=== PATIENT | male | born 1985 | race Two or more races ===

== ENCOUNTER 2016-07-05 18:15 | Emergency (ER) | payer SELFPAY ==
[~2016-07-05] VITALS: Ht 165.1 cm; Wt 63.5 kg
[2016-07-05 18:19] VITALS: BP 144/90
== END 2016-07-06 05:36 | disposition left against medical advice (07) ==
LOC: EDBD 18:15 → EDUNIT# 18:15 → ER 18:17
DX: R10.9 Unspecified abdominal pain (principal); M79.1 Myalgia; V89.2XXA Person injured in unspecified motor-vehicle accident, traffic, initial encounter; Y93.89 Activity, other specified; Y99.8 Other external cause status; Y92.89 Other specified places as the place of occurrence of the external cause; Z53.21 Procedure and treatment not carried out due to patient leaving prior to being seen by health care provider

== ENCOUNTER 2016-07-24 05:19 | Emergency (ER) | payer SELFPAY ==
[~2016-07-24] VITALS: Ht 162.6 cm; Wt 65.8 kg
[2016-07-24] MEDS ORDERED: SODIUM CHLORIDE 0.9% 1,000 ML IV ONE (08:10)
[2016-07-24 09:18] VITALS: BP 124/81
== END 2016-07-24 09:25 | disposition home or self-care (01) ==
LOC: ER 05:19
DX: F10.129 Alcohol abuse with intoxication, unspecified (principal); R40.1 Stupor; R42 Dizziness and giddiness
CPT/HCPCS: 70450; 93005; 96360

== ENCOUNTER 2016-09-28 13:03 | Emergency (ER) | payer SELFPAY ==
[~2016-09-28] VITALS: Ht 172.7 cm; Wt 72.6 kg
[2016-09-28] MEDS ORDERED: THIAMINE HCL 100 MG/ML 2ML VIAL ONE (13:40)
[2016-09-28 14:28] VITALS: BP 124/86
[2016-09-29] MEDS ORDERED: THIAMINE INJ 100 MG, MULTIPLE VITAMIN 10 ML, FOLIC ACID 1 MG, MAGNESIUM SULF SDV 50% 8 ... IV ONE ×5 (14:30)
== END 2016-09-28 19:00 | disposition home or self-care (01) ==
LOC: ER 13:03 → EDBD 13:03 → ER 19:00
DX: F10.120 Alcohol abuse with intoxication, uncomplicated (principal)
CPT/HCPCS: 96365; 96366

== ENCOUNTER 2017-01-19 20:58 | Emergency (ER) | payer MEDICAID ==
[~2017-01-19] VITALS: Ht 170.2 cm; Wt 77.1 kg
[2017-01-19 21:05] VITALS: BP 149/87
== END 2017-01-19 22:50 | disposition left against medical advice (07) ==
LOC: EDBD 20:58 → ER 21:00
DX: F10.10 Alcohol abuse, uncomplicated (principal); Z53.21 Procedure and treatment not carried out due to patient leaving prior to being seen by health care provider

== ENCOUNTER 2017-02-24 17:57 | Emergency (ER) | payer MEDICAID ==
[~2017-02-24] VITALS: Ht 162.6 cm; Wt 65.8 kg
[2017-02-24 18:10] VITALS: BP 147/94
[2017-02-24 19:13] LABS: Basophils # (auto) 0 uL; Basophils % (auto) 1.2 % (0.0-2.0); Eosinophils # (auto) 0 uL; Eosinophils % (auto) 0.4 % (0.0-7.0); Hematocrit 40.9 % (41.0-53.0); Hemoglobin 13.8 g/dL (13.5-17.5); Lymphocytes # (auto) 0.8 uL; Lymphocytes % (auto) 21.9 % (10.0-50.0); Mean Corpuscular Hemoglobin 33.9 pg (28.0-32.0); Mean Corpuscular Hgb Conc. 33.7 g/dL (32.0-36.0); Mean Corpuscular Volume 100.6 fL (80.0-100.0); Mean Platelet Volume 9.5 fL (6.9-10.8); Monocytes # (auto) 0.4 uL; Monocytes % (auto) 10.1 % (0.0-12.0); Neutrophils # (auto) 2.4 uL; Neutrophils % (auto) 66.4 % (37.0-80.0); Nucleated Red Blood Cells % 0.2 %; Platelet Count (auto) 95 10^3/uL (140-450); Red Cell Distribution Width 14.3 % (11.8-14.3); White Blood Cell 3.6 10^3/uL (4.4-10.8)
[2017-02-24 19:26] LABS: Albumin 4.2 g/dL (3.4-5.0); BUN/Creatinine Ratio 3.7; Calcium 11.2 mg/dL (8.5-10.1); Potassium 3.4 mmol/L (3.5-5.1)
[2017-02-24 19:28] LABS: Bilirubin, Total 0.7 mg/dL (0.2-1.0); Lactic Acid w/Reflex 8.7 mmol/L (0.4-2.0); Total Protein 8.9 g/dL (6.4-8.2)
[2017-02-24 19:49] LABS: REFLEX LACTIC ACID YES OR NO YES
[2017-02-24 21:20] LABS: Macrocytosis Slight; Platelet Estimate Decreased
== END 2017-02-24 20:31 | disposition left against medical advice (07) ==
LOC: EDBD 17:57 → ER 18:07
DX: F10.239 Alcohol dependence with withdrawal, unspecified (principal); R56.9 Unspecified convulsions; S00.512A Abrasion of oral cavity, initial encounter; W19.XXXA Unspecified fall, initial encounter; Y93.89 Activity, other specified; Y99.8 Other external cause status; Y92.89 Other specified places as the place of occurrence of the external cause
CPT/HCPCS: 36415; 70450; 80053; 80320; 83605; 85025; 93005

== ENCOUNTER 2017-04-13 10:07 | Emergency (ER) | payer MEDICAID ==
[~2017-04-13] VITALS: Ht 157.5 cm; Wt 69.9 kg
[2017-04-13 10:21] VITALS: BP 143/72
== END 2017-04-13 11:00 | disposition left against medical advice (07) ==
LOC: ER 10:07
DX: M54.5 Low back pain (principal); Z53.21 Procedure and treatment not carried out due to patient leaving prior to being seen by health care provider

== ENCOUNTER 2017-06-01 12:34 | Emergency (ER) | payer MEDICAID ==
[~2017-06-01] VITALS: Ht 152.4 cm; Wt 65.8 kg
[2017-06-01 12:48] VITALS: BP 127/82
[2017-06-01] MEDS ORDERED: SODIUM CHLORIDE 0.9% 1,000 ML IVB ONE (13:30)
== END 2017-06-01 20:22 | disposition left against medical advice (07) ==
LOC: EDBD 12:34 → ER 12:38
DX: F10.129 Alcohol abuse with intoxication, unspecified (principal); I25.2 Old myocardial infarction; Z53.29 Procedure and treatment not carried out because of patient's decision for other reasons
CPT/HCPCS: 36415; 80320; 96360; 99284; J7030

== ENCOUNTER 2017-06-19 13:07 | Emergency (ER) | payer MEDICAID ==
[~2017-06-19] VITALS: Ht 165.1 cm; Wt 72.6 kg
[2017-06-19 13:22] VITALS: BP 140/83
== END 2017-06-19 14:02 | disposition home or self-care (01) ==
LOC: EDBD 13:07 → EDUNIT# 13:07 → ER 13:07
DX: F10.129 Alcohol abuse with intoxication, unspecified (principal)

== ENCOUNTER 2017-06-24 18:51 | Emergency (ER) | payer MEDICAID ==
[~2017-06-24] VITALS: Ht 165.1 cm; Wt 68.0 kg
[2017-06-24] MEDS ORDERED: SODIUM CHLORIDE 0.9% 1,000 ML IV ONE (19:17)
[2017-06-24 20:04] VITALS: BP 145/87
== END 2017-06-24 21:11 | disposition home or self-care (01) ==
LOC: EDBD 18:51 → ER 18:58
DX: F10.129 Alcohol abuse with intoxication, unspecified (principal)
CPT/HCPCS: 36415; 80320; 94761; 96360; 99284; J7030

== ENCOUNTER 2017-07-06 06:50 | Inpatient (IN) | payer MEDICAID ==
[~2017-07-06] VITALS: Ht 162.6 cm; Wt 72.5 kg
[2017-07-06 07:54] LABS: Eosinophils # (auto) 0 uL; Eosinophils % (auto) 0.4 % (0.0-7.0); Hemoglobin 12.5 g/dL (13.5-17.5); Lymphocytes # (auto) 0.4 uL; Nucleated Red Blood Cells % 0.1 %; White Blood Cell 2.8 10^3/uL (4.4-10.8)
[2017-07-06 07:56] LABS: Basophils # (auto) 0 uL; Basophils % (auto) 1.3 % (0.0-2.0); Hematocrit 36.9 % (41.0-53.0); Lymphocytes % (auto) 12.5 % (10.0-50.0); Mean Corpuscular Hemoglobin 33.1 pg (28.0-32.0); Mean Corpuscular Hgb Conc. 33.9 g/dL (32.0-36.0); Mean Corpuscular Volume 97.6 fL (80.0-100.0); Monocytes # (auto) 0.3 uL; Monocytes % (auto) 9.4 % (0.0-12.0); Neutrophils # (auto) 2.2 uL; Neutrophils % (auto) 76.4 % (37.0-80.0); Platelet Count (auto) 32 10^3/uL (140-450); Red Blood Cells 3.78 10^6/uL (4.5-5.90); Red Cell Distribution Width 14.3 % (11.8-14.3)
[2017-07-06] MEDS ORDERED: SODIUM CHLORIDE 0.9% 1,000 ML IV ONE ×2 (08:00→08:57)
[2017-07-06 08:04] LABS: INR 0.92 (0.9-1.15); Partial Thromboplastin Time 23.8 sec (22.64-33.71)
[2017-07-06 08:11] LABS: Alanine Aminotransferase 80 U/L (16-61); Albumin 3.9 g/dL (3.4-5.0); Anion Gap 8 (5-15); Aspartate Aminotransferase 206 U/L (15-37); BUN/Creatinine Ratio 7.8; Blood Alcohol < 3.0 mg/dL (0-5); Blood Urea Nitrogen 7 mg/dL (7-18); Calcium 9.3 mg/dL (8.5-10.1); Carbon Dioxide 27 mmol/L (21-32); Chloride 100 mmol/L (98-107); GFR African American 127 mL/min; GFR Non-African American 105 mL/min; Glucose 115 mg/dL (74-106); Magnesium 1.7 mg/dL (1.6-2.6); Sodium 135 mmol/L (136-145)
[2017-07-06 08:16] LABS: Alkaline Phosphatase 176 U/L (45-117); Total Protein 8.2 g/dL (6.4-8.2)
[2017-07-06] MEDS ORDERED: LORazepam 2MG/ML-1ML VIAL ONE (10:54)
[2017-07-06 11:04] LABS: Urine Bacteria NONE SEEN /hpf (None Seen); Urine Blood Negative /uL (Negative); Urine Specific Gravity 1.004 (1.001-1.035); Urine WBC <1 /hpf (0 - 3)
[2017-07-06 11:13] LABS: Alcohol, Urine < 3.0 mg/dL (0-5); Amphetamine Screen, Urine NEGATIVE (NEGATIVE); Barbiturate Scree,Urine NEGATIVE (NEGATIVE); Benzodiazephine Screen, Urine NEGATIVE (NEGATIVE); Cannabinoid Screen, Urine NEGATIVE (NEGATIVE); Cocaine Screen, Urine NEGATIVE (NEGATIVE); Opiate Scree,Urine NEGATIVE (NEGATIVE); Phencyclidine Screen, Urine NEGATIVE (NEGATIVE)
[2017-07-06] MEDS ORDERED: chlordiazePOXIDE HCL 25 MG CAP PO PRN (12:30)
[2017-07-06] MEDS ORDERED: ONDANSETRON HCL 4 MG/2 ML VIAL IV PRN (12:30)
[2017-07-06] MEDS ORDERED: LORazepam 2MG/ML-1ML VIAL IV PRN (12:30)
[2017-07-06] MEDS ORDERED: MORPHINE SULFATE 4 MG/ML SYR/VIAL IV PRN (12:30)
[2017-07-06] MEDS ORDERED: traMADol HCL 50 MG TAB PO PRN (12:30)
[2017-07-06] MEDS ORDERED: PANTOPRAZOLE 40 MG TAB PO ONE ×2 (13:00→14:15)
[2017-07-06] MEDS: THIAMINE INJ 100 MG, MULTIPLE VITAMIN 10 ML, FOLIC ACID 1 MG, MAGNESIUM SULF SDV 50% 8 ... IV SCH ×5 (13:43)
[2017-07-06] MEDS ORDERED: GABAPENTIN 300 MG CAP PO ONE (14:15)
[2017-07-06] MEDS: MAGNESIUM SULFATE 1GM/100ML 100 ML IV SCH ×2 (15:27→18:00)
[2017-07-06 20:46] VITALS: BP 139/73
[2017-07-06 21:43] VITALS: BP 139/73
[2017-07-06] MEDS: GABAPENTIN 300 MG CAP PO SCH (22:23)
[2017-07-07] MEDS: SODIUM CHLORIDE 0.9% 1,000 ML IV SCH ×4 (00:15→20:15)
[2017-07-07] MEDS: chlordiazePOXIDE HCL 25 MG CAP PO PRN ×4 (01:06→20:15)
[2017-07-07 05:00] VITALS: BP 131/79
[2017-07-07] MEDS: GABAPENTIN 300 MG CAP PO SCH ×3 (05:36→22:07)
[2017-07-07 07:00] LABS: Basophils # (auto) 0 uL; Eosinophils # (auto) 0 uL; Lymphocytes # (auto) 0.8 uL; Monocytes # (auto) 0.4 uL
[2017-07-07 07:02] LABS: Basophils % (auto) 0.8 % (0.0-2.0); Eosinophils % (auto) 0.6 % (0.0-7.0); Hematocrit 36.6 % (41.0-53.0); Hemoglobin 12.3 g/dL (13.5-17.5); Lymphocytes % (auto) 21.7 % (10.0-50.0); Mean Corpuscular Hemoglobin 33.4 pg (28.0-32.0); Mean Corpuscular Hgb Conc. 33.7 g/dL (32.0-36.0); Mean Corpuscular Volume 98.9 fL (80.0-100.0); Monocytes % (auto) 10.9 % (0.0-12.0); Neutrophils # (auto) 2.4 uL; Nucleated Red Blood Cells % 0.2 %; Platelet Count (auto) 29 10^3/uL (140-450); Red Cell Distribution Width 14.6 % (11.8-14.3); White Blood Cell 3.6 10^3/uL (4.4-10.8)
[2017-07-07 07:13] LABS: Albumin 3.6 g/dL (3.4-5.0); Bilirubin, Total 1.2 mg/dL (0.2-1.0); Calcium 8.9 mg/dL (8.5-10.1); Magnesium 2.7 mg/dL (1.6-2.6); Phosphorus 3.5 mg/dL (2.5-4.90); Potassium 3.1 mmol/L (3.5-5.1)
[2017-07-07 09:10] VITALS: BP 148/77
[2017-07-07] MEDS ORDERED: PANTOPRAZOLE 40 MG TAB PO SCH ×2 (10:00)
[2017-07-07] MEDS ORDERED: POTASSIUM CHLORIDE 40 MEQ, LIDOCAINE 1% (LOCAL ANESTH.) 4 ML in SODIUM CHL 0.9% 100 ML IV ONE (10:15)
[2017-07-07] MEDS ORDERED: THIAMINE INJ 100 MG, MULTIPLE VITAMIN 10 ML, FOLIC ACID 1 MG, MAGNESIUM SULF SDV 50% 8 ... IV SCH ×5 (12:00)
[2017-07-07 12:56] VITALS: BP_SYST 102; BP_SYST 115; BP_DIAS 56; BP_DIAS 60
[2017-07-07] MEDS: THIAMINE INJ 100 MG, MULTIPLE VITAMIN 10 ML, FOLIC ACID 1 MG, MAGNESIUM SULF SDV 50% 8 ... IV SCH ×5 (13:53)
[2017-07-07 17:00] VITALS: BP 124/68
[2017-07-07 22:00] VITALS: BP 138/95
[2017-07-08] MEDS: chlordiazePOXIDE HCL 25 MG CAP PO PRN (03:56)
[2017-07-08 05:05] VITALS: BP 144/69
[2017-07-08] MEDS: GABAPENTIN 300 MG CAP PO SCH (05:57)
[2017-07-08] MEDS: SODIUM CHLORIDE 0.9% 1,000 ML IV SCH (06:15)
[2017-07-08 07:16] LABS: Calcium 9.5 mg/dL (8.5-10.1); Potassium 3.4 mmol/L (3.5-5.1)
[2017-07-08 07:19] LABS: Albumin 4.2 g/dL (3.4-5.0); BUN/Creatinine Ratio 7.7
[2017-07-08 07:22] LABS: Bilirubin, Total 1.1 mg/dL (0.2-1.0); Total Protein 8.7 g/dL (6.4-8.2)
[2017-07-08 07:27] LABS: Basophils # (auto) 0 uL; Eosinophils # (auto) 0.1 uL; Lymphocytes # (auto) 1.5 uL; Monocytes # (auto) 0.6 uL; White Blood Cell 5.5 10^3/uL (4.4-10.8)
[2017-07-08 07:30] LABS: Basophils % (auto) 0.8 % (0.0-2.0); Eosinophils % (auto) 1.9 % (0.0-7.0); Hematocrit 38.6 % (41.0-53.0); Lymphocytes % (auto) 27.2 % (10.0-50.0); Mean Corpuscular Hemoglobin 33.3 pg (28.0-32.0); Mean Corpuscular Hgb Conc. 33.7 g/dL (32.0-36.0); Mean Corpuscular Volume 98.8 fL (80.0-100.0); Monocytes % (auto) 10.2 % (0.0-12.0); Neutrophils # (auto) 3.3 uL; Neutrophils % (auto) 59.9 % (37.0-80.0); Nucleated Red Blood Cells % 0.2 %; Platelet Count (auto) 50 10^3/uL (140-450); Red Cell Distribution Width 14.4 % (11.8-14.3)
== END 2017-07-08 08:00 | disposition left against medical advice (07) | DRG 770 ==
LOC: ER 06:50 → EDBD 06:50 → OVERFLOW 06:51 → WEST WING 19:50
PROVIDERS: ADMIT Internal Medicine; ATTEND Internal Medicine
DX: F10.231 Alcohol dependence with withdrawal delirium (principal); G93.41 Metabolic encephalopathy; G40.909 Epilepsy, unspecified, not intractable, without status epilepticus; Z53.21 Procedure and treatment not carried out due to patient leaving prior to being seen by health care provider; Z91.19 Patient's noncompliance with other medical treatment and regimen
CPT/HCPCS: 36415; 70450; 71045; 80053; 80307; 80320; 81001; 82962; 83735; 84100; 84484; 85025; 85610; 85730; 93005; 96361; 96374; J2001

== ENCOUNTER 2017-08-02 16:52 | Emergency (ER) | payer MEDICAID ==
[~2017-08-02] VITALS: Ht 162.6 cm; Wt 68.0 kg
[2017-08-02] MEDS ORDERED: SODIUM CHLORIDE 0.9% 1,000 ML IVB ONE (17:53)
[2017-08-02 19:45] VITALS: BP 129/84
== END 2017-08-02 19:49 | disposition home or self-care (01) ==
LOC: EDBD 16:52 → ER 16:52
DX: F10.129 Alcohol abuse with intoxication, unspecified (principal)
CPT/HCPCS: 36415; 80320

== ENCOUNTER 2017-08-16 14:11 | Emergency (ER) | payer MEDICAID ==
[~2017-08-16] VITALS: Ht 167.6 cm; Wt 74.8 kg
[2017-08-16 14:15] VITALS: BP 122/87
[2017-08-16 15:00] LABS: Basophils # (auto) 0 uL; Basophils % (auto) 1.3 % (0.0-2.0); Eosinophils # (auto) 0.1 uL; Eosinophils % (auto) 1.9 % (0.0-7.0); Hematocrit 38.3 % (41.0-53.0); Hemoglobin 12.8 g/dL (13.5-17.5); Lymphocytes # (auto) 1.4 uL; Mean Corpuscular Hemoglobin 31.9 pg (28.0-32.0); Mean Corpuscular Hgb Conc. 33.3 g/dL (32.0-36.0); Mean Corpuscular Volume 95.5 fL (80.0-100.0); Monocytes # (auto) 0.2 uL; Monocytes % (auto) 7.5 % (0.0-12.0); Neutrophils # (auto) 1.3 uL; Neutrophils % (auto) 42.3 % (37.0-80.0); Nucleated Red Blood Cells % 0.1 %; Platelet Count (auto) 125 10^3/uL (140-450); Red Blood Cells 4.01 10^6/uL (4.5-5.90); Red Cell Distribution Width 14.8 % (11.8-14.3)
[2017-08-16 15:19] LABS: Albumin 4.1 g/dL (3.4-5.0); BUN/Creatinine Ratio 13.2; Calcium 8.7 mg/dL (8.5-10.1)
[2017-08-16 15:22] LABS: Bilirubin, Total 0.3 mg/dL (0.2-1.0); Total Protein 8.5 g/dL (6.4-8.2)
== END 2017-08-16 22:28 | disposition left against medical advice (07) ==
LOC: ER 14:11 → EDBD 14:11 → ER 22:28
DX: R10.9 Unspecified abdominal pain (principal); Z53.21 Procedure and treatment not carried out due to patient leaving prior to being seen by health care provider
CPT/HCPCS: 36415; 80053; 85025

== ENCOUNTER 2017-08-27 01:08 | Emergency (ER) | payer MEDICAID ==
[~2017-08-27] VITALS: Ht 162.6 cm; Wt 77.1 kg
[2017-08-27 04:48] VITALS: BP 133/93
== END 2017-08-27 05:54 | disposition home or self-care (01) ==
LOC: EDBD 01:08 → ER 01:08
DX: B35.4 Tinea corporis (principal)

== ENCOUNTER 2017-11-01 17:05 | Emergency (ER) | payer MEDICAID ==
[~2017-11-01] VITALS: Ht 165.1 cm; Wt 81.6 kg
[2017-11-01] MEDS ORDERED: SODIUM CHLORIDE 0.9% 1,000 ML IVB ONE (17:37)
[2017-11-01] MEDS ORDERED: LORazepam 2MG/ML-1ML VIAL IV ONE (17:45)
[2017-11-01 18:03] LABS: Basophils # (auto) 0 uL; Eosinophils # (auto) 0 uL; Eosinophils % (auto) 0.4 % (0.0-7.0); Lymphocytes # (auto) 0.3 uL; Lymphocytes % (auto) 10.1 % (10.0-50.0); Neutrophils % (auto) 84.2 % (37.0-80.0)
[2017-11-01 18:05] LABS: Basophils % (auto) 0.7 % (0.0-2.0); Hematocrit 33.9 % (41.0-53.0); Hemoglobin 11.6 g/dL (13.5-17.5); Mean Corpuscular Hemoglobin 33.2 pg (28.0-32.0); Mean Corpuscular Hgb Conc. 34.1 g/dL (32.0-36.0); Mean Corpuscular Volume 97.4 fL (80.0-100.0); Monocytes # (auto) 0.2 uL; Monocytes % (auto) 4.6 % (0.0-12.0); Neutrophils # (auto) 2.8 uL; Red Blood Cells 3.48 10^6/uL (4.5-5.90); Red Cell Distribution Width 15.9 % (11.8-14.3); White Blood Cell 3.3 10^3/uL (4.4-10.8)
[2017-11-01 18:22] LABS: Platelet Count (auto) 45 10^3/uL (140-450)
[2017-11-01 18:34] LABS: Albumin 3.7 g/dL (3.4-5.0); BUN/Creatinine Ratio 9.2; Bilirubin, Total 0.4 mg/dL (0.2-1.0); Calcium 8.3 mg/dL (8.5-10.1); Potassium 4.1 mmol/L (3.5-5.1); Total Protein 7.6 g/dL (6.4-8.2)
[2017-11-01] MEDS ORDERED: chlordiazePOXIDE HCL 25 MG CAP PO ONE (19:30)
[2017-11-01 19:50] VITALS: BP 138/86
== END 2017-11-01 19:58 | disposition home or self-care (01) ==
LOC: ER 17:05 → EDUNIT# 17:05 → EDBD 17:05 → ER 19:58
DX: F41.9 Anxiety disorder, unspecified (principal); F10.230 Alcohol dependence with withdrawal, uncomplicated; R56.9 Unspecified convulsions
CPT/HCPCS: 36415; 80053; 80320; 85025; 96374; 99284; J2060; J7030

== ENCOUNTER 2018-02-17 20:58 | Emergency (ER) | payer MEDICAID ==
[~2018-02-17] VITALS: Ht 170.2 cm; Wt 72.6 kg
[2018-02-17 21:39] LABS: Eosinophils # (auto) 0 uL; Monocytes # (auto) 0.4 uL; Platelet Count (auto) 86 10^3/uL (140-450)
[2018-02-17 21:48] LABS: Basophils # (auto) 0 uL; Basophils % (auto) 0.9 % (0.0-2.0); Hematocrit 38.2 % (41.0-53.0); Hemoglobin 12.8 g/dL (13.5-17.5); Lymphocytes % (auto) 20.5 % (10.0-50.0); Mean Corpuscular Hemoglobin 31.8 pg (28.0-32.0); Mean Corpuscular Hgb Conc. 33.6 g/dL (32.0-36.0); Mean Corpuscular Volume 94.7 fL (80.0-100.0); Neutrophils # (auto) 3.5 uL; Neutrophils % (auto) 69.6 % (37.0-80.0); Nucleated Red Blood Cells % 0.1 %; Red Blood Cells 4.03 10^6/uL (4.5-5.90); Red Cell Distribution Width 16.7 % (11.8-14.3)
[2018-02-17 21:54] LABS: Albumin 3.7 g/dL (3.4-5.0); BUN/Creatinine Ratio 11.9; Calcium 8.2 mg/dL (8.5-10.1); Potassium 3.7 mmol/L (3.5-5.1)
[2018-02-17 21:57] LABS: Bilirubin, Total 0.3 mg/dL (0.2-1.0); Total Protein 8.6 g/dL (6.4-8.2)
[2018-02-18 00:47] VITALS: BP 125/84
== END 2018-02-18 07:35 | disposition left against medical advice (07) ==
LOC: ER 20:58
DX: R10.9 Unspecified abdominal pain (principal); Z53.21 Procedure and treatment not carried out due to patient leaving prior to being seen by health care provider
CPT/HCPCS: 36415; 74176; 80053; 82150; 83690; 85025

== ENCOUNTER 2018-03-22 01:11 | Emergency (ER) | payer MEDICAID ==
[~2018-03-22] VITALS: Ht 162.6 cm; Wt 81.6 kg
[2018-03-22 01:55] LABS: Hematocrit 41.6 % (41.0-53.0); Hemoglobin 13.6 g/dL (13.5-17.5); Mean Corpuscular Hemoglobin 31.2 pg (28.0-32.0); Mean Corpuscular Hgb Conc. 32.7 g/dL (32.0-36.0); Mean Corpuscular Volume 95.4 fL (80.0-100.0); Platelet Count (auto) 142 10^3/uL (140-450); Red Blood Cells 4.35 10^6/uL (4.5-5.90); Red Cell Distribution Width 18.2 % (11.8-14.3); White Blood Cell 3.7 10^3/uL (4.4-10.8)
[2018-03-22 01:59] LABS: Band Neutrophils % (manual) 0; Basophils % (manual) 0 (0.0-2.0); Blast Cells 0; Eosinophils % (manual) 0 (0-7); Metamyelocytes % 0; Myelocytes % 0; Promyelocytes % 0
[2018-03-22 02:11] LABS: Lymphocytes % (manual) 66 (10.0-50.0); Monocytes % (manual) 3 (0-12)
[2018-03-22 02:12] LABS: Reactive Lymphocytes 2
[2018-03-22 02:15] LABS: Alanine Aminotransferase 44 U/L (16-61); Albumin 4.1 g/dL (3.4-5.0); Anion Gap 11 (5-15); Aspartate Aminotransferase 103 U/L (15-37); BUN/Creatinine Ratio 8.1; Blood Urea Nitrogen 6 mg/dL (7-18); Calcium 8.5 mg/dL (8.5-10.1); Carbon Dioxide 26 mmol/L (21-32); Chloride 107 mmol/L (98-107); GFR African American 159 mL/min; GFR Non-African American 131 mL/min; Glucose 78 mg/dL (74-106); Magnesium 2.3 mg/dL (1.6-2.6); Potassium 3.8 mmol/L (3.5-5.1); Sodium 144 mmol/L (136-145)
[2018-03-22 02:20] LABS: Alkaline Phosphatase 142 U/L (45-117); Bilirubin, Total 0.3 mg/dL (0.2-1.0); Total Protein 8.8 g/dL (6.4-8.2)
[2018-03-22] MEDS ORDERED: LORazepam 0.5 MG TAB PO ONE (06:45)
[2018-03-22] MEDS ORDERED: SODIUM CHLORIDE 0.9% 2,000 ML IV ONE (07:45)
[2018-03-22 10:59] VITALS: BP 99/43
== END 2018-03-22 11:04 | disposition home or self-care (01) ==
LOC: EDBD 01:11 → ER 01:14
DX: F10.20 Alcohol dependence, uncomplicated (principal)
CPT/HCPCS: 36415; 71045; 80053; 80320; 83735; 84484; 85007; 85027; 93005; 99285; J7030

== ENCOUNTER 2018-05-27 12:11 | Emergency (ER) | payer MEDICAID ==
[~2018-05-27] VITALS: Ht 162.6 cm; Wt 65.8 kg
[2018-05-27] MEDS ORDERED: SODIUM CHLORIDE 0.9% 1,000 ML IV ONE (12:12)
[2018-05-27] MEDS ORDERED: KETOROLAC TROMETH 30 MG/ML 1ML VIAL IV ONE (12:15)
[2018-05-27 12:23] VITALS: BP 140/82
== END 2018-05-27 13:42 | disposition left against medical advice (07) ==
LOC: EDBD 12:11 → ER 12:36
DX: F10.129 Alcohol abuse with intoxication, unspecified (principal); R07.89 Other chest pain
CPT/HCPCS: 94761

== ENCOUNTER 2018-07-16 18:51 | Emergency (ER) | payer MEDICAID ==
[~2018-07-16] VITALS: Ht 162.6 cm; Wt 69.9 kg
[2018-07-16 19:33] LABS: Basophils # (auto) 0 uL; Basophils % (auto) 1.5 % (0.0-2.0); Eosinophils # (auto) 0 uL; Eosinophils % (auto) 0.9 % (0.0-7.0); Hematocrit 44.9 % (41.0-53.0); Hemoglobin 14.8 g/dL (13.5-17.5); Lymphocytes # (auto) 1.1 uL; Lymphocytes % (auto) 37.9 % (10.0-50.0); Mean Corpuscular Hemoglobin 31.9 pg (28.0-32.0); Mean Corpuscular Hgb Conc. 33.1 g/dL (32.0-36.0); Mean Corpuscular Volume 96.6 fL (80.0-100.0); Monocytes # (auto) 0.3 uL; Neutrophils # (auto) 1.5 uL; Neutrophils % (auto) 50.7 % (37.0-80.0); Nucleated Red Blood Cells % 0.1 %; Platelet Count (auto) 117 10^3/uL (140-450); Red Blood Cells 4.65 10^6/uL (4.5-5.90); White Blood Cell 2.9 10^3/uL (4.4-10.8)
[2018-07-16 19:56] LABS: Albumin 4.2 g/dL (3.4-5.0); BUN/Creatinine Ratio 10.4; Calcium 8.8 mg/dL (8.5-10.1); Potassium 4.3 mmol/L (3.5-5.1)
[2018-07-16 20:00] LABS: Bilirubin, Total 0.2 mg/dL (0.2-1.0); Total Protein 9.3 g/dL (6.4-8.2)
[2018-07-16] MEDS ORDERED: SODIUM CHLORIDE 0.9% 1,000 ML IV ONE (20:00)
[2018-07-16] MEDS ORDERED: THIAMINE HCL 100 MG TAB PO ONE (20:30)
[2018-07-16] MEDS ORDERED: MAGNESIUM OXIDE 400 MG TAB PO ONE (20:30)
[2018-07-16] MEDS ORDERED: FOLIC ACID 1 MG TAB PO ONE (20:30)
[2018-07-16] MEDS ORDERED: MVI in SODIUM CHLORIDE 0.9% 1,010 ML ONE (20:41)
[2018-07-16 23:11] LABS: Urine WBC None Seen /hpf (0 - 3)
[2018-07-16 23:30] LABS: Urine Bacteria NONE SEEN /hpf (None Seen); Urine Blood Negative /uL (Negative); Urine Specific Gravity 1.009 (1.001-1.035)
[2018-07-16 23:46] LABS: Amphetamine Screen, Urine NEGATIVE (NEGATIVE); Barbiturate Scree,Urine NEGATIVE (NEGATIVE); Benzodiazephine Screen, Urine NEGATIVE (NEGATIVE); Cannabinoid Screen, Urine NEGATIVE (NEGATIVE); Opiate Scree,Urine NEGATIVE (NEGATIVE); Phencyclidine Screen, Urine NEGATIVE (NEGATIVE)
[2018-07-16 23:55] LABS: Cocaine Screen, Urine NEGATIVE (NEGATIVE)
[2018-07-17 00:41] LABS: Albumin 3.5 g/dL (3.4-5.0); BUN/Creatinine Ratio 7.2; Calcium 7.5 mg/dL (8.5-10.1)
[2018-07-17 00:48] LABS: Bilirubin, Total 0.1 mg/dL (0.2-1.0); Blood Alcohol 389.5 mg/dL (0-5)
[2018-07-17 01:15] VITALS: BP 129/88
[2018-07-17] MEDS ORDERED: SODIUM CHLORIDE 0.9% 1,000 ML IV ONE (02:00)
[2018-07-17] MEDS ORDERED: MULTIPLE VITAMIN 10 ML in SODIUM CHLORIDE 0.9% 1,000 ML IV SCH (12:00)
[2018-07-17] MEDS ORDERED: MULTIPLE VITAMIN 10 ML, MAGNESIUM SULF SDV 50% 8 MEQ in SODIUM CHLORIDE 0.9% 1,000 ML IV SCH (12:00)
== END 2018-07-17 07:30 | disposition home or self-care (01) ==
LOC: EDBD 18:51 → ER 18:51
DX: G92 Toxic encephalopathy (principal); F10.129 Alcohol abuse with intoxication, unspecified
CPT/HCPCS: 36415; 80053; 80307; 80320; 81001; 85025; 96365; 99284; J3411; J3475; J7030

== ENCOUNTER 2018-08-29 14:00 | Emergency (ER) | payer MEDICAID ==
[~2018-08-29] VITALS: Ht 160 cm; Wt 68.0 kg
[2018-08-29 17:02] VITALS: BP 119/80
== END 2018-08-29 17:03 | disposition home or self-care (01) ==
LOC: ER 14:00 → EDBD 14:00 → ER 17:03
DX: S40.022A Contusion of left upper arm, initial encounter (principal); S40.021A Contusion of right upper arm, initial encounter; F10.10 Alcohol abuse, uncomplicated; X58.XXXA Exposure to other specified factors, initial encounter; Y93.89 Activity, other specified; Y92.89 Other specified places as the place of occurrence of the external cause; Y99.8 Other external cause status

== ENCOUNTER 2018-11-17 15:09 | Emergency (ER) | payer MEDICAID ==
[~2018-11-17] VITALS: Ht 167.6 cm; Wt 56.7 kg
[2018-11-17] MEDS ORDERED: SODIUM CHLORIDE 0.9% 1,000 ML IVB ONE (15:20)
[2018-11-17] MEDS ORDERED: THIAMINE 100mg/ml INJ (200mg/2ml VIAL) IV ONE (15:30)
[2018-11-17] MEDS ORDERED: SODIUM CHLORIDE 0.9% 2,000 ML IV ONE (17:45)
[2018-11-17 19:12] LABS: Albumin 4.1 g/dL (3.4-5.0); BUN/Creatinine Ratio 9.8; Calcium 8.4 mg/dL (8.5-10.1); Potassium 4.4 mmol/L (3.5-5.1)
[2018-11-17 19:17] LABS: Bilirubin, Total 0.4 mg/dL (0.2-1.0); Total Protein 8.6 g/dL (6.4-8.2)
[2018-11-17 20:50] LABS: Basophils # (auto) 0 uL; Eosinophils # (auto) 0 uL; Lymphocytes # (auto) 0.8 uL; Monocytes # (auto) 0.3 uL; Monocytes % (auto) 11.7 % (0.0-12.0); Neutrophils # (auto) 1.2 uL; Nucleated Red Blood Cells % 0.1 %; Platelet Count (auto) 72 10^3/uL (140-450)
[2018-11-17 20:57] LABS: Basophils % (auto) 1.2 % (0.0-2.0); Eosinophils % (auto) 1.2 % (0.0-7.0); Hematocrit 35.3 % (41.0-53.0); Hemoglobin 11.9 g/dL (13.5-17.5); Lymphocytes % (auto) 35.7 % (10.0-50.0); Mean Corpuscular Hemoglobin 33.6 pg (28.0-32.0); Mean Corpuscular Hgb Conc. 33.6 g/dL (32.0-36.0); Mean Corpuscular Volume 99.8 fL (80.0-100.0); Neutrophils % (auto) 50.2 % (37.0-80.0); Red Blood Cells 3.54 10^6/uL (4.5-5.90); Red Cell Distribution Width 14.9 % (11.8-14.3); White Blood Cell 2.3 10^3/uL (4.4-10.8)
[2018-11-17] MEDS ORDERED: SODIUM CHLORIDE 0.9% 1,000 ML IV ONE (21:45)
[2018-11-18 01:17] VITALS: BP 117/78
== END 2018-11-18 01:20 | disposition home or self-care (01) ==
LOC: EDBD 15:09 → ER 15:13
DX: F10.10 Alcohol abuse, uncomplicated (principal)
CPT/HCPCS: 36415; 70450; 72125; 80053; 80320; 85025; 96374; 99284; J3411; J7030

== ENCOUNTER 2018-11-18 12:08 | Inpatient (IN) | payer MEDICAID ==
[~2018-11-18] VITALS: Ht 165.1 cm; Wt 66.0 kg
--- NOTE | 2018-11-18 10:25 | NUR ---
IV insertion IV access obtained, via clean sterile technique by inserting 22 gauge catheters at the left and right hand after 2 attempt(s). IV secured properly. No trauma to site. Patient tolerated well. Addendum: 11/19/18 at 0632 by Ignacio Resendiz RN Wrong time. Actual time at 2225.
[2018-11-18] MEDS ORDERED: SODIUM CHLORIDE 0.9% 1,000 ML IV ONE ×3 (12:24→15:46)
[2018-11-18] MEDS ORDERED: ONDANSETRON HCL 4 MG/2 ML VIAL IV ONE (12:30)
[2018-11-18] MEDS ORDERED: THIAMINE 100mg/ml INJ (200mg/2ml VIAL) IV ONE ×2 (12:30→17:00)
[2018-11-18] MEDS ORDERED: chlordiazePOXIDE HCL 5 MG CAP PO ONE ×2 (13:00→13:15)
[2018-11-18] MEDS ORDERED: LORazepam 2MG/ML-1ML VIAL ONE (15:44)
[2018-11-18] MEDS ORDERED: LORazepam 2MG/ML-1ML VIAL IV ONE (15:45)
[2018-11-18] MEDS ORDERED: FOLIC ACID 1 MG, MULTIPLE VITAMIN 10 ML, MAGNESIUM SULF SDV 50% 8 MEQ, THIAMINE INJ 100... INJ ONE ×5 (16:00)
[2018-11-18 16:29] LABS: Basophils # (auto) 0.1 uL; Basophils % (auto) 0.8 % (0.0-2.0); Eosinophils # (auto) 0 uL; Hematocrit 38.6 % (41.0-53.0); Hemoglobin 12.8 g/dL (13.5-17.5); Lymphocytes # (auto) 0.9 uL; Lymphocytes % (auto) 11.3 % (10.0-50.0); Mean Corpuscular Hemoglobin 33.5 pg (28.0-32.0); Mean Corpuscular Hgb Conc. 33.2 g/dL (32.0-36.0); Mean Corpuscular Volume 100.8 fL (80.0-100.0); Monocytes # (auto) 0.5 uL; Monocytes % (auto) 6.6 % (0.0-12.0); Neutrophils # (auto) 6.7 uL; Neutrophils % (auto) 81.3 % (37.0-80.0); Platelet Count (auto) 67 10^3/uL (140-450); Red Blood Cells 3.83 10^6/uL (4.5-5.90); White Blood Cell 8.2 10^3/uL (4.4-10.8)
[2018-11-18 16:34] LABS: Albumin 3.8 g/dL (3.4-5.0); Calcium 8.2 mg/dL (8.5-10.1); Potassium 3.3 mmol/L (3.5-5.1)
[2018-11-18 16:37] LABS: BUN/Creatinine Ratio 3.4; Bilirubin, Total 0.7 mg/dL (0.2-1.0)
[2018-11-18] MEDS ORDERED: MORPHINE SULFATE 4 MG/ML SYR/VIAL IV PRN (17:00)
[2018-11-18] MEDS ORDERED: LORazepam 2MG/ML-1ML VIAL IV PRN (17:00)
[2018-11-18] MEDS ORDERED: LACTULOSE 20Gm/30ML SOLN PO PRN (17:00)
[2018-11-18] MEDS ORDERED: traMADol HCL 50 MG TAB PO PRN (17:00)
[2018-11-18] MEDS ORDERED: NITROGLYCERIN 0.4 MG SL TAB SL PRN (17:00)
[2018-11-18] MEDS ORDERED: MORPHINE SULF INJ 2 MG/ML SYRINGE 1ML IV PRN (17:00)
[2018-11-18] MEDS ORDERED: chlordiazePOXIDE HCL 25 MG CAP PO PRN (17:00)
[2018-11-18] MEDS ORDERED: PROMETHAZINE HCL 25 MG/ML 1ML IV PRN (17:00)
[2018-11-18] MEDS: SOD CHL 0.9%/ KCL 40MEQ 1,000 ML IV SCH (17:06)
[2018-11-18] MEDS: LORazepam 2MG/ML-1ML VIAL IV PRN (17:27)
[2018-11-18] MEDS: chlordiazePOXIDE HCL 25 MG CAP PO SCH ×2 (17:42→23:53)
--- NOTE | 2018-11-18 18:20 | NUR ---
RECEIVED REPORT FROM SEMICONDUCTORS WAFER BREAKER.
--- NOTE | 2018-11-18 18:35 | NUR ---
Telemetry admit from ER RUBIO HDZ admitted to Telemetry unit after SBAR received. Patient oriented to MAYTE MONTES, RN primary RN, unit, room, bed, and unit policies regarding patient care and visiting hours. Patient now on continuous telemetry monitoring. PT weighed by bed scale and encouraged to call if they need something. All questions and concerns addressed, patient confused. PT UNAWARE THAT HE IS IN THE HOSPITAL AND FOR THE REASON HE IS ADMITTED. PT IS ANXIOUS AND WANTS TO GET OUT OF BED. PT BED ALARM SET.
--- NOTE | 2018-11-18 19:30 | NUR ---
Closing shift note. PT RESTING IN BED EATING DINNER. NO S/S OF DISTRESS OR SOB. REINFORCED EDUCATION ON THE IMPORTANCE OF THE PT STAYING IN BED. BED ALARM ON AND CLERICAL SPECIALIST RN GIVEN REPORT AND NOTIFIED OF PT CONFUSION AND WANTING TO GET OUT OF BED.
--- NOTE | 2018-11-18 19:30 | NUR ---
Opening Shift Note Assumed care of patient, awake and alert x2. Patient reoriented to place and situation, patient did not verbalize understanding. No S/S of distress/SOB noted. Patient denies pain at this time. Instructed on plan of care and to call for assistance as needed. Bed is locked in lowest position, side rails x 3 are up, call light is within reach, and bed alarm is on.
--- NOTE | 2018-11-18 19:40 | NUR ---
PATIENT REORIENTED After bed alarm went off and upon entering room, patient was noted standing up from bed and was noted to push the code blue button. Code blue button was cancelled and patient was reoriented to person, place, time, and situation. Patient was assisted back into bed. Patient was noted to have both IV's from right forearm and left AC out. Patient is laying in bed with even and unlabored breathing. No S/S of distress/SOB noted. Patient was reeducated to stay in bed and call for assistance as needed. Bed is locked in lowest position, side rails x 3 are up, call light is within reach, and bed alarm is on.
--- NOTE | 2018-11-18 20:30 | NUR ---
IV INSERTION UNSUCCESSFUL This RN attempted to insert IV, but attempt was unsuccessful. Roshni RN also attempted to insert IV but was unsuccessful. Charge Nurse notified and will attempt at a later time.
--- NOTE | 2018-11-18 21:30 | NUR ---
ENDORSED PATIENT CARE TO IGNACIO DIXON Patient is laying in bed with even and unlabored breathing. No S/S of distress/SOB noted. Bed is locked in lowest position, side rails x 3 are up, call light is within reach, bed alarm is on, and sitter noted at bedside for safety precautions. Patient care endorsed to Ignacio DIXON.
--- NOTE | 2018-11-18 21:35 | NUR ---
PATIENT RECEIVED FROM [place] Patient has been transferred from [facility]. Report has been received from Lyndsey DIXON. The patient awake, alert and oriented x3. No S/S of distress/SOB or pain noted. Instructed on POC and to call for assist PRN, will continue to monitor for changes Q1hr and PRN. Bed is locked at lowest position with bed alarm set. Sitter is present in room.
[2018-11-18 22:00] VITALS: BP 134/87
--- NOTE | 2018-11-18 22:25 | NUR ---
IV insertion IV access obtained, via clean sterile technique by inserting 22 gauge catheters at the left and right hand after 2 attempt(s). IV secured properly. No trauma to site. Patient tolerated well.
--- NOTE | 2018-11-19 04:15 | NUR ---
SECURITY CALLED The patient stated that he wanted to leave the hospital and began putting on his clothes. He demanded that he was disconnected from the IV pump. Patient is still confused and will not sit back down in bed. When asked why he wanted to leave he stated " I need a drink". Security has been called.
--- NOTE | 2018-11-19 04:24 | NUR ---
SECURITY ARRIVED Security arrived at the patient's room. The patient stated that he wanted to leave so that he could drink beer. He then stated that he will stay and will not leave.
--- NOTE | 2018-11-19 04:29 | NUR ---
REFUSAL The patient is refusing to wear his tele box and is refusing IV fluids. The patient has been educated about the tele box and IV fluids. He states that he can not get any sleep with the box because he gets "tangled in the cords."
[2018-11-19 05:00] VITALS: BP 130/74
[2018-11-19] MEDS: SOD CHL 0.9%/ KCL 40MEQ 1,000 ML IV SCH ×2 (06:01→12:02)
[2018-11-19] MEDS: chlordiazePOXIDE HCL 25 MG CAP PO SCH ×2 (06:06→12:01)
--- NOTE | 2018-11-19 07:00 | NUR ---
CLOSING NOTE Care has been endorsed to Maggi DIXON.
--- NOTE | 2018-11-19 07:20 | NUR ---
Opening Shift Note Received report from Domi DIXON. Assumed care of patient, asleep. No S/S of distress/SOB or pain. Sitter at bedside. Noted patient not hooked to IV fluids, and tele box due to refusal despite importance/ indications explained. Instructed on POC and to call for assist PRN, will continue to monitor for changes Q1hr and PRN.
[2018-11-19 09:00] VITALS: BP 127/96
--- NOTE | 2018-11-19 09:50 | NUR ---
URINE SAMPLE OBTAINED, SENT TO LAB FOR UA AND CULTURE.
[2018-11-19] MEDS ORDERED: THIAMINE 100mg/ml INJ (200mg/2ml VIAL) IV SCH (10:00)
[2018-11-19] MEDS ORDERED: PANTOPRAZOLE 40 MG TAB PO SCH (10:00)
[2018-11-19 10:04] LABS: Urine WBC None Seen /hpf (0 - 3)
--- NOTE | 2018-11-19 10:30 | NUR ---
IV removal Noted IV not flushing well on right hand, IV DC'd with clean sterile technique, catheter fully intact. Pressure dressing applied to site. Patient tolerated well.
[2018-11-19 10:41] LABS: Alcohol, Urine < 3.0 mg/dL (0-5); Amphetamine Screen, Urine NEGATIVE (NEGATIVE); Barbiturate Scree,Urine NEGATIVE (NEGATIVE); Benzodiazephine Screen, Urine POSITIVE (NEGATIVE); Cannabinoid Screen, Urine NEGATIVE (NEGATIVE); Cocaine Screen, Urine NEGATIVE (NEGATIVE); Opiate Scree,Urine NEGATIVE (NEGATIVE); Phencyclidine Screen, Urine NEGATIVE (NEGATIVE)
[2018-11-19 10:49] LABS: Urine Bacteria NONE SEEN /hpf (None Seen); Urine Blood Negative /uL (Negative); Urine Specific Gravity 1.003 (1.001-1.035)
[2018-11-19 11:49] LABS: Hematocrit 40.7 % (41.0-53.0); Hemoglobin 13.8 g/dL (13.5-17.5); Mean Corpuscular Hemoglobin 33.4 pg (28.0-32.0); Mean Corpuscular Hgb Conc. 33.9 g/dL (32.0-36.0); Mean Corpuscular Volume 98.6 fL (80.0-100.0); Platelet Count (auto) 60 10^3/uL (140-450); Red Blood Cells 4.13 10^6/uL (4.5-5.90); Red Cell Distribution Width 14.8 % (11.8-14.3); White Blood Cell 3.9 10^3/uL (4.4-10.8)
[2018-11-19 11:58] LABS: Basophils % (manual) 0 (0.0-2.0); Blast Cells 0; Metamyelocytes % 0; Myelocytes % 0; Promyelocytes % 0; Reactive Lymphocytes 0
--- NOTE | 2018-11-19 12:00 | NUR ---
DR. Henry at bedside.
[2018-11-19 12:03] LABS: Albumin 3.9 g/dL (3.4-5.0); Calcium 9.3 mg/dL (8.5-10.1); Potassium 3.2 mmol/L (3.5-5.1)
[2018-11-19 12:06] LABS: BUN/Creatinine Ratio 4.2; Bilirubin, Total 1.4 mg/dL (0.2-1.0); Total Protein 8.5 g/dL (6.4-8.2)
[2018-11-19 13:00] VITALS: BP 122/89
--- NOTE | 2018-11-19 15:25 | NUR ---
PATIENT IS AGITATED AGAIN, REMOVED TELE BOX AND DISCONNECTED HIMSELF FROM IV FLUIDS. CALLED [facility] THAT PATIENT IS OFF TELE FOR NOW. IV STILL PATENT AND INTACT.
[2018-11-19] MEDS: LORazepam 2MG/ML-1ML VIAL IV PRN (15:26)
--- NOTE | 2018-11-19 16:35 | NUR ---
PATIENT IS MORE AGITATED THIS TIME, STILL CONFUSED AND SAYING "I'LL JUST GO ACROSS THE STREET TO BUY ALCOHOL". NURSE EXPLAINED THAT HE IS IN THE HOSPITAL. PATIENT LOOKS MORE CONFUSED SAYING THAT HE'S BEEN IN THE HOSPITAL FOR WEEKS NOW AND COMPLAINING THAT HIS SITTER IS ONLY "13 YEARS OLD". PAGED HOSPITALIST AND FAMILY MEMBER TO UPDATE PATIENT'S STATUS. PATIENT INSISTED THAT HE WANTS TO GO HOME. PAGED SECURITY.
--- NOTE | 2018-11-19 16:45 | NUR ---
SECURITY PERSONNEL AT BEDSIDE. APRIL CASTELLANOS AT BEDSIDE, NURSE AND YANG MAYO. EXPLAINED TO PATIENT THE AMA TO GO HOME THE RISKS AND BENEFITS. PATIENT CHOSE TO GO HOME AMA, PATIENT SIGNED THE AMA FORM.
[2018-11-19 17:00] VITALS: BP 132/90
--- NOTE | 2018-11-19 17:00 | NUR ---
INFORMED HOSPITALIST PEBBLES THAT PATIENT REFUSED EVERYTHING EVEN MEDS AND WANTED TO GO HOME, SIGNED THE AMA FORM.
--- NOTE | 2018-11-19 17:02 | NUR ---
TELEMETRY MONITORING BOX AND IV CATHETER REMOVED. PATIENT TOLERATED WELL.
--- NOTE | 2018-11-19 17:04 | NUR ---
CALLED PATIENT'S SISTER THAT PATIENT LEFT AMA. EXPLAINED WHAT HAPPENED AND THEY AGREED TO LET THE PATIENT GO HOME.
--- NOTE | 2018-11-19 17:05 | NUR ---
AMA Note RUBIO HDZ states they want to leave the hospital Against Medical Advice (AMA). Patient encouraged to stay for further treatment/stabilization. MELVIN ROGEL WEDGER MACHINE notified of patient's wishes. Patient advised of the risks and benefits of leaving AMA. Patient verbalized understanding. Patient assisted by security staff, patient went home ambulatory with steady gait. Patient encouraged to return to the ER if symptoms do not improve or worsen.
[2018-11-19 18:33] LABS: Band Neutrophils % (manual) 4; Eosinophils % (manual) 1 (0-7); Lymphocytes % (manual) 10 (10.0-50.0); Monocytes % (manual) 8 (0-12)
== END 2018-11-19 17:05 | disposition left against medical advice (07) | DRG 53 ==
LOC: EDBD 12:08 → ER 12:17 → TELE 12:18 → TELE-CENTR 18:59 → TELE-WESTW 21:19
PROVIDERS: ADMIT Internal Medicine; ATTEND Internal Medicine
DX: R56.9 Unspecified convulsions (principal); F10.231 Alcohol dependence with withdrawal delirium; D61.818 Other pancytopenia; Z53.21 Procedure and treatment not carried out due to patient leaving prior to being seen by health care provider; Y90.9 Presence of alcohol in blood, level not specified; Z91.19 Patient's noncompliance with other medical treatment and regimen
CPT/HCPCS: 36415; 70450; 71045; 80053; 80307; 81001; 82550; 85007; 85025; 85027; 96365; 96366; 96375; 96376; G0378; J2405

== ENCOUNTER 2019-03-06 20:23 | Emergency (ER) | payer MEDICAID ==
[~2019-03-06] VITALS: Ht 170.2 cm; Wt 61.2 kg
[2019-03-06 20:32] VITALS: BP 111/82
[2019-03-06] MEDS ORDERED: SODIUM CHLORIDE 0.9% 1,000 ML IV ONE (20:35)
== END 2019-03-07 02:35 | disposition home or self-care (01) ==
LOC: EDBD 20:23 → ER 20:26
DX: S40.011A Contusion of right shoulder, initial encounter (principal); F10.920 Alcohol use, unspecified with intoxication, uncomplicated; Y90.0 Blood alcohol level of less than 20 mg/100 ml; W19.XXXA Unspecified fall, initial encounter; Y93.89 Activity, other specified; Y92.89 Other specified places as the place of occurrence of the external cause; Y99.8 Other external cause status
CPT/HCPCS: 36415; 73030; 80320; 94761

== ENCOUNTER 2019-03-20 13:45 | Emergency (ER) | payer MEDICAID ==
[~2019-03-20] VITALS: Ht 170.2 cm; Wt 68.0 kg
[2019-03-20] MEDS ORDERED: SODIUM CHLORIDE 0.9% 1,000 ML IV ONE (14:37)
[2019-03-20] MEDS ORDERED: KETOROLAC TROMETH 30 MG/ML 1ML VIAL IV ONE (14:45)
[2019-03-20 18:59] VITALS: BP 96/66
== END 2019-03-20 19:29 | disposition home or self-care (01) ==
LOC: ER 13:45 → EDBD 13:45 → ER 19:29
DX: M54.2 Cervicalgia (principal); F10.129 Alcohol abuse with intoxication, unspecified; Y90.0 Blood alcohol level of less than 20 mg/100 ml
CPT/HCPCS: 36415; 80320; 94761; 96374; 99283; J1885; J7030

== ENCOUNTER 2019-03-28 23:50 | Emergency (ER) | payer MEDICAID ==
[~2019-03-28] VITALS: Ht 172.7 cm; Wt 68.0 kg
[2019-03-29 03:56] VITALS: BP 109/71
[2019-03-29] MEDS ORDERED: THIAMINE 100mg/ml INJ (200mg/2ml VIAL) IM ONE (05:00)
== END 2019-03-29 05:23 | disposition home or self-care (01) ==
LOC: ER 23:50 → EDBD 23:50 → ER 03-29 05:23
DX: M79.621 Pain in right upper arm (principal); F10.129 Alcohol abuse with intoxication, unspecified; G92 Toxic encephalopathy; Y90.8 Blood alcohol level of 240 mg/100 ml or more
CPT/HCPCS: 36415; 73060; 80320; 96372; 99284; J3411

== ENCOUNTER 2019-04-01 23:51 | Emergency (ER) | payer MEDICAID ==
[~2019-04-01] VITALS: Ht 162.6 cm; Wt 64.9 kg
[2019-04-02 00:54] LABS: Amphetamine Screen, Urine NEGATIVE (NEGATIVE); Barbiturate Scree,Urine NEGATIVE (NEGATIVE); Benzodiazephine Screen, Urine NEGATIVE (NEGATIVE); Cannabinoid Screen, Urine NEGATIVE (NEGATIVE); Cocaine Screen, Urine NEGATIVE (NEGATIVE); Phencyclidine Screen, Urine NEGATIVE (NEGATIVE)
[2019-04-02 01:02] LABS: Opiate Scree,Urine NEGATIVE (NEGATIVE)
[2019-04-02 01:10] LABS: Basophils # (auto) 0 uL; Basophils % (auto) 0.7 % (0.0-2.0); Eosinophils # (auto) 0 uL; Eosinophils % (auto) 0.5 % (0.0-7.0); Hematocrit 43.7 % (41.0-53.0); Lymphocytes # (auto) 2.1 uL; Lymphocytes % (auto) 32.2 % (10.0-50.0); Mean Corpuscular Hemoglobin 32.8 pg (28.0-32.0); Mean Corpuscular Hgb Conc. 34.2 g/dL (32.0-36.0); Mean Corpuscular Volume 95.9 fL (80.0-100.0); Monocytes # (auto) 0.4 uL; Neutrophils % (auto) 60.6 % (37.0-80.0); Nucleated Red Blood Cells % 0.1 %; Platelet Count (auto) 96 10^3/uL (140-450); Red Blood Cells 4.56 10^6/uL (4.5-5.90); Red Cell Distribution Width 15.9 % (11.8-14.3); White Blood Cell 6.6 10^3/uL (4.4-10.8)
[2019-04-02 01:22] LABS: INR 0.96 (0.9-1.15); Partial Thromboplastin Time 27.6 sec (23.64-32.05)
[2019-04-02 01:28] LABS: Albumin 3.8 g/dL (3.4-5.0); Chloride 109 mmol/L (98-107); Potassium 3.5 mmol/L (3.5-5.1); Sodium 139 mmol/L (136-145)
[2019-04-02 01:31] LABS: Alanine Aminotransferase 40 U/L (16-61); Anion Gap 11 (5-15); Aspartate Aminotransferase 55 U/L (15-37); Blood Urea Nitrogen 6 mg/dL (7-18); Carbon Dioxide 19 mmol/L (21-32); GFR African American 201 mL/min; GFR Non-African American 166 mL/min; Glucose 79 mg/dL (74-106); Magnesium 2.4 mg/dL (1.6-2.6); Salicylate < 1.7 mg/dL (2.8-20.0)
[2019-04-02 01:33] LABS: Acetaminophen < 2.0 ug/mL (10-30)
[2019-04-02 01:40] LABS: Alkaline Phosphatase 228 U/L (45-117); Total Protein 8.5 g/dL (6.4-8.2)
[2019-04-02 02:04] LABS: Bilirubin, Total 0.3 mg/dL (0.2-1.0)
[2019-04-02] MEDS ORDERED: SODIUM CHLORIDE 0.9% 2,000 ML IV ONE (02:30)
[2019-04-02] MEDS ORDERED: SODIUM CHLORIDE 0.9% 1,000 ML IV ONE ×2 (04:15→05:45)
[2019-04-02 06:00] VITALS: BP 100/61
== END 2019-04-02 07:03 | disposition home or self-care (01) ==
LOC: EDBD 23:51 → ER 23:55
DX: F10.129 Alcohol abuse with intoxication, unspecified (principal); K70.30 Alcoholic cirrhosis of liver without ascites; Y90.8 Blood alcohol level of 240 mg/100 ml or more
CPT/HCPCS: 36415; 71045; 80053; 80307; 80320; 80329; 83735; 83880; 84484; 85025; 85610; 85730; 93005; 99284; J7030

== ENCOUNTER 2019-05-05 20:58 | Emergency (ER) | payer MEDICAID ==
[~2019-05-05] VITALS: Ht 170.2 cm; Wt 74.8 kg
[2019-05-05 21:00] VITALS: BP 140/93
== END 2019-05-05 21:15 | disposition home or self-care (01) ==
LOC: EDBD 20:58 → ER 21:01
DX: F10.129 Alcohol abuse with intoxication, unspecified (principal); Y90.8 Blood alcohol level of 240 mg/100 ml or more

== ENCOUNTER 2019-06-06 22:22 | Emergency (ER) | payer MEDICAID ==
[~2019-06-06] VITALS: Ht 165.1 cm; Wt 72.6 kg
[2019-06-06] MEDS ORDERED: SODIUM CHLORIDE 0.9% 1,000 ML IVB ONE (22:33)
[2019-06-06 22:58] LABS: Basophils # (auto) 0 uL; Eosinophils # (auto) 0.1 uL; Eosinophils % (auto) 1.6 % (0.0-7.0); Monocytes # (auto) 0.5 uL; Platelet Count (auto) 105 10^3/uL (140-450)
[2019-06-06 23:00] LABS: Hematocrit 45.3 % (41.0-53.0); Hemoglobin 15.1 g/dL (13.5-17.5); Lymphocytes % (auto) 40.1 % (10.0-50.0); Mean Corpuscular Hemoglobin 34.4 pg (28.0-32.0); Mean Corpuscular Hgb Conc. 33.3 g/dL (32.0-36.0); Mean Corpuscular Volume 103.3 fL (80.0-100.0); Monocytes % (auto) 9.4 % (0.0-12.0); Neutrophils # (auto) 2.4 uL; Neutrophils % (auto) 47.9 % (37.0-80.0); Red Blood Cells 4.39 10^6/uL (4.5-5.90); Red Cell Distribution Width 14.8 % (11.8-14.3); White Blood Cell 5.1 10^3/uL (4.4-10.8)
[2019-06-06 23:17] LABS: Albumin 4.1 g/dL (3.4-5.0); BUN/Creatinine Ratio 9.4; Calcium 8.6 mg/dL (8.5-10.1); Potassium 4.4 mmol/L (3.5-5.1)
[2019-06-06 23:31] LABS: Bilirubin, Total 0.2 mg/dL (0.2-1.0); Total Protein 8.7 g/dL (6.4-8.2)
[2019-06-06] MEDS ORDERED: SODIUM CHLORIDE 0.9% 1,000 ML IV ONE (23:45)
[2019-06-06 23:57] LABS: Amphetamine Screen, Urine NEGATIVE (NEGATIVE); Barbiturate Scree,Urine NEGATIVE (NEGATIVE); Benzodiazephine Screen, Urine NEGATIVE (NEGATIVE); Cannabinoid Screen, Urine NEGATIVE (NEGATIVE); Cocaine Screen, Urine NEGATIVE (NEGATIVE); Opiate Scree,Urine NEGATIVE (NEGATIVE); Phencyclidine Screen, Urine NEGATIVE (NEGATIVE)
[2019-06-07 01:00] VITALS: BP 144/67
== END 2019-06-07 04:40 | disposition home or self-care (01) ==
LOC: EDBD 22:22 → ER 22:26
DX: F10.129 Alcohol abuse with intoxication, unspecified (principal); Y90.8 Blood alcohol level of 240 mg/100 ml or more
CPT/HCPCS: 36415; 80053; 80307; 80320; 85025; 99283; J7030

== ENCOUNTER 2019-06-15 16:39 | Emergency (ER) | payer MEDICAID ==
[~2019-06-15] VITALS: Ht 167.6 cm; Wt 72.6 kg
[2019-06-15 16:42] VITALS: BP 126/88
[2019-06-15] MEDS ORDERED: SODIUM CHLORIDE 0.9% 1,000 ML IVB ONE (16:55)
[2019-06-15] MEDS ORDERED: SODIUM CHLORIDE 0.9% 1,000 ML IV ONE (17:00)
[2019-06-15 19:03] LABS: Eosinophils # (auto) 0 uL; Lymphocytes # (auto) 1.4 uL; Mean Corpuscular Hemoglobin 34.5 pg (28.0-32.0); Monocytes # (auto) 0.2 uL; Neutrophils # (auto) 2.3 uL; Nucleated Red Blood Cells % 0.1 %
[2019-06-15 19:07] LABS: Basophils # (auto) 0.1 uL; Basophils % (auto) 1.9 % (0.0-2.0); Eosinophils % (auto) 1.1 % (0.0-7.0); Hematocrit 39.7 % (41.0-53.0); Hemoglobin 13.4 g/dL (13.5-17.5); Lymphocytes % (auto) 34.5 % (10.0-50.0); Mean Corpuscular Hgb Conc. 33.7 g/dL (32.0-36.0); Mean Corpuscular Volume 102.4 fL (80.0-100.0); Monocytes % (auto) 6.2 % (0.0-12.0); Neutrophils % (auto) 56.3 % (37.0-80.0); Platelet Count (auto) 169 10^3/uL (140-450); Red Blood Cells 3.88 10^6/uL (4.5-5.90); Red Cell Distribution Width 14.4 % (11.8-14.3)
[2019-06-15 19:23] LABS: Albumin 3.7 g/dL (3.4-5.0); Anion Gap 10 (5-15); BUN/Creatinine Ratio 8.3; Blood Urea Nitrogen 4 mg/dL (7-18); Calcium 7.5 mg/dL (8.5-10.1); Carbon Dioxide 21 mmol/L (21-32); Chloride 113 mmol/L (98-107); GFR African American 260 mL/min; GFR Non-African American 215 mL/min; Glucose 71 mg/dL (74-106); Potassium 3.9 mmol/L (3.5-5.1); Sodium 144 mmol/L (136-145)
[2019-06-15 19:29] LABS: Alanine Aminotransferase 36 U/L (16-61); Alkaline Phosphatase 166 U/L (45-117); Aspartate Aminotransferase 60 U/L (15-37); Bilirubin, Total 0.2 mg/dL (0.2-1.0); Total Protein 7.8 g/dL (6.4-8.2)
[2019-06-15] MEDS ORDERED: THIAMINE INJ 100 MG in SODIUM CHLORIDE 0.9% 1,000 ML IV ONE (19:30)
== END 2019-06-15 20:16 | disposition left against medical advice (07) ==
LOC: EDBD 16:39 → ER 16:45
DX: F10.129 Alcohol abuse with intoxication, unspecified (principal); Y90.9 Presence of alcohol in blood, level not specified
CPT/HCPCS: 36415; 80053; 80320; 85025; 99283; J3411; J7030

== ENCOUNTER 2019-06-18 22:05 | Emergency (ER) | payer MEDICAID ==
[~2019-06-18] VITALS: Ht 162.6 cm; Wt 67.1 kg
[2019-06-18 22:52] LABS: Basophils # (auto) 0 uL; Basophils % (auto) 1.1 % (0.0-2.0); Eosinophils # (auto) 0 uL; Hematocrit 43.6 % (41.0-53.0); Monocytes # (auto) 0.2 uL; Neutrophils # (auto) 2.1 uL; Nucleated Red Blood Cells % 0.1 %; Red Blood Cells 4.25 10^6/uL (4.5-5.90); White Blood Cell 3.6 10^3/uL (4.4-10.8)
[2019-06-18 22:54] LABS: Eosinophils % (auto) 0.8 % (0.0-7.0); Lymphocytes # (auto) 1.3 uL; Lymphocytes % (auto) 35.5 % (10.0-50.0); Mean Corpuscular Hemoglobin 35.4 pg (28.0-32.0); Mean Corpuscular Hgb Conc. 34.5 g/dL (32.0-36.0); Mean Corpuscular Volume 102.6 fL (80.0-100.0); Monocytes % (auto) 5.2 % (0.0-12.0); Neutrophils % (auto) 57.4 % (37.0-80.0); Platelet Count (auto) 128 10^3/uL (140-450)
[2019-06-18 23:07] LABS: Albumin 4.2 g/dL (3.4-5.0); Calcium 8.2 mg/dL (8.5-10.1); Potassium 3.8 mmol/L (3.5-5.1)
[2019-06-18 23:10] LABS: BUN/Creatinine Ratio 8.2; Bilirubin, Total 0.3 mg/dL (0.2-1.0)
[2019-06-19] MEDS ORDERED: THIAMINE INJ 100 MG in SODIUM CHLORIDE 0.9% 1,000 ML IV ONE (02:45)
[2019-06-19] MEDS ORDERED: SODIUM CHLORIDE 0.9% 1,000 ML IV ONE ×2 (02:45→05:15)
[2019-06-19] MEDS ORDERED: THIAMINE 100mg/ml INJ (200mg/2ml VIAL) ONE (03:23)
[2019-06-19] MEDS ORDERED: LEVETIRACETAM INJ 1,000 MG in D5W 5% 100 ML IV ONE (04:30)
[2019-06-19] MEDS ORDERED: LEVETIRACETAM 500 MG/5ML INJ IV ONE (05:11)
[2019-06-19] MEDS ORDERED: FOLIC ACID 1 MG, MULTIPLE VITAMIN 10 ML, MAGNESIUM SULF SDV 50% 8 MEQ, THIAMINE INJ 100... INJ ONE ×5 (11:45)
[2019-06-19 14:08] VITALS: BP 126/71
== END 2019-06-19 13:07 | disposition home or self-care (01) ==
LOC: EDUNIT# 22:05 → EDBD 22:05 → ER 22:08
DX: F10.129 Alcohol abuse with intoxication, unspecified (principal); G40.909 Epilepsy, unspecified, not intractable, without status epilepticus; M19.072 Primary osteoarthritis, left ankle and foot; K70.30 Alcoholic cirrhosis of liver without ascites; Y90.9 Presence of alcohol in blood, level not specified
CPT/HCPCS: 36415; 73600; 80053; 80320; 85025; 96365; 96366; 96367; 96368; 99284; J1953; J3411; J3475; J7030; J7060

== ENCOUNTER 2019-07-18 17:58 | Emergency (ER) | payer MEDICAID ==
[~2019-07-18] VITALS: Ht 162.6 cm; Wt 68.0 kg
[2019-07-18 21:20] LABS: Amphetamine Screen, Urine NEGATIVE (NEGATIVE); Barbiturate Scree,Urine NEGATIVE (NEGATIVE); Benzodiazephine Screen, Urine NEGATIVE (NEGATIVE); Cannabinoid Screen, Urine NEGATIVE (NEGATIVE); Cocaine Screen, Urine NEGATIVE (NEGATIVE); Opiate Scree,Urine NEGATIVE (NEGATIVE); Phencyclidine Screen, Urine NEGATIVE (NEGATIVE)
[2019-07-18] MEDS ORDERED: FOLIC ACID 1 MG, MULTIPLE VITAMIN 10 ML, MAGNESIUM SULF SDV 50% 8 MEQ, THIAMINE INJ 100... INJ ONE ×5 (22:00)
[2019-07-18 22:04] LABS: Basophils # (auto) 0.1 10 ^3/uL (0-0.2); Basophils % (auto) 1.3 % (0.0-2.0); Eosinophils # (auto) 0 10 ^3/uL (0-0.8); Eosinophils % (auto) 0.8 % (0.0-7.0); Hematocrit 47.1 % (41.0-53.0); Hemoglobin 16.1 g/dL (13.5-17.5); Mean Corpuscular Hemoglobin 34.9 pg (28.0-32.0); Mean Corpuscular Hgb Conc. 34.2 g/dL (32.0-36.0); Monocytes # (auto) 0.3 10 ^3/uL (0-1.3); Monocytes % (auto) 4.7 % (0.0-12.0); Neutrophils # (auto) 3.6 10 ^3/uL (1.6-8.6); Neutrophils % (auto) 60.2 % (37.0-80.0); Nucleated Red Blood Cells % 0.1 %; Platelet Count (auto) 148 10^3/uL (140-450); Red Blood Cells 4.61 10^6/uL (4.5-5.90)
[2019-07-18 22:22] LABS: BUN/Creatinine Ratio 5.9; Calcium 8.6 mg/dL (8.5-10.1); Potassium 3.8 mmol/L (3.5-5.1)
[2019-07-18 22:27] LABS: Bilirubin, Total 0.3 mg/dL (0.2-1.0); Total Protein 9.4 g/dL (6.4-8.2)
[2019-07-19 04:00] VITALS: BP 93/58
== END 2019-07-19 05:00 | disposition home or self-care (01) ==
LOC: ER 17:58 → EDBD 17:58 → ER 07-19 05:00
DX: S00.03XA Contusion of scalp, initial encounter (principal); G92 Toxic encephalopathy; F10.229 Alcohol dependence with intoxication, unspecified; G40.909 Epilepsy, unspecified, not intractable, without status epilepticus; Y90.8 Blood alcohol level of 240 mg/100 ml or more; W18.39XA Other fall on same level, initial encounter; Y93.89 Activity, other specified; Y92.89 Other specified places as the place of occurrence of the external cause; Y99.8 Other external cause status
CPT/HCPCS: 36415; 70450; 72125; 80053; 80307; 80320; 85025; 96365; 96366; 99285; J3411; J3475; J7030

== ENCOUNTER 2019-08-02 15:07 | Emergency (ER) | payer MEDICAID | END 2019-08-02 17:51 | disposition left against medical advice (07) | LOC: ER 15:07 | DX: S09.90XA Unspecified injury of head, initial encounter (principal); F10.129 Alcohol abuse with intoxication, unspecified; Y90.0 Blood alcohol level of less than 20 mg/100 ml; W19.XXXA Unspecified fall, initial encounter; Y93.89 Activity, other specified; Y92.89 Other specified places as the place of occurrence of the external cause; Y99.8 Other external cause status ==

== ENCOUNTER → 2019-08-06 | Emergency (ER) | payer MEDICAID ==
[~2019-08-06] VITALS: Ht 157.5 cm; Wt 66.7 kg
[~2019-08-06] MED LIST: HYDROcodone-ACET 5/325MG TAB PO ONE
[2019-08-06 01:22] VITALS: BP 131/90
== END | disposition home or self-care (01) ==
LOC: ER 01:06
DX: S09.8XXA Other specified injuries of head, initial encounter (principal); G40.909 Epilepsy, unspecified, not intractable, without status epilepticus; X58.XXXA Exposure to other specified factors, initial encounter; Y93.89 Activity, other specified; Y92.89 Other specified places as the place of occurrence of the external cause; Y99.8 Other external cause status
CPT/HCPCS: 70450

== ENCOUNTER 2019-09-03 13:00 | Emergency (ER) | payer MEDICAID ==
[~2019-09-03] VITALS: Ht 170.2 cm; Wt 72.6 kg
[2019-09-03] MEDS ORDERED: SODIUM CHLORIDE 0.9% 1,000 ML IVB ONE (13:16)
[2019-09-03 13:50] LABS: Albumin 3.9 g/dL (3.4-5.0); Anion Gap 13 (5-15); BUN/Creatinine Ratio 9.8; Blood Urea Nitrogen 6 mg/dL (7-18); Calcium 8.5 mg/dL (8.5-10.1); Carbon Dioxide 22 mmol/L (21-32); Chloride 105 mmol/L (98-107); GFR African American 197 mL/min; GFR Non-African American 163 mL/min; Glucose 92 mg/dL (74-106); Magnesium 2.3 mg/dL (1.6-2.6); Potassium 3.9 mmol/L (3.5-5.1); Sodium 140 mmol/L (136-145)
[2019-09-03 13:51] LABS: Urine WBC None Seen /hpf (0 - 3)
[2019-09-03 13:56] LABS: Urine Bacteria NONE SEEN /hpf (None Seen); Urine Blood Negative /uL (Negative); Urine Specific Gravity 1.002 (1.001-1.035)
[2019-09-03 13:59] LABS: Alanine Aminotransferase 50 U/L (16-61); Alkaline Phosphatase 178 U/L (45-117); Aspartate Aminotransferase 140 U/L (15-37); Bilirubin, Total 0.4 mg/dL (0.2-1.0); Total Protein 8.8 g/dL (6.4-8.2)
[2019-09-03 14:06] LABS: Amphetamine Screen, Urine NEGATIVE (NEGATIVE); Barbiturate Scree,Urine NEGATIVE (NEGATIVE); Benzodiazephine Screen, Urine NEGATIVE (NEGATIVE); Cannabinoid Screen, Urine NEGATIVE (NEGATIVE); Cocaine Screen, Urine NEGATIVE (NEGATIVE); Opiate Scree,Urine NEGATIVE (NEGATIVE); Phencyclidine Screen, Urine NEGATIVE (NEGATIVE)
[2019-09-03 14:15] LABS: Basophils # (auto) 0.1 10 ^3/uL (0-0.2); Basophils % (auto) 1.1 % (0.0-2.0); Eosinophils # (auto) 0.1 10 ^3/uL (0-0.8); Hematocrit 41.1 % (41.0-53.0); Hemoglobin 13.8 g/dL (13.5-17.5); Lymphocytes # (auto) 1.3 10 ^3/uL (0.4-5.4); Mean Corpuscular Hgb Conc. 33.6 g/dL (32.0-36.0); Monocytes # (auto) 0.3 10 ^3/uL (0-1.3); Monocytes % (auto) 4.7 % (0.0-12.0); Neutrophils # (auto) 4.1 10 ^3/uL (1.6-8.6); Neutrophils % (auto) 71.2 % (37.0-80.0); Platelet Count (auto) 183 10^3/uL (140-450); Red Blood Cells 4.07 10^6/uL (4.5-5.90); Red Cell Distribution Width 13.5 % (11.8-14.3); White Blood Cell 5.7 10^3/uL (4.4-10.8)
[2019-09-03] MEDS ORDERED: THIAMINE HCL 100 MG TAB PO ONE (14:45)
[2019-09-03] MEDS ORDERED: FOLIC ACID 1 MG, MULTIPLE VITAMIN 10 ML, MAGNESIUM SULF SDV 50% 8 MEQ, THIAMINE INJ 100... INJ STA ×5 (14:48)
[2019-09-03 17:57] VITALS: BP 110/87
[2019-09-04] MEDS ORDERED: FOLIC ACID 1 MG, MULTIPLE VITAMIN 10 ML, MAGNESIUM SULF SDV 50% 8 MEQ, THIAMINE INJ 100... INJ SCH ×5 (12:00)
== END 2019-09-03 19:42 | disposition home or self-care (01) ==
LOC: ER 13:00 → EDBD 13:00 → EDSEX 13:00 → ER 19:42
DX: G40.909 Epilepsy, unspecified, not intractable, without status epilepticus (principal); F10.129 Alcohol abuse with intoxication, unspecified; R79.89 Other specified abnormal findings of blood chemistry; Y90.9 Presence of alcohol in blood, level not specified
CPT/HCPCS: 36415; 80053; 80307; 80320; 81001; 83735; 84484; 85025; 96365; 96366; 99284; J3411; J3475; J7030

== ENCOUNTER 2019-09-06 20:44 | Emergency (ER) | payer MEDICAID ==
[~2019-09-06] VITALS: Ht 167.6 cm; Wt 83.9 kg
[2019-09-06 20:45] VITALS: BP 142/97
== END 2019-09-07 01:30 | disposition home or self-care (01) ==
LOC: EDBD 20:44 → ER 20:51
DX: F10.129 Alcohol abuse with intoxication, unspecified (principal); R41.82 Altered mental status, unspecified; Y90.9 Presence of alcohol in blood, level not specified

== ENCOUNTER 2019-10-05 22:11 | Emergency (ER) | payer MEDICAID ==
[~2019-10-05] VITALS: Ht 162.6 cm; Wt 65.8 kg
[2019-10-05 22:43] LABS: Eosinophils # (auto) 0 10 ^3/uL (0-0.8); Monocytes # (auto) 0.3 10 ^3/uL (0-1.3); Neutrophils # (auto) 2.6 10 ^3/uL (1.6-8.6); Nucleated Red Blood Cells % 0.1 %; Red Cell Distribution Width 13.9 % (11.8-14.3); White Blood Cell 4.6 10^3/uL (4.4-10.8)
[2019-10-05 22:45] LABS: Basophils # (auto) 0 10 ^3/uL (0-0.2); Basophils % (auto) 0.5 % (0.0-2.0); Eosinophils % (auto) 0.8 % (0.0-7.0); Hematocrit 44.2 % (41.0-53.0); Hemoglobin 15.1 g/dL (13.5-17.5); Lymphocytes # (auto) 1.7 10 ^3/uL (0.4-5.4); Lymphocytes % (auto) 36.4 % (10.0-50.0); Mean Corpuscular Hemoglobin 34.9 pg (28.0-32.0); Mean Corpuscular Hgb Conc. 34.1 g/dL (32.0-36.0); Mean Corpuscular Volume 102.2 fL (80.0-100.0); Monocytes % (auto) 6.3 % (0.0-12.0); Platelet Count (auto) 135 10^3/uL (140-450); Red Blood Cells 4.32 10^6/uL (4.5-5.90)
[2019-10-05 23:04] LABS: Albumin 4.1 g/dL (3.4-5.0); Calcium 8.9 mg/dL (8.5-10.1); Potassium 4.1 mmol/L (3.5-5.1)
[2019-10-05 23:15] LABS: BUN/Creatinine Ratio 7.1; Bilirubin, Total 0.4 mg/dL (0.2-1.0); Total Protein 9.5 g/dL (6.4-8.2)
[2019-10-05] MEDS ORDERED: SODIUM CHLORIDE 0.9% 1,000 ML IV ONE (23:15)
[2019-10-05] MEDS ORDERED: THIAMINE INJ 100 MG in SODIUM CHLORIDE 0.9% 1,000 ML IV ONE (23:15)
[2019-10-06 00:12] LABS: Urine Bacteria NONE SEEN /hpf (None Seen); Urine Blood Negative /uL (Negative); Urine Specific Gravity 1.003 (1.001-1.035); Urine WBC <1 /hpf (0 - 3)
[2019-10-06 00:23] LABS: Barbiturate Scree,Urine NEGATIVE (NEGATIVE); Benzodiazephine Screen, Urine NEGATIVE (NEGATIVE); Cocaine Screen, Urine NEGATIVE (NEGATIVE); Opiate Scree,Urine NEGATIVE (NEGATIVE); Phencyclidine Screen, Urine NEGATIVE (NEGATIVE)
[2019-10-06 00:32] LABS: Amphetamine Screen, Urine NEGATIVE (NEGATIVE)
[2019-10-06 00:35] LABS: Cannabinoid Screen, Urine NEGATIVE (NEGATIVE)
[2019-10-06] MEDS ORDERED: levETIRAcetam 500 MG/5ML INJ IV ONE (00:43)
[2019-10-06] MEDS ORDERED: THIAMINE 100mg/ml INJ (200mg/2ml VIAL) ONE (00:43)
[2019-10-06 03:05] VITALS: BP 105/78
== END 2019-10-06 03:10 | disposition home or self-care (01) ==
LOC: EDBD 22:11 → ER 22:13
DX: F10.239 Alcohol dependence with withdrawal, unspecified (principal); F10.229 Alcohol dependence with intoxication, unspecified; R56.9 Unspecified convulsions; R10.9 Unspecified abdominal pain; Y90.9 Presence of alcohol in blood, level not specified
CPT/HCPCS: 36415; 80053; 80307; 80320; 81001; 82150; 82542; 83690; 85025; 96365; 96368; 99284; J1953; J3411; J7030; J7060

== ENCOUNTER 2019-10-06 12:59 | Emergency (ER) | payer MEDICAID ==
[~2019-10-06] VITALS: Ht 162.6 cm; Wt 65.8 kg
[2019-10-06] MEDS ORDERED: SODIUM CHLORIDE 0.9% 1,000 ML IV ONE (13:03)
[2019-10-06 13:39] LABS: Eosinophils # (auto) 0 10 ^3/uL (0-0.8); Lymphocytes # (auto) 0.8 10 ^3/uL (0.4-5.4); Monocytes # (auto) 0.2 10 ^3/uL (0-1.3); Nucleated Red Blood Cells % 0.1 %; White Blood Cell 4.1 10^3/uL (4.4-10.8)
[2019-10-06 13:42] LABS: Basophils # (auto) 0.1 10 ^3/uL (0-0.2); Basophils % (auto) 1.5 % (0.0-2.0); Eosinophils % (auto) 0.2 % (0.0-7.0); Hematocrit 41.6 % (41.0-53.0); Hemoglobin 14.1 g/dL (13.5-17.5); Mean Corpuscular Hemoglobin 34.6 pg (28.0-32.0); Mean Corpuscular Hgb Conc. 33.9 g/dL (32.0-36.0); Mean Corpuscular Volume 102.1 fL (80.0-100.0); Monocytes % (auto) 5.6 % (0.0-12.0); Neutrophils % (auto) 72.7 % (37.0-80.0); Platelet Count (auto) 106 10^3/uL (140-450); Red Blood Cells 4.07 10^6/uL (4.5-5.90); Red Cell Distribution Width 13.8 % (11.8-14.3)
[2019-10-06 13:58] LABS: Albumin 3.9 g/dL (3.4-5.0); Calcium 8.3 mg/dL (8.5-10.1); Potassium 4.1 mmol/L (3.5-5.1)
[2019-10-06 14:03] LABS: BUN/Creatinine Ratio 4.3; Bilirubin, Total 0.5 mg/dL (0.2-1.0)
[2019-10-06 15:51] VITALS: BP 113/75
== END 2019-10-06 15:52 | disposition home or self-care (01) ==
LOC: ER 12:59 → EDBD 12:59 → ER 15:52
DX: F10.129 Alcohol abuse with intoxication, unspecified (principal); R56.9 Unspecified convulsions; F17.210 Nicotine dependence, cigarettes, uncomplicated; Y90.9 Presence of alcohol in blood, level not specified
CPT/HCPCS: 36415; 80053; 80320; 85025; 99283; J7030

== ENCOUNTER 2019-10-10 23:27 | Emergency (ER) | payer MEDICAID ==
[~2019-10-10] VITALS: Ht 160 cm; Wt 63.5 kg
[2019-10-10] MEDS ORDERED: THIAMINE INJ 100 MG in SODIUM CHLORIDE 0.9% 1,000 ML IV ONE (23:45)
[2019-10-10] MEDS ORDERED: SODIUM CHLORIDE 0.9% 1,000 ML IV ONE (23:45)
[2019-10-11] MEDS ORDERED: THIAMINE 100mg/ml INJ (200mg/2ml VIAL) ONE (00:18)
[2019-10-11 01:40] VITALS: BP 109/72
== END 2019-10-11 01:51 | disposition home or self-care (01) ==
LOC: ER 23:27 → EDBD 23:27 → ER 10-11 01:51
DX: G92 Toxic encephalopathy (principal); F10.129 Alcohol abuse with intoxication, unspecified; R41.82 Altered mental status, unspecified; F17.210 Nicotine dependence, cigarettes, uncomplicated; Y90.9 Presence of alcohol in blood, level not specified
CPT/HCPCS: 36415; 80320; 96365; 99284; J3411; J7030

== ENCOUNTER → 2019-10-10 | Emergency (ER) | payer MEDICAID ==
[~2019-10-10] VITALS: Ht 165.1 cm; Wt 77.1 kg
[~2019-10-10] MED LIST changes: +FOLIC ACID 1 MG, MULTIPLE VITAMIN 10 ML, MAGNESIUM SULF SDV 50% 8 MEQ, THIAMINE INJ 100... INJ ONE; -HYDROcodone-ACET 5/325MG TAB PO ONE; +SODIUM CHLORIDE 0.9% 2,000 ML IV ONE; +THIAMINE 100mg/ml INJ (200mg/2ml VIAL) ONE
[2019-10-10 02:39] LABS: Albumin 3.7 g/dL (3.4-5.0); BUN/Creatinine Ratio 4.8; Potassium 4.1 mmol/L (3.5-5.1)
[2019-10-10 02:42] LABS: Bilirubin, Total 0.3 mg/dL (0.2-1.0); Total Protein 8.4 g/dL (6.4-8.2)
[2019-10-10 03:14] LABS: Blood Alcohol 542.5 mg/dL (0-5)
[2019-10-10 04:45] VITALS: BP 99/64
== END | disposition home or self-care (01) ==
LOC: EDUNIT# 01:22 → EDBD 01:30 → ER 01:33
DX: F10.129 Alcohol abuse with intoxication, unspecified (principal); R41.82 Altered mental status, unspecified; G92 Toxic encephalopathy; F17.210 Nicotine dependence, cigarettes, uncomplicated; Y90.8 Blood alcohol level of 240 mg/100 ml or more
CPT/HCPCS: 36415; 74176; 80053; 80320; 82150; 83690; 96365; 96366; 99284; J3411; J7030

== ENCOUNTER 2019-10-29 22:22 | Emergency (ER) | payer MEDICAID ==
[~2019-10-29] VITALS: Ht 162.6 cm; Wt 63.5 kg
[2019-10-29] MEDS ORDERED: SODIUM CHLORIDE 0.9% 1,000 ML IV ONE (23:15)
[2019-10-29] MEDS ORDERED: THIAMINE INJ 100 MG in SODIUM CHLORIDE 0.9% 1,000 ML IV ONE (23:15)
[2019-10-29 23:20] LABS: Basophils # (auto) 0 10 ^3/uL (0-0.2); Eosinophils # (auto) 0 10 ^3/uL (0-0.8); Eosinophils % (auto) 0.1 % (0.0-7.0); Lymphocytes # (auto) 0.3 10 ^3/uL (0.4-5.4); Monocytes # (auto) 0.3 10 ^3/uL (0-1.3); Red Cell Distribution Width 13.8 % (11.8-14.3); White Blood Cell 5.2 10^3/uL (4.4-10.8)
[2019-10-29 23:22] LABS: Basophils % (auto) 0.7 % (0.0-2.0); Hematocrit 38.1 % (41.0-53.0); Hemoglobin 13.1 g/dL (13.5-17.5); Lymphocytes % (auto) 5.7 % (10.0-50.0); Mean Corpuscular Hemoglobin 34.5 pg (28.0-32.0); Mean Corpuscular Hgb Conc. 34.3 g/dL (32.0-36.0); Mean Corpuscular Volume 100.6 fL (80.0-100.0); Monocytes % (auto) 6.1 % (0.0-12.0); Neutrophils # (auto) 4.5 10 ^3/uL (1.6-8.6); Neutrophils % (auto) 87.4 % (37.0-80.0); Nucleated Red Blood Cells % 0.2 %; Red Blood Cells 3.79 10^6/uL (4.5-5.90)
[2019-10-29 23:25] LABS: Platelet Count (auto) 48 10^3/uL (140-450)
[2019-10-29] MEDS ORDERED: THIAMINE 100mg/ml INJ (200mg/2ml VIAL) ONE (23:28)
[2019-10-29 23:38] LABS: Albumin 3.9 g/dL (3.4-5.0); Anion Gap 9 (5-15); Blood Urea Nitrogen 4 mg/dL (7-18); Calcium 9.2 mg/dL (8.5-10.1); Carbon Dioxide 24 mmol/L (21-32); Chloride 101 mmol/L (98-107); Glucose 161 mg/dL (74-106); Potassium 3.3 mmol/L (3.5-5.1); Sodium 134 mmol/L (136-145)
[2019-10-29 23:43] LABS: Alanine Aminotransferase 44 U/L (16-61); Alkaline Phosphatase 179 U/L (45-117); Aspartate Aminotransferase 55 U/L (15-37); BUN/Creatinine Ratio 4.8; Blood Alcohol < 3.0 mg/dL (0-5); GFR African American 136 mL/min; GFR Non-African American 113 mL/min; Total Protein 8.8 g/dL (6.4-8.2)
[2019-10-29] MEDS ORDERED: LORazepam 2MG/ML-1ML VIAL IV ONE (23:45)
[2019-10-30 00:11] LABS: Urine Bacteria FEW /hpf (None Seen); Urine Blood TRACE /uL (Negative); Urine Hyaline Cast FEW /lpf (0 - 2); Urine Mucus FEW (None Seen); Urine Specific Gravity 1.019 (1.001-1.035); Urine Sperm PRESENT /hpf (None Seen); Urine WBC 9 /hpf (0 - 3)
[2019-10-30] MEDS ORDERED: levETIRAcetam 500 MG/5ML INJ IV ONE (01:19)
[2019-10-30 02:25] VITALS: BP 136/90
== END 2019-10-30 02:24 | disposition home or self-care (01) ==
LOC: EDUNIT# 22:22 → EDBD 22:22 → ER 22:23
DX: F10.239 Alcohol dependence with withdrawal, unspecified (principal); R56.9 Unspecified convulsions; F17.210 Nicotine dependence, cigarettes, uncomplicated; Y90.9 Presence of alcohol in blood, level not specified
CPT/HCPCS: 36415; 70450; 72125; 80053; 80320; 81001; 85025; 93005; 96365; 96367; 96375; 99285; J1953; J2060; J3411; J7030; J7060

== ENCOUNTER 2019-11-10 23:50 | Emergency (ER) | payer MEDICAID ==
[~2019-11-10] VITALS: Ht 162.6 cm; Wt 72.6 kg
[2019-11-11 00:11] VITALS: BP 135/86
== END 2019-11-11 04:49 | disposition left against medical advice (07) ==
LOC: ER 23:51
DX: R51 Headache (principal); Z53.21 Procedure and treatment not carried out due to patient leaving prior to being seen by health care provider

== ENCOUNTER 2019-12-04 09:24 | Emergency (ER) | payer MEDICAID ==
[~2019-12-04] VITALS: Ht 170.2 cm; Wt 77.1 kg
[2019-12-04] MEDS ORDERED: SODIUM CHLORIDE 0.9% 1,000 ML IV ONE ×2 (09:27)
[2019-12-04 09:30] VITALS: BP 128/90
[2019-12-04] MEDS ORDERED: THIAMINE 100mg/ml INJ (200mg/2ml VIAL) IV ONE (09:30)
== END 2019-12-04 16:18 | disposition home or self-care (01) ==
LOC: EDBD 09:24 → ER 09:24
DX: F10.229 Alcohol dependence with intoxication, unspecified (principal); E86.0 Dehydration; F17.210 Nicotine dependence, cigarettes, uncomplicated; Y90.9 Presence of alcohol in blood, level not specified
CPT/HCPCS: 96360

== ENCOUNTER 2020-01-06 18:08 | Emergency (ER) | payer MEDICAID ==
[~2020-01-06] VITALS: Ht 172.7 cm; Wt 68.0 kg
[2020-01-06] MEDS ORDERED: SODIUM CHLORIDE 0.9% 2,000 ML IV ONE (18:30)
[2020-01-06] MEDS ORDERED: FOLIC ACID 1 MG, MULTIPLE VITAMIN 10 ML, MAGNESIUM SULF SDV 50% 8 MEQ, THIAMINE INJ 100... INJ SCH ×5 (18:33)
[2020-01-06 20:16] LABS: Basophils # (auto) 0.1 10 ^3/uL (0-0.2); Eosinophils # (auto) 0 10 ^3/uL (0-0.8); Hemoglobin 13.1 g/dL (13.5-17.5); Lymphocytes # (auto) 1.1 10 ^3/uL (0.4-5.4); Monocytes # (auto) 0.2 10 ^3/uL (0-1.3); Neutrophils # (auto) 2.3 10 ^3/uL (1.6-8.6); Nucleated Red Blood Cells % 0.1 %; Red Cell Distribution Width 14.1 % (11.8-14.3)
[2020-01-06 20:19] LABS: Basophils % (auto) 2.2 % (0.0-2.0); Eosinophils % (auto) 0.9 % (0.0-7.0); Hematocrit 39.3 % (41.0-53.0); Lymphocytes % (auto) 29.9 % (10.0-50.0); Mean Corpuscular Hemoglobin 34.1 pg (28.0-32.0); Mean Corpuscular Hgb Conc. 33.5 g/dL (32.0-36.0); Monocytes % (auto) 4.8 % (0.0-12.0); Neutrophils % (auto) 62.2 % (37.0-80.0); Platelet Count (auto) 102 10^3/uL (140-450); Red Blood Cells 3.85 10^6/uL (4.5-5.90); White Blood Cell 3.8 10^3/uL (4.4-10.8)
[2020-01-06 20:42] LABS: Albumin 3.7 g/dL (3.4-5.0); BUN/Creatinine Ratio 6.3; Calcium 8.4 mg/dL (8.5-10.1); Potassium 3.6 mmol/L (3.5-5.1)
[2020-01-06 20:47] LABS: Bilirubin, Total 0.3 mg/dL (0.2-1.0); Total Protein 8.5 g/dL (6.4-8.2)
[2020-01-07 03:55] VITALS: BP 127/76
== END 2020-01-07 04:02 | disposition home or self-care (01) ==
LOC: EDBD 18:08 → ER 18:08
DX: F10.239 Alcohol dependence with withdrawal, unspecified (principal); F17.210 Nicotine dependence, cigarettes, uncomplicated; F10.229 Alcohol dependence with intoxication, unspecified
CPT/HCPCS: 36415; 71045; 80053; 80320; 84484; 85025; 96361; 96365; 96368; 99284; J1953; J3411; J3475; J7030; J7060

== ENCOUNTER 2020-01-10 13:37 | Emergency (ER) | payer MEDICAID ==
[~2020-01-10] VITALS: Ht 167.6 cm; Wt 59.0 kg
[2020-01-10] MEDS ORDERED: ACETAMINOPHEN 325 MG TAB PO ONE (14:45)
[2020-01-10 15:20] VITALS: BP 138/89
== END 2020-01-10 15:26 | disposition home or self-care (01) ==
LOC: EDBD 13:37 → ER 13:37 → EDUNIT# 13:37 → ER 15:26
DX: F10.920 Alcohol use, unspecified with intoxication, uncomplicated (principal); M79.631 Pain in right forearm
CPT/HCPCS: 73090

== ENCOUNTER 2020-02-10 11:27 | Inpatient (IN) | payer MEDICAID ==
[~2020-02-10] VITALS: Ht 167.6 cm; Wt 70.2 kg
[2020-02-10] MEDS ORDERED: SODIUM CHLORIDE 0.9% 1,000 ML IVB ONE ×2 (12:30→16:00)
[2020-02-10] MEDS ORDERED: THIAMINE HCL 100 MG TAB PO ONE (12:30)
[2020-02-10 13:06] LABS: Basophils # (auto) 0.1 10 ^3/uL (0-0.2); Eosinophils # (auto) 0 10 ^3/uL (0-0.8); Eosinophils % (auto) 0.5 % (0.0-7.0); Lymphocytes # (auto) 0.9 10 ^3/uL (0.4-5.4); Lymphocytes % (auto) 12.1 % (10.0-50.0); Mean Corpuscular Volume 102.3 fL (80.0-100.0); Monocytes # (auto) 0.4 10 ^3/uL (0-1.3); Nucleated Red Blood Cells % 0.1 %; White Blood Cell 7.8 10^3/uL (4.4-10.8)
[2020-02-10 13:08] LABS: Basophils % (auto) 0.8 % (0.0-2.0); Hematocrit 37.5 % (41.0-53.0); Hemoglobin 12.7 g/dL (13.5-17.5); Mean Corpuscular Hemoglobin 34.7 pg (28.0-32.0); Mean Corpuscular Hgb Conc. 33.9 g/dL (32.0-36.0); Monocytes % (auto) 4.5 % (0.0-12.0); Neutrophils # (auto) 6.4 10 ^3/uL (1.6-8.6); Neutrophils % (auto) 82.1 % (37.0-80.0); Platelet Count (auto) 77 10^3/uL (140-450); Red Blood Cells 3.67 10^6/uL (4.5-5.90); Red Cell Distribution Width 14.3 % (11.8-14.3)
[2020-02-10 13:16] LABS: Albumin 3.8 g/dL (3.4-5.0); Calcium 8.3 mg/dL (8.5-10.1); Potassium 3.7 mmol/L (3.5-5.1)
[2020-02-10 13:24] LABS: BUN/Creatinine Ratio 8.2; Bilirubin, Total 0.4 mg/dL (0.2-1.0); Total Protein 8.3 g/dL (6.4-8.2); Urine Bacteria NONE SEEN /hpf (None Seen); Urine Blood Negative /uL (Negative); Urine Specific Gravity 1.002 (1.001-1.035); Urine WBC <1 /hpf (0 - 3)
[2020-02-10] MEDS ORDERED: MORPHINE SULF INJ 2 MG/ML SYRINGE 1ML IV PRN ×3 (15:45→16:15)
[2020-02-10] MEDS ORDERED: NITROGLYCERIN 0.4 MG SL TAB SL PRN ×2 (15:45→16:15)
[2020-02-10] MEDS ORDERED: ONDANSETRON HCL 4 MG/2 ML VIAL IV ONE (16:00)
[2020-02-10] MEDS ORDERED: MULTIPLE VITAMIN TAB PO ONE (16:00)
[2020-02-10] MEDS ORDERED: FOLIC ACID 1 MG TAB PO ONE (16:00)
[2020-02-10] MEDS ORDERED: LORazepam 2MG/ML-1ML VIAL IV PRN (16:00)
[2020-02-10] MEDS ORDERED: THIAMINE 100mg/ml INJ (200mg/2ml VIAL) IV ONE (16:00)
[2020-02-10] MEDS ORDERED: LORazepam 2MG/ML-1ML VIAL IV ONE (16:00)
[2020-02-10] MEDS ORDERED: ONDANSETRON HCL 4 MG/2 ML VIAL IV PRN (16:15)
[2020-02-10] MEDS ORDERED: HYDROcodone-ACET 5/325MG TAB PO PRN (16:15)
[2020-02-10] MEDS ORDERED: ACETAMINOPHEN 325 MG TAB PO PRN (16:15)
[2020-02-10] MEDS ORDERED: ALUM & MAG HYDROX-SIMETH LIQ(MAALOX) 30 ML PO PRN (16:15)
[2020-02-10] MEDS ORDERED: DOCUSATE SOD 100 MG CAP PO PRN (16:15)
[2020-02-10] MEDS ORDERED: LORazepam 0.5 MG TAB PO PRN (16:15)
[2020-02-10 16:46] LABS: Amphetamine Screen, Urine NEGATIVE (NEGATIVE); Barbiturate Scree,Urine NEGATIVE (NEGATIVE); Benzodiazephine Screen, Urine NEGATIVE (NEGATIVE); Cannabinoid Screen, Urine NEGATIVE (NEGATIVE); Cocaine Screen, Urine NEGATIVE (NEGATIVE); Opiate Scree,Urine NEGATIVE (NEGATIVE)
[2020-02-10 16:47] LABS: Cholesterol 260 mg/dL (< 200); HDL Cholesterol 132 mg/dL (40-59); LDL Cholesterol 123 mg/dL (< 100); Triglycerides 88 mg/dL (< 150)
[2020-02-10 17:19] LABS: Phencyclidine Screen, Urine NEGATIVE (NEGATIVE)
[2020-02-10] MEDS: SODIUM CHLORIDE 0.9% 1,000 ML IV SCH (20:42)
[2020-02-10] MEDS: LORazepam 2MG/ML-1ML VIAL IV SCH (20:54)
[2020-02-11 00:11] VITALS: BP 112/71
[2020-02-11] MEDS ORDERED: LEVE500T32 PO (02:02)
[2020-02-11] MEDS: LORazepam 2MG/ML-1ML VIAL IV SCH ×5 (04:07→16:48)
[2020-02-11 05:33] VITALS: BP 137/91
--- NOTE | 2020-02-11 07:30 | NUR ---
Opening Shift Note Assumed care of patient, awake and alert. No S/S of distress/SOB or pain. Instructed on POC and to call for assist PRN, will continue to monitor for changes Q1hr and PRN.
[2020-02-11 08:29] VITALS: BP 150/87
[2020-02-11] MEDS: MULTIPLE VITAMIN TAB PO SCH (10:00)
[2020-02-11] MEDS: THIAMINE 100mg/ml INJ (200mg/2ml VIAL) IV SCH (10:00)
[2020-02-11] MEDS: FOLIC ACID 1 MG TAB PO SCH (10:00)
[2020-02-11] MEDS: ENOXAPARIN SOD 40 MG/0.4 ML SYRINGE SC SCH (10:00)
[2020-02-11] MEDS ORDERED: FOLIC ACID 1 MG, MULTIPLE VITAMIN 10 ML, MAGNESIUM SULF SDV 50% 8 MEQ, THIAMINE INJ 100... INJ SCH ×5 (12:00)
--- NOTE | 2020-02-11 12:10 | NUR ---
medication CALLED PHARMACY MADE AWARE BANANA BAG IS NEEDED. PER PHARMACY, BAG WILL BE SENT.
[2020-02-11 12:35] VITALS: BP 148/91
--- NOTE | 2020-02-11 13:00 | NUR ---
DOCTOR AT BEDSIDE DR PAN AT BEDSIDE, SPOKE TO PT. PT STABLE AT THIS TIME.
[2020-02-11 16:30] VITALS: BP 147/87
[2020-02-11] MEDS: SODIUM CHLORIDE 0.9% 1,000 ML IV SCH (16:49)
[2020-02-11] MEDS ORDERED: LORazepam 0.5 MG TAB PO PRN (17:45)
[2020-02-11] MEDS ORDERED: LORazepam 0.5 MG TAB PO SCH (18:00)
--- NOTE | 2020-02-11 19:15 | NUR ---
CHANGE OF SHIFT CHANGE OF SHIFT REPORT GIVEN TO MOCCASIN SEWER RN. PT STABLE AT THIS TIME.
--- NOTE | 2020-02-11 19:40 | NUR ---
OPENING NOTE Received report from day shift RN. Patient is A&O X's 3-4 with no s/s of distress and reports no pain. Patient has visible hand tremors. Educated patient on POC and to use call light when in need of assistance. Patient verbalized understanding. Bed is in lowest/locked position with padded side rails up X's 2 and call light is within reach of patient. Will continue care.
[2020-02-11 21:56] VITALS: BP 134/87
[2020-02-12] MEDS: SODIUM CHLORIDE 0.9% 1,000 ML IV SCH (03:58)
[2020-02-12 05:00] VITALS: BP 134/96
[2020-02-12 06:22] LABS: Basophils # (auto) 0 10 ^3/uL (0-0.2); Basophils % (auto) 0.6 % (0.0-2.0); Eosinophils # (auto) 0 10 ^3/uL (0-0.8); Eosinophils % (auto) 0.3 % (0.0-7.0); Hematocrit 38.4 % (41.0-53.0); Hemoglobin 13.3 g/dL (13.5-17.5); Lymphocytes # (auto) 0.7 10 ^3/uL (0.4-5.4); Lymphocytes % (auto) 10.3 % (10.0-50.0); Mean Corpuscular Hemoglobin 35.1 pg (28.0-32.0); Mean Corpuscular Hgb Conc. 34.6 g/dL (32.0-36.0); Mean Corpuscular Volume 101.2 fL (80.0-100.0); Monocytes # (auto) 0.5 10 ^3/uL (0-1.3); Monocytes % (auto) 6.4 % (0.0-12.0); Neutrophils % (auto) 82.4 % (37.0-80.0); Platelet Count (auto) 71 10^3/uL (140-450); Red Cell Distribution Width 13.9 % (11.8-14.3); White Blood Cell 7.3 10^3/uL (4.4-10.8)
[2020-02-12 06:48] LABS: Potassium 3.7 mmol/L (3.5-5.1)
--- NOTE | 2020-02-12 06:48 | NUR ---
NOTE Patient laying in bed at this time with no s/s of distress. Patient has no complaints at this time.
[2020-02-12 06:56] LABS: Albumin 3.5 g/dL (3.4-5.0); BUN/Creatinine Ratio 9.1; Magnesium 2.2 mg/dL (1.6-2.6); Total Protein 8.1 g/dL (6.4-8.2)
--- NOTE | 2020-02-12 07:30 | NUR ---
Opening Shift Note Assumed care from NOC RN. Patient currently sitting up in bed, no signs of distress at this time. Respirations even and unlabored, no tremors or evidence of withdrawal at this time. Safety precautions in place. Will continue to monitor q1hr and PRN.
[2020-02-12 08:00] VITALS: BP 138/85
[2020-02-12] MEDS: MULTIPLE VITAMIN TAB PO SCH (09:44)
[2020-02-12] MEDS: FOLIC ACID 1 MG TAB PO SCH (09:44)
[2020-02-12] MEDS: THIAMINE 100mg/ml INJ (200mg/2ml VIAL) IV SCH (09:45)
[2020-02-12] MEDS: ENOXAPARIN SOD 40 MG/0.4 ML SYRINGE SC SCH (09:46)
--- NOTE | 2020-02-12 10:00 | NUR ---
at [facility] Dr. Walker at station. Per MD, patient to be discharged for home today. No new prescriptions at this time.
--- NOTE | 2020-02-12 11:20 | NUR ---
Assessment Per ss consult for resources for alcohol abused. Patient stated he has been drinking three 24oz a day. Patient stated he has been drinking for the past year due to his leaving him and taking his daughter with her. Patient accepted resources.
[2020-02-12 11:24] VITALS: BP 138/85
--- NOTE | 2020-02-12 11:30 | NUR ---
SS Spoke with Liv regarding manager social media consult for alcohol abuse. Liv spoke with patient regarding consult and patient is agreeable to resources for ETOH abuse. Obtained resources forms to give to patient.
[2020-02-12 12:00] VITALS: BP 141/99
--- NOTE | 2020-02-12 12:30 | NUR ---
Called Taxi Patient peanut picker time in 20-40 minutes.
--- NOTE | 2020-02-12 14:07 | NUR ---
Discharge Discharge instructions given as ordered. Encourage to follow up with PMD as instructed. All questions and concerns addressed. Patient verbalized understanding. Medication reconciliation form completed and copy given to patient. Home medications held in Pharmacy returned to patient, and needed vaccines given. IV removed with catheter intact, pressure dressing applied. Patient provided with discharge paperwork, including resources provided by social media assistant for alcohol abuse programs. Telemetry unit returned to ICU. Patient taken to vehicle with all personal belongings, accompanied by staff. No distress noted at time of departure.
[2020-02-12] MEDS ORDERED: LORazepam 0.5 MG TAB PO SCH (22:00)
== END 2020-02-12 14:07 | disposition home or self-care (01) | DRG 52 ==
LOC: ER 11:27 → EDBD 11:27 → TELE 11:28 → TELE-WESTW 20:11
PROVIDERS: ADMIT Hospitalist; ATTEND Internal Medicine
DX: G92 Toxic encephalopathy (principal); D69.59 Other secondary thrombocytopenia; K70.10 Alcoholic hepatitis without ascites; F10.229 Alcohol dependence with intoxication, unspecified; G40.909 Epilepsy, unspecified, not intractable, without status epilepticus; D64.9 Anemia, unspecified; F17.210 Nicotine dependence, cigarettes, uncomplicated; Z79.899 Other long term (current) drug therapy; F10.239 Alcohol dependence with withdrawal, unspecified; D72.829 Elevated white blood cell count, unspecified; F19.10 Other psychoactive substance abuse, uncomplicated; Y90.8 Blood alcohol level of 240 mg/100 ml or more
CPT/HCPCS: 36415; 70450; 71045; 80053; 80061; 80307; 80320; 81001; 83036; 83735; 84484; 85025; 87040; 87086; 96361; 96374; G0378

== ENCOUNTER 2020-02-17 08:42 | Emergency (ER) | payer MEDICAID ==
[~2020-02-17] VITALS: Ht 170.2 cm; Wt 65.8 kg
[~2020-02-17 08:42] MED LIST changes: -FOLIC ACID 1 MG, MULTIPLE VITAMIN 10 ML, MAGNESIUM SULF SDV 50% 8 MEQ, THIAMINE INJ 100... INJ ONE; +LEVE500T32 PO; -SODIUM CHLORIDE 0.9% 2,000 ML IV ONE; -THIAMINE 100mg/ml INJ (200mg/2ml VIAL) ONE
[2020-02-17 09:29] LABS: Eosinophils # (auto) 0 10 ^3/uL (0-0.8); Hemoglobin 12.9 g/dL (13.5-17.5); Lymphocytes # (auto) 1.5 10 ^3/uL (0.4-5.4); Monocytes # (auto) 0.4 10 ^3/uL (0-1.3); Nucleated Red Blood Cells % 0.1 %
[2020-02-17] MEDS ORDERED: SODIUM CHLORIDE 0.9% 1,000 ML IVB ONE (09:30)
[2020-02-17 09:31] LABS: Basophils # (auto) 0 10 ^3/uL (0-0.2); Eosinophils % (auto) 1.1 % (0.0-7.0); Lymphocytes % (auto) 33.5 % (10.0-50.0); Mean Corpuscular Hemoglobin 34.9 pg (28.0-32.0); Mean Corpuscular Volume 102.7 fL (80.0-100.0); Monocytes % (auto) 9.2 % (0.0-12.0); Neutrophils # (auto) 2.4 10 ^3/uL (1.6-8.6); Neutrophils % (auto) 55.2 % (37.0-80.0); Platelet Count (auto) 129 10^3/uL (140-450); Red Cell Distribution Width 14.5 % (11.8-14.3); White Blood Cell 4.4 10^3/uL (4.4-10.8)
[2020-02-17 09:36] LABS: Urine Bacteria NONE SEEN /hpf (None Seen); Urine Blood Negative /uL (Negative); Urine Specific Gravity 1.005 (1.001-1.035); Urine WBC <1 /hpf (0 - 3)
[2020-02-17 09:52] LABS: Potassium 3.9 mmol/L (3.5-5.1)
[2020-02-17 09:55] LABS: Amphetamine Screen, Urine NEGATIVE (NEGATIVE); Barbiturate Scree,Urine NEGATIVE (NEGATIVE); Benzodiazephine Screen, Urine NEGATIVE (NEGATIVE); Cannabinoid Screen, Urine NEGATIVE (NEGATIVE); Cocaine Screen, Urine NEGATIVE (NEGATIVE); Opiate Scree,Urine NEGATIVE (NEGATIVE); Phencyclidine Screen, Urine NEGATIVE (NEGATIVE)
[2020-02-17 09:59] LABS: Albumin 3.8 g/dL (3.4-5.0); BUN/Creatinine Ratio 12.5; Bilirubin, Total 0.3 mg/dL (0.2-1.0); Calcium 8.4 mg/dL (8.5-10.1); Magnesium 2.3 mg/dL (1.6-2.6); Total Protein 8.4 g/dL (6.4-8.2)
[2020-02-17] MEDS ORDERED: FOLIC ACID 1 MG, MULTIPLE VITAMIN 10 ML, MAGNESIUM SULF SDV 50% 8 MEQ, THIAMINE INJ 100... INJ SCH ×5 (12:00)
[2020-02-17 14:00] VITALS: BP 100/64
== END 2020-02-17 15:20 | disposition designated cancer center or children's hospital (05) ==
LOC: EDBD 08:42 → ER 08:42
DX: F10.129 Alcohol abuse with intoxication, unspecified (principal); R41.82 Altered mental status, unspecified; F17.210 Nicotine dependence, cigarettes, uncomplicated; G40.909 Epilepsy, unspecified, not intractable, without status epilepticus; Y90.8 Blood alcohol level of 240 mg/100 ml or more; Z79.899 Other long term (current) drug therapy
CPT/HCPCS: 36415; 80053; 80307; 80320; 81001; 83735; 85025; 96361; 96365; 99285; J3411; J3475; J7030

== ENCOUNTER 2020-02-19 21:15 | Emergency (ER) | payer MEDICAID ==
[~2020-02-19] VITALS: Ht 165.1 cm; Wt 68.0 kg
[2020-02-19] MEDS ORDERED: SODIUM CHLORIDE 0.9% 1,000 ML IV ONE (21:30)
[2020-02-19] MEDS ORDERED: THIAMINE 100mg/ml INJ (200mg/2ml VIAL) IV ONE (21:30)
[2020-02-19 22:06] LABS: Eosinophils # (auto) 0 10 ^3/uL (0-0.8); Hemoglobin 13.4 g/dL (13.5-17.5); Lymphocytes # (auto) 1.5 10 ^3/uL (0.4-5.4); Monocytes # (auto) 0.4 10 ^3/uL (0-1.3); Neutrophils # (auto) 4.7 10 ^3/uL (1.6-8.6); White Blood Cell 6.7 10^3/uL (4.4-10.8)
[2020-02-19 22:08] LABS: Basophils # (auto) 0 10 ^3/uL (0-0.2); Basophils % (auto) 0.5 % (0.0-2.0); Eosinophils % (auto) 0.4 % (0.0-7.0); Hematocrit 39.6 % (41.0-53.0); Lymphocytes % (auto) 22.7 % (10.0-50.0); Mean Corpuscular Hemoglobin 34.6 pg (28.0-32.0); Mean Corpuscular Hgb Conc. 33.9 g/dL (32.0-36.0); Mean Corpuscular Volume 102.2 fL (80.0-100.0); Neutrophils % (auto) 70.4 % (37.0-80.0); Platelet Count (auto) 117 10^3/uL (140-450); Red Blood Cells 3.87 10^6/uL (4.5-5.90); Red Cell Distribution Width 14.4 % (11.8-14.3)
[2020-02-19 22:24] LABS: Potassium 4.3 mmol/L (3.5-5.1)
[2020-02-19 22:31] LABS: BUN/Creatinine Ratio 7.7; Bilirubin, Total 0.3 mg/dL (0.2-1.0); Total Protein 9.1 g/dL (6.4-8.2)
[2020-02-20] MEDS ORDERED: THIAMINE IV ONE ×2
[2020-02-20] MEDS ORDERED: SODIUM CHLORIDE 0.9% IV ONE ×2
[2020-02-20] MEDS ORDERED: THIAMINE 100mg/ml INJ (200mg/2ml VIAL) ONE (00:16)
[2020-02-20 03:00] VITALS: BP 131/78
== END 2020-02-20 03:45 | disposition home or self-care (01) ==
LOC: ER 21:15 → EDBD 21:15 → ER 02-20 03:45
DX: F10.20 Alcohol dependence, uncomplicated (principal); Y90.9 Presence of alcohol in blood, level not specified
CPT/HCPCS: 36415; 80053; 80320; 85025; 96361; 96365; 96375; 99284; J3411; J7030

== ENCOUNTER 2020-04-21 14:09 | Emergency (ER) | payer MEDICAID ==
[~2020-04-21] VITALS: Ht 165.1 cm; Wt 72.6 kg
[2020-04-21 14:34] VITALS: BP 149/67
[2020-04-21] MEDS ORDERED: SODIUM CHLORIDE 0.9% 1,000 ML IV ONE (14:45)
[2020-04-21 15:08] LABS: Basophils # (auto) 0.1 10 ^3/uL (0-0.2); Eosinophils # (auto) 0 10 ^3/uL (0-0.8); Monocytes # (auto) 0.4 10 ^3/uL (0-1.3); Neutrophils # (auto) 4.3 10 ^3/uL (1.6-8.6); Platelet Count (auto) 86 10^3/uL (140-450)
[2020-04-21 15:10] LABS: Eosinophils % (auto) 0.5 % (0.0-7.0); Hematocrit 41.3 % (41.0-53.0); Lymphocytes # (auto) 1.4 10 ^3/uL (0.4-5.4); Lymphocytes % (auto) 22.5 % (10.0-50.0); Mean Corpuscular Hemoglobin 34.2 pg (28.0-32.0); Mean Corpuscular Hgb Conc. 33.9 g/dL (32.0-36.0); Mean Corpuscular Volume 101.1 fL (80.0-100.0); Monocytes % (auto) 7.1 % (0.0-12.0); Neutrophils % (auto) 68.9 % (37.0-80.0); Red Blood Cells 4.09 10^6/uL (4.5-5.90); Red Cell Distribution Width 13.7 % (11.8-14.3); White Blood Cell 6.3 10^3/uL (4.4-10.8)
[2020-04-21 15:22] LABS: Albumin 3.9 g/dL (3.4-5.0); Calcium 8.5 mg/dL (8.5-10.1); Potassium 4.4 mmol/L (3.5-5.1)
[2020-04-21 15:30] LABS: BUN/Creatinine Ratio 9.1; Bilirubin, Total 0.4 mg/dL (0.2-1.0); Total Protein 8.9 g/dL (6.4-8.2)
== END 2020-04-21 16:43 | disposition left against medical advice (07) ==
LOC: EDBD 14:09 → ER 14:09
DX: F10.129 Alcohol abuse with intoxication, unspecified (principal); F17.210 Nicotine dependence, cigarettes, uncomplicated; Y90.8 Blood alcohol level of 240 mg/100 ml or more
CPT/HCPCS: 36415; 80053; 80320; 85025

== ENCOUNTER 2020-06-03 13:11 | Emergency (ER) | payer MEDICAID ==
[~2020-06-03] VITALS: Ht 160 cm; Wt 68.0 kg
[2020-06-03 13:11] VITALS: BP 166/101
[2020-06-03 14:45] LABS: Hematocrit 38.6 % (41.0-53.0); Hemoglobin 13.4 g/dL (13.5-17.5); Mean Corpuscular Hemoglobin 34.7 pg (28.0-32.0); Mean Corpuscular Hgb Conc. 34.8 g/dL (32.0-36.0); Mean Corpuscular Volume 99.7 fL (80.0-100.0); Platelet Count (auto) 138 10^3/uL (140-450); Red Blood Cells 3.88 10^6/uL (4.5-5.90); Red Cell Distribution Width 13.8 % (11.8-14.3); White Blood Cell 5.6 10^3/uL (4.4-10.8)
[2020-06-03 14:48] LABS: Basophils % (manual) 0 (0.0-2.0); Blast Cells 0; Promyelocytes % 0; Reactive Lymphocytes 0
[2020-06-03 15:03] LABS: Chloride 107 mmol/L (98-107); Potassium 3.8 mmol/L (3.5-5.1); Sodium 140 mmol/L (136-145)
[2020-06-03 15:07] LABS: Albumin 3.8 g/dL (3.4-5.0); Anion Gap 9 (5-15); BUN/Creatinine Ratio 6.8; Blood Urea Nitrogen 4 mg/dL (7-18); Calcium 8.5 mg/dL (8.5-10.1); Carbon Dioxide 24 mmol/L (21-32); GFR African American 203 mL/min; GFR Non-African American 168 mL/min; Glucose 89 mg/dL (74-106); Magnesium 1.8 mg/dL (1.6-2.6)
[2020-06-03 15:10] LABS: Band Neutrophils % (manual) 11; Eosinophils % (manual) 2 (0-7); Lymphocytes % (manual) 28 (10.0-50.0); Metamyelocytes % 1; Monocytes % (manual) 4 (0-12); Myelocytes % 1
[2020-06-03 15:12] LABS: Alanine Aminotransferase 58 U/L (16-61); Alkaline Phosphatase 173 U/L (45-117); Aspartate Aminotransferase 108 U/L (15-37); Bilirubin, Total 0.4 mg/dL (0.2-1.0); Total Protein 8.4 g/dL (6.4-8.2)
[2020-06-03] MEDS ORDERED: SODIUM CHLORIDE 0.9% 1,000 ML IVB ONE (15:30)
[2020-06-03] MEDS ORDERED: THIAMINE 100mg/ml INJ (200mg/2ml VIAL) IV ONE (15:30)
== END 2020-06-03 16:55 | disposition left against medical advice (07) ==
LOC: EDBD 13:11 → ER 13:11
DX: F10.129 Alcohol abuse with intoxication, unspecified (principal); F41.9 Anxiety disorder, unspecified; F17.210 Nicotine dependence, cigarettes, uncomplicated; R07.9 Chest pain, unspecified; Y90.8 Blood alcohol level of 240 mg/100 ml or more
CPT/HCPCS: 36415; 71045; 80053; 80320; 83735; 84484; 85007; 85027; 93005

== ENCOUNTER 2020-07-09 20:37 | Emergency (ER) | payer MEDICAID ==
[~2020-07-09] VITALS: Ht 172.7 cm; Wt 70.3 kg
[2020-07-09] MEDS ORDERED: SODIUM CHLORIDE 0.9% 1,000 ML IV ONE (20:45)
[2020-07-09 22:00] VITALS: BP 140/84
== END 2020-07-09 23:00 | disposition home or self-care (01) ==
LOC: EDBD 20:37 → ER 20:39
DX: F10.920 Alcohol use, unspecified with intoxication, uncomplicated (principal); F17.210 Nicotine dependence, cigarettes, uncomplicated

== ENCOUNTER 2020-07-12 12:07 | Emergency (ER) | payer MEDICAID ==
[~2020-07-12] VITALS: Ht 172.7 cm; Wt 88.5 kg
[2020-07-12] MEDS ORDERED: THIAMINE 100mg/ml INJ (200mg/2ml VIAL) IV ONE (12:30)
[2020-07-12] MEDS ORDERED: SODIUM CHLORIDE 0.9% 1,000 ML IV ONE ×2 (12:30)
[2020-07-12 14:20] VITALS: BP 118/81
== END 2020-07-12 18:21 | disposition home or self-care (01) ==
LOC: EDBD 12:07 → ER 12:07
DX: F10.129 Alcohol abuse with intoxication, unspecified (principal); F17.210 Nicotine dependence, cigarettes, uncomplicated; Y90.8 Blood alcohol level of 240 mg/100 ml or more
CPT/HCPCS: 36415; 80320; 96361; 96374; 99283; J3411; J7030

== ENCOUNTER 2020-07-23 12:30 | Emergency (ER) | payer MEDICAID ==
[~2020-07-23] VITALS: Ht 167.6 cm; Wt 72.6 kg
[2020-07-23] MEDS ORDERED: SODIUM CHLORIDE 0.9% 1,000 ML IV ONE ×2 (12:45)
[2020-07-23] MEDS ORDERED: THIAMINE 100mg/ml INJ (200mg/2ml VIAL) IV ONE (12:45)
[2020-07-23 17:54] VITALS: BP 136/84
== END 2020-07-23 18:00 | disposition home or self-care (01) ==
LOC: ER 12:30 → EDBD 12:30 → ER 18:00
DX: F10.229 Alcohol dependence with intoxication, unspecified (principal); F17.210 Nicotine dependence, cigarettes, uncomplicated; Z79.899 Other long term (current) drug therapy; Y90.8 Blood alcohol level of 240 mg/100 ml or more
CPT/HCPCS: 36415; 71045; 80320; 96361; 96374; 99285; J3411; J7030

== ENCOUNTER 2020-08-07 18:57 | Emergency (ER) | payer MEDICAID ==
[~2020-08-07] VITALS: Ht 167.6 cm; Wt 72.6 kg
[2020-08-07 20:11] LABS: Basophils # (auto) 0.1 10 ^3/uL (0-0.2); Eosinophils # (auto) 0 10 ^3/uL (0-0.8); Monocytes # (auto) 0.4 10 ^3/uL (0-1.3); Monocytes % (auto) 7.9 % (0.0-12.0); Neutrophils # (auto) 3.3 10 ^3/uL (1.6-8.6); Red Cell Distribution Width 13.4 % (11.8-14.3)
[2020-08-07 20:15] LABS: Basophils % (auto) 1.1 % (0.0-2.0); Eosinophils % (auto) 0.3 % (0.0-7.0); Hematocrit 40.7 % (41.0-53.0); Lymphocytes # (auto) 1.4 10 ^3/uL (0.4-5.4); Lymphocytes % (auto) 26.5 % (10.0-50.0); Mean Corpuscular Hemoglobin 35.1 pg (28.0-32.0); Mean Corpuscular Hgb Conc. 34.5 g/dL (32.0-36.0); Mean Corpuscular Volume 101.8 fL (80.0-100.0); Neutrophils % (auto) 64.2 % (37.0-80.0); Nucleated Red Blood Cells % 0.1 %; White Blood Cell 5.2 10^3/uL (4.4-10.8)
[2020-08-07 20:29] LABS: Calcium 9.2 mg/dL (8.5-10.1); Potassium 3.5 mmol/L (3.5-5.1)
[2020-08-07] MEDS ORDERED: THIAMINE INJ 100 MG in SODIUM CHLORIDE 0.9% 1,000 ML IV ONE (20:30)
[2020-08-07 20:36] LABS: Bilirubin, Total 0.8 mg/dL (0.2-1.0); Total Protein 8.7 g/dL (6.4-8.2)
[2020-08-07 22:11] LABS: Urine Bacteria NONE SEEN /hpf (None Seen); Urine Blood Negative /uL (Negative); Urine Specific Gravity 1.018 (1.001-1.035); Urine WBC 1 /hpf (0 - 3)
[2020-08-07 22:30] LABS: Amphetamine Screen, Urine NEGATIVE (NEGATIVE); Barbiturate Scree,Urine NEGATIVE (NEGATIVE); Benzodiazephine Screen, Urine NEGATIVE (NEGATIVE); Cannabinoid Screen, Urine NEGATIVE (NEGATIVE); Cocaine Screen, Urine NEGATIVE (NEGATIVE); Opiate Scree,Urine NEGATIVE (NEGATIVE); Phencyclidine Screen, Urine NEGATIVE (NEGATIVE)
[2020-08-08 01:00] VITALS: BP 136/89
== END 2020-08-08 02:06 | disposition home or self-care (01) ==
LOC: EDBD 18:57 → ER 19:00
DX: S00.03XA Contusion of scalp, initial encounter (principal); F10.239 Alcohol dependence with withdrawal, unspecified; G40.509 Epileptic seizures related to external causes, not intractable, without status epilepticus; M79.18 Myalgia, other site; X58.XXXA Exposure to other specified factors, initial encounter; Y93.89 Activity, other specified; Y92.89 Other specified places as the place of occurrence of the external cause; Y99.8 Other external cause status; Y90.9 Presence of alcohol in blood, level not specified
CPT/HCPCS: 36415; 70450; 72125; 80053; 80307; 80320; 81001; 85025; 96365; 96368; 99285; J1953; J3411; J7030; J7060

== ENCOUNTER 2020-09-16 09:39 | Emergency (ER) | payer MEDICAID ==
[~2020-09-16] VITALS: Ht 157.5 cm; Wt 72.6 kg
[2020-09-16] MEDS ORDERED: cefTRIAXone SOD 1,000 MG VL IM ONE (10:00)
[2020-09-16 11:21] VITALS: BP 134/67
== END 2020-09-16 11:01 | disposition home or self-care (01) ==
LOC: ER 09:39 → EDBD 09:39 → ER 11:01
DX: L03.012 Cellulitis of left finger (principal); F17.210 Nicotine dependence, cigarettes, uncomplicated; W26.8XXA Contact with other sharp object(s), not elsewhere classified, initial encounter; Y93.89 Activity, other specified; Y92.89 Other specified places as the place of occurrence of the external cause; Y99.8 Other external cause status
CPT/HCPCS: 73140; 96372; 99283; J0696

== ENCOUNTER 2020-09-21 14:15 | Emergency (ER) | payer MEDICAID ==
[~2020-09-21] VITALS: Ht 162.6 cm; Wt 80.7 kg
[2020-09-21 14:20] VITALS: BP 140/91
== END 2020-09-21 17:00 | disposition home or self-care (01) ==
LOC: ER 14:15
DX: S61.213D Laceration without foreign body of left middle finger without damage to nail, subsequent encounter (principal); F17.210 Nicotine dependence, cigarettes, uncomplicated; Z79.899 Other long term (current) drug therapy; X58.XXXD Exposure to other specified factors, subsequent encounter

== ENCOUNTER 2020-09-27 23:30 | Emergency (ER) | payer MEDICAID ==
[~2020-09-27] VITALS: Ht 165.1 cm; Wt 68.0 kg
[2020-09-28] MEDS ORDERED: SODIUM CHLORIDE 0.9% 1,000 ML IVB ONE (00:45)
[2020-09-28] MEDS ORDERED: THIAMINE 100mg/ml INJ (200mg/2ml VIAL) IV ONE (00:45)
[2020-09-28] MEDS ORDERED: cefTRIAXone 1GM/50ML D5W 50 ML IV ONE (00:45)
[2020-09-28 02:13] VITALS: BP 144/89
[2020-09-28] MEDS ORDERED: cefTRIAXone W LIDOCAINE 1 GM IM IM ONE (02:45)
[2020-09-28] MEDS ORDERED: cefTRIAXone SOD 1,000 MG VL ONE (04:00)
== END 2020-09-28 04:39 | disposition home or self-care (01) ==
LOC: ER 23:30 → MERGE 23:30 → ER 09-28 04:38
DX: S61.233A Puncture wound without foreign body of left middle finger without damage to nail, initial encounter (principal); F10.129 Alcohol abuse with intoxication, unspecified; F32.9 Major depressive disorder, single episode, unspecified; Y90.9 Presence of alcohol in blood, level not specified; Z87.891 Personal history of nicotine dependence; X58.XXXA Exposure to other specified factors, initial encounter; Y93.89 Activity, other specified; Y92.89 Other specified places as the place of occurrence of the external cause; Y99.8 Other external cause status
CPT/HCPCS: 96372; 99283; J0696

== ENCOUNTER 2020-10-08 15:04 | Inpatient (IN) | payer MEDICAID ==
[~2020-10-08] VITALS: Ht 165.1 cm; Wt 68.9 kg
[2020-10-08] MEDS ORDERED: SODIUM CHLORIDE 0.9% 1,000 ML IV ONE ×2 (17:15)
[2020-10-08] MEDS ORDERED: THIAMINE 100mg/ml INJ (200mg/2ml VIAL) IV ONE (17:15)
[2020-10-08] MEDS ORDERED: LORazepam 2MG/ML-1ML VIAL IV ONE (17:15)
[2020-10-08 18:02] LABS: Basophils # (auto) 0 10 ^3/uL (0-0.2); Eosinophils # (auto) 0 10 ^3/uL (0-0.8); Hemoglobin 13.4 g/dL (13.5-17.5); Lymphocytes # (auto) 0.3 10 ^3/uL (0.4-5.4); Urine Bacteria FEW /hpf (None Seen); Urine Blood Negative /uL (Negative); Urine Hyaline Cast FEW /lpf (0 - 2); Urine Mucus FEW (None Seen); Urine Specific Gravity 1.019 (1.001-1.035); Urine WBC 3 /hpf (0 - 3)
[2020-10-08 18:04] LABS: Basophils % (auto) 0.4 % (0.0-2.0); Hematocrit 38.3 % (41.0-53.0); Lymphocytes % (auto) 4.4 % (10.0-50.0); Mean Corpuscular Hemoglobin 34.7 pg (28.0-32.0); Mean Corpuscular Hgb Conc. 35.1 g/dL (32.0-36.0); Monocytes # (auto) 0.4 10 ^3/uL (0-1.3); Monocytes % (auto) 5.7 % (0.0-12.0); Neutrophils # (auto) 6.2 10 ^3/uL (1.6-8.6); Neutrophils % (auto) 89.5 % (37.0-80.0); Platelet Count (auto) 51 10^3/uL (140-450); Red Blood Cells 3.87 10^6/uL (4.5-5.90); Red Cell Distribution Width 14.7 % (11.8-14.3); White Blood Cell 6.9 10^3/uL (4.4-10.8)
[2020-10-08 18:16] LABS: Alanine Aminotransferase 43 U/L (16-61); Albumin 4.1 g/dL (3.4-5.0); Anion Gap 7 (5-15); Aspartate Aminotransferase 61 U/L (15-37); BUN/Creatinine Ratio 7.4; Blood Urea Nitrogen 5 mg/dL (7-18); Calcium 9.3 mg/dL (8.5-10.1); Carbon Dioxide 28 mmol/L (21-32); Chloride 100 mmol/L (98-107); GFR African American 173 mL/min; GFR Non-African American 143 mL/min; Glucose 115 mg/dL (74-106); Potassium 3.5 mmol/L (3.5-5.1); Sodium 135 mmol/L (136-145)
[2020-10-08 18:21] LABS: Alkaline Phosphatase 156 U/L (45-117); Total Protein 8.9 g/dL (6.4-8.2)
[2020-10-08] MEDS ORDERED: ONDANSETRON HCL 4 MG/2 ML VIAL ONE (20:48)
[2020-10-08] MEDS ORDERED: ONDANSETRON HCL 4 MG/2 ML VIAL IV ONE (21:00)
[2020-10-08] MEDS ORDERED: TEMAZEPAM 15 MG CAP PO PRN (21:15)
[2020-10-08] MEDS ORDERED: ACETAMINOPHEN 325 MG TAB PO PRN (21:15)
[2020-10-08] MEDS ORDERED: HYDROcodone-ACET 5/325MG TAB PO PRN (21:15)
[2020-10-08] MEDS ORDERED: MORPHINE SULF INJ 2 MG/ML SYRINGE 1ML IV PRN ×2 (21:15)
[2020-10-08] MEDS ORDERED: LORazepam 2MG/ML-1ML VIAL IV PRN (21:15)
[2020-10-08] MEDS ORDERED: ONDANSETRON HCL 4 MG/2 ML VIAL IV PRN (21:15)
[2020-10-08] MEDS ORDERED: NITROGLYCERIN 0.4 MG SL TAB SL PRN (21:15)
[2020-10-08] MEDS ORDERED: DOCUSATE SOD 100 MG CAP PO PRN (21:15)
[2020-10-08] MEDS: FAMOTIDINE 20 MG TAB PO SCH (22:17)
[2020-10-08 22:40] VITALS: BP 140/97
[2020-10-09 00:44] VITALS: BP 140/97
[2020-10-09 05:00] VITALS: BP 133/90
[2020-10-09 08:00] VITALS: BP 115/81
[2020-10-09 08:16] VITALS: BP 115/81
[2020-10-09] MEDS: FAMOTIDINE 20 MG TAB PO SCH (09:29)
[2020-10-09] MEDS ORDERED: LORazepam 2MG/ML-1ML VIAL IV PRN (09:30)
[2020-10-09] MEDS ORDERED: ENOXAPARIN SOD 40 MG/0.4 ML SYRINGE SC SCH (10:00)
[2020-10-09] MEDS ORDERED: levETIRAcetam 500 MG TAB PO SCH (10:00)
[2020-10-09] MEDS ORDERED: chlordiazePOXIDE HCL 5 MG CAP PO SCH (10:00)
[2020-10-09] MEDS ORDERED: FOLIC ACID 1 MG, MULTIPLE VITAMIN 10 ML, MAGNESIUM SULF SDV 50% 8 MEQ, THIAMINE INJ 100... INJ SCH ×5 (12:00)
[2020-10-09 12:23] VITALS: BP 143/89
[2020-10-09 12:37] LABS: Amphetamine Screen, Urine NEGATIVE (NEGATIVE); Barbiturate Scree,Urine NEGATIVE (NEGATIVE); Benzodiazephine Screen, Urine NEGATIVE (NEGATIVE); Cannabinoid Screen, Urine NEGATIVE (NEGATIVE); Cocaine Screen, Urine NEGATIVE (NEGATIVE); Opiate Scree,Urine NEGATIVE (NEGATIVE); Phencyclidine Screen, Urine NEGATIVE (NEGATIVE)
== END 2020-10-09 17:16 | disposition left against medical advice (07) | DRG 53 ==
LOC: EDUNIT# 15:04 → EDBD 15:04 → ER 15:04 → TELE 21:35 → TELE-WESTW 22:40
PROVIDERS: ADMIT Nurse Practitioner; ATTEND Nurse Practitioner
DX: G40.909 Epilepsy, unspecified, not intractable, without status epilepticus (principal); D69.6 Thrombocytopenia, unspecified; S09.90XA Unspecified injury of head, initial encounter; Z20.822 Contact with and (suspected) exposure to COVID-19; E86.0 Dehydration; F17.210 Nicotine dependence, cigarettes, uncomplicated; Z53.29 Procedure and treatment not carried out because of patient's decision for other reasons; I10 Essential (primary) hypertension; W18.39XA Other fall on same level, initial encounter; Z79.899 Other long term (current) drug therapy; Z82.49 Family history of ischemic heart disease and other diseases of the circulatory system; Y93.89 Activity, other specified; Y92.89 Other specified places as the place of occurrence of the external cause; Y99.8 Other external cause status
CPT/HCPCS: 36415; 70450; 70551; 71045; 73130; 80053; 80307; 80320; 81001; 84484; 85025; 87081; 87426; 93306; 96361; 96365; 96375; G0378; J2405; J7060

== ENCOUNTER 2020-11-06 22:07 | Emergency (ER) | payer MEDICAID ==
[~2020-11-06] VITALS: Ht 175.3 cm; Wt 81.6 kg
[2020-11-07 03:55] VITALS: BP 122/85
== END 2020-11-07 05:08 | disposition home or self-care (01) ==
LOC: EDBD 22:07 → ER 22:09
DX: F10.229 Alcohol dependence with intoxication, unspecified (principal); F17.210 Nicotine dependence, cigarettes, uncomplicated; Z79.899 Other long term (current) drug therapy; Y90.9 Presence of alcohol in blood, level not specified

== ENCOUNTER 2020-11-11 03:44 | Emergency (ER) | payer MEDICAID ==
[~2020-11-11] VITALS: Ht 165.1 cm; Wt 68.0 kg
[2020-11-11] MEDS ORDERED: THIAMINE 100mg/ml INJ (200mg/2ml VIAL) IV ONE (07:00)
[2020-11-11] MEDS ORDERED: SODIUM CHLORIDE 0.9% 1,000 ML IV ONE ×2 (07:00)
[2020-11-11 08:04] VITALS: BP 119/76
== END 2020-11-11 08:23 | disposition home or self-care (01) ==
LOC: EDBD 03:44 → ER 03:57
DX: F10.10 Alcohol abuse, uncomplicated (principal); F17.210 Nicotine dependence, cigarettes, uncomplicated; Z79.899 Other long term (current) drug therapy; Y90.9 Presence of alcohol in blood, level not specified
CPT/HCPCS: 70450; 96361; 96374; 99285; J3411; J7030

== ENCOUNTER 2020-11-20 07:41 | Emergency (ER) | payer MEDICAID ==
[~2020-11-20] VITALS: Ht 154.9 cm; Wt 63.5 kg
[2020-11-20 09:30] VITALS: BP 126/89
== END 2020-11-20 09:54 | disposition home or self-care (01) ==
LOC: EDBD 07:41 → ER 07:41
DX: S40.022A Contusion of left upper arm, initial encounter (principal); S40.021A Contusion of right upper arm, initial encounter; F17.210 Nicotine dependence, cigarettes, uncomplicated; X58.XXXA Exposure to other specified factors, initial encounter; Y93.89 Activity, other specified; Y92.89 Other specified places as the place of occurrence of the external cause; Y99.8 Other external cause status

== ENCOUNTER 2021-01-02 18:42 | Emergency (ER) | payer MEDICAID ==
[~2021-01-02] VITALS: Ht 167.6 cm; Wt 72.6 kg
[2021-01-02 19:00] VITALS: BP 110/79
[2021-01-02] MEDS ORDERED: ACETAMINOPHEN 325 MG TAB PO ONE (19:30)
[2021-01-02] MEDS ORDERED: SODIUM CHLORIDE 0.9% 1,000 ML IV ONE (19:30)
[2021-01-02 19:54] LABS: Basophils # (auto) 0 10 ^3/uL (0-0.2); Eosinophils # (auto) 0 10 ^3/uL (0-0.8); Lymphocytes # (auto) 0.9 10 ^3/uL (0.4-5.4); Monocytes # (auto) 0.6 10 ^3/uL (0-1.3); Neutrophils # (auto) 4.8 10 ^3/uL (1.6-8.6); Nucleated Red Blood Cells % 0.1 %; White Blood Cell 6.3 10^3/uL (4.4-10.8)
[2021-01-02 19:56] LABS: Basophils % (auto) 0.6 % (0.0-2.0); Lymphocytes % (auto) 14.1 % (10.0-50.0); Mean Corpuscular Hemoglobin 34.3 pg (28.0-32.0); Mean Corpuscular Hgb Conc. 34.2 g/dL (32.0-36.0); Mean Corpuscular Volume 100.4 fL (80.0-100.0); Monocytes % (auto) 9.5 % (0.0-12.0); Neutrophils % (auto) 75.8 % (37.0-80.0); Red Blood Cells 4.08 10^6/uL (4.5-5.90); Red Cell Distribution Width 14.4 % (11.8-14.3)
[2021-01-02 20:04] LABS: Albumin 4.2 g/dL (3.4-5.0); BUN/Creatinine Ratio 2.7; Potassium 3.7 mmol/L (3.5-5.1)
[2021-01-02 20:08] LABS: Bilirubin, Total 1.2 mg/dL (0.2-1.0); Total Protein 9.3 g/dL (6.4-8.2)
== END 2021-01-03 03:28 | disposition left against medical advice (07) ==
LOC: EDBD 18:42 → ER 18:42
DX: R10.9 Unspecified abdominal pain (principal); R07.81 Pleurodynia; F17.210 Nicotine dependence, cigarettes, uncomplicated
CPT/HCPCS: 36415; 80053; 85025

== ENCOUNTER 2021-01-03 14:55 | Emergency (ER) | payer MEDICAID ==
[~2021-01-03] VITALS: Ht 162.6 cm; Wt 72.6 kg
[2021-01-03 15:08] VITALS: BP 107/87
[2021-01-03] MEDS ORDERED: SODIUM CHLORIDE 0.9% 1,000 ML IVB ONE (15:30)
[2021-01-03 16:04] LABS: Basophils # (auto) 0 10 ^3/uL (0-0.2); Eosinophils # (auto) 0 10 ^3/uL (0-0.8); Lymphocytes # (auto) 0.9 10 ^3/uL (0.4-5.4); Mean Corpuscular Hgb Conc. 34.3 g/dL (32.0-36.0); Monocytes # (auto) 0.6 10 ^3/uL (0-1.3); Nucleated Red Blood Cells % 0.1 %
[2021-01-03 16:06] LABS: Basophils % (auto) 0.3 % (0.0-2.0); Hematocrit 37.9 % (41.0-53.0); Lymphocytes % (auto) 12.6 % (10.0-50.0); Mean Corpuscular Hemoglobin 34.3 pg (28.0-32.0); Monocytes % (auto) 8.2 % (0.0-12.0); Neutrophils # (auto) 5.5 10 ^3/uL (1.6-8.6); Neutrophils % (auto) 78.9 % (37.0-80.0); Red Blood Cells 3.79 10^6/uL (4.5-5.90); Red Cell Distribution Width 14.3 % (11.8-14.3); White Blood Cell 6.9 10^3/uL (4.4-10.8)
[2021-01-03 16:11] LABS: Calcium 8.9 mg/dL (8.5-10.1); Potassium 3.1 mmol/L (3.5-5.1)
[2021-01-03 16:19] LABS: Bilirubin, Total 1.1 mg/dL (0.2-1.0); Total Protein 8.8 g/dL (6.4-8.2)
[2021-01-03 16:37] LABS: BUN/Creatinine Ratio 7.1
== END 2021-01-03 17:20 | disposition home or self-care (01) ==
LOC: ER 14:55 → EDBD 14:55 → ER 17:20
DX: F10.129 Alcohol abuse with intoxication, unspecified (principal); F17.210 Nicotine dependence, cigarettes, uncomplicated; Z79.899 Other long term (current) drug therapy; Y90.8 Blood alcohol level of 240 mg/100 ml or more
CPT/HCPCS: 36415; 70450; 70486; 80053; 80320; 85025

== ENCOUNTER 2021-03-30 13:48 | Emergency (ER) | payer MEDICAID ==
[~2021-03-30] VITALS: Ht 162.6 cm; Wt 77.1 kg
[2021-03-30 15:01] LABS: Basophils # (auto) 0 10 ^3/uL (0-0.2); Basophils % (auto) 0.6 % (0.0-2.0); Eosinophils # (auto) 0 10 ^3/uL (0-0.8); Eosinophils % (auto) 0.9 % (0.0-7.0); Hemoglobin 13.7 g/dL (13.5-17.5); Lymphocytes # (auto) 1.4 10 ^3/uL (0.4-5.4); Lymphocytes % (auto) 32.1 % (10.0-50.0); Mean Corpuscular Hemoglobin 33.6 pg (28.0-32.0); Mean Corpuscular Hgb Conc. 33.5 g/dL (32.0-36.0); Mean Corpuscular Volume 100.4 fL (80.0-100.0); Monocytes # (auto) 0.3 10 ^3/uL (0-1.3); Monocytes % (auto) 6.9 % (0.0-12.0); Neutrophils # (auto) 2.6 10 ^3/uL (1.6-8.6); Neutrophils % (auto) 59.5 % (37.0-80.0); Nucleated Red Blood Cells % 0.1 %; Red Blood Cells 4.09 10^6/uL (4.5-5.90); Red Cell Distribution Width 13.7 % (11.8-14.3); White Blood Cell 4.4 10^3/uL (4.4-10.8)
[2021-03-30 15:18] LABS: Albumin 3.7 g/dL (3.4-5.0); BUN/Creatinine Ratio 7.9; Calcium 8.2 mg/dL (8.5-10.1); Potassium 3.7 mmol/L (3.5-5.1)
[2021-03-30 15:23] LABS: Bilirubin, Total 0.4 mg/dL (0.2-1.0); Total Protein 7.6 g/dL (6.4-8.2)
[2021-03-30 15:54] LABS: Urine WBC None Seen /hpf (0 - 3)
[2021-03-30 16:07] LABS: Urine Bacteria NONE SEEN /hpf (None Seen); Urine Blood Negative /uL (Negative); Urine Specific Gravity 1.002 (1.001-1.035)
[2021-03-30 20:57] VITALS: BP 131/72
== END 2021-03-30 20:56 | disposition home or self-care (01) ==
LOC: EDBD 13:48 → ER 13:48
DX: G40.909 Epilepsy, unspecified, not intractable, without status epilepticus (principal); F10.129 Alcohol abuse with intoxication, unspecified; F17.210 Nicotine dependence, cigarettes, uncomplicated; R41.82 Altered mental status, unspecified; Y90.8 Blood alcohol level of 240 mg/100 ml or more
CPT/HCPCS: 36415; 80053; 80320; 81001; 85025

== ENCOUNTER 2021-04-07 16:21 | Emergency (ER) | payer MEDICAID ==
[~2021-04-07] VITALS: Ht 162.6 cm; Wt 70.3 kg
[2021-04-07 22:39] VITALS: BP 120/86
[2021-04-07] MEDS ORDERED: ACETAMINOPHEN 500 MG TAB PO ONE (23:00)
[2021-04-07] MEDS ORDERED: IBUPROFEN 800 MG TAB PO ONE (23:00)
== END 2021-04-07 23:32 | disposition home or self-care (01) ==
LOC: ER 16:21
DX: S22.089A Unspecified fracture of T11-T12 vertebra, initial encounter for closed fracture (principal); F17.210 Nicotine dependence, cigarettes, uncomplicated; Y08.89XA Assault by other specified means, initial encounter; Y93.89 Activity, other specified; Y92.89 Other specified places as the place of occurrence of the external cause; Y99.8 Other external cause status
CPT/HCPCS: 72100

== ENCOUNTER 2021-05-10 01:44 | Emergency (ER) | payer MEDICAID ==
[~2021-05-10] VITALS: Ht 162.6 cm; Wt 65.8 kg
[2021-05-10 01:45] VITALS: BP 133/90
== END 2021-05-10 04:40 | disposition left against medical advice (07) ==
LOC: EDBD 01:44 → ER 01:44
DX: M54.9 Dorsalgia, unspecified (principal); Z53.21 Procedure and treatment not carried out due to patient leaving prior to being seen by health care provider

== ENCOUNTER 2021-07-15 22:00 | Emergency (ER) | payer MEDICAID ==
[~2021-07-15] VITALS: Ht 162.6 cm; Wt 74.4 kg
[2021-07-16] MEDS ORDERED: KETOROLAC TROMETH 30 MG/ML 1ML VIAL IV ONE (04:00)
[2021-07-16 04:44] LABS: Basophils # (auto) 0.1 10 ^3/uL (0-0.2); Basophils % (auto) 1.1 % (0.0-2.0); Eosinophils # (auto) 0.1 10 ^3/uL (0-0.8); Eosinophils % (auto) 1.2 % (0.0-7.0); Hematocrit 38.5 % (41.0-53.0); Hemoglobin 13.1 g/dL (13.5-17.5); Lymphocytes # (auto) 1.6 10 ^3/uL (0.4-5.4); Lymphocytes % (auto) 35.9 % (10.0-50.0); Mean Corpuscular Hemoglobin 33.9 pg (28.0-32.0); Mean Corpuscular Hgb Conc. 34.1 g/dL (32.0-36.0); Mean Corpuscular Volume 99.4 fL (80.0-100.0); Monocytes # (auto) 0.5 10 ^3/uL (0-1.3); Monocytes % (auto) 10.4 % (0.0-12.0); Neutrophils # (auto) 2.3 10 ^3/uL (1.6-8.6); Neutrophils % (auto) 51.4 % (37.0-80.0); Nucleated Red Blood Cells % 0.2 %; Red Blood Cells 3.87 10^6/uL (4.5-5.90); Red Cell Distribution Width 14.3 % (11.8-14.3); White Blood Cell 4.5 10^3/uL (4.4-10.8)
[2021-07-16 05:00] LABS: Albumin 3.4 g/dL (3.4-5.0); Calcium 8.5 mg/dL (8.5-10.1); Potassium 3.8 mmol/L (3.5-5.1)
[2021-07-16 05:02] LABS: BUN/Creatinine Ratio 8.8
[2021-07-16 05:04] LABS: Bilirubin, Total 0.2 mg/dL (0.2-1.0)
[2021-07-16 10:08] VITALS: BP 102/57
== END 2021-07-16 10:22 | disposition home or self-care (01) ==
LOC: ER 22:18
DX: S32.018A Other fracture of first lumbar vertebra, initial encounter for closed fracture (principal); S22.088A Other fracture of T11-T12 vertebra, initial encounter for closed fracture; M54.16 Radiculopathy, lumbar region; F10.129 Alcohol abuse with intoxication, unspecified; Z86.69 Personal history of other diseases of the nervous system and sense organs; F17.210 Nicotine dependence, cigarettes, uncomplicated; Z79.899 Other long term (current) drug therapy; Y90.8 Blood alcohol level of 240 mg/100 ml or more; X58.XXXA Exposure to other specified factors, initial encounter; Y93.89 Activity, other specified; Y92.89 Other specified places as the place of occurrence of the external cause; Y99.8 Other external cause status
CPT/HCPCS: 36415; 72100; 80053; 80320; 85025; 96374; 99284; J1885

== ENCOUNTER 2021-07-20 23:13 | Emergency (ER) | payer MEDICAID ==
[~2021-07-20] VITALS: Ht 175.3 cm; Wt 93.0 kg
[2021-07-20 23:32] VITALS: BP 154/75
== END 2021-07-21 03:46 | disposition home or self-care (01) ==
LOC: ER 23:13 → EDBD 23:13 → EDSEX 23:13 → ER 07-21 03:46
DX: S33.5XXA Sprain of ligaments of lumbar spine, initial encounter (principal); M54.16 Radiculopathy, lumbar region; F17.210 Nicotine dependence, cigarettes, uncomplicated; X58.XXXA Exposure to other specified factors, initial encounter; Y93.89 Activity, other specified; Y92.89 Other specified places as the place of occurrence of the external cause; Y99.8 Other external cause status

== ENCOUNTER 2021-08-01 21:03 | Emergency (ER) | payer MEDICAID ==
[~2021-08-01] VITALS: Ht 167.6 cm; Wt 72.6 kg
[2021-08-01 21:03] VITALS: BP 132/82
[2021-08-01 22:27] LABS: Basophils # (auto) 0.2 10 ^3/uL (0-0.2); Eosinophils # (auto) 0.1 10 ^3/uL (0-0.8); Eosinophils % (auto) 0.9 % (0.0-7.0); Hematocrit 39.8 % (41.0-53.0); Hemoglobin 13.6 g/dL (13.5-17.5); Lymphocytes # (auto) 1.5 10 ^3/uL (0.4-5.4); Lymphocytes % (auto) 22.4 % (10.0-50.0); Mean Corpuscular Hemoglobin 33.8 pg (28.0-32.0); Mean Corpuscular Hgb Conc. 34.3 g/dL (32.0-36.0); Mean Corpuscular Volume 98.5 fL (80.0-100.0); Monocytes # (auto) 0.4 10 ^3/uL (0-1.3); Monocytes % (auto) 6.2 % (0.0-12.0); Neutrophils # (auto) 4.4 10 ^3/uL (1.6-8.6); Neutrophils % (auto) 67.5 % (37.0-80.0); Nucleated Red Blood Cells % 0.1 %; Red Blood Cells 4.04 10^6/uL (4.5-5.90); Red Cell Distribution Width 13.9 % (11.8-14.3); White Blood Cell 6.6 10^3/uL (4.4-10.8)
[2021-08-01 22:50] LABS: Potassium 3.7 mmol/L (3.5-5.1)
[2021-08-01 22:54] LABS: Albumin 3.9 g/dL (3.4-5.0); BUN/Creatinine Ratio 9.5; Calcium 8.4 mg/dL (8.5-10.1)
[2021-08-01 22:59] LABS: Bilirubin, Total 0.2 mg/dL (0.2-1.0); Total Protein 8.6 g/dL (6.4-8.2)
== END 2021-08-02 06:41 | disposition left against medical advice (07) ==
LOC: ER 21:03 → EDBD 21:03 → ER 08-02 06:41
DX: F10.129 Alcohol abuse with intoxication, unspecified (principal); Z53.21 Procedure and treatment not carried out due to patient leaving prior to being seen by health care provider; Y90.8 Blood alcohol level of 240 mg/100 ml or more
CPT/HCPCS: 36415; 80053; 80320; 85025

== ENCOUNTER 2021-08-25 00:11 | Emergency (ER) | payer MEDICAID ==
[~2021-08-25] VITALS: Ht 162.6 cm; Wt 68.0 kg
[2021-08-25 01:11] LABS: Basophils # (auto) 0 10 ^3/uL (0-0.2); Basophils % (auto) 0.9 % (0.0-2.0); Eosinophils # (auto) 0.1 10 ^3/uL (0-0.8); Eosinophils % (auto) 1.7 % (0.0-7.0); Hematocrit 38.5 % (41.0-53.0); Lymphocytes # (auto) 1.7 10 ^3/uL (0.4-5.4); Lymphocytes % (auto) 37.4 % (10.0-50.0); Mean Corpuscular Hemoglobin 33.5 pg (28.0-32.0); Mean Corpuscular Hgb Conc. 33.7 g/dL (32.0-36.0); Mean Corpuscular Volume 99.4 fL (80.0-100.0); Monocytes # (auto) 0.5 10 ^3/uL (0-1.3); Monocytes % (auto) 10.3 % (0.0-12.0); Neutrophils # (auto) 2.3 10 ^3/uL (1.6-8.6); Neutrophils % (auto) 49.7 % (37.0-80.0); Nucleated Red Blood Cells % 0.1 %; Red Blood Cells 3.88 10^6/uL (4.5-5.90); White Blood Cell 4.5 10^3/uL (4.4-10.8)
[2021-08-25 01:32] LABS: Albumin 3.8 g/dL (3.4-5.0); BUN/Creatinine Ratio 10.3; Calcium 8.6 mg/dL (8.5-10.1); Potassium 3.8 mmol/L (3.5-5.1)
[2021-08-25 01:35] LABS: Bilirubin, Total 0.2 mg/dL (0.2-1.0); Total Protein 8.4 g/dL (6.4-8.2)
[2021-08-25 01:58] LABS: Blood Alcohol 459.7 mg/dL (0-5)
[2021-08-25] MEDS ORDERED: SODIUM CHLORIDE 0.9% 1,000 ML IV ONE ×2 (08:45)
[2021-08-25] MEDS ORDERED: THIAMINE 100mg/ml INJ (200mg/2ml VIAL) IV ONE (08:45)
[2021-08-25 10:05] LABS: Urine Bacteria FEW /hpf (None Seen); Urine Blood Negative /uL (Negative); Urine Mucus FEW (None Seen); Urine Specific Gravity 1.024 (1.001-1.035); Urine WBC <1 /hpf (0 - 3)
[2021-08-25 13:30] VITALS: BP 123/70
== END 2021-08-25 14:46 | disposition home or self-care (01) ==
LOC: EDBD 00:11 → ER 00:11
DX: F10.129 Alcohol abuse with intoxication, unspecified (principal); R10.9 Unspecified abdominal pain; F17.210 Nicotine dependence, cigarettes, uncomplicated; Z79.899 Other long term (current) drug therapy; Y90.8 Blood alcohol level of 240 mg/100 ml or more
CPT/HCPCS: 36415; 74176; 80053; 80320; 81001; 83690; 85025; 96361; 96374; 99285; J3411; J7030

== ENCOUNTER 2021-10-12 17:23 | Emergency (ER) | payer MEDICAID ==
[~2021-10-12] VITALS: Ht 172.7 cm; Wt 77.1 kg
[2021-10-12 17:23] VITALS: BP 136/86
[2021-10-12] MEDS ORDERED: SODIUM CHLORIDE 0.9% 1,000 ML IV ONE (17:45)
[2021-10-12 19:13] LABS: Basophils # (auto) 0 10 ^3/uL (0-0.2); Eosinophils # (auto) 0 10 ^3/uL (0-0.8); Hematocrit 40.9 % (41.0-53.0); Hemoglobin 14.1 g/dL (13.5-17.5); Lymphocytes # (auto) 1.3 10 ^3/uL (0.4-5.4); Mean Corpuscular Hgb Conc. 34.5 g/dL (32.0-36.0)
[2021-10-12 19:19] LABS: Eosinophils % (auto) 0.6 % (0.0-7.0); Lymphocytes % (auto) 41.3 % (10.0-50.0); Mean Corpuscular Hemoglobin 34.2 pg (28.0-32.0); Mean Corpuscular Volume 99.2 fL (80.0-100.0); Monocytes # (auto) 0.2 10 ^3/uL (0-1.3); Monocytes % (auto) 7.7 % (0.0-12.0); Neutrophils # (auto) 1.6 10 ^3/uL (1.6-8.6); Neutrophils % (auto) 49.4 % (37.0-80.0); Nucleated Red Blood Cells % 0.2 %; Red Blood Cells 4.13 10^6/uL (4.5-5.90); Red Cell Distribution Width 14.7 % (11.8-14.3); White Blood Cell 3.2 10^3/uL (4.4-10.8)
[2021-10-12 19:25] LABS: Albumin 3.6 g/dL (3.4-5.0); Calcium 8.5 mg/dL (8.5-10.1); Potassium 3.7 mmol/L (3.5-5.1)
[2021-10-12 19:31] LABS: BUN/Creatinine Ratio 4.7; Bilirubin, Total 0.4 mg/dL (0.2-1.0)
== END 2021-10-12 19:18 | disposition left against medical advice (07) ==
LOC: ER 17:23
DX: F10.129 Alcohol abuse with intoxication, unspecified (principal); R41.82 Altered mental status, unspecified; F17.210 Nicotine dependence, cigarettes, uncomplicated; R94.31 Abnormal electrocardiogram [ECG] [EKG]; Y90.8 Blood alcohol level of 240 mg/100 ml or more
CPT/HCPCS: 36415; 80053; 80320; 85025; 93005

== ENCOUNTER 2021-10-30 22:55 | Emergency (ER) | payer MEDICAID ==
[~2021-10-30] VITALS: Ht 165.1 cm; Wt 77.1 kg
[2021-10-31 00:07] LABS: Basophils # (auto) 0 10 ^3/uL (0-0.2); Hemoglobin 12.4 g/dL (13.5-17.5); Monocytes # (auto) 0.5 10 ^3/uL (0-1.3); Red Blood Cells 3.67 10^6/uL (4.5-5.90)
[2021-10-31 00:13] LABS: Basophils % (auto) 0.9 % (0.0-2.0); Eosinophils # (auto) 0 10 ^3/uL (0-0.8); Eosinophils % (auto) 0.8 % (0.0-7.0); Hematocrit 36.8 % (41.0-53.0); Lymphocytes # (auto) 1.5 10 ^3/uL (0.4-5.4); Lymphocytes % (auto) 36.9 % (10.0-50.0); Mean Corpuscular Hemoglobin 33.8 pg (28.0-32.0); Mean Corpuscular Hgb Conc. 33.8 g/dL (32.0-36.0); Mean Corpuscular Volume 100.1 fL (80.0-100.0); Monocytes % (auto) 13.3 % (0.0-12.0); Neutrophils # (auto) 1.9 10 ^3/uL (1.6-8.6); Neutrophils % (auto) 48.1 % (37.0-80.0); Nucleated Red Blood Cells % 0.1 %; Red Cell Distribution Width 15.1 % (11.8-14.3)
[2021-10-31 00:18] LABS: Albumin 3.9 g/dL (3.4-5.0); Calcium 8.4 mg/dL (8.5-10.1); Potassium 3.5 mmol/L (3.5-5.1)
[2021-10-31 00:21] LABS: Bilirubin, Total 0.6 mg/dL (0.2-1.0); Total Protein 8.7 g/dL (6.4-8.2)
[2021-10-31 01:22] VITALS: BP 122/90
== END 2021-10-31 01:34 | disposition home or self-care (01) ==
LOC: ER 22:55
DX: R10.13 Epigastric pain (principal); F10.10 Alcohol abuse, uncomplicated; F17.210 Nicotine dependence, cigarettes, uncomplicated
CPT/HCPCS: 36415; 80053; 83690; 85025

== ENCOUNTER 2021-11-11 15:59 | Emergency (ER) | payer MEDICAID ==
[~2021-11-11] VITALS: Ht 165.1 cm; Wt 59.0 kg
[2021-11-11] MEDS ORDERED: SODIUM CHLORIDE 0.9% 1,000 ML IVB ONE (16:15)
[2021-11-11 16:44] LABS: Urine WBC None Seen /hpf (0 - 3)
[2021-11-11 17:02] LABS: Urine Bacteria NONE SEEN /hpf (None Seen); Urine Blood Negative /uL (Negative); Urine Specific Gravity 1.003 (1.001-1.035)
[2021-11-12 01:17] VITALS: BP 126/86
== END 2021-11-12 06:07 | disposition home or self-care (01) ==
LOC: ER 15:59
DX: F10.129 Alcohol abuse with intoxication, unspecified (principal); R41.82 Altered mental status, unspecified; Y90.8 Blood alcohol level of 240 mg/100 ml or more
CPT/HCPCS: 36415; 80320; 81001; 99283; J7030

== ENCOUNTER 2021-12-18 10:17 | Emergency (ER) | payer MEDICAID ==
[~2021-12-18] VITALS: Ht 170.2 cm; Wt 75.0 kg
[2021-12-18] MEDS ORDERED: THIAMINE 100mg/ml INJ (200mg/2ml VIAL) IV ONE (10:30)
[2021-12-18] MEDS ORDERED: SODIUM CHLORIDE 0.9% 1,000 ML IVB ONE (10:30)
[2021-12-18] MEDS ORDERED: SODIUM CHLORIDE 0.9% 2,000 ML IV ONE (13:30)
[2021-12-18 14:27] LABS: Urine WBC None Seen /hpf (0 - 3)
[2021-12-18 14:38] LABS: Urine Bacteria NONE SEEN /hpf (None Seen); Urine Blood Negative /uL (Negative); Urine Specific Gravity 1.002 (1.001-1.035)
[2021-12-18 14:41] LABS: Amphetamine Screen, Urine NEGATIVE (NEGATIVE); Barbiturate Scree,Urine NEGATIVE (NEGATIVE); Benzodiazephine Screen, Urine NEGATIVE (NEGATIVE); Cannabinoid Screen, Urine NEGATIVE (NEGATIVE); Cocaine Screen, Urine NEGATIVE (NEGATIVE); Opiate Scree,Urine NEGATIVE (NEGATIVE); Phencyclidine Screen, Urine NEGATIVE (NEGATIVE)
[2021-12-18 16:43] VITALS: BP 98/54
== END 2021-12-18 16:51 | disposition home or self-care (01) ==
LOC: ER 10:17 → EDBD 10:17 → ER 16:51
DX: F10.129 Alcohol abuse with intoxication, unspecified (principal); F17.210 Nicotine dependence, cigarettes, uncomplicated; Z79.899 Other long term (current) drug therapy; Y90.8 Blood alcohol level of 240 mg/100 ml or more
CPT/HCPCS: 80307; 81001; 96361; 96374; 99283; J3411; J7030

== ENCOUNTER 2022-01-02 19:32 | Emergency (ER) | payer MEDICAID ==
[~2022-01-02] VITALS: Ht 162.6 cm; Wt 65.9 kg
[2022-01-02] MEDS ORDERED: SODIUM CHLORIDE 0.9% 1,000 ML IVB ONE (21:00)
[2022-01-02 23:48] VITALS: BP 146/97
== END 2022-01-02 22:50 | disposition home or self-care (01) ==
LOC: EDBD 19:32 → ER 19:32
DX: F10.129 Alcohol abuse with intoxication, unspecified (principal); F17.210 Nicotine dependence, cigarettes, uncomplicated; Z79.899 Other long term (current) drug therapy; Y90.8 Blood alcohol level of 240 mg/100 ml or more
CPT/HCPCS: 36415; 80320; 96360; 99283; J7030

== ENCOUNTER 2022-01-27 11:30 | Emergency (ER) | payer MEDICAID ==
[~2022-01-27] VITALS: Ht 162.6 cm; Wt 68.0 kg
[2022-01-27 11:40] VITALS: BP 111/73
== END 2022-01-27 16:45 | disposition home or self-care (01) ==
LOC: ER 11:30 → EDUNIT# 11:30 → EDBD 11:30 → ER 16:45
DX: F10.129 Alcohol abuse with intoxication, unspecified (principal); F17.210 Nicotine dependence, cigarettes, uncomplicated; Y90.8 Blood alcohol level of 240 mg/100 ml or more

== ENCOUNTER 2022-02-13 21:04 | Emergency (ER) | payer MEDICAID ==
[~2022-02-13] VITALS: Ht 167.6 cm; Wt 72.0 kg
[2022-02-13] MEDS ORDERED: SODIUM CHLORIDE 0.9% 1,000 ML IV ONE (22:00)
[2022-02-13 22:38] LABS: Basophils # (auto) 0 10 ^3/uL (0-0.2); Basophils % (auto) 0.7 % (0.0-2.0); Eosinophils # (auto) 0 10 ^3/uL (0-0.8); Eosinophils % (auto) 0.9 % (0.0-7.0); Hematocrit 39.8 % (41.0-53.0); Hemoglobin 12.9 g/dL (13.5-17.5); Lymphocytes # (auto) 1.3 10 ^3/uL (0.4-5.4); Mean Corpuscular Hemoglobin 33.2 pg (28.0-32.0); Mean Corpuscular Hgb Conc. 32.4 g/dL (32.0-36.0); Mean Corpuscular Volume 102.4 fL (80.0-100.0); Monocytes # (auto) 0.4 10 ^3/uL (0-1.3); Monocytes % (auto) 8.5 % (0.0-12.0); Neutrophils # (auto) 2.9 10 ^3/uL (1.6-8.6); Neutrophils % (auto) 61.9 % (37.0-80.0); Nucleated Red Blood Cells % 0.2 %; Red Blood Cells 3.89 10^6/uL (4.5-5.90); Red Cell Distribution Width 13.7 % (11.8-14.3); White Blood Cell 4.8 10^3/uL (4.4-10.8)
[2022-02-13 22:56] LABS: Albumin 3.8 g/dL (3.4-5.0); BUN/Creatinine Ratio 5.4; Calcium 7.9 mg/dL (8.5-10.1); Potassium 3.7 mmol/L (3.5-5.1)
[2022-02-13 22:59] LABS: Bilirubin, Total 0.3 mg/dL (0.2-1.0); Total Protein 7.7 g/dL (6.4-8.2)
[2022-02-14] MEDS ORDERED: SODIUM CHLORIDE 0.9% 1,000 ML IV ONE (05:30)
[2022-02-14] MEDS ORDERED: SODIUM CHLORIDE 0.9% 1,000 ML IVB ONE (08:30)
[2022-02-14 09:03] LABS: Magnesium 1.5 mg/dL (1.6-2.6)
[2022-02-14 10:48] LABS: Urine WBC None Seen /hpf (0 - 3)
[2022-02-14 11:00] LABS: Urine Bacteria NONE SEEN /hpf (None Seen); Urine Blood Negative /uL (Negative); Urine Specific Gravity 1.012 (1.001-1.035)
[2022-02-14 11:09] VITALS: BP 125/94
[2022-02-14 11:15] LABS: Amphetamine Screen, Urine NEGATIVE (NEGATIVE); Barbiturate Scree,Urine NEGATIVE (NEGATIVE); Benzodiazephine Screen, Urine NEGATIVE (NEGATIVE); Cannabinoid Screen, Urine NEGATIVE (NEGATIVE); Cocaine Screen, Urine NEGATIVE (NEGATIVE); Phencyclidine Screen, Urine NEGATIVE (NEGATIVE)
[2022-02-14 11:24] LABS: Opiate Scree,Urine NEGATIVE (NEGATIVE)
[2022-02-14] MEDS ORDERED: KEP500T PO (11:59)
[2022-02-14] MEDS ORDERED: FOLITAB22 PO (11:59)
[2022-02-14] MEDS ORDERED: OMEP-263 PO (11:59)
[2022-02-14] MEDS ORDERED: FOLIC ACID 1 MG, MULTIPLE VITAMIN 10 ML, MAGNESIUM SULF SDV 50% 8 MEQ, THIAMINE INJ 100... INJ SCH ×5 (12:00)
== END 2022-02-14 13:15 | disposition still patient (30) ==
LOC: EDBD 21:04 → ER 21:16
DX: F10.129 Alcohol abuse with intoxication, unspecified (principal); F17.210 Nicotine dependence, cigarettes, uncomplicated; Z79.899 Other long term (current) drug therapy; Y90.8 Blood alcohol level of 240 mg/100 ml or more
CPT/HCPCS: 36415; 80053; 80307; 81001; 83690; 83735; 85025; 96361; 96365; 96366; 99285; J3411; J3475; J7030

== ENCOUNTER 2022-02-17 22:31 | Emergency (ER) | payer MEDICAID ==
[~2022-02-17] VITALS: Ht 152.4 cm; Wt 79.5 kg
[~2022-02-17 22:31] MED LIST changes: +FOLITAB22 PO; +KEP500T PO; +OMEP-263 PO
[2022-02-18 00:59] LABS: Basophils # (auto) 0 10 ^3/uL (0-0.2); Basophils % (auto) 0.3 % (0.0-2.0); Eosinophils # (auto) 0 10 ^3/uL (0-0.8); Eosinophils % (auto) 0.2 % (0.0-7.0); Hematocrit 36.1 % (41.0-53.0); Hemoglobin 12.3 g/dL (13.5-17.5); Lymphocytes # (auto) 0.7 10 ^3/uL (0.4-5.4); Lymphocytes % (auto) 15.7 % (10.0-50.0); Mean Corpuscular Hemoglobin 34.4 pg (28.0-32.0); Mean Corpuscular Volume 101.2 fL (80.0-100.0); Monocytes # (auto) 0.6 10 ^3/uL (0-1.3); Monocytes % (auto) 11.9 % (0.0-12.0); Neutrophils # (auto) 3.4 10 ^3/uL (1.6-8.6); Neutrophils % (auto) 71.9 % (37.0-80.0); Red Blood Cells 3.56 10^6/uL (4.5-5.90); Red Cell Distribution Width 13.8 % (11.8-14.3); White Blood Cell 4.7 10^3/uL (4.4-10.8)
[2022-02-18 01:17] LABS: Albumin 3.6 g/dL (3.4-5.0); BUN/Creatinine Ratio 5.1; Calcium 8.7 mg/dL (8.5-10.1); Potassium 3.6 mmol/L (3.5-5.1)
[2022-02-18 01:19] LABS: Salicylate < 1.7 mg/dL (2.8-20.0)
[2022-02-18 01:20] LABS: Bilirubin, Total 0.5 mg/dL (0.2-1.0)
[2022-02-18 01:29] LABS: Acetaminophen < 2.0 ug/mL (10-30)
[2022-02-18 06:30] VITALS: BP 162/90
== END 2022-02-18 06:32 | disposition home or self-care (01) ==
LOC: ER 22:32
DX: F10.10 Alcohol abuse, uncomplicated (principal); F17.210 Nicotine dependence, cigarettes, uncomplicated; Z79.899 Other long term (current) drug therapy; Y90.9 Presence of alcohol in blood, level not specified
CPT/HCPCS: 36415; 70450; 71045; 80053; 80329; 84484; 85025; 93005

== ENCOUNTER 2022-03-22 17:40 | Emergency (ER) | payer MEDICAID ==
[~2022-03-22] VITALS: Ht 177.8 cm; Wt 75.0 kg
[2022-03-22 17:45] VITALS: BP 119/88
[2022-03-22] MEDS ORDERED: SODIUM CHLORIDE 0.9% 1,000 ML IVB ONE (18:15)
[2022-03-22] MEDS ORDERED: THIAMINE 100mg/ml INJ (200mg/2ml VIAL) IV ONE (18:30)
[2022-03-22 18:55] LABS: Basophils # (auto) 0 10 ^3/uL (0-0.2); Basophils % (auto) 0.7 % (0.0-2.0); Eosinophils # (auto) 0 10 ^3/uL (0-0.8); Eosinophils % (auto) 0.9 % (0.0-7.0); Hematocrit 43.6 % (41.0-53.0); Hemoglobin 14.3 g/dL (13.5-17.5); Lymphocytes # (auto) 2.3 10 ^3/uL (0.4-5.4); Lymphocytes % (auto) 47.3 % (10.0-50.0); Mean Corpuscular Hemoglobin 33.4 pg (28.0-32.0); Mean Corpuscular Hgb Conc. 32.9 g/dL (32.0-36.0); Mean Corpuscular Volume 101.5 fL (80.0-100.0); Monocytes # (auto) 0.4 10 ^3/uL (0-1.3); Monocytes % (auto) 8.3 % (0.0-12.0); Neutrophils # (auto) 2.1 10 ^3/uL (1.6-8.6); Neutrophils % (auto) 42.8 % (37.0-80.0); Nucleated Red Blood Cells % 0.2 %; Red Blood Cells 4.29 10^6/uL (4.5-5.90); Red Cell Distribution Width 13.1 % (11.8-14.3); White Blood Cell 4.9 10^3/uL (4.4-10.8)
[2022-03-22 19:23] LABS: Albumin 3.6 g/dL (3.4-5.0); Calcium 8.3 mg/dL (8.5-10.1); Potassium 3.7 mmol/L (3.5-5.1)
[2022-03-22 19:29] LABS: BUN/Creatinine Ratio 6.8; Bilirubin, Total 0.2 mg/dL (0.2-1.0); Total Protein 7.9 g/dL (6.4-8.2)
== END 2022-03-23 00:12 | disposition home or self-care (01) ==
LOC: EDBD 17:40 → ER 17:46
DX: F10.20 Alcohol dependence, uncomplicated (principal); F17.210 Nicotine dependence, cigarettes, uncomplicated; Z79.899 Other long term (current) drug therapy; Y90.8 Blood alcohol level of 240 mg/100 ml or more
CPT/HCPCS: 36415; 70450; 80053; 80320; 85025; 96360; 99284; J7030

== ENCOUNTER → 2022-03-25 | Emergency (ER) | payer MEDICAID ==
[~2022-03-25] VITALS: Ht 165.1 cm; Wt 80.0 kg
[~2022-03-25] MED LIST changes: +ONDANSETRON HCL 4 MG/2 ML VIAL IV ONE; +SODIUM CHLORIDE 0.9% 1,000 ML IV ONE; +TETANUS-DIPTH-ACEL PERTUSSIS 0.5ML SYR Tdap IM ONE
[2022-03-25 23:48] LABS: Basophils # (auto) 0 10 ^3/uL (0-0.2); Basophils % (auto) 0.3 % (0.0-2.0); Eosinophils # (auto) 0 10 ^3/uL (0-0.8); Eosinophils % (auto) 0.2 % (0.0-7.0); Hematocrit 43.9 % (41.0-53.0); Hemoglobin 15.2 g/dL (13.5-17.5); Lymphocytes # (auto) 1.5 10 ^3/uL (0.4-5.4); Lymphocytes % (auto) 30.8 % (10.0-50.0); Mean Corpuscular Hemoglobin 33.9 pg (28.0-32.0); Mean Corpuscular Hgb Conc. 34.6 g/dL (32.0-36.0); Mean Corpuscular Volume 97.9 fL (80.0-100.0); Monocytes # (auto) 0.4 10 ^3/uL (0-1.3); Monocytes % (auto) 8.7 % (0.0-12.0); Nucleated Red Blood Cells % 0.8 %; Red Blood Cells 4.48 10^6/uL (4.5-5.90); Red Cell Distribution Width 12.7 % (11.8-14.3)
[2022-03-25 23:53] LABS: Albumin 4.3 g/dL (3.4-5.0); BUN/Creatinine Ratio 6.4; Calcium 9.4 mg/dL (8.5-10.1); Potassium 3.9 mmol/L (3.5-5.1)
[2022-03-26 00:05] LABS: Bilirubin, Total 0.7 mg/dL (0.2-1.0); Total Protein 9.1 g/dL (6.4-8.2)
[2022-03-26 00:08] VITALS: BP 134/95
== END | disposition home or self-care (01) ==
LOC: EDUNIT# 22:21 → EDBD 22:27 → ER 22:27
DX: G44.309 Post-traumatic headache, unspecified, not intractable (principal); F10.129 Alcohol abuse with intoxication, unspecified; F17.210 Nicotine dependence, cigarettes, uncomplicated; Y90.8 Blood alcohol level of 240 mg/100 ml or more
CPT/HCPCS: 36415; 70450; 70486; 71045; 72125; 80053; 80320; 85025

== ENCOUNTER 2022-07-09 12:50 | Emergency (ER) | payer MEDICAID ==
[~2022-07-09] VITALS: Ht 162.6 cm; Wt 67.0 kg
[~2022-07-09 12:50] MED LIST changes: -ONDANSETRON HCL 4 MG/2 ML VIAL IV ONE; -SODIUM CHLORIDE 0.9% 1,000 ML IV ONE; -TETANUS-DIPTH-ACEL PERTUSSIS 0.5ML SYR Tdap IM ONE
[2022-07-09 13:10] VITALS: BP 129/85
[2022-07-09] MEDS ORDERED: SODIUM CHLORIDE 0.9% 1,000 ML IV ONE (13:15)
[2022-07-09 14:33] LABS: Albumin 4.3 g/dL (3.4-5.0); BUN/Creatinine Ratio 11.9; Bilirubin, Total 0.4 mg/dL (0.2-1.0); Calcium 8.5 mg/dL (8.5-10.1); Potassium 4.3 mmol/L (3.5-5.1); Total Protein 8.7 g/dL (6.4-8.2)
== END 2022-07-09 14:47 | disposition left against medical advice (07) ==
LOC: EDUNIT# 12:50 → ER 12:50 → EDBD 12:50 → ER 14:47
DX: F10.129 Alcohol abuse with intoxication, unspecified (principal); F17.210 Nicotine dependence, cigarettes, uncomplicated; Z79.899 Other long term (current) drug therapy; W18.39XA Other fall on same level, initial encounter; Y93.89 Activity, other specified; Y92.89 Other specified places as the place of occurrence of the external cause; Y99.8 Other external cause status; Y90.9 Presence of alcohol in blood, level not specified
CPT/HCPCS: 36415; 80053; 96360; 99283; J7030

== ENCOUNTER 2022-08-26 15:55 | Inpatient (IN) | payer MEDICAID ==
[~2022-08-26] VITALS: Ht 162.6 cm; Wt 70.0 kg
[2022-08-26] MEDS ORDERED: LORazepam 2MG/ML-1ML VIAL IV ONE (16:15)
[2022-08-26] MEDS ORDERED: THIAMINE 100mg/ml INJ (200mg/2ml VIAL) IV ONE (16:15)
[2022-08-26] MEDS ORDERED: MVI in SODIUM CHLORIDE 0.9% 1,010 ML IV ONE (16:15)
[2022-08-26] MEDS ORDERED: MAGNESIUM SULFATE 1GM/100ML 100 ML IV SCH (16:15)
[2022-08-26 16:47] LABS: Basophils # (auto) 0.1 10 ^3/uL (0-0.2); Basophils % (auto) 3.1 % (0.0-2.0); Eosinophils # (auto) 0 10 ^3/uL (0-0.8); Hemoglobin 12.8 g/dL (13.5-17.5); Lymphocytes # (auto) 1.9 10 ^3/uL (0.4-5.4); Lymphocytes % (auto) 41.4 % (10.0-50.0); Mean Corpuscular Hemoglobin 32.9 pg (28.0-32.0); Mean Corpuscular Hgb Conc. 32.8 g/dL (32.0-36.0); Mean Corpuscular Volume 100.5 fL (80.0-100.0); Monocytes # (auto) 0.2 10 ^3/uL (0-1.3); Monocytes % (auto) 5.1 % (0.0-12.0); Neutrophils # (auto) 2.3 10 ^3/uL (1.6-8.6); Neutrophils % (auto) 49.4 % (37.0-80.0); Nucleated Red Blood Cells % 0.2 %; Red Blood Cells 3.89 10^6/uL (4.5-5.90); Red Cell Distribution Width 14.9 % (11.8-14.3); White Blood Cell 4.6 10^3/uL (4.4-10.8)
[2022-08-26 16:53] LABS: Calcium 8.7 mg/dL (8.5-10.1); Magnesium 2.4 mg/dL (1.6-2.6)
[2022-08-26 16:56] LABS: BUN/Creatinine Ratio 7.2 (10.0-20.0); Bilirubin, Total 0.3 mg/dL (0.2-1.0); Total Protein 8.4 g/dL (6.4-8.2)
[2022-08-26] MEDS ORDERED: PIPERACILLIN-TAZOB 3.375GM 100 ML IV ONE (17:00)
[2022-08-26 17:06] LABS: INR 0.89 (0.9-1.15); Partial Thromboplastin Time 26.5 sec (24.6-33.4)
[2022-08-26] MEDS ORDERED: LACTATED RINGER'S 1,000 ML IV SCH (17:30)
[2022-08-26] MEDS ORDERED: NITROGLYCERIN 0.4 MG SL TAB SL PRN (17:30)
[2022-08-26] MEDS ORDERED: LORazepam 2MG/ML-1ML VIAL IV PRN (17:30)
[2022-08-26] MEDS ORDERED: MORPHINE SULFATE INJ 2 MG/ml SYRG IV PRN (17:30)
[2022-08-26 17:46] LABS: Urine WBC None Seen /hpf (0 - 3)
[2022-08-26 18:15] LABS: Urine Bacteria NONE SEEN /hpf (None Seen); Urine Blood Negative /uL (Negative); Urine Specific Gravity 1.003 (1.001-1.035)
[2022-08-26 18:35] LABS: Cholesterol 275 mg/dL (< 200)
[2022-08-26 18:38] LABS: HDL Cholesterol 85 mg/dL (40-59); LDL Cholesterol 175 mg/dL (< 100); Triglycerides 107 mg/dL (< 150)
[2022-08-26 18:49] LABS: Barbiturate Scree,Urine NEGATIVE (NEGATIVE); Benzodiazephine Screen, Urine NEGATIVE (NEGATIVE); Cannabinoid Screen, Urine NEGATIVE (NEGATIVE); Cocaine Screen, Urine NEGATIVE (NEGATIVE)
[2022-08-26 18:58] LABS: Amphetamine Screen, Urine NEGATIVE (NEGATIVE); Opiate Scree,Urine NEGATIVE (NEGATIVE); Phencyclidine Screen, Urine NEGATIVE (NEGATIVE)
[2022-08-26 22:00] VITALS: BP 122/82
[2022-08-27] MEDS ORDERED: ENOXAPARIN SOD 40 MG/0.4 ML SYRINGE SC SCH (10:00)
[2022-08-27] MEDS ORDERED: MULTIPLE VITAMIN TAB PO SCH (10:00)
[2022-08-27] MEDS ORDERED: THIAMINE HCL 100 MG TAB PO SCH (10:00)
[2022-08-27] MEDS ORDERED: FOLIC ACID 1 MG TAB PO SCH (10:00)
[2022-08-27] MEDS ORDERED: PANTOPRAZOLE 40 MG TAB PO SCH (12:30)
== END 2022-08-27 22:51 | disposition left against medical advice (07) | DRG 53 ==
LOC: ER 15:55 → EDBD 15:55 → TELE 17:44
PROVIDERS: ADMIT Registered Nurse; ATTEND Nurse Practitioner
DX: R56.9 Unspecified convulsions (principal); G92.9 Unspecified toxic encephalopathy; S09.90XA Unspecified injury of head, initial encounter; F10.139 Alcohol abuse with withdrawal, unspecified; D53.9 Nutritional anemia, unspecified; E78.5 Hyperlipidemia, unspecified; F10.129 Alcohol abuse with intoxication, unspecified; Z53.29 Procedure and treatment not carried out because of patient's decision for other reasons; X58.XXXA Exposure to other specified factors, initial encounter; F17.210 Nicotine dependence, cigarettes, uncomplicated; Z53.20 Procedure and treatment not carried out because of patient's decision for unspecified reasons; Z91.199 Patient's noncompliance with other medical treatment and regimen due to unspecified reason; Y93.89 Activity, other specified; Y92.89 Other specified places as the place of occurrence of the external cause; Y99.8 Other external cause status
CPT/HCPCS: 36415; 70450; 71045; 80053; 80061; 80307; 80320; 81001; 83036; 83605; 83735; 84443; 84484; 85025; 85610; 85730; 87040; 87086; 96365; 96368; 96375; G0378; J2543; J7060

== ENCOUNTER 2022-09-01 15:57 | Emergency (ER) | payer MEDICAID ==
[~2022-09-01] VITALS: Ht 160 cm; Wt 68.0 kg
[2022-09-01 16:15] VITALS: BP 126/84
[2022-09-01 16:44] LABS: Basophils # (auto) 0 10 ^3/uL (0-0.2); Basophils % (auto) 0.3 % (0.0-2.0); Eosinophils # (auto) 0.1 10 ^3/uL (0-0.8); Eosinophils % (auto) 0.9 % (0.0-7.0); Hematocrit 37.1 % (41.0-53.0); Hemoglobin 12.3 g/dL (13.5-17.5); Lymphocytes # (auto) 1.5 10 ^3/uL (0.4-5.4); Lymphocytes % (auto) 20.2 % (10.0-50.0); Mean Corpuscular Hemoglobin 32.6 pg (28.0-32.0); Mean Corpuscular Hgb Conc. 33.2 g/dL (32.0-36.0); Monocytes # (auto) 0.3 10 ^3/uL (0-1.3); Monocytes % (auto) 3.5 % (0.0-12.0); Neutrophils # (auto) 5.8 10 ^3/uL (1.6-8.6); Neutrophils % (auto) 75.1 % (37.0-80.0); Red Blood Cells 3.79 10^6/uL (4.5-5.90); Red Cell Distribution Width 14.9 % (11.8-14.3); White Blood Cell 7.7 10^3/uL (4.4-10.8)
[2022-09-01 17:00] LABS: Albumin 3.7 g/dL (3.4-5.0); BUN/Creatinine Ratio 7.9 (10.0-20.0); Calcium 8.7 mg/dL (8.5-10.1); Potassium 4.3 mmol/L (3.5-5.1)
[2022-09-01 17:05] LABS: Bilirubin, Total 0.4 mg/dL (0.2-1.0)
[2022-09-01] MEDS ORDERED: THIAMINE 100mg/ml INJ (200mg/2ml VIAL) IV ONE (17:30)
[2022-09-01] MEDS ORDERED: SODIUM CHLORIDE 0.9% 1,000 ML IV ONE ×2 (17:30)
== END 2022-09-01 21:05 | disposition left against medical advice (07) ==
LOC: EDUNIT# 15:57 → EDBD 15:57 → ER 15:57
DX: F10.10 Alcohol abuse, uncomplicated (principal); F17.210 Nicotine dependence, cigarettes, uncomplicated
CPT/HCPCS: 36415; 80053; 80320; 85025

== ENCOUNTER 2022-09-08 14:11 | Emergency (ER) | payer MEDICAID ==
[~2022-09-08] VITALS: Ht 165.1 cm; Wt 77.0 kg
[2022-09-08] MEDS ORDERED: SODIUM CHLORIDE 0.9% 1,000 ML IVB ONE (14:30)
[2022-09-08 16:31] LABS: Albumin 4.2 g/dL (3.4-5.0); Potassium 4.8 mmol/L (3.5-5.1)
[2022-09-08 16:45] LABS: BUN/Creatinine Ratio 7.3 (10.0-20.0); Bilirubin, Total 0.6 mg/dL (0.2-1.0); Total Protein 8.4 g/dL (6.4-8.2)
[2022-09-08 17:38] LABS: Eosinophils # (auto) 0 10 ^3/uL (0-0.8); Hemoglobin 12.5 g/dL (13.5-17.5); Monocytes # (auto) 0.2 10 ^3/uL (0-1.3); Neutrophils # (auto) 1.7 10 ^3/uL (1.6-8.6); Nucleated Red Blood Cells % 0.1 %
[2022-09-08 17:39] LABS: Basophils # (auto) 0 10 ^3/uL (0-0.2); Basophils % (auto) 1.2 % (0.0-2.0); Eosinophils % (auto) 0.7 % (0.0-7.0); Hematocrit 37.1 % (41.0-53.0); Lymphocytes # (auto) 1.7 10 ^3/uL (0.4-5.4); Lymphocytes % (auto) 46.6 % (10.0-50.0); Mean Corpuscular Hemoglobin 32.7 pg (28.0-32.0); Mean Corpuscular Hgb Conc. 33.7 g/dL (32.0-36.0); Mean Corpuscular Volume 97.1 fL (80.0-100.0); Monocytes % (auto) 5.3 % (0.0-12.0); Neutrophils % (auto) 46.2 % (37.0-80.0); Red Blood Cells 3.82 10^6/uL (4.5-5.90); Red Cell Distribution Width 14.8 % (11.8-14.3); White Blood Cell 3.7 10^3/uL (4.4-10.8)
[2022-09-08] MEDS ORDERED: SODIUM CHLORIDE 0.9% 1,000 ML IV ONE (18:45)
[2022-09-08 21:40] VITALS: BP 118/83
== END 2022-09-08 19:55 | disposition home or self-care (01) ==
LOC: ER 14:11 → EDBD 14:11 → ER 19:55
DX: F10.129 Alcohol abuse with intoxication, unspecified (principal); F17.210 Nicotine dependence, cigarettes, uncomplicated; Z79.899 Other long term (current) drug therapy
CPT/HCPCS: 36415; 80053; 80320; 85025; 96360; 96361; 99283; J7030

== ENCOUNTER 2022-09-12 20:03 | Emergency (ER) | payer MEDICAID ==
[~2022-09-12] VITALS: Ht 165.1 cm; Wt 72.5 kg
[2022-09-12 20:09] VITALS: BP 134/86
[2022-09-12 22:43] LABS: Basophils # (auto) 0 10 ^3/uL (0-0.2); Basophils % (auto) 0.9 % (0.0-2.0); Eosinophils # (auto) 0 10 ^3/uL (0-0.8); Eosinophils % (auto) 0.5 % (0.0-7.0); Hematocrit 38.8 % (41.0-53.0); Hemoglobin 12.7 g/dL (13.5-17.5); Lymphocytes # (auto) 1.5 10 ^3/uL (0.4-5.4); Lymphocytes % (auto) 29.5 % (10.0-50.0); Mean Corpuscular Hemoglobin 32.2 pg (28.0-32.0); Mean Corpuscular Hgb Conc. 32.8 g/dL (32.0-36.0); Mean Corpuscular Volume 98.4 fL (80.0-100.0); Monocytes # (auto) 0.4 10 ^3/uL (0-1.3); Monocytes % (auto) 8.8 % (0.0-12.0); Neutrophils % (auto) 60.3 % (37.0-80.0); Nucleated Red Blood Cells % 0.1 %; Red Blood Cells 3.94 10^6/uL (4.5-5.90); Red Cell Distribution Width 15.8 % (11.8-14.3); White Blood Cell 4.9 10^3/uL (4.4-10.8)
[2022-09-12 23:07] LABS: Albumin 4.1 g/dL (3.4-5.0); Calcium 8.7 mg/dL (8.5-10.1); Potassium 3.1 mmol/L (3.5-5.1)
[2022-09-12 23:10] LABS: BUN/Creatinine Ratio 4.2 (10.0-20.0); Bilirubin, Total 0.5 mg/dL (0.2-1.0); Total Protein 8.3 g/dL (6.4-8.2)
[2022-09-12 23:26] LABS: Salicylate < 1.7 mg/dL (2.8-20.0)
[2022-09-12 23:32] LABS: Acetaminophen < 2.0 ug/mL (10-30)
== END 2022-09-13 06:29 | disposition home or self-care (01) ==
LOC: ER 20:03 → EDBD 20:03 → ER 09-13 06:29
DX: F10.129 Alcohol abuse with intoxication, unspecified (principal); R51.9 Headache, unspecified; F17.210 Nicotine dependence, cigarettes, uncomplicated; Z79.899 Other long term (current) drug therapy; Y90.8 Blood alcohol level of 240 mg/100 ml or more
CPT/HCPCS: 36415; 70450; 80053; 80320; 80329; 83735; 85025

== ENCOUNTER 2022-09-28 18:16 | Emergency (ER) | payer MEDICAID ==
[~2022-09-28] VITALS: Ht 160 cm; Wt 72.0 kg
[2022-09-28 18:23] VITALS: BP 134/76
[2022-09-28] MEDS ORDERED: SODIUM CHLORIDE 0.9% 1,000 ML IVB ONE (19:15)
[2022-09-28] MEDS ORDERED: LORazepam 2MG/ML-1ML VIAL IV ONE (19:15)
[2022-09-28 19:35] LABS: Basophils # (auto) 0.2 10 ^3/uL (0-0.2); Basophils % (auto) 5.2 % (0.0-2.0); Eosinophils # (auto) 0 10 ^3/uL (0-0.8); Hematocrit 39.6 % (41.0-53.0); Hemoglobin 13.1 g/dL (13.5-17.5); Lymphocytes # (auto) 1.2 10 ^3/uL (0.4-5.4); Lymphocytes % (auto) 42.1 % (10.0-50.0); Mean Corpuscular Hemoglobin 32.2 pg (28.0-32.0); Mean Corpuscular Hgb Conc. 33.1 g/dL (32.0-36.0); Mean Corpuscular Volume 97.3 fL (80.0-100.0); Monocytes # (auto) 0.2 10 ^3/uL (0-1.3); Monocytes % (auto) 5.9 % (0.0-12.0); Neutrophils # (auto) 1.3 10 ^3/uL (1.6-8.6); Neutrophils % (auto) 45.8 % (37.0-80.0); Red Blood Cells 4.07 10^6/uL (4.5-5.90); Red Cell Distribution Width 15.8 % (11.8-14.3); White Blood Cell 2.9 10^3/uL (4.4-10.8)
[2022-09-28 20:04] LABS: Albumin 4.3 g/dL (3.4-5.0); Calcium 8.5 mg/dL (8.5-10.1); Potassium 3.6 mmol/L (3.5-5.1)
[2022-09-28 20:11] LABS: BUN/Creatinine Ratio 6.1 (10.0-20.0); Bilirubin, Total 0.4 mg/dL (0.2-1.0); Total Protein 8.6 g/dL (6.4-8.2)
== END 2022-09-28 20:33 | disposition left against medical advice (07) ==
LOC: EDBD 18:16 → ER 18:16
DX: F10.129 Alcohol abuse with intoxication, unspecified (principal); F17.210 Nicotine dependence, cigarettes, uncomplicated; Z88.6 Allergy status to analgesic agent; Z88.8 Allergy status to other drugs, medicaments and biological substances; Y90.8 Blood alcohol level of 240 mg/100 ml or more
CPT/HCPCS: 36415; 80053; 80320; 84484; 85025; 99283; J1953; J7060

== ENCOUNTER 2022-10-15 20:56 | Emergency (ER) | payer MEDICAID ==
[~2022-10-15] VITALS: Ht 170.2 cm; Wt 70.0 kg
[~2022-10-15 20:56] MED LIST changes: -LEVE500T32 PO; +LEVE500T40 PO; -OMEP-263 PO; +OMEP-448 PO
[2022-10-15 21:46] LABS: Basophils # (auto) 0 10 ^3/uL (0-0.2); Basophils % (auto) 0.5 % (0.0-2.0); Eosinophils # (auto) 0 10 ^3/uL (0-0.8); Eosinophils % (auto) 0.8 % (0.0-7.0); Hemoglobin 12.2 g/dL (13.5-17.5); Lymphocytes # (auto) 1.7 10 ^3/uL (0.4-5.4); Lymphocytes % (auto) 34.2 % (10.0-50.0); Mean Corpuscular Hemoglobin 33.1 pg (28.0-32.0); Mean Corpuscular Hgb Conc. 32.9 g/dL (32.0-36.0); Mean Corpuscular Volume 100.5 fL (80.0-100.0); Monocytes # (auto) 0.7 10 ^3/uL (0-1.3); Monocytes % (auto) 14.6 % (0.0-12.0); Neutrophils # (auto) 2.5 10 ^3/uL (1.6-8.6); Neutrophils % (auto) 49.9 % (37.0-80.0); Nucleated Red Blood Cells % 0.1 %; Red Blood Cells 3.68 10^6/uL (4.5-5.90); Red Cell Distribution Width 15.6 % (11.8-14.3)
[2022-10-15 22:04] LABS: Albumin 3.8 g/dL (3.4-5.0); Magnesium 2.3 mg/dL (1.6-2.6)
[2022-10-15 22:08] LABS: BUN/Creatinine Ratio 5.2 (10.0-20.0); Bilirubin, Total 0.4 mg/dL (0.2-1.0)
[2022-10-16] MEDS ORDERED: SODIUM CHLORIDE 0.9% 1,000 ML IV ONE (05:00)
[2022-10-16] MEDS ORDERED: LORazepam 2MG/ML-1ML VIAL IV ONE (05:15)
[2022-10-16] MEDS ORDERED: FOLIC ACID 1 MG in D5W 5% 50 ML INJ ONE (06:00)
[2022-10-16] MEDS ORDERED: THIAMINE 100mg/ml INJ (200mg/2ml VIAL) IV ONE (06:00)
[2022-10-16] MEDS ORDERED: CYANOCOBALAMIN (B-12) 1000 MCG/1 ML VIAL IM ONE (06:00)
[2022-10-16 18:10] VITALS: BP 103/46
== END 2022-10-16 18:32 | disposition home or self-care (01) ==
LOC: EDBD 20:56 → ER 21:02
DX: S82.491A Other fracture of shaft of right fibula, initial encounter for closed fracture (principal); S00.83XA Contusion of other part of head, initial encounter; F10.20 Alcohol dependence, uncomplicated; Z79.899 Other long term (current) drug therapy; W18.09XA Striking against other object with subsequent fall, initial encounter; Y93.89 Activity, other specified; Y92.89 Other specified places as the place of occurrence of the external cause; Y99.8 Other external cause status
CPT/HCPCS: 29515; 36415; 70450; 72125; 73030; 73610; 80053; 80320; 83735; 85025; 96361; 96365; 96372; 96375; 99285; J2060; J3411; J3420; J7030; J7060

== ENCOUNTER 2022-10-26 20:24 | Emergency (ER) | payer MEDICAID ==
[~2022-10-26] VITALS: Ht 162.6 cm; Wt 72.7 kg
[2022-10-26 20:32] VITALS: BP 116/83
== END 2022-10-27 01:18 | disposition left against medical advice (07) ==
LOC: EDBD 20:24 → EDSEX 20:24 → ER 20:27
DX: M25.571 Pain in right ankle and joints of right foot (principal); Z53.21 Procedure and treatment not carried out due to patient leaving prior to being seen by health care provider
CPT/HCPCS: 73610

== ENCOUNTER 2022-11-06 20:05 | Emergency (ER) | payer MEDICAID ==
[~2022-11-06] VITALS: Ht 167.6 cm; Wt 70.0 kg
[2022-11-06 20:54] VITALS: BP 111/70
[2022-11-06] MEDS ORDERED: SODIUM CHLORIDE 0.9% 1,000 ML IV ONE ×2 (21:15→23:45)
[2022-11-06 22:44] LABS: Basophils # (auto) 0 10 ^3/uL (0-0.2); Basophils % (auto) 1.3 % (0.0-2.0); Eosinophils # (auto) 0 10 ^3/uL (0-0.8); Eosinophils % (auto) 0.8 % (0.0-7.0); Hematocrit 43.1 % (41.0-53.0); Hemoglobin 14.1 g/dL (13.5-17.5); Lymphocytes # (auto) 1.7 10 ^3/uL (0.4-5.4); Lymphocytes % (auto) 49.1 % (10.0-50.0); Mean Corpuscular Hgb Conc. 32.8 g/dL (32.0-36.0); Mean Corpuscular Volume 97.7 fL (80.0-100.0); Monocytes # (auto) 0.4 10 ^3/uL (0-1.3); Monocytes % (auto) 11.2 % (0.0-12.0); Neutrophils # (auto) 1.3 10 ^3/uL (1.6-8.6); Neutrophils % (auto) 37.6 % (37.0-80.0); Nucleated Red Blood Cells % 0.1 %; Red Blood Cells 4.41 10^6/uL (4.5-5.90); Red Cell Distribution Width 15.6 % (11.8-14.3); White Blood Cell 3.5 10^3/uL (4.4-10.8)
[2022-11-06 23:00] LABS: Albumin 3.8 g/dL (3.4-5.0); Calcium 7.8 mg/dL (8.5-10.1); Potassium 3.3 mmol/L (3.5-5.1)
[2022-11-06 23:03] LABS: Lactic Acid w/Reflex 2.5 mmol/L (0.4-2.0)
[2022-11-06 23:13] LABS: Bilirubin, Total 0.2 mg/dL (0.2-1.0)
[2022-11-06 23:18] LABS: BUN/Creatinine Ratio 5.7 (10.0-20.0)
[2022-11-07] MEDS ORDERED: THIAMINE 100mg/ml INJ (200mg/2ml VIAL) IV ONE (08:00)
[2022-11-07] MEDS ORDERED: ONDANSETRON HCL 4 MG/2 ML VIAL IV ONE (08:00)
[2022-11-07] MEDS ORDERED: FOLIC ACID 1 MG, MULTIPLE VITAMIN 10 ML, MAGNESIUM SULF SDV 50% 8 MEQ, THIAMINE INJ 100... INJ SCH ×5 (12:00)
== END 2022-11-07 09:12 | disposition left against medical advice (07) ==
LOC: ER 20:05 → EDBD 20:05 → ER 11-07 08:11
DX: R40.4 Transient alteration of awareness (principal); F10.20 Alcohol dependence, uncomplicated; F17.210 Nicotine dependence, cigarettes, uncomplicated; Y90.8 Blood alcohol level of 240 mg/100 ml or more
CPT/HCPCS: 36415; 70450; 71045; 80053; 80320; 83605; 83690; 84484; 85025; 93005; 96360; 96361; 99285; J7030

== ENCOUNTER 2022-11-12 14:46 | Emergency (ER) | payer MEDICAID ==
[~2022-11-12] VITALS: Ht 165.1 cm; Wt 64.0 kg
[2022-11-12] MEDS ORDERED: KETOROLAC TROMETH 60MG/2ML VIAL IM ONE (15:00)
[2022-11-12] MEDS ORDERED: IBUP-1455 PO (15:50)
[2022-11-12 16:40] VITALS: BP 115/88
== END 2022-11-12 16:41 | disposition home or self-care (01) ==
LOC: ER 14:46 → EDUNIT# 14:46 → EDBD 14:46 → ER 16:41
DX: S82.831A Other fracture of upper and lower end of right fibula, initial encounter for closed fracture (principal); Z88.6 Allergy status to analgesic agent; Y04.2XXA Assault by strike against or bumped into by another person, initial encounter; Y93.89 Activity, other specified; Y92.89 Other specified places as the place of occurrence of the external cause; Y99.8 Other external cause status
CPT/HCPCS: 29515; 73562; 73610; 96372; 99284; J1885

== ENCOUNTER 2022-12-08 16:14 | Emergency (ER) | payer MEDICAID ==
[~2022-12-08] VITALS: Ht 162.6 cm; Wt 68.0 kg
[~2022-12-08 16:14] MED LIST changes: +IBUP-1455 PO
[2022-12-08 20:00] VITALS: BP 106/58; PULSE 78; RESP 17; O2SAT 98
== END 2022-12-08 20:01 | disposition home or self-care (01) ==
LOC: EDBD 16:14 → ER 16:14
DX: F10.129 Alcohol abuse with intoxication, unspecified (principal); R40.4 Transient alteration of awareness; F17.210 Nicotine dependence, cigarettes, uncomplicated; Z79.1 Long term (current) use of non-steroidal anti-inflammatories (NSAID); Z79.899 Other long term (current) drug therapy; Y90.0 Blood alcohol level of less than 20 mg/100 ml

== ENCOUNTER 2022-12-15 19:27 | Emergency (ER) | payer MEDICAID ==
[~2022-12-15] VITALS: Ht 162.6 cm; Wt 187.0 kg
[2022-12-15] MEDS ORDERED: ACCU-CHEK COMFORT CURVE STRIP VI ONE (20:00)
[2022-12-15 20:07] LABS: Basophils # (auto) 0.1 10 ^3/uL (0-0.2); Basophils % (auto) 1.3 % (0.0-2.0); Eosinophils # (auto) 0 10 ^3/uL (0-0.8); Eosinophils % (auto) 0.1 % (0.0-7.0); Hemoglobin 13.3 g/dL (13.5-17.5); Lymphocytes # (auto) 1.8 10 ^3/uL (0.4-5.4); Lymphocytes % (auto) 28.7 % (10.0-50.0); Mean Corpuscular Hemoglobin 31.6 pg (28.0-32.0); Mean Corpuscular Hgb Conc. 32.5 g/dL (32.0-36.0); Mean Corpuscular Volume 97.1 fL (80.0-100.0); Monocytes # (auto) 0.5 10 ^3/uL (0-1.3); Monocytes % (auto) 8.1 % (0.0-12.0); Neutrophils # (auto) 3.8 10 ^3/uL (1.6-8.6); Neutrophils % (auto) 61.8 % (37.0-80.0); Nucleated Red Blood Cells % 0.1 %; Red Blood Cells 4.22 10^6/uL (4.5-5.90); Red Cell Distribution Width 15.5 % (11.8-14.3); White Blood Cell 6.2 10^3/uL (4.4-10.8)
[2022-12-15 20:25] LABS: Magnesium 1.8 mg/dL (1.6-2.6); Potassium 3.1 mmol/L (3.5-5.1)
[2022-12-15 20:28] LABS: BUN/Creatinine Ratio 6.6 (10.0-20.0); Bilirubin, Total 1.3 mg/dL (0.2-1.0); Total Protein 8.2 g/dL (6.4-8.2)
[2022-12-15] MEDS ORDERED: levETIRAcetam 500 MG/5ML INJ IV ONE (20:30)
[2022-12-16] MEDS ORDERED: LEVE500T40 PO (00:05)
[2022-12-16 06:58] VITALS: BP 145/94; PULSE 83; RESP 18; TEMP 98.2; O2SAT 99
[2022-12-16] MEDS ORDERED: FOLIC ACID 1 MG, MULTIPLE VITAMIN 10 ML, MAGNESIUM SULF SDV 50% 8 MEQ, THIAMINE INJ 100... INJ SCH ×5 (12:00)
== END 2022-12-16 07:06 | disposition home or self-care (01) ==
LOC: ER 19:27
DX: S02.2XXA Fracture of nasal bones, initial encounter for closed fracture (principal); G40.909 Epilepsy, unspecified, not intractable, without status epilepticus; F17.210 Nicotine dependence, cigarettes, uncomplicated; F10.90 Alcohol use, unspecified, uncomplicated; W18.39XA Other fall on same level, initial encounter; Y93.89 Activity, other specified; Y92.89 Other specified places as the place of occurrence of the external cause; Y99.8 Other external cause status
CPT/HCPCS: 36415; 70450; 70486; 72125; 80053; 80320; 83735; 85025; 96365; 99285; J1953; J7060

== ENCOUNTER 2022-12-29 06:44 | Inpatient (IN) | payer MEDICAID ==
[~2022-12-29] VITALS: Ht 162.6 cm; Wt 81.0 kg
[2022-12-29] MEDS ORDERED: SODIUM CHLORIDE 0.9% 1,000 ML IV ONE ×3 (07:00→08:15)
[2022-12-29] MEDS ORDERED: THIAMINE 100mg/ml INJ (200mg/2ml VIAL) IV ONE (07:00)
[2022-12-29 07:48] LABS: Albumin 3.6 g/dL (3.4-5.0); Calcium 8.1 mg/dL (8.5-10.1); Potassium 4.2 mmol/L (3.5-5.1)
[2022-12-29 07:53] LABS: Bilirubin, Total 0.2 mg/dL (0.2-1.0); Total Protein 8.3 g/dL (6.4-8.2)
[2022-12-29 07:54] LABS: Basophils # (auto) 0 10 ^3/uL (0-0.2); Basophils % (auto) 1.1 % (0.0-2.0); Eosinophils # (auto) 0 10 ^3/uL (0-0.8); Eosinophils % (auto) 0.5 % (0.0-7.0); Hematocrit 43.1 % (41.0-53.0); Hemoglobin 14.1 g/dL (13.5-17.5); Lymphocytes # (auto) 1.6 10 ^3/uL (0.4-5.4); Lymphocytes % (auto) 50.3 % (10.0-50.0); Mean Corpuscular Hgb Conc. 32.7 g/dL (32.0-36.0); Mean Corpuscular Volume 97.8 fL (80.0-100.0); Monocytes # (auto) 0.2 10 ^3/uL (0-1.3); Monocytes % (auto) 6.3 % (0.0-12.0); Neutrophils # (auto) 1.3 10 ^3/uL (1.6-8.6); Neutrophils % (auto) 41.8 % (37.0-80.0); Nucleated Red Blood Cells % 0.3 %; Red Blood Cells 4.41 10^6/uL (4.5-5.90); Red Cell Distribution Width 16.4 % (11.8-14.3); White Blood Cell 3.2 10^3/uL (4.4-10.8)
[2022-12-29 07:58] VITALS: TEMP 97.6
[2022-12-29] MEDS ORDERED: SODIUM CHLORIDE 0.9% 1,000 ML IVB ONE (08:15)
[2022-12-29 09:10] VITALS: PULSE 60; RESP 17; O2SAT 95
[2022-12-29] MEDS ORDERED: MORPHINE SULFATE INJ 2 MG/ml SYRG IV PRN (09:15)
[2022-12-29] MEDS ORDERED: SODIUM CHLORIDE 0.9% 1,000 ML IV SCH (09:15)
[2022-12-29] MEDS ORDERED: LORazepam 2MG/ML-1ML VIAL IV PRN (09:15)
[2022-12-29] MEDS ORDERED: ONDANSETRON HCL 4 MG/2 ML VIAL IV PRN (09:15)
[2022-12-29] MEDS ORDERED: DOCUSATE SOD 100 MG CAP PO PRN (09:15)
[2022-12-29] MEDS ORDERED: HYDROcodone-ACET 5/325MG TAB PO PRN (09:15)
[2022-12-29] MEDS ORDERED: NITROGLYCERIN 0.4 MG SL TAB SL PRN (09:15)
[2022-12-29] MEDS ORDERED: ACETAMINOPHEN 325 MG TAB PO PRN (09:15)
[2022-12-29] MEDS ORDERED: FOLIC ACID 1 MG, MULTIPLE VITAMIN 10 ML, MAGNESIUM SULF SDV 50% 8 MEQ, THIAMINE INJ 100... INJ SCH ×10 (09:45→12:00)
[2022-12-29] MEDS ORDERED: PANTOPRAZOLE 40 MG/10 ML VIAL INJ IV SCH (10:00)
[2022-12-29] MEDS ORDERED: ZINC SULFATE 220mg CAP or TAB PO SCH (10:00)
[2022-12-29] MEDS ORDERED: ENOXAPARIN SOD 40 MG/0.4 ML SYRINGE SC SCH (10:00)
[2022-12-29] MEDS ORDERED: levETIRAcetam 500 MG TAB PO SCH (10:00)
[2022-12-29] MEDS ORDERED: MULTIPLE VITAMIN TAB PO SCH (10:00)
[2022-12-29 13:58] LABS: Urine WBC None Seen /hpf (0 - 3)
[2022-12-29] MEDS ORDERED: GABAPENTIN 300 MG CAP PO SCH (14:00)
[2022-12-29 14:31] VITALS: BP 104/71; PULSE 57; RESP 18; O2SAT 97
[2022-12-29 14:31] LABS: Urine Bacteria NONE SEEN /hpf (None Seen); Urine Blood Negative /uL (Negative); Urine Clarity Clear (Clear); Urine Color Straw (Yellow); Urine Protein, UAD Negative (Negative); Urine Specific Gravity 1.005 (1.001-1.035); Urine Urobilinogen Normal (Negative)
== END 2022-12-29 16:07 | disposition left against medical advice (07) | DRG 52 ==
LOC: EDBD 06:44 → ER 06:44 → SUATTDRO 09:09 → TELE 09:19
PROVIDERS: ADMIT Nurse Practitioner; ATTEND Nurse Practitioner
DX: G92.9 Unspecified toxic encephalopathy (principal); F10.120 Alcohol abuse with intoxication, uncomplicated; F17.210 Nicotine dependence, cigarettes, uncomplicated; Z53.29 Procedure and treatment not carried out because of patient's decision for other reasons; G40.909 Epilepsy, unspecified, not intractable, without status epilepticus; I10 Essential (primary) hypertension; Z59.00 Homelessness unspecified
CPT/HCPCS: 36415; 80053; 80320; 81001; 85025; 95819; 96361; 96374; 96375; C9113; G0378

== ENCOUNTER 2023-01-06 18:22 | Emergency (ER) | payer MEDICAID ==
[~2023-01-06] VITALS: Ht 170.2 cm; Wt 100.0 kg
[2023-01-06 19:30] LABS: Basophils # (auto) 0 10 ^3/uL (0-0.2); Basophils % (auto) 0.9 % (0.0-2.0); Eosinophils # (auto) 0 10 ^3/uL (0-0.8); Eosinophils % (auto) 0.5 % (0.0-7.0); Lymphocytes # (auto) 1.5 10 ^3/uL (0.4-5.4); Lymphocytes % (auto) 36.3 % (10.0-50.0); Mean Corpuscular Hemoglobin 32.8 pg (28.0-32.0); Mean Corpuscular Hgb Conc. 33.3 g/dL (32.0-36.0); Mean Corpuscular Volume 98.4 fL (80.0-100.0); Monocytes # (auto) 0.3 10 ^3/uL (0-1.3); Monocytes % (auto) 6.1 % (0.0-12.0); Neutrophils # (auto) 2.4 10 ^3/uL (1.6-8.6); Neutrophils % (auto) 56.2 % (37.0-80.0); Nucleated Red Blood Cells % 0.1 %; Red Blood Cells 3.66 10^6/uL (4.5-5.90); Red Cell Distribution Width 16.3 % (11.8-14.3); White Blood Cell 4.2 10^3/uL (4.4-10.8)
[2023-01-06 19:56] LABS: Alanine Aminotransferase 24 U/L (7-40); Albumin 4.1 g/dL (3.2-4.8); Alkaline Phosphatase 178 U/L (46-116); Anion Gap 10.8 (5-15); Aspartate Aminotransferase 43 U/L (13-40); Bilirubin, Total 0.3 mg/dL (0.2-1.0); Blood Urea Nitrogen 6 mg/dL (9-23); Calcium 8.8 mg/dL (8.5-10.1); Carbon Dioxide 24.2 mmol/L (20-30); Chloride 112 mmol/L (98-107); Glucose 106 mg/dL (74-106); Potassium 4.1 mmol/L (3.5-5.1); Sodium 147 mmol/L (136-145); Total Protein 7.1 g/dL (5.7-8.2)
[2023-01-06 22:31] VITALS: BP 142/84; PULSE 108; RESP 18; TEMP 98.2; O2SAT 98
== END 2023-01-06 22:42 | disposition home or self-care (01) ==
LOC: EDBD 18:22 → ER 18:22
DX: S02.2XXA Fracture of nasal bones, initial encounter for closed fracture (principal); F10.129 Alcohol abuse with intoxication, unspecified; F17.210 Nicotine dependence, cigarettes, uncomplicated; R56.9 Unspecified convulsions; Y04.2XXA Assault by strike against or bumped into by another person, initial encounter; Y93.89 Activity, other specified; Y92.89 Other specified places as the place of occurrence of the external cause; Y99.8 Other external cause status; Y90.8 Blood alcohol level of 240 mg/100 ml or more
CPT/HCPCS: 36415; 70450; 70486; 80053; 80320; 85025

== ENCOUNTER 2023-01-19 04:42 | Emergency (ER) | payer MEDICAID ==
[~2023-01-19] VITALS: Ht 167.6 cm; Wt 68.0 kg
[2023-01-19] MEDS ORDERED: SODIUM CHLORIDE 0.9% 500 ML IV ONE (08:15)
[2023-01-19] MEDS ORDERED: ONDANSETRON HCL 4 MG/2 ML VIAL IV ONE (08:15)
[2023-01-19 08:52] LABS: Basophils # (auto) 0 10 ^3/uL (0-0.2); Basophils % (auto) 0.7 % (0.0-2.0); Eosinophils # (auto) 0 10 ^3/uL (0-0.8); Eosinophils % (auto) 0.6 % (0.0-7.0); Hematocrit 39.5 % (41.0-53.0); Lymphocytes # (auto) 1.5 10 ^3/uL (0.4-5.4); Lymphocytes % (auto) 25.3 % (10.0-50.0); Mean Corpuscular Hemoglobin 32.8 pg (28.0-32.0); Mean Corpuscular Volume 99.2 fL (80.0-100.0); Monocytes # (auto) 0.6 10 ^3/uL (0-1.3); Monocytes % (auto) 10.6 % (0.0-12.0); Neutrophils # (auto) 3.8 10 ^3/uL (1.6-8.6); Neutrophils % (auto) 62.8 % (37.0-80.0); Nucleated Red Blood Cells % 0.1 %; Red Blood Cells 3.98 10^6/uL (4.5-5.90); Red Cell Distribution Width 16.2 % (11.8-14.3)
[2023-01-19 09:07] LABS: Alanine Aminotransferase 16 U/L (7-40); Albumin 4.1 g/dL (3.2-4.8); Alkaline Phosphatase 186 U/L (46-116); Anion Gap 10.4 (5-15); Aspartate Aminotransferase 29 U/L (13-40); Calcium 8.3 mg/dL (8.7-10.4); Carbon Dioxide 23.6 mmol/L (20-30); Chloride 112 mmol/L (98-107); Glucose 74 mg/dL (74-106); Lipase 34 U/L (12-53); Magnesium 1.6 mg/dL (1.6-2.6); Sodium 146 mmol/L (136-145)
[2023-01-19 09:08] LABS: Bilirubin, Total 0.2 mg/dL (0.2-1.0); Total Protein 7.2 g/dL (5.7-8.2)
[2023-01-19 09:13] LABS: BUN/Creatinine Ratio 9.4 (10.0-20.0); Blood Urea Nitrogen < 5 mg/dL (9-23)
[2023-01-19 09:18] LABS: Urine WBC None Seen /hpf (0 - 3)
[2023-01-19 09:20] VITALS: PULSE 63; RESP 18; TEMP 97.8; O2SAT 100
[2023-01-19 09:33] LABS: Urine Bacteria NONE SEEN /hpf (None Seen); Urine Blood Negative /uL (Negative); Urine Clarity Clear (Clear); Urine Color Yellow (Yellow); Urine Protein, UAD Negative (Negative); Urine Specific Gravity 1.016 (1.001-1.035); Urine Urobilinogen Normal (Negative)
[2023-01-19 09:39] LABS: Amphetamine Screen, Urine Neg (NEGATIVE); Barbiturate Scree,Urine Neg (NEGATIVE); Benzodiazephine Screen, Urine Neg (NEGATIVE); Cocaine Screen, Urine Neg (NEGATIVE)
[2023-01-19 09:40] LABS: Cannabinoid Screen, Urine Neg (NEGATIVE); Opiate Scree,Urine Neg (NEGATIVE); Phencyclidine Screen, Urine Neg (NEGATIVE)
[2023-01-19 11:15] VITALS: BP 112/68; PULSE 68; RESP 17; O2SAT 99
== END 2023-01-19 12:57 | disposition home or self-care (01) ==
LOC: ER 04:42 → EDBD 04:42 → ER 12:57
DX: F10.129 Alcohol abuse with intoxication, unspecified (principal); F17.210 Nicotine dependence, cigarettes, uncomplicated; Z79.899 Other long term (current) drug therapy; Y90.8 Blood alcohol level of 240 mg/100 ml or more
CPT/HCPCS: 36415; 80053; 80307; 80320; 81001; 83690; 83735; 84484; 85025; 96361; 96374; 99284; J2405; J7040

== ENCOUNTER 2023-01-23 21:28 | Emergency (ER) | payer MEDICAID ==
[~2023-01-23] VITALS: Ht 162.6 cm; Wt 97.7 kg
[2023-01-23 22:12] LABS: Basophils # (auto) 0 10 ^3/uL (0-0.2); Eosinophils # (auto) 0 10 ^3/uL (0-0.8); Eosinophils % (auto) 0.5 % (0.0-7.0); Hematocrit 37.5 % (41.0-53.0); Hemoglobin 12.3 g/dL (13.5-17.5); Lymphocytes # (auto) 0.9 10 ^3/uL (0.4-5.4); Lymphocytes % (auto) 21.6 % (10.0-50.0); Mean Corpuscular Hemoglobin 32.4 pg (28.0-32.0); Mean Corpuscular Hgb Conc. 32.7 g/dL (32.0-36.0); Mean Corpuscular Volume 99.3 fL (80.0-100.0); Monocytes # (auto) 0.3 10 ^3/uL (0-1.3); Monocytes % (auto) 6.9 % (0.0-12.0); Red Blood Cells 3.78 10^6/uL (4.5-5.90); Red Cell Distribution Width 16.3 % (11.8-14.3); White Blood Cell 4.3 10^3/uL (4.4-10.8)
[2023-01-23 22:30] LABS: Alanine Aminotransferase 15 U/L (7-40); Albumin 4.2 g/dL (3.2-4.8); Alkaline Phosphatase 174 U/L (46-116); Anion Gap 10.6 (5-15); Aspartate Aminotransferase 34 U/L (13-40); BUN/Creatinine Ratio 7.3 (10.0-20.0); Bilirubin, Total 0.3 mg/dL (0.2-1.0); Blood Urea Nitrogen 6 mg/dL (9-23); Calcium 8.5 mg/dL (8.5-10.1); Carbon Dioxide 21.4 mmol/L (20-30); Chloride 107 mmol/L (98-107); Glucose 148 mg/dL (74-106); Potassium 3.8 mmol/L (3.5-5.1); Sodium 139 mmol/L (136-145)
[2023-01-23 22:31] LABS: Total Protein 7.5 g/dL (5.7-8.2)
[2023-01-23 22:39] LABS: Blood Alcohol 406.4 mg/dL (<10)
[2023-01-23] MEDS ORDERED: NEOMYCIN-BACITRACIN-POLYM UNITDOSE PKG TOP OINT TOP ONE (22:45)
[2023-01-23] MEDS ORDERED: TETANUS-DIPTH-ACEL PERTUSSIS 0.5ML SYR Tdap IM ONE (22:45)
[2023-01-23] MEDS ORDERED: HYDROcodone-ACET 10/325MG TAB PO ONE (22:45)
[2023-01-24] MEDS ORDERED: IOHEXOL 300 MG/ML 100ML BOTTLE IJ ONE (00:11)
[2023-01-24 00:57] VITALS: BP 136/91; PULSE 86; RESP 18; TEMP 98.1; O2SAT 99
== END 2023-01-24 07:40 | disposition home or self-care (01) ==
LOC: EDBD 21:28 → ER 21:28
DX: S01.01XA Laceration without foreign body of scalp, initial encounter (principal); F10.129 Alcohol abuse with intoxication, unspecified; R10.11 Right upper quadrant pain; Z79.1 Long term (current) use of non-steroidal anti-inflammatories (NSAID); Z79.899 Other long term (current) drug therapy; Y04.2XXA Assault by strike against or bumped into by another person, initial encounter; Y93.89 Activity, other specified; Y92.89 Other specified places as the place of occurrence of the external cause; Y99.8 Other external cause status; Y90.8 Blood alcohol level of 240 mg/100 ml or more
CPT/HCPCS: 36415; 70450; 71250; 72125; 80053; 80320; 85025; 90471; 90715; 99285; Q9967

== ENCOUNTER 2023-01-24 12:17 | Emergency (ER) | payer MEDICAID ==
[~2023-01-24] VITALS: Ht 165.1 cm; Wt 75.0 kg
[2023-01-24 12:30] VITALS: PULSE 77; RESP 20; O2SAT 100
[2023-01-24] MEDS ORDERED: SODIUM CHLORIDE 0.9% 1,000 ML IV ONE (12:30)
[2023-01-24 13:14] LABS: Basophils # (auto) 0.1 10 ^3/uL (0-0.2); Basophils % (auto) 0.9 % (0.0-2.0); Eosinophils # (auto) 0 10 ^3/uL (0-0.8); Eosinophils % (auto) 0.2 % (0.0-7.0); Hematocrit 37.3 % (41.0-53.0); Hemoglobin 12.2 g/dL (13.5-17.5); Lymphocytes # (auto) 1.2 10 ^3/uL (0.4-5.4); Lymphocytes % (auto) 18.1 % (10.0-50.0); Mean Corpuscular Hemoglobin 32.4 pg (28.0-32.0); Mean Corpuscular Hgb Conc. 32.7 g/dL (32.0-36.0); Monocytes # (auto) 0.4 10 ^3/uL (0-1.3); Monocytes % (auto) 5.4 % (0.0-12.0); Neutrophils # (auto) 5.2 10 ^3/uL (1.6-8.6); Neutrophils % (auto) 75.4 % (37.0-80.0); Red Blood Cells 3.77 10^6/uL (4.5-5.90); Red Cell Distribution Width 16.2 % (11.8-14.3); White Blood Cell 6.9 10^3/uL (4.4-10.8)
[2023-01-24 13:37] LABS: Alanine Aminotransferase 13 U/L (7-40); Albumin 4.4 g/dL (3.2-4.8); Alkaline Phosphatase 200 U/L (46-116); Anion Gap 9.6 (5-15); Aspartate Aminotransferase 28 U/L (13-40); BUN/Creatinine Ratio 6.1 (10.0-20.0); Bilirubin, Total 0.4 mg/dL (0.2-1.0); Blood Urea Nitrogen 5 mg/dL (9-23); Calcium 8.8 mg/dL (8.7-10.4); Carbon Dioxide 23.4 mmol/L (20-30); Chloride 106 mmol/L (98-107); Glucose 109 mg/dL (74-106); Potassium 3.2 mmol/L (3.5-5.1); Sodium 139 mmol/L (136-145); Total Protein 7.8 g/dL (5.7-8.2)
[2023-01-24 13:52] LABS: Blood Alcohol 520.2 mg/dL (<10)
[2023-01-24 15:02] LABS: Amphetamine Screen, Urine Neg (NEGATIVE); Barbiturate Scree,Urine Neg (NEGATIVE); Benzodiazephine Screen, Urine Neg (NEGATIVE); Cannabinoid Screen, Urine Neg (NEGATIVE); Cocaine Screen, Urine Neg (NEGATIVE); Opiate Scree,Urine Neg (NEGATIVE); Phencyclidine Screen, Urine Neg (NEGATIVE)
[2023-01-24] MEDS ORDERED: POTASSIUM CHL 20MEQ/100ML 100 ML IV ONE (15:30)
[2023-01-24 23:00] VITALS: PULSE 89; RESP 16; O2SAT 93
[2023-01-25 05:00] VITALS: BP 119/86; PULSE 74; RESP 15; TEMP 98.7; O2SAT 95
== END 2023-01-25 05:48 | disposition home or self-care (01) ==
LOC: ER 12:17 → EDBD 12:17 → ER 01-25 05:48
DX: S09.90XA Unspecified injury of head, initial encounter (principal); F10.129 Alcohol abuse with intoxication, unspecified; F17.210 Nicotine dependence, cigarettes, uncomplicated; Z79.1 Long term (current) use of non-steroidal anti-inflammatories (NSAID); Z79.899 Other long term (current) drug therapy; Y04.2XXA Assault by strike against or bumped into by another person, initial encounter; Y93.89 Activity, other specified; Y92.89 Other specified places as the place of occurrence of the external cause; Y99.8 Other external cause status; Y90.8 Blood alcohol level of 240 mg/100 ml or more
CPT/HCPCS: 36415; 70450; 72125; 80053; 80307; 80320; 85025; 96360; 96361; 99285; J3480; J7030

== ENCOUNTER 2023-03-18 15:26 | Emergency (ER) | payer MEDICAID ==
[~2023-03-18] VITALS: Ht 162.6 cm; Wt 68.1 kg
[2023-03-18] MEDS ORDERED: ONDANSETRON HCL 4 MG/2 ML VIAL IV ONE (16:00)
[2023-03-18 16:51] LABS: Basophils # (auto) 0.1 10 ^3/uL (0-0.2); Basophils % (auto) 1.7 % (0.0-2.0); Eosinophils # (auto) 0 10 ^3/uL (0-0.8); Eosinophils % (auto) 0.3 % (0.0-7.0); Hematocrit 40.5 % (41.0-53.0); Hemoglobin 13.3 g/dL (13.5-17.5); Lymphocytes # (auto) 1.8 10 ^3/uL (0.4-5.4); Mean Corpuscular Hemoglobin 33.2 pg (28.0-32.0); Mean Corpuscular Hgb Conc. 32.9 g/dL (32.0-36.0); Mean Corpuscular Volume 100.9 fL (80.0-100.0); Monocytes # (auto) 0.2 10 ^3/uL (0-1.3); Monocytes % (auto) 3.5 % (0.0-12.0); Neutrophils # (auto) 4.2 10 ^3/uL (1.6-8.6); Neutrophils % (auto) 66.5 % (37.0-80.0); Nucleated Red Blood Cells % 0.1 %; Red Blood Cells 4.02 10^6/uL (4.5-5.90); Red Cell Distribution Width 15.1 % (11.8-14.3); White Blood Cell 6.4 10^3/uL (4.4-10.8)
[2023-03-18] MEDS ORDERED: FOLIC ACID 1 MG, MULTIPLE VITAMIN 10 ML, MAGNESIUM SULF SDV 50% 8 MEQ, THIAMINE INJ 100... INJ ONE ×5 (17:00)
[2023-03-18 17:08] LABS: Alanine Aminotransferase 20 U/L (7-40); Albumin 4.5 g/dL (3.2-4.8); Alkaline Phosphatase 170 U/L (46-116); Anion Gap 10 (5-15); Aspartate Aminotransferase 42 U/L (13-40); Bilirubin, Total 0.2 mg/dL (0.2-1.0); Calcium 8.7 mg/dL (8.7-10.4); Carbon Dioxide 23 mmol/L (20-30); Chloride 112 mmol/L (98-107); Glucose 109 mg/dL (74-106); Lipase 52 U/L (12-53); Potassium 3.9 mmol/L (3.5-5.1); Sodium 145 mmol/L (136-145); Total Protein 7.7 g/dL (5.7-8.2)
[2023-03-18 17:22] LABS: BUN/Creatinine Ratio 6.8 (10.0-20.0); Blood Urea Nitrogen < 5 mg/dL (9-23)
[2023-03-18 17:24] LABS: Blood Alcohol 587.6 mg/dL (<10)
[2023-03-18 19:40] VITALS: PULSE 88; RESP 18; O2SAT 98
[2023-03-18] MEDS ORDERED: SODIUM CHLORIDE 0.9% 1,000 ML IV ONE (22:30)
[2023-03-19 04:38] VITALS: TEMP 98.8
[2023-03-19] MEDS ORDERED: LORazepam 2MG/ML-1ML VIAL IV ONE (05:30)
[2023-03-19] MEDS ORDERED: LORazepam 2MG/ML-1ML VIAL IV SCH (05:30)
[2023-03-19 06:48] LABS: Eosinophils # (auto) 0 10 ^3/uL (0-0.8); Hemoglobin 12.4 g/dL (13.5-17.5); Lymphocytes # (auto) 1.1 10 ^3/uL (0.4-5.4); Monocytes # (auto) 0.4 10 ^3/uL (0-1.3); White Blood Cell 4.9 10^3/uL (4.4-10.8)
[2023-03-19 06:49] LABS: Basophils # (auto) 0.1 10 ^3/uL (0-0.2); Basophils % (auto) 1.4 % (0.0-2.0); Hematocrit 37.2 % (41.0-53.0); Lymphocytes % (auto) 22.9 % (10.0-50.0); Mean Corpuscular Hemoglobin 33.6 pg (28.0-32.0); Mean Corpuscular Hgb Conc. 33.4 g/dL (32.0-36.0); Mean Corpuscular Volume 100.6 fL (80.0-100.0); Monocytes % (auto) 7.8 % (0.0-12.0); Neutrophils # (auto) 3.3 10 ^3/uL (1.6-8.6); Neutrophils % (auto) 66.9 % (37.0-80.0); Red Blood Cells 3.69 10^6/uL (4.5-5.90); Red Cell Distribution Width 14.8 % (11.8-14.3)
[2023-03-19 07:03] LABS: Alanine Aminotransferase 20 U/L (7-40); Albumin 4.2 g/dL (3.2-4.8); Alkaline Phosphatase 152 U/L (46-116); Anion Gap 8 (5-15); Aspartate Aminotransferase 43 U/L (13-40); Blood Alcohol 270.3 mg/dL (<10); Calcium 8.4 mg/dL (8.7-10.4); Carbon Dioxide 25 mmol/L (20-30); Chloride 113 mmol/L (98-107); Glucose 78 mg/dL (74-106); Magnesium 1.9 mg/dL (1.6-2.6); Potassium 3.7 mmol/L (3.5-5.1); Sodium 146 mmol/L (136-145)
[2023-03-19 07:04] LABS: BUN/Creatinine Ratio 6.6 (10.0-20.0); Bilirubin, Total 0.3 mg/dL (0.2-1.0); Blood Urea Nitrogen < 5 mg/dL (9-23); Total Protein 7.2 g/dL (5.7-8.2)
[2023-03-19 08:00] VITALS: PULSE 60; RESP 16; O2SAT 93
[2023-03-19 09:21] VITALS: BP 102/74; PULSE 60; RESP 16; O2SAT 94
[2023-03-19] MEDS ORDERED: FOLIC ACID 1 MG, MULTIPLE VITAMIN 10 ML, MAGNESIUM SULF SDV 50% 8 MEQ, THIAMINE INJ 100... INJ SCH ×5 (12:00)
== END 2023-03-19 12:57 | disposition left against medical advice (07) ==
LOC: EDBD 15:26 → ER 15:26 → EDUNIT# 15:26 → ER 03-19 12:57
DX: F10.129 Alcohol abuse with intoxication, unspecified (principal); F17.210 Nicotine dependence, cigarettes, uncomplicated; Z79.899 Other long term (current) drug therapy; Y90.8 Blood alcohol level of 240 mg/100 ml or more
CPT/HCPCS: 36415; 80053; 80320; 83690; 83735; 84484; 85025; 96365; 96366; 96375; 99285; J2060; J2405; J3411; J3475; J7030

== ENCOUNTER 2023-03-26 11:41 | Emergency (ER) | payer MEDICAID ==
[~2023-03-26] VITALS: Ht 170.2 cm; Wt 68.0 kg
[2023-03-26] MEDS ORDERED: SODIUM CHLORIDE 0.9% 1,000 ML IV ONE ×2 (12:00)
[2023-03-26] MEDS: THIAMINE 100mg/ml INJ (200mg/2ml VIAL) IV ONE ×2 (12:54→12:57)
[2023-03-26 13:28] LABS: Basophils # (auto) 0.1 10 ^3/uL (0-0.2); Basophils % (auto) 1.2 % (0.0-2.0); Eosinophils # (auto) 0 10 ^3/uL (0-0.8); Eosinophils % (auto) 0.5 % (0.0-7.0); Hematocrit 36.6 % (41.0-53.0); Mean Corpuscular Hemoglobin 32.8 pg (28.0-32.0); Mean Corpuscular Hgb Conc. 32.8 g/dL (32.0-36.0); Monocytes # (auto) 0.2 10 ^3/uL (0-1.3); Monocytes % (auto) 4.6 % (0.0-12.0); Neutrophils # (auto) 3.5 10 ^3/uL (1.6-8.6); Neutrophils % (auto) 72.7 % (37.0-80.0); Red Blood Cells 3.66 10^6/uL (4.5-5.90); Red Cell Distribution Width 14.8 % (11.8-14.3); White Blood Cell 4.8 10^3/uL (4.4-10.8)
[2023-03-26 15:02] LABS: Alanine Aminotransferase 24 U/L (7-40); Alkaline Phosphatase 169 U/L (46-116); Calcium 8.1 mg/dL (8.7-10.4)
[2023-03-26 15:03] LABS: Anion Gap 10 (5-15); Aspartate Aminotransferase 68 U/L (13-40); Bilirubin, Total 0.4 mg/dL (0.2-1.0); Carbon Dioxide 22 mmol/L (20-30); Chloride 109 mmol/L (98-107); Glucose 78 mg/dL (74-106); Potassium 3.7 mmol/L (3.5-5.1); Sodium 141 mmol/L (136-145); Total Protein 7.1 g/dL (5.7-8.2)
[2023-03-26 15:08] VITALS: BP 135/74; PULSE 90; RESP 18; TEMP 98.1; O2SAT 97
[2023-03-26 15:43] LABS: BUN/Creatinine Ratio 7.6 (10.0-20.0); Blood Urea Nitrogen < 5 mg/dL (9-23)
== END 2023-03-26 16:18 | disposition home or self-care (01) ==
LOC: EDBD 11:41 → ER 11:41
DX: S01.81XA Laceration without foreign body of other part of head, initial encounter (principal); F17.210 Nicotine dependence, cigarettes, uncomplicated; W17.89XA Other fall from one level to another, initial encounter; Y93.89 Activity, other specified; Y92.512 Supermarket, store or market as the place of occurrence of the external cause; Y99.8 Other external cause status
CPT/HCPCS: 12013; 36415; 70450; 72125; 80053; 80320; 85025; 96361; 96374; 99285; J3411; J7030

== ENCOUNTER 2023-07-01 15:40 | Emergency (ER) | payer MEDICAID ==
[~2023-07-01] VITALS: Ht 167.6 cm; Wt 35.0 kg
[2023-07-01 16:20] VITALS: BP 136/99; PULSE 100; RESP 18; O2SAT 95
[2023-07-01] MEDS ORDERED: ONDANSETRON ODT 4 MG TAB PO ONE (16:30)
[2023-07-01] MEDS ORDERED: SODIUM CHLORIDE 0.9% 1,000 ML IV ONE (16:30)
[2023-07-01] MEDS ORDERED: THIAMINE 100mg/ml INJ (200mg/2ml VIAL) IV ONE (16:30)
== END 2023-07-01 16:50 | disposition home or self-care (01) ==
LOC: EDUNIT# 15:40 → ER 15:40 → EDBD 15:40 → ER 16:50
DX: F10.129 Alcohol abuse with intoxication, unspecified (principal); F17.210 Nicotine dependence, cigarettes, uncomplicated; Z79.1 Long term (current) use of non-steroidal anti-inflammatories (NSAID); Z79.899 Other long term (current) drug therapy; Y90.9 Presence of alcohol in blood, level not specified

== ENCOUNTER 2023-07-13 06:10 | Emergency (ER) | payer MEDICAID ==
[~2023-07-13] VITALS: Ht 162.6 cm; Wt 150.0 kg
[2023-07-13] MEDS: LORazepam 2MG/ML-1ML VIAL ONE (07:08)
[2023-07-13] MEDS: SODIUM CHLORIDE 0.9% 1,000 ML IV ONE (07:09)
[2023-07-13] MEDS: LORazepam 2MG/ML-1ML VIAL IV ONE (07:14)
[2023-07-13 08:00] VITALS: PULSE 106; RESP 19; TEMP 98.4; O2SAT 95
[2023-07-13] MEDS: LIDOCAINE 1% (LOCAL ANESTH.) PF 5ml SDV ID ONE (11:46)
[2023-07-13] MEDS: NEOMYCIN-BACITRACIN-POLYM UNITDOSE PKG TOP OINT TOP ONE (11:47)
[2023-07-13] MEDS: chlordiazePOXIDE HCL 25 MG CAP PO ONE (11:54)
[2023-07-13] MEDS: FOLIC ACID 1 MG, MAGNESIUM SULF SDV 50% 8 MEQ, MULTIPLE VITAMIN 10 ML, THIAMINE INJ 100... INJ ONE (11:59)
[2023-07-13] MEDS ORDERED: CHL10C PO (13:12)
[2023-07-13 13:55] VITALS: BP 118/83; PULSE 82; RESP 20; O2SAT 94
== END 2023-07-13 14:42 | disposition home or self-care (01) ==
LOC: EDUNIT# 06:10 → ER 06:10 → EDBD 06:10 → ER 14:42
DX: S00.81XA Abrasion of other part of head, initial encounter (principal); F10.930 Alcohol use, unspecified with withdrawal, uncomplicated; R56.9 Unspecified convulsions; F17.210 Nicotine dependence, cigarettes, uncomplicated; Z79.1 Long term (current) use of non-steroidal anti-inflammatories (NSAID); Z79.899 Other long term (current) drug therapy; W18.39XA Other fall on same level, initial encounter; Y93.89 Activity, other specified; Y92.89 Other specified places as the place of occurrence of the external cause; Y99.8 Other external cause status; Y90.1 Blood alcohol level of 20-39 mg/100 ml
CPT/HCPCS: 36415; 70450; 70486; 80320; 96361; 96365; 96366; 96375; 99285; J2060; J3411; J3475; J7030

== ENCOUNTER 2023-07-22 18:36 | Emergency (ER) | payer MEDICAID ==
[~2023-07-22] VITALS: Ht 162.6 cm; Wt 65.0 kg
[~2023-07-22 18:36] MED LIST changes: +CHL10C PO
[2023-07-23 04:42] VITALS: BP 117/78; PULSE 80; RESP 14; O2SAT 98
== END 2023-07-22 20:04 | disposition left against medical advice (07) ==
LOC: EDBD 18:36 → ER 18:36 → EDUNIT# 18:36 → ER 20:04
DX: F10.10 Alcohol abuse, uncomplicated (principal); F17.210 Nicotine dependence, cigarettes, uncomplicated; Y90.8 Blood alcohol level of 240 mg/100 ml or more

== ENCOUNTER 2023-07-30 12:19 | Inpatient (IN) | payer MEDICAID ==
[~2023-07-30] VITALS: Ht 165.1 cm; Wt 55.0 kg
[2023-07-30 12:43] VITALS: PULSE 117; RESP 17; O2SAT 97
[2023-07-30] MEDS: LORazepam 2MG/ML-1ML VIAL ONE ×2 (13:05→13:13)
[2023-07-30] MEDS: LORazepam 2MG/ML-1ML VIAL IV ONE ×2 (13:15→13:20)
[2023-07-30] MEDS ORDERED: LORazepam 2MG/ML-1ML VIAL IV PRN ×3 (13:15→13:30)
[2023-07-30] MEDS: ADENOSINE 6 MG/2 ML INJ IV ONE (13:26)
[2023-07-30] MEDS: SODIUM CHLORIDE 0.9% 1,000 ML IV ONE ×3 (13:30→14:02)
[2023-07-30] MEDS: dilTIAZem 25 MG/5 ML VIAL IV ONE (13:31)
[2023-07-30] MEDS: dilTIAZem 125mg/125ml BAG KIT 125 ML IV ONE (13:45)
[2023-07-30 13:54] LABS: Basophils # (auto) 0 10 ^3/uL (0-0.2); Basophils % (auto) 0.3 % (0.0-2.0); Eosinophils # (auto) 0 10 ^3/uL (0-0.8); Eosinophils % (auto) 0.1 % (0.0-7.0); Hematocrit 39.8 % (41.0-53.0); Hemoglobin 12.4 g/dL (13.5-17.5); Lymphocytes # (auto) 1.1 10 ^3/uL (0.4-5.4); Lymphocytes % (auto) 9.3 % (10.0-50.0); Mean Corpuscular Hemoglobin 30.7 pg (28.0-32.0); Mean Corpuscular Hgb Conc. 31.1 g/dL (32.0-36.0); Mean Corpuscular Volume 98.7 fL (80.0-100.0); Monocytes # (auto) 0.6 10 ^3/uL (0-1.3); Monocytes % (auto) 4.9 % (0.0-12.0); Neutrophils # (auto) 10.2 10 ^3/uL (1.6-8.6); Neutrophils % (auto) 85.4 % (37.0-80.0); Red Blood Cells 4.03 10^6/uL (4.5-5.90); Red Cell Distribution Width 15.8 % (11.8-14.3)
[2023-07-30] MEDS: dilTIAZem HCL 50 MG/10 ML VIAL IV ONE (13:56)
[2023-07-30 14:10] LABS: Chloride 102 mmol/L (98-107); Sodium 137 mmol/L (136-145)
[2023-07-30 14:11] LABS: Anion Gap 22 (5-15); Calcium 9.3 mg/dL (8.5-10.1); Carbon Dioxide 13 mmol/L (20-30)
[2023-07-30 14:16] LABS: BUN/Creatinine Ratio 6.5 (10.0-20.0); Blood Urea Nitrogen 6 mg/dL (9-23); Glucose 96 mg/dL (74-106)
[2023-07-30 14:17] LABS: Blood Alcohol 12.3 mg/dL (<10)
[2023-07-30] MEDS ORDERED: NITROGLYCERIN 0.4 MG SL TAB SL PRN (15:30)
[2023-07-30] MEDS ORDERED: HYDROcodone-ACET 5/325MG TAB PO PRN (15:30)
[2023-07-30] MEDS: METOPROLOL TARTRATE 1MG/1ML-5ML VIAL IV ONE (18:15)
[2023-07-30] MEDS: ONDANSETRON HCL 4 MG/2 ML VIAL IV PRN (18:23)
[2023-07-30] MEDS: MORPHINE SULFATE INJ 2 MG/ml SYRG IV PRN (18:25)
[2023-07-30] MEDS: FOLIC ACID 1 MG, MAGNESIUM SULF SDV 50% 8 MEQ, MULTIPLE VITAMIN 10 ML, THIAMINE INJ 100... INJ SCH (18:27)
[2023-07-30 19:30] VITALS: PULSE 115; RESP 16; O2SAT 99
[2023-07-30] MEDS ORDERED: METOPROLOL TARTRATE 1MG/1ML-5ML VIAL IV PRN (21:45)
[2023-07-30] MEDS: METOPROLOL TARTRATE 25 MG TAB PO SCH (21:49)
[2023-07-30] MEDS: levETIRAcetam 500 MG TAB PO SCH (21:49)
[2023-07-30] MEDS: ENOXAPARIN SOD 60 MG/0.6 ML SYRINGE SC SCH (21:50)
[2023-07-31 06:47] LABS: Basophils # (auto) 0.1 10 ^3/uL (0-0.2); Basophils % (auto) 0.9 % (0.0-2.0); Eosinophils # (auto) 0 10 ^3/uL (0-0.8); Eosinophils % (auto) 0.4 % (0.0-7.0); Hematocrit 37.8 % (41.0-53.0); Hemoglobin 12.4 g/dL (13.5-17.5); Lymphocytes # (auto) 1.2 10 ^3/uL (0.4-5.4); Lymphocytes % (auto) 18.2 % (10.0-50.0); Mean Corpuscular Hemoglobin 31.2 pg (28.0-32.0); Mean Corpuscular Hgb Conc. 32.8 g/dL (32.0-36.0); Mean Corpuscular Volume 95.2 fL (80.0-100.0); Monocytes # (auto) 0.5 10 ^3/uL (0-1.3); Monocytes % (auto) 7.4 % (0.0-12.0); Neutrophils % (auto) 73.1 % (37.0-80.0); Red Blood Cells 3.97 10^6/uL (4.5-5.90); Red Cell Distribution Width 15.8 % (11.8-14.3); White Blood Cell 6.9 10^3/uL (4.4-10.8)
[2023-07-31 07:06] LABS: Alanine Aminotransferase 11 U/L (7-40); Albumin 4.2 g/dL (3.2-4.8); Alkaline Phosphatase 144 U/L (46-116); Anion Gap 7 (5-15); Aspartate Aminotransferase 26 U/L (13-40); Calcium 9.4 mg/dL (8.7-10.4); Carbon Dioxide 25 mmol/L (20-30); Chloride 104 mmol/L (98-107); Glucose 91 mg/dL (74-106); Magnesium 1.9 mg/dL (1.6-2.6); Phosphorus 3.5 mg/dL (2.4-5.1); Potassium 3.8 mmol/L (3.5-5.1); Sodium 136 mmol/L (136-145)
[2023-07-31 07:07] LABS: Bilirubin, Total 1.3 mg/dL (0.2-1.0); Total Protein 7.3 g/dL (5.7-8.2)
[2023-07-31 07:24] LABS: BUN/Creatinine Ratio 7.2 (10.0-20.0); Blood Urea Nitrogen < 5 mg/dL (9-23)
[2023-07-31 08:00] VITALS: PULSE 52; RESP 14; O2SAT 99
[2023-07-31] MEDS ORDERED: LORazepam 2MG/ML-1ML VIAL IV PRN (12:45)
[2023-07-31] MEDS: levETIRAcetam 500 MG TAB PO ONE (14:17)
[2023-07-31] MEDS: ACETAMINOPHEN 325 MG TAB PO PRN (15:45)
[2023-07-31 19:15] VITALS: PULSE 69; RESP 18; O2SAT 99
[2023-07-31] MEDS: levETIRAcetam 500 MG TAB PO SCH (22:18)
[2023-08-01] MEDS: LORazepam 2MG/ML-1ML VIAL IV PRN (03:56)
[2023-08-01 05:17] LABS: Albumin 4.3 g/dL (3.2-4.8); Alkaline Phosphatase 139 U/L (46-116); Anion Gap 10 (5-15); Aspartate Aminotransferase 18 U/L (13-40); BUN/Creatinine Ratio 8.5 (10.0-20.0); Bilirubin, Total 0.7 mg/dL (0.2-1.0); Blood Urea Nitrogen 6 mg/dL (9-23); Calcium 9.6 mg/dL (8.7-10.4); Carbon Dioxide 23 mmol/L (20-30); Chloride 105 mmol/L (98-107); Glucose 101 mg/dL (74-106); Potassium 3.6 mmol/L (3.5-5.1); Sodium 138 mmol/L (136-145); Total Protein 7.3 g/dL (5.7-8.2)
[2023-08-01 05:18] LABS: Alanine Aminotransferase < 9 U/L (7-40)
[2023-08-01 05:21] LABS: Basophils # (auto) 0 10 ^3/uL (0-0.2); Basophils % (auto) 0.5 % (0.0-2.0); Eosinophils # (auto) 0.1 10 ^3/uL (0-0.8); Eosinophils % (auto) 2.3 % (0.0-7.0); Hemoglobin 11.8 g/dL (13.5-17.5); Lymphocytes # (auto) 1.2 10 ^3/uL (0.4-5.4); Lymphocytes % (auto) 24.9 % (10.0-50.0); Mean Corpuscular Hgb Conc. 33.8 g/dL (32.0-36.0); Mean Corpuscular Volume 94.6 fL (80.0-100.0); Monocytes # (auto) 0.5 10 ^3/uL (0-1.3); Monocytes % (auto) 9.5 % (0.0-12.0); Neutrophils % (auto) 62.8 % (37.0-80.0); Red Blood Cells 3.71 10^6/uL (4.5-5.90); Red Cell Distribution Width 15.7 % (11.8-14.3); White Blood Cell 4.8 10^3/uL (4.4-10.8)
[2023-08-01 10:32] VITALS: BP 127/64; PULSE 71; RESP 15; TEMP 98.2; O2SAT 95
== END 2023-08-01 14:01 | disposition left against medical advice (07) | DRG 201 ==
LOC: ER 12:19 → EDBD 12:19 → TELE 15:33
PROVIDERS: ADMIT Nurse Practitioner Family; ATTEND Nurse Practitioner Family
DX: I48.0 Paroxysmal atrial fibrillation (principal); G40.501 Epileptic seizures related to external causes, not intractable, with status epilepticus; D64.9 Anemia, unspecified; F32.A Depression, unspecified; F17.210 Nicotine dependence, cigarettes, uncomplicated; Z53.29 Procedure and treatment not carried out because of patient's decision for other reasons; F10.139 Alcohol abuse with withdrawal, unspecified; Y90.9 Presence of alcohol in blood, level not specified; Z59.00 Homelessness unspecified; Z82.49 Family history of ischemic heart disease and other diseases of the circulatory system; Z79.899 Other long term (current) drug therapy
CPT/HCPCS: 36415; 70450; 70551; 71045; 80048; 80053; 80320; 83735; 83880; 84100; 84443; 84484; 85025; 93005; 93306; 95819; 96361; 96365; 96375; 96376; 99291; G0378; J0153; J2405

== ENCOUNTER 2023-09-01 11:37 | Emergency (ER) | payer MEDICAID ==
[~2023-09-01] VITALS: Ht 162.6 cm; Wt 75.0 kg
[2023-09-01] MEDS: SODIUM CHLORIDE 0.9% 1,000 ML IV ONE (12:27)
[2023-09-01 15:00] VITALS: BP 147/83; PULSE 98; RESP 18; O2SAT 96
== END 2023-09-01 18:18 | disposition home or self-care (01) ==
LOC: EEVIPCON 11:37 → ER 11:37
DX: S00.81XA Abrasion of other part of head, initial encounter (principal); F10.129 Alcohol abuse with intoxication, unspecified; F17.210 Nicotine dependence, cigarettes, uncomplicated; X58.XXXA Exposure to other specified factors, initial encounter; Y93.89 Activity, other specified; Y92.89 Other specified places as the place of occurrence of the external cause; Y99.8 Other external cause status; Y90.8 Blood alcohol level of 240 mg/100 ml or more
CPT/HCPCS: 36415; 70450; 80320; 96360; 99284; J7030

== ENCOUNTER 2023-09-19 23:29 | Emergency (ER) | payer MEDICAID ==
[~2023-09-19] VITALS: Ht 157.5 cm; Wt 90.9 kg
[2023-09-20 11:19] VITALS: BP 131/78; PULSE 88; RESP 18; TEMP 98; O2SAT 97
== END 2023-09-20 11:22 | disposition home or self-care (01) ==
LOC: EDBD 23:29 → ER 23:29
DX: F10.129 Alcohol abuse with intoxication, unspecified (principal); R41.82 Altered mental status, unspecified; F17.210 Nicotine dependence, cigarettes, uncomplicated; Y90.8 Blood alcohol level of 240 mg/100 ml or more

== ENCOUNTER 2023-10-09 15:29 | Emergency (ER) | payer MEDICAID ==
[~2023-10-09] VITALS: Ht 157.5 cm; Wt 68.0 kg
[2023-10-09 15:40] VITALS: PULSE 80; RESP 17; O2SAT 95
[2023-10-09] MEDS: SODIUM CHLORIDE 0.9% 1,000 ML IVB ONE (17:00)
[2023-10-09 17:33] LABS: Basophils # (auto) 0 10 ^3/uL (0-0.2); Basophils % (auto) 0.9 % (0.0-2.0); Eosinophils # (auto) 0 10 ^3/uL (0-0.8); Eosinophils % (auto) 0.2 % (0.0-7.0); Hematocrit 44.2 % (41.0-53.0); Hemoglobin 14.6 g/dL (13.5-17.5); Lymphocytes # (auto) 1.9 10 ^3/uL (0.4-5.4); Lymphocytes % (auto) 43.8 % (10.0-50.0); Mean Corpuscular Hemoglobin 31.5 pg (28.0-32.0); Mean Corpuscular Hgb Conc. 32.9 g/dL (32.0-36.0); Mean Corpuscular Volume 95.6 fL (80.0-100.0); Monocytes # (auto) 0.1 10 ^3/uL (0-1.3); Monocytes % (auto) 3.2 % (0.0-12.0); Neutrophils # (auto) 2.3 10 ^3/uL (1.6-8.6); Neutrophils % (auto) 51.9 % (37.0-80.0); Nucleated Red Blood Cells % 0.1 %; Red Blood Cells 4.63 10^6/uL (4.5-5.90); Red Cell Distribution Width 15.6 % (11.8-14.3); White Blood Cell 4.4 10^3/uL (4.4-10.8)
[2023-10-09 17:49] LABS: Alanine Aminotransferase 14 U/L (7-40); Albumin 5.1 g/dL (3.2-4.8); Alkaline Phosphatase 233 U/L (46-116); Anion Gap 9 (5-15); Aspartate Aminotransferase 31 U/L (13-40); Bilirubin, Total 0.3 mg/dL (0.2-1.0); Blood Urea Nitrogen 5 mg/dL (9-23); Calcium 9.3 mg/dL (8.5-10.1); Carbon Dioxide 23 mmol/L (20-30); Chloride 110 mmol/L (98-107); Glucose 90 mg/dL (74-106); Potassium 4.3 mmol/L (3.5-5.1); Sodium 142 mmol/L (136-145); Total Protein 8.8 g/dL (5.7-8.2)
[2023-10-09 18:10] LABS: Blood Alcohol 523.2 mg/dL (<10)
[2023-10-09] MEDS: FOLIC ACID 1 MG, MULTIPLE VITAMIN 10 ML, THIAMINE INJ 100 MG in SODIUM CHLORIDE 0.9% 1,... INJ SCH (22:29)
[2023-10-09] MEDS: THIAMINE 100mg/ml INJ (200mg/2ml VIAL) IV ONE (22:30)
[2023-10-09] MEDS: MVI in SODIUM CHLORIDE 0.9% 1,010 ML ONE (22:30)
[2023-10-10 07:58] VITALS: PULSE 94; RESP 17; O2SAT 100
[2023-10-10 09:04] VITALS: BP 119/73; PULSE 91; RESP 16; TEMP 98.2; O2SAT 100
[2023-10-10] MEDS ORDERED: FOLIC ACID 1 MG, MAGNESIUM SULF SDV 50% 8 MEQ, MULTIPLE VITAMIN 10 ML, THIAMINE INJ 100... INJ SCH (18:00)
== END 2023-10-10 09:22 | disposition home or self-care (01) ==
LOC: ER 15:29 → EDBD 15:29 → ER 10-10 09:08
DX: F10.129 Alcohol abuse with intoxication, unspecified (principal); R41.82 Altered mental status, unspecified; G40.909 Epilepsy, unspecified, not intractable, without status epilepticus; R74.8 Abnormal levels of other serum enzymes; F17.200 Nicotine dependence, unspecified, uncomplicated; Z79.899 Other long term (current) drug therapy; Y90.8 Blood alcohol level of 240 mg/100 ml or more
CPT/HCPCS: 36415; 71045; 80053; 80320; 83735; 85025; 93005; 96361; 96365; 99285; J3411; J3475; J7030

== ENCOUNTER 2023-10-16 22:05 | Emergency (ER) | payer MEDICAID ==
[~2023-10-16] VITALS: Ht 162.6 cm; Wt 90.9 kg
[2023-10-16 22:59] LABS: Chloride 106 mmol/L (98-107); Potassium 3.3 mmol/L (3.5-5.1); Sodium 139 mmol/L (136-145)
[2023-10-16 23:00] LABS: Anion Gap 11 (5-15); Carbon Dioxide 22 mmol/L (20-30)
[2023-10-16 23:05] LABS: Glucose 104 mg/dL (74-106)
[2023-10-16 23:14] LABS: BUN/Creatinine Ratio 6.5 (10.0-20.0); Blood Urea Nitrogen < 5 mg/dL (9-23)
[2023-10-17 05:10] VITALS: BP 138/64; PULSE 76; RESP 16; TEMP 97.9; O2SAT 98
== END 2023-10-17 05:15 | disposition home or self-care (01) ==
LOC: EDBD 22:05 → ER 22:05 → EDUNIT# 22:05 → ER 10-17 05:15
DX: F10.129 Alcohol abuse with intoxication, unspecified (principal); R41.82 Altered mental status, unspecified; F17.210 Nicotine dependence, cigarettes, uncomplicated; Y90.8 Blood alcohol level of 240 mg/100 ml or more
CPT/HCPCS: 36415; 70450; 80048

== ENCOUNTER 2023-11-29 16:27 | Emergency (ER) | payer MEDICAID ==
[~2023-11-29] VITALS: Ht 172.7 cm; Wt 77.3 kg
[2023-11-29 16:42] VITALS: BP 123/78; PULSE 95; RESP 19; O2SAT 97
[2023-11-29 17:02] LABS: Basophils # (auto) 0.1 10 ^3/uL (0-0.2); Basophils % (auto) 1.2 % (0.0-2.0); Eosinophils # (auto) 0 10 ^3/uL (0-0.8); Eosinophils % (auto) 0.8 % (0.0-7.0); Hematocrit 42.7 % (41.0-53.0); Hemoglobin 14.3 g/dL (13.5-17.5); Lymphocytes # (auto) 1.7 10 ^3/uL (0.4-5.4); Lymphocytes % (auto) 34.1 % (10.0-50.0); Mean Corpuscular Hemoglobin 31.7 pg (28.0-32.0); Mean Corpuscular Hgb Conc. 33.6 g/dL (32.0-36.0); Mean Corpuscular Volume 94.4 fL (80.0-100.0); Monocytes # (auto) 0.4 10 ^3/uL (0-1.3); Monocytes % (auto) 8.3 % (0.0-12.0); Neutrophils # (auto) 2.9 10 ^3/uL (1.6-8.6); Neutrophils % (auto) 55.6 % (37.0-80.0); Nucleated Red Blood Cells % 0.1 %; Red Blood Cells 4.52 10^6/uL (4.5-5.90); Red Cell Distribution Width 15.3 % (11.8-14.3); White Blood Cell 5.1 10^3/uL (4.4-10.8)
[2023-11-29 17:11] LABS: Chloride 109 mmol/L (98-107); Potassium 3.6 mmol/L (3.5-5.1); Sodium 141 mmol/L (136-145)
[2023-11-29 17:12] LABS: Anion Gap 13 (5-15); Carbon Dioxide 19 mmol/L (20-30)
[2023-11-29 17:13] LABS: Calcium 9.7 mg/dL (8.7-10.4)
[2023-11-29 17:17] LABS: Glucose 91 mg/dL (74-106)
[2023-11-29 17:18] LABS: BUN/Creatinine Ratio 6.5 (10.0-20.0); Blood Urea Nitrogen 6 mg/dL (9-23)
[2023-11-29 17:32] LABS: Blood Alcohol 511.9 mg/dL (<10)
[2023-11-29] MEDS: SODIUM CHLORIDE 0.9% 1,000 ML IV ONE (18:35)
[2023-11-29 19:19] LABS: Anisocytosis Slight; Large Platelets FEW; Macrocytosis Slight; Platelet Estimate Decrea
== END 2023-11-29 19:50 | disposition left against medical advice (07) ==
LOC: ER 16:27 → EDBD 16:27 → ER 19:50
DX: F10.129 Alcohol abuse with intoxication, unspecified (principal); F17.210 Nicotine dependence, cigarettes, uncomplicated; R56.9 Unspecified convulsions; Z91.81 History of falling; Z79.899 Other long term (current) drug therapy; Y90.8 Blood alcohol level of 240 mg/100 ml or more
CPT/HCPCS: 36415; 80048; 80320; 85025; 96360; 99283; J7030

== ENCOUNTER 2024-02-16 21:20 | Emergency (ER) | payer MEDICAID ==
[~2024-02-16] VITALS: Ht 170.2 cm; Wt 75.0 kg
[2024-02-17] MEDS: SODIUM CHLORIDE 0.9% 1,000 ML IV ONE (06:01)
[2024-02-17 07:04] VITALS: BP 120/96; PULSE 95; RESP 18; O2SAT 100
== END 2024-02-17 08:11 | disposition left against medical advice (07) ==
LOC: EDBD 21:20 → ER 21:20 → EDUNIT# 21:20 → ER 02-17 07:45
DX: F10.129 Alcohol abuse with intoxication, unspecified (principal); F17.210 Nicotine dependence, cigarettes, uncomplicated; Z79.899 Other long term (current) drug therapy; Y90.0 Blood alcohol level of less than 20 mg/100 ml
CPT/HCPCS: 36415; 80320; 96360; 99283; J7030

== ENCOUNTER 2024-02-27 23:33 | Inpatient (IN) | payer MEDICAID ==
[~2024-02-27] VITALS: Ht 160 cm; Wt 68.0 kg
[2024-02-27 23:49] VITALS: PULSE 75; RESP 14; O2SAT 98
[2024-02-28] MEDS: SODIUM CHLORIDE 0.9% 1,000 ML IV ONE (00:15)
[2024-02-28] MEDS: SODIUM CHLORIDE 0.9% 1,000 ML IVB ONE (00:16)
[2024-02-28] MEDS: THIAMINE 100mg/ml INJ (200mg/2ml VIAL) IV ONE (00:27)
[2024-02-28 01:40] LABS: Basophils # (auto) 0 10 ^3/uL (0-0.2); Eosinophils # (auto) 0 10 ^3/uL (0-0.8); Lymphocytes # (auto) 1.1 10 ^3/uL (0.4-5.4); Monocytes # (auto) 0.3 10 ^3/uL (0-1.3); Neutrophils # (auto) 1.3 10 ^3/uL (1.6-8.6); Platelet Count (auto) 119 10^3/uL (140-450); White Blood Cell 2.7 10^3/uL (4.4-10.8)
[2024-02-28 01:41] LABS: Basophils % (auto) 1.6 % (0.0-2.0); Eosinophils % (auto) 0.5 % (0.0-7.0); Hematocrit 40.8 % (41.0-53.0); Lymphocytes % (auto) 40.2 % (10.0-50.0); Mean Corpuscular Hemoglobin 34.8 pg (28.0-32.0); Mean Corpuscular Hgb Conc. 34.2 g/dL (32.0-36.0); Mean Corpuscular Volume 101.8 fL (80.0-100.0); Monocytes % (auto) 11.6 % (0.0-12.0); Neutrophils % (auto) 46.1 % (37.0-80.0); Nucleated Red Blood Cells % 0.6 %; Red Blood Cells 4.01 10^6/uL (4.5-5.90); Red Cell Distribution Width 15.7 % (11.8-14.3)
[2024-02-28 01:59] LABS: Chloride 111 mmol/L (98-107); Potassium 3.8 mmol/L (3.5-5.1); Sodium 144 mmol/L (136-145)
[2024-02-28 02:00] LABS: Anion Gap 11 (5-15); Calcium 8.9 mg/dL (8.7-10.4); Carbon Dioxide 22 mmol/L (20-31)
[2024-02-28 02:05] LABS: Glucose 73 mg/dL (74-106)
[2024-02-28 02:09] LABS: BUN/Creatinine Ratio 7.9 (10.0-20.0); Blood Urea Nitrogen < 5 mg/dL (9-23)
[2024-02-28] MEDS ORDERED: LORazepam 2MG/ML-1ML VIAL IV PRN ×2 (03:30→08:30)
[2024-02-28] MEDS: PANTOPRAZOLE 40 MG/10 ML VIAL INJ IV ONE (03:54)
[2024-02-28] MEDS: levETIRAcetam 500 MG TAB PO ONE (03:55)
[2024-02-28 05:27] LABS: INR 1.02 (0.9-1.15); Partial Thromboplastin Time 26.9 SEC (24.5-34.5); Prothrombin Time 10.8 sec (9.3-11.8)
[2024-02-28 05:35] LABS: Urine Bacteria None Seen /hpf (None Seen)
[2024-02-28 05:44] LABS: Chloride 112 mmol/L (98-107); Potassium 4.4 mmol/L (3.5-5.1); Sodium 146 mmol/L (136-145)
[2024-02-28 05:45] LABS: Anion Gap 12 (5-15); Carbon Dioxide 22 mmol/L (20-31)
[2024-02-28 05:46] LABS: Calcium 8.7 mg/dL (8.7-10.4)
[2024-02-28 05:51] LABS: Glucose 69 mg/dL (74-106)
[2024-02-28 05:55] LABS: Urine Blood Negative /uL (Negative); Urine Clarity Clear (Clear); Urine Protein, UAD Negative (Negative); Urine Specific Gravity 1.005 (1.001-1.035); Urine Urobilinogen Normal (Negative); Urine WBC <1 /hpf (0 - 3); Urine pH 5.5 (5.0-9.0)
[2024-02-28 06:03] LABS: BUN/Creatinine Ratio 8.2 (10.0-20.0); Blood Urea Nitrogen < 5 mg/dL (9-23)
[2024-02-28 06:04] LABS: Urine Color STRAW (Yellow)
[2024-02-28 06:15] LABS: Amphetamine Screen, Urine Neg (NEGATIVE); Barbiturate Scree,Urine Neg (NEGATIVE); Benzodiazephine Screen, Urine Neg (NEGATIVE); Cocaine Screen, Urine Neg (NEGATIVE); Opiate Scree,Urine Neg (NEGATIVE); Phencyclidine Screen, Urine Neg (NEGATIVE)
[2024-02-28 06:27] LABS: Cannabinoid Screen, Urine Neg (NEGATIVE)
[2024-02-28] MEDS ORDERED: DEXTROSE (50%) 50ML SYRG IV PRN (06:30)
[2024-02-28] MEDS: D5W 5% 1,000 ML IV ONE (06:38)
[2024-02-28] MEDS: InsuLIN REG 1unit/0.01ml Soln (100units/ml) SC SCH (07:00)
[2024-02-28] MEDS: ACCU-CHEK COMFORT CURVE STRIP VI SCH (07:11)
[2024-02-28] MEDS: chlordiazePOXIDE HCL 25 MG CAP PO SCH (07:14)
[2024-02-28 07:32] LABS: Albumin 4.4 g/dL (3.2-4.8); Bilirubin, Direct 0.1 mg/dL (<0.3); Magnesium 1.8 mg/dL (1.6-2.6); Phosphorus 3.4 mg/dL (2.4-5.1)
[2024-02-28 07:33] LABS: Bilirubin, Total 0.3 mg/dL (0.2-1.0); Total Protein 7.8 g/dL (5.7-8.2)
[2024-02-28 07:50] VITALS: PULSE 60; RESP 16; O2SAT 99
[2024-02-28] MEDS: FOLIC ACID 1 MG, MULTIPLE VITAMIN 10 ML, MAGNESIUM SULF SDV 50% 8 MEQ, THIAMINE INJ 100... INJ SCH (09:21)
[2024-02-28 09:46] LABS: Hepatitis B Surface Antigen Negative (Negative)
[2024-02-28] MEDS: levETIRAcetam 500 MG TAB PO SCH (10:04)
[2024-02-28 10:07] LABS: Hepatitis A Ab IgM Negative; Hepatitis B Core IgM Negative; Hepatitis C Antibody Negative (Negative)
[2024-02-28 11:35] LABS: Free T4 (Free Thyroxine) 1.03 ng/dL (0.89-1.76)
[2024-02-28 13:57] LABS: Free T3 2.54 pg/mL (2.3-4.2)
[2024-02-28 14:55] LABS: Basophils # (auto) 0 10 ^3/uL (0-0.2); Basophils % (auto) 1.2 % (0.0-2.0); Eosinophils # (auto) 0 10 ^3/uL (0-0.8); Eosinophils % (auto) 0.8 % (0.0-7.0); Hematocrit 36.5 % (41.0-53.0); Hemoglobin 12.5 g/dL (13.5-17.5); Lymphocytes # (auto) 0.8 10 ^3/uL (0.4-5.4); Lymphocytes % (auto) 26.7 % (10.0-50.0); Mean Corpuscular Hemoglobin 34.5 pg (28.0-32.0); Mean Corpuscular Hgb Conc. 34.2 g/dL (32.0-36.0); Mean Corpuscular Volume 100.9 fL (80.0-100.0); Monocytes # (auto) 0.2 10 ^3/uL (0-1.3); Neutrophils % (auto) 64.3 % (37.0-80.0); Platelet Count (auto) 101 10^3/uL (140-450); Red Blood Cells 3.62 10^6/uL (4.5-5.90); Red Cell Distribution Width 15.8 % (11.8-14.3); White Blood Cell 3.1 10^3/uL (4.4-10.8)
[2024-02-28] MEDS: SODIUM CHLORIDE 0.9% 1,000 ML IV SCH (18:25)
[2024-02-28] MEDS: chlordiazePOXIDE HCL 25 MG CAP PO ONE (20:28)
[2024-02-28 21:00] VITALS: BP 152/82; PULSE 75; RESP 16; TEMP 98.3; O2SAT 98
[2024-02-28 22:02] VITALS: PULSE 75; RESP 16; O2SAT 98
[2024-02-29] VITALS (8 sets, daily range): BP systolic 130–154; BP diastolic 83–100; PULSE 61–81; RESP 16–20; TEMP 98.2–98.7; O2SAT 95–100
[2024-02-29 07:02] LABS: Anion Gap 8 (5-15); Carbon Dioxide 25 mmol/L (20-31); Chloride 105 mmol/L (98-107); Potassium 3.9 mmol/L (3.5-5.1); Sodium 138 mmol/L (136-145)
[2024-02-29 07:03] LABS: Basophils # (auto) 0 10 ^3/uL (0-0.2); Basophils % (auto) 0.9 % (0.0-2.0); Calcium 9.3 mg/dL (8.7-10.4); Eosinophils # (auto) 0 10 ^3/uL (0-0.8); Eosinophils % (auto) 0.8 % (0.0-7.0); Hemoglobin 12.9 g/dL (13.5-17.5); Lymphocytes % (auto) 18.6 % (10.0-50.0); Mean Corpuscular Hemoglobin 34.9 pg (28.0-32.0); Mean Corpuscular Hgb Conc. 34.8 g/dL (32.0-36.0); Mean Corpuscular Volume 100.2 fL (80.0-100.0); Monocytes # (auto) 0.2 10 ^3/uL (0-1.3); Monocytes % (auto) 4.6 % (0.0-12.0); Neutrophils % (auto) 75.1 % (37.0-80.0); Nucleated Red Blood Cells % 0.1 %; Platelet Count (auto) 79 10^3/uL (140-450); Red Cell Distribution Width 15.2 % (11.8-14.3); White Blood Cell 5.3 10^3/uL (4.4-10.8)
[2024-02-29 07:08] LABS: Glucose 72 mg/dL (74-106)
[2024-02-29 07:16] LABS: BUN/Creatinine Ratio 8.1 (10.0-20.0); Blood Urea Nitrogen < 5 mg/dL (9-23)
[2024-02-29] MEDS ORDERED: chlordiazePOXIDE HCL 25 MG CAP PO SCH (10:00)
[2024-02-29] MEDS: PANTOPRAZOLE 40 MG/10 ML VIAL INJ IV SCH (10:27)
[2024-02-29] MEDS: chlordiazePOXIDE HCL 25 MG CAP PO ONE ×2 (12:01→22:10)
[2024-02-29] MEDS ORDERED: cloNIDine HCL 0.1 MG TAB PO PRN (13:15)
[2024-02-29] MEDS: MULTIPLE VITAMIN TAB PO SCH (15:19)
[2024-02-29] MEDS: THIAMINE HCL 100 MG TAB PO SCH (15:19)
[2024-02-29] MEDS: FOLIC ACID 1 MG TAB PO SCH (15:19)
[2024-02-29] MEDS: MAGNESIUM OXIDE 400 MG TAB PO SCH (15:20)
[2024-02-29] MEDS: SODIUM CHLORIDE 0.9% 1,000 ML IV SCH (18:45)
[2024-03-01 05:00] VITALS: BP 123/90; PULSE 51; RESP 17; TEMP 98.2; O2SAT 100
[2024-03-01 05:30] LABS: Basophils # (auto) 0 10 ^3/uL (0-0.2); Basophils % (auto) 0.7 % (0.0-2.0); Eosinophils # (auto) 0 10 ^3/uL (0-0.8); Eosinophils % (auto) 0.8 % (0.0-7.0); Hemoglobin 12.7 g/dL (13.5-17.5); Lymphocytes % (auto) 21.6 % (10.0-50.0); Mean Corpuscular Hemoglobin 34.1 pg (28.0-32.0); Mean Corpuscular Hgb Conc. 34.4 g/dL (32.0-36.0); Mean Corpuscular Volume 99.3 fL (80.0-100.0); Monocytes # (auto) 0.3 10 ^3/uL (0-1.3); Monocytes % (auto) 6.2 % (0.0-12.0); Neutrophils # (auto) 3.2 10 ^3/uL (1.6-8.6); Neutrophils % (auto) 70.7 % (37.0-80.0); Nucleated Red Blood Cells % 0.2 %; Platelet Count (auto) 73 10^3/uL (140-450); Red Blood Cells 3.72 10^6/uL (4.5-5.90); Red Cell Distribution Width 14.7 % (11.8-14.3); White Blood Cell 4.5 10^3/uL (4.4-10.8)
[2024-03-01 05:33] LABS: Chloride 106 mmol/L (98-107); Potassium 3.7 mmol/L (3.5-5.1); Sodium 139 mmol/L (136-145)
[2024-03-01 05:34] LABS: Anion Gap 9 (5-15); Calcium 9.6 mg/dL (8.7-10.4); Carbon Dioxide 24 mmol/L (20-31)
[2024-03-01 05:39] LABS: Glucose 91 mg/dL (74-106)
[2024-03-01 05:41] LABS: BUN/Creatinine Ratio 9.3 (10.0-20.0); Blood Urea Nitrogen < 5 mg/dL (9-23)
[2024-03-01 08:00] VITALS: PULSE 46
[2024-03-01 09:26] VITALS: BP 138/82; PULSE 55; RESP 19; TEMP 97.7; O2SAT 99
[2024-03-01] MEDS: ERGOCALCIFEROL 50,000 UNIT(1.25MG) CAP PO SCH (09:39)
[2024-03-01] MEDS ORDERED: chlordiazePOXIDE HCL 25 MG CAP PO SCH (10:00)
[2024-03-01] MEDS ORDERED: THIA100T13 PO (11:42)
[2024-03-01] MEDS ORDERED: GABA-1308 PO (11:42)
[2024-03-01 12:03] VITALS: BP 138/93; PULSE 66; RESP 18; TEMP 98.1; O2SAT 98
[2024-03-01 12:59] VITALS: BP 135/80; PULSE 55; RESP 18; TEMP 36.7; O2SAT 98
[2024-03-02] MEDS ORDERED: chlordiazePOXIDE HCL 25 MG CAP PO SCH (07:00)
[2024-03-02 08:57] LABS: Hepatitis B Surface Antigen Negative (Negative)
[2024-03-02 09:17] LABS: Hepatitis C Antibody Negative (Negative)
== END 2024-03-01 14:15 | disposition home or self-care (01) | DRG 52 ==
LOC: EDBD 23:33 → ER 23:33 → TELE 02-28 03:38 → TELE-E-ADS 02-28 21:15
PROVIDERS: ADMIT Internal Medicine Geriatric Medicine; ATTEND Emergency Medicine
DX: G93.41 Metabolic encephalopathy (principal); K70.30 Alcoholic cirrhosis of liver without ascites; D75.89 Other specified diseases of blood and blood-forming organs; F10.229 Alcohol dependence with intoxication, unspecified; G40.909 Epilepsy, unspecified, not intractable, without status epilepticus; I48.0 Paroxysmal atrial fibrillation; Y90.7 Blood alcohol level of 200-239 mg/100 ml; R19.7 Diarrhea, unspecified; F17.210 Nicotine dependence, cigarettes, uncomplicated; I44.0 Atrioventricular block, first degree; Z79.899 Other long term (current) drug therapy; Z79.1 Long term (current) use of non-steroidal anti-inflammatories (NSAID)
CPT/HCPCS: 36415; 70450; 71045; 72125; 76705; 80048; 80074; 80076; 80307; 80320; 81001; 82140; 82306; 82607; 82746; 82962; 83036; 83690; 83735; 83880; 84100; 84439; 84443; 84481; 84484; 85025; 85610; 85730; 86703; 86803; 87081; 87340; 93005; 99291; G0378; J1815; J2470

== ENCOUNTER 2024-03-23 12:05 | Emergency (ER) | payer MEDICAID ==
[~2024-03-23] VITALS: Ht 162.6 cm; Wt 84.2 kg
[~2024-03-23 12:05] MED LIST changes: -CHL10C PO; -FOLITAB22 PO; +GABA-1308 PO; -IBUP-1455 PO; -OMEP-448 PO; +THIA100T13 PO
[2024-03-23 12:40] VITALS: BP 126/90; PULSE 94; RESP 18; TEMP 97.9; O2SAT 98
[2024-03-23] MEDS ORDERED: SODIUM CHLORIDE 0.9% 1,000 ML IVB ONE (13:00)
[2024-03-23] MEDS ORDERED: THIAMINE 100mg/ml INJ (200mg/2ml VIAL) IV ONE (13:00)
--- NOTE | 2024-03-23 13:05 | ED.PDOC ---
Psychiatric HPI Comments 38y F who presents to the ED via EMS for chief complaint of ETOH. per EMS, pt was picked up at local [facility] [employer] gas station in [facility] . Pt has ETOH intoxication. Pt states he drank "2 hurricane drinks" earlier this AM. Pt now in the ED, placed in ED gurney and smells of ETOH. Pt has been to ED multiple times in the ED for ETOh intoxication. Pt otherwise has noted stable vitals in the ED. Pt is alert and oriented x 4 in the ED. Pt denies any suicidal or homicidal ideations at this time. Pt denies any other symptoms at this time. Chief Complaint: ETOH Time Seen by MD: 13:03 Primary Care Provider: unknown Reviewed Notes: Avionics Systems Repairer Notes Information Source: Patient, Emergency Med Personnel Mode of Arrival: EMS Past Medical History PAST MEDICAL HISTORY: Seizures Surgical History: Denies all surgeries Family History Family History: Reviewed,noncontributory to illness, Unknown Social History Smoker: Cigarettes, Less Than 1 Pack/Day Alcohol: Heavy Drugs: Denies Drug Use Lives In: Home Constitutional: denies: chills, diaphoresis, fatigue, fever, malaise, sweats, weakness, others EENTM: denies: blurred vision, double vision, ear bleeding, ear discharge, ear drainage, ear pain, ear ringing, eye pain, eye redness, hearing loss, mouth pain, mouth swelling, nasal discharge, nose bleeding, nose congestion, nose pain, photophobia, tearing, throat pain, throat swelling, voice changes, others Respiratory: denies: cough, hemoptysis, orthopnea, SOB at rest, shortness of breath, SOB with excertion, stridor, wheezing, others Cardiovascular: denies: chest pain, dizzy spells, diaphoresis, Dyspnea on exertion, edema, irregular heart beat, left arm pain, lightheadedness, palpitations, PND, syncope, others Gastrointestinal: denies: abdomen distended, abdominal pain, blood streaked bowels, constipated, diarrhea, dysphagia, difficulty swallowing, hematemesis, melena, nausea, poor appetite, poor fluid intake, rectal bleeding, rectal pain, vomiting, others Genitourinary: denies: burning, dysuria, flank pain, frequency, hematuria, incontinence, penile discharge, penile sore, pain, testicle pain, testicle swelling, urgency, others Neurological: denies: dizziness, fainting, headache, left sided numbness, left sided weakness, numbness, paresthesia, pre-existing deficit, right sided numbness, right sided weakness, seizure, speech problems, tingling, tremors, weakness, others Musculoskeletal: denies: back pain, gout, joint pain, joint swelling, muscle pain, muscle stiffness, neck pain, others Allergic/Immunocompromised: denies: Difficulty Healing, Frequent Infections, Hives, Itching, others Hematologic/Lymphatic: denies: anemia, blood clots, easy bleeding, easy bruising, swollen glands, others Endocrine: denies: excessive hunger, excessive sweating, excessive thirst, excessive urination, flushing, intolerance to cold, intolerance to heat, unexplained weight gain, unexplained weight loss, others Psychiatric: denies: anxiety, bipolar disorder, depression, hopeless, panic disorder, schizophrenia, sleepless, suicidal, others All Other Systems: Reviewed and Negative Physical Exam General Appearance: Moderate Distress HEENT: Normal ENT Inspection, Pharynx Normal, TMs Normal Neck: Full Range of Motion, Non-Tender, Normal, Normal Inspection Respiratory: Chest Non-Tender, Lungs Clear, No Accessory Muscle Use, No Respiratory Distress, Normal Breath Sounds Cardiovascular: No Edema, No JVD, No Murmur, No Gallop, Normal Peripheral Pulses, Regular Rate/Rhythm Breast Exam: Deferred Gastrointestinal: No Organomegaly, Non Tender, No Pulsatile Mass, Normal Bowel Sounds, Soft Genitalia: Deferred Pelvic: Deferred Rectal: Deferred Extremities: No calf tenderness, Normal capillary refill, Normal inspection, Normal range of motion, Non-tender, No pedal edema Musculoskeletal : Apperance: Normal Neurologic: Alert, manager graphic II-XII nml as Tested, No Motor Deficits, Normal Affect, Normal Mood, No Sensory Deficits Cerebellar Function: Normal Reflexes: Normal Skin: Dry, Normal Color, Warm Peripheral Pulses: 3+ Radial (R), 3+ Radial (L) Lymphatic: No Adenopathy Was a procedure done? Was a procedure done?: No Psych Differential Dx Intoxication Differential Dx: Alcohol Withdraw Syndrome, Delerium Tremens, Drug-Induced Psychosis, Substance Abuse Disorder, Thiamine Deficiency Other Differentail Dx ETOH use disorder X-Ray, Labs, Meds, VS Vital Signs Date Time Temp Pulse Resp B/P (MAP) Pulse Ox O2 Delivery O2 Flow Rate FiO2 03/23/24 12:15 98.4 94 16 118/79 (92) 97 Lab Test 03/23/24 14:20 Range/Units Plasma/Serum Blood Alcohol Pending Patient alert. Alcohol abuse. Vitals stable. Answering all questions. Reviewed his previous visit. He is making sense. Insisted that he is fine. No injuries. Counseled patient on effects of drinking alcohol for 15 minutes. Explained to the patient. Was told to follow up with his primary care physician. Was told to come back if there is any problem. Time of 1ST Reevaluation: 13:35 Reevaluation 1ST: Unchanged Patient Education/Counseling: Diagnosis, Treatment Family Education/Counseling: No Family Present Departure 1 Departure Time of Disposition: 14:32 Impression: Primary Impression: Acute alcohol intoxication Qualified Codes: F10.920 - Alcohol use, unspecified with intoxication, uncomplicated Disposition: 09 ADMITTED INPATIENT Admit to: Med Surg Condition: Guarded Critical Care Note Critical Care Time?: Yes (45 min-critical care time only) Stability Stability form required: No Heart Score Heart Score: Heart Score Response (Comments) Value History N/A 0 EKG N/A 0 Age N/A 0 Risk Factors N/A 0 Troponin N/A 0 Total 0 I personally scribed for ADAM JUDGE MD ([email or web address]) on 03/23/24 at 13:05. Electronically submitted by Destini Mosley ([email or web address]). ADAM JUDGE MD Mar 23, 2024 13:05
== END 2024-03-23 14:27 | disposition left against medical advice (07) ==
LOC: EDUNIT# 12:05 → EDBD 12:05 → ER 12:11
DX: F10.129 Alcohol abuse with intoxication, unspecified (principal); F17.210 Nicotine dependence, cigarettes, uncomplicated; Y90.0 Blood alcohol level of less than 20 mg/100 ml
CPT/HCPCS: 36415; 80320

== ENCOUNTER 2024-03-23 18:58 | Emergency (ER) | payer MEDICAID ==
[~2024-03-23] VITALS: Ht 160 cm; Wt 83.1 kg
--- NOTE | 2024-03-23 19:40 | ED.PDOC ---
History of Present Illness HPI Comments 38-year-old male came to ER due to alcohol intoxication. Patient seen here multiple times for alcohol intoxication and seizures. Patient was seen here this morning for alcohol intoxication but eloped. Coming in again via EMS since patient was seen passed out in front of a house intoxicated with alcohol again. Chief Complaint: ETOH Time Seen by MD: 19:40 Primary Care Provider: unknown Reviewed Notes: Nurses Notes Allergies: Coded Allergies: NO KNOWN ALLERGIES (Unverified , 03/22/22) Home Meds Active Scripts Thiamine HCl (Thiamine Hydrochloride) 100 Mg Tab, 100 MG PO DAILY for 5 Days, #5 TAB Prov:DAVID ORTIZ RESIDENT 03/01/24 Gabapentin (Gabapentin) 100 Mg Cap, 100 MG PO BID for 10 Days, #20 CAP Prov:DAVID ORTIZ RESIDENT 03/01/24 Levetiracetam (Keppra) 500 Mg Tab, 1 TAB PO BID, #180 TAB 3 Refills Prov:MARLYN BECERRA 12/16/22 Levetiracetam (KEPPRA TABLET) 500 Mg Tb, 500 MG PO BID for 30 Days, #60 TAB Prov:ANUSHA LARIOS MD 02/14/22 Reported Medications Levetiracetam (Keppra) 500 Mg Tab, 500 MG PO BID for 30 Days, MG 02/11/20 Information Source: Patient Mode of Arrival: EMS Severity: Moderate Timing: Hours Duration: Since onset Prehospital treatment: None Past Medical History PAST MEDICAL HISTORY: Seizures Past Medical History (Other): Chronic alcoholic Surgical History: Denies all surgeries Family History Family History: Reviewed,noncontributory to illness, Unknown Social History Smoker: Cigarettes, Less Than 1 Pack/Day Alcohol: Heavy Drugs: Denies Drug Use Lives In: Home Constitutional: denies: chills, diaphoresis, fatigue, fever, malaise, sweats, weakness, others EENTM: denies: blurred vision, double vision, ear bleeding, ear discharge, ear drainage, ear pain, ear ringing, eye pain, eye redness, hearing loss, mouth pain, mouth swelling, nasal discharge, nose bleeding, nose congestion, nose pain, photophobia, tearing, throat pain, throat swelling, voice changes, others Respiratory: denies: cough, hemoptysis, orthopnea, SOB at rest, shortness of breath, SOB with excertion, stridor, wheezing, others Cardiovascular: denies: chest pain, dizzy spells, diaphoresis, Dyspnea on exertion, edema, irregular heart beat, left arm pain, lightheadedness, p alpitations, PND, syncope, others Gastrointestinal: denies: abdomen distended, abdominal pain, blood streaked bowels, constipated, diarrhea, dysphagia, difficulty swallowing, hematemesis, melena, nausea, poor appetite, poor fluid intake, rectal bleeding, rectal pain, vomiting, others Genitourinary: denies: burning, dysuria, flank pain, frequency, hematuria, incontinence, penile discharge, penile sore, pain, testicle pain, testicle swelling, urgency, others Neurological: denies: dizziness, fainting, headache, left sided numbness, left sided weakness, numbness, paresthesia, pre-existing deficit, right sided numbness, right sided weakness, seizure, speech problems, tingling, tremors, weakness, others Musculoskeletal: denies: back pain, gout, joint pain, joint swelling, muscle pain, muscle stiffness, neck pain, others Integumetry: denies: bruises, change in color, change in hair/nails, dryness, laceration, lesions, lumps, rash, wounds, others Allergic/Immunocompromised: denies: Difficulty Healing, Frequent Infections, Hives, Itching, others Hematologic/Lymphatic: denies: anemia, blood clots, easy bleeding, easy b ruising, swollen glands, others Endocrine: denies: excessive hunger, excessive sweating, excessive thirst, excessive urination, flushing, intolerance to cold, intolerance to heat, unexplained weight gain, unexplained weight loss, others Psychiatric: reports: others (Intoxicated with alcohol); denies: anxiety, bipolar disorder, depression, hopeless, panic disorder, schizophrenia, sleepless, suicidal Physical Exam General Appearance: No Apparent Distress, Normal HEENT: Normal ENT Inspection, Pharynx Normal, TMs Normal Neck: Full Range of Motion, Non-Tender, Normal, Normal Inspection Respiratory: Chest Non-Tender, Lungs Clear, No Accessory Muscle Use, No Respiratory Distress, Normal Breath Sounds Cardiovascular: No Edema, No JVD, No Murmur, No Gallop, Normal Peripheral Pulses, Regular Rate/Rhythm Breast Exam: Deferred Gastrointestinal: No Organomegaly, Non Tender, No Pulsatile Mass, Normal Bowel Sounds, Soft Genitalia: Deferred Pelvic: Deferred Rectal: Deferred Extremities: No calf tenderness, Normal capillary refill, Normal inspection, Normal range of motion, Non-tender, No pedal edema Musculoskeletal : Apperance: Normal Neurologic: Alert, security escort II-XII nml as Tested, No Motor Deficits, Normal Affect, Normal Mood, No Sensory Deficits Cerebellar Function: Normal Reflexes: Normal Skin: Dry, Normal Color, Warm Lymphatic: No Adenopathy Was a procedure done? Was a procedure done?: No Differential Dx Considerations may include: Alcohol intoxication, anxiety X-Ray, Labs, Meds, VS Vital Signs Date Time Temp Pulse Resp B/P (MAP) Pulse Ox O2 Delivery O2 Flow Rate FiO2 03/24/24 01:13 Room Air* 0 21 03/24/24 01:00 97.6 89 16 113/69 (84) 99 97.6 03/23/24 19:18 98.6 83 16 114/76 (89) 98 Lab Test 03/24/24 01:06 Range/Units Urine Color Straw Yellow Urine Clarity Clear Clear Urine pH 5.0 5.0-9.0 Urine Specific [place] 1.009 1.001-1.035 Urine Protein Negative Negative Urine Ketones Negative Negative Urine Blood Negative Negative /uL Urine Nitrite Negative Negative Urine Bilirubin Negative Negative Urine Urobilinogen Normal Negative mg/dL Urine Leukocyte Esterase Negative Negative /uL Urine RBC None seen 0 - 3 /hpf Urine WBC <1 0 - 3 /hpf Urine Squamous Epithelial Cells None seen <5 /hpf Urine Bacteria None seen None Seen /hpf Urine Glucose Normal Normal mg/dL Time of 1ST Reevaluation: 19:31 Reevaluation 1ST: Patient Education/Counseling: Diagnosis, Treatment Family Education/Counseling: No Family Present Departure 1 Departure Time of Disposition: 05:57 (Patient with uncomplicated alcohol intoxication. We will continue to observe patient until clinically sober) Impression: Primary Impression: Acute alcohol intoxication Qualified Codes: F10.920 - Alcohol use, unspecified with intoxication, uncomplicated Disposition: 30 STILL A PATIENT Condition: Fair Critical Care Note Critical Care Time?: No Stability Stability form required: No Heart Score Heart Score: Heart Score Response (Comments) Value History N/A 0 EKG N/A 0 Age N/A 0 Risk Factors N/A 0 Troponin N/A 0 Total 0 I personally scribed for ROD BAHENA MD ([email or web address]) on 03/23/24 at 19:40. Electronically submitted by Evelio Capone ([email or web address]). ROD BAHENA MD Mar 23, 2024 19:40
[2024-03-24 01:17] LABS: Urine Bacteria None Seen /hpf (None Seen)
[2024-03-24 01:23] LABS: Urine Blood Negative /uL (Negative); Urine Clarity Clear (Clear); Urine Color STRAW (Yellow); Urine Protein, UAD Negative (Negative); Urine Specific Gravity 1.009 (1.001-1.035); Urine Urobilinogen Normal (Negative); Urine WBC <1 /hpf (0 - 3)
[2024-03-24 07:20] VITALS: BP 124/85; PULSE 77; RESP 16; TEMP 97.7; O2SAT 97
== END 2024-03-24 07:40 | disposition left against medical advice (07) ==
LOC: EDUNIT# 18:58 → ER 18:58 → EDSEX 18:58 → EDBD 18:58 → ER 03-24 07:40
DX: F10.129 Alcohol abuse with intoxication, unspecified (principal); F17.210 Nicotine dependence, cigarettes, uncomplicated; Z79.899 Other long term (current) drug therapy; Y90.0 Blood alcohol level of less than 20 mg/100 ml
CPT/HCPCS: 81001

== ENCOUNTER 2024-04-06 19:40 | Emergency (ER) | payer MEDICAID ==
[~2024-04-06] VITALS: Ht 162.6 cm; Wt 145.0 kg
--- NOTE | 2024-04-06 19:56 | ED.PDOC ---
Altered Mental Status HPI Comments 38-year-old male who came to ER via EMS for altered level of consciousness. Patient seen here multiple times, known case of chronic alcoholism and seizure disorder. Patient was seen in front of a liquor store, intoxicated with alcohol and appears confused and disoriented. Possibly had a seizure attack. Patient is still acting confused and disoriented at this time. Unsure if patient is taking his Keppra as prescribed. Chief Complaint: ALOC Time Seen by MD: 19:55 Primary Care Provider: unknown Reviewed Notes: Nurses Notes Allergies: Coded Allergies: NO KNOWN ALLERGIES (Unverified , 03/22/22) Home Meds Active Scripts Thiamine HCl (Thiamine Hydrochloride) 100 Mg Tab, 100 MG PO DAILY for 5 Days, #5 TAB Prov:DAVID ORTIZ RESIDENT 03/01/24 Gabapentin (Gabapentin) 100 Mg Cap, 100 MG PO BID for 10 Days, #20 CAP Prov:DAVID ORTIZ RESIDENT 03/01/24 Levetiracetam (Keppra) 500 Mg Tab, 1 TAB PO BID, #180 TAB 3 Refills Prov:MARLYN BECERRA 12/16/22 Levetiracetam (KEPPRA TABLET) 500 Mg Tb, 500 MG PO BID for 30 Days, #60 TAB Prov:ANUSHA LARIOS MD 02/14/22 Reported Medications Levetiracetam (Keppra) 500 Mg Tab, 500 MG PO BID for 30 Days, MG 02/11/20 Information Source: Patient, Emergency Med Personnel Mode of Arrival: EMS Severity: Unable to Care for Self Timing: Hours Duration: Since onset Prehospital treatment: None Quality: Decreased Alertness, Change in Behavior, Confusion Recent: Other (Alcohol intake) Past Medical History PAST MEDICAL HISTORY: Seizures Past Medical History (Other): Chronic alcoholism Surgical History: Denies all surgeries Family History Family History: Reviewed,noncontributory to illness Social History Smoker: Cigarettes, Less Than 1 Pack/Day Alcohol: Heavy Drugs: Denies Drug Use Lives In: Home Unable to Obtain due to: Altered Mental Status, Other (Intoxicated with alcohol) Physical Exam Exam Comments Appears inebriated but alert and conversant General Appearance: Normal HEENT: Normal ENT Inspection, Pharynx Normal, TMs Normal, Other (no oral trauma) Neck: Full Range of Motion, Non-Tender, Normal, Normal Inspection Respiratory: Chest Non-Tender, Lungs Clear, No Accessory Muscle Use, No Respiratory Distress, Normal Breath Sounds Cardiovascular: No Edema, No JVD, No Murmur, No Gallop, Normal Peripheral Pulses, Regular Rate/Rhythm Breast Exam: Deferred Gastrointestinal: No Organomegaly, Non Tender, No Pulsatile Mass, Normal Bowel Sounds, Soft Genitalia: Deferred Pelvic: Deferred Rectal: Deferred Extremities: No calf tenderness, Normal capillary refill, Normal inspection, Normal range of motion, Non-tender, No pedal edema Musculoskeletal : Apperance: Normal Neurologic: Alert, sole skiver II-XII nml as Tested, No Motor Deficits, Normal Affect, Normal Mood, No Sensory Deficits Cerebellar Function: Normal Reflexes: Normal Skin: Dry, Normal Color, Warm Lymphatic: No Adenopathy Was a procedure done? Was a procedure done?: No Differential Diagnosis (ALOC) Differential Diagnosis: Encephalopathy, Seizure, Closed Head Injury, ETOH Intoxication X-Ray, Labs, Meds, VS Vital Signs Date Time Temp Pulse Resp B/P (MAP) Pulse Ox O2 Delivery O2 Flow Rate FiO2 04/06/24 22:00 97.9 85 16 104/69 (81) 94 97.9 04/06/24 22:00 Room Air* 0 21 04/06/24 19:40 97.9 85 16 104/69 (81) 94 Lab Test 04/06/24 20:05 Range/Units White Blood Count 5.8 4.4-10.8 10^3/uL Red Blood Count 3.96 L 4.5-5.90 10^6/uL Hemoglobin 13.4 L 13.5-17.5 g/dL Hematocrit 39.7 L 41.0-53.0 % Mean Corpuscular Volume 100.1 H 80.0-100.0 fL Mean Corpuscular Hemoglobin 33.7 H 28.0-32.0 pg Mean Corpuscular Hemoglobin Concent 33.7 32.0-36.0 g/dL Red Cell Distribution Width 15.1 H 11.8-14.3 % Platelet Count 178 140-450 10^3/uL Mean Platelet Volume 7.2 6.9-10.8 fL Neutrophils (%) (Auto) 56.3 37.0-80.0 % Lymphocytes (%) (Auto) 31.1 10.0-50.0 % Monocytes (%) (Auto) 11.6 0.0-12.0 % Eosinophils (%) (Auto) 0.2 0.0-7.0 % Basophils (%) (Auto) 0.8 0.0-2.0 % Neutrophils # (Auto) 3.3 1.6-8.6 10 ^3/uL Lymphocytes # (Auto) 1.8 0.4-5.4 10 ^3/uL Monocytes # (Auto) 0.7 0-1.3 10 ^3/uL Eosinophils # (Auto) 0 0-0.8 10 ^3/uL Basophils # (Auto) 0 0-0.2 10 ^3/uL Nucleated Red Blood Cells 0.1 % Sodium Level 141 136-145 mmol/L Potassium Level 3.8 3.5-5.1 mmol/L Chloride Level 105 98-107 mmol/L Carbon Dioxide Level 24 20-31 mmol/L Anion Gap 12 5-15 Blood Urea Nitrogen 5 L 9-23 mg/dL Creatinine 0.86 0.700-1.30 mg/dL Glomerular Filtration Rate Calc 114 >90 mL/min BUN/Creatinine Ratio 5.8 L 10.0-20.0 Serum Glucose 78 74-106 mg/dL Calcium Level 9.8 8.7-10.4 mg/dL Magnesium Level 1.9 1.6-2.6 mg/dL Total Bilirubin 0.4 0.2-1.0 mg/dL Aspartate Amino Transferase (AST) 30 13-40 U/L Alanine Aminotransferase (ALT) 14 7-40 U/L Alkaline Phosphatase 164 H 46-116 U/L Total Protein 7.8 5.7-8.2 g/dL Albumin 4.6 3.2-4.8 g/dL Plasma/Serum Blood Alcohol 484.2 *H <10 mg/dL Current Medications Medications (Trade) Dose Ordered Sig/Harlan Route Start Time Stop Time Status Last Admin Levetiracetam 100 ml @ 400 mls/hr ONCE ONCE IV 04/06/24 20:00 04/06/24 20:14 DC 04/06/24 23:50 Time of 1ST Reevaluation: 19:52 Reevaluation 1ST: Unchanged Time of 2ND Reevaluation: 00:24 Reevaluation 2ND: Improved Patient Education/Counseling: Diagnosis, Treatment Family Education/Counseling: No Family Present Departure 1 Departure Time of Disposition: 00:25 Impression: Primary Impression: Acute alcohol intoxication Disposition: 01 HOME / SELF CARE / HOMELESS Condition: Stable Discharged With: Self Critical Care Note Critical Care Time?: No Stability Stability form required: No Heart Score Heart Score: Heart Score Response (Comments) Value History N/A 0 EKG N/A 0 Age N/A 0 Risk Factors N/A 0 Troponin N/A 0 Total 0 I personally scribed for RACHEAL WINTERS MD ([email or web address]) on 04/06/24 at 19:56. Electronically submitted by Evelio Capone ([email or web address]). RACHEAL WINTERS MD Apr 06, 2024 19:56
[2024-04-06 20:16] LABS: Basophils # (auto) 0 10 ^3/uL (0-0.2); Basophils % (auto) 0.8 % (0.0-2.0); Eosinophils # (auto) 0 10 ^3/uL (0-0.8); Eosinophils % (auto) 0.2 % (0.0-7.0); Hematocrit 39.7 % (41.0-53.0); Hemoglobin 13.4 g/dL (13.5-17.5); Lymphocytes # (auto) 1.8 10 ^3/uL (0.4-5.4); Lymphocytes % (auto) 31.1 % (10.0-50.0); Mean Corpuscular Hemoglobin 33.7 pg (28.0-32.0); Mean Corpuscular Hgb Conc. 33.7 g/dL (32.0-36.0); Mean Corpuscular Volume 100.1 fL (80.0-100.0); Monocytes # (auto) 0.7 10 ^3/uL (0-1.3); Monocytes % (auto) 11.6 % (0.0-12.0); Neutrophils # (auto) 3.3 10 ^3/uL (1.6-8.6); Neutrophils % (auto) 56.3 % (37.0-80.0); Nucleated Red Blood Cells % 0.1 %; Platelet Count (auto) 178 10^3/uL (140-450); Red Blood Cells 3.96 10^6/uL (4.5-5.90); Red Cell Distribution Width 15.1 % (11.8-14.3); White Blood Cell 5.8 10^3/uL (4.4-10.8)
[2024-04-06 20:33] LABS: Alanine Aminotransferase 14 U/L (7-40); Albumin 4.6 g/dL (3.2-4.8); Alkaline Phosphatase 164 U/L (46-116); Anion Gap 12 (5-15); Aspartate Aminotransferase 30 U/L (13-40); BUN/Creatinine Ratio 5.8 (10.0-20.0); Bilirubin, Total 0.4 mg/dL (0.2-1.0); Blood Urea Nitrogen 5 mg/dL (9-23); Calcium 9.8 mg/dL (8.7-10.4); Carbon Dioxide 24 mmol/L (20-31); Chloride 105 mmol/L (98-107); Glucose 78 mg/dL (74-106); Magnesium 1.9 mg/dL (1.6-2.6); Potassium 3.8 mmol/L (3.5-5.1); Sodium 141 mmol/L (136-145); Total Protein 7.8 g/dL (5.7-8.2)
[2024-04-06 21:01] LABS: Blood Alcohol 484.2 mg/dL (<10)
[2024-04-06 22:00] VITALS: BP 104/69; PULSE 85; RESP 16; TEMP 97.9; O2SAT 94
[2024-04-06] MEDS: levETIRAcetam 1000 mg/100ml 100 ML IV ONE (23:50)
== END 2024-04-07 06:08 | disposition home or self-care (01) ==
LOC: EDUNIT# 19:40 → ER 19:40 → EDBD 19:40 → ER 04-07 06:00
DX: F10.129 Alcohol abuse with intoxication, unspecified (principal); R56.9 Unspecified convulsions; F17.210 Nicotine dependence, cigarettes, uncomplicated
CPT/HCPCS: 36415; 80053; 80320; 83735; 85025; 96374; 99283; J1953; 96365

== ENCOUNTER 2024-04-15 17:03 | Emergency (ER) | payer MEDICAID ==
[~2024-04-15] VITALS: Ht 165.1 cm; Wt 72.0 kg
[2024-04-15 17:30] VITALS: PULSE 88; RESP 11; O2SAT 98
--- NOTE | 2024-04-15 17:54 | ED.PDOC ---
History of Present Illness HPI Comments 38M BIBA w/ prior Hx of chronic alcoholism which may be associated to the c/c of ETOH. Nurse reports that the EMS stated to her, that the pt was found behind a [employer]. Pt states that he feels like he"wants to take over the world" and that he "did not drink enough." Pt notes that he is only drinking beer and no hard liquor. PMHx of seizures. Social Hx of Heavy Alcohol use, but denies tobacco and substance use. Denies chills, fever, N/V/D, SOB, CP or other associated symptom's, modifiers, or recent injuries or sick contact at this time. Chief Complaint: ETOH Time Seen by MD: 17:30 Primary Care Provider: unknown Reviewed Notes: Nurses Notes, [employer] Jointer Notes, Medications, Allergies Allergies: Coded Allergies: NO KNOWN ALLERGIES (Unverified , 03/22/22) Home Meds Active Scripts Thiamine HCl (Thiamine Hydrochloride) 100 Mg Tab, 100 MG PO DAILY for 5 Days, #5 TAB Prov:DAVID ORTIZ RESIDENT 03/01/24 Gabapentin (Gabapentin) 100 Mg Cap, 100 MG PO BID for 10 Days, #20 CAP Prov:DAVID ORTIZ RESIDENT 03/01/24 Levetiracetam (Keppra) 500 Mg Tab, 1 TAB PO BID, #180 TAB 3 Refills Prov:MARLYN BECERRA 12/16/22 Levetiracetam (KEPPRA TABLET) 500 Mg Tb, 500 MG PO BID for 30 Days, #60 TAB Prov:ANUSHA LARIOS MD 02/14/22 Reported Medications Levetiracetam (Keppra) 500 Mg Tab, 500 MG PO BID for 30 Days, MG 02/11/20 Information Source: Patient, Emergency Med Personnel Mode of Arrival: EMS Severity: Moderate Timing: Hours Duration: Since onset, Hours Prehospital treatment: None Past Medical History PAST MEDICAL HISTORY: Seizures Past Medical History (Other): Chronic Alcoholism Surgical History: Denies all surgeries Family History Family History: Reviewed,noncontributory to illness, Unknown Social History Smoker: Unknown Alcohol: Heavy Drugs: Denies Drug Use Lives In: Home Constitutional: reports: others (ETOH); denies: chills, diaphoresis, fatigue, fever, malaise, sweats, weakness EENTM: denies: blurred vision, double vision, ear bleeding, ear discharge, ear drainage, ear pain, ear ringing, eye pain, eye redness, hearing loss, mouth pain, mouth swelling, nasal discharge, nose bleeding, nose congestion, nose pain, photophobia, tearing, throat pain, throat swelling, voice changes, others Respiratory: denies: cough, hemoptysis, orthopnea, SOB at rest, shortness of breath, SOB with excertion, stridor, wheezing, others Cardiovascular: denies: chest pain, dizzy spells, diaphoresis, Dyspnea on exertion, edema, irregular heart beat, left arm pain, lightheadedness, palpitations, PND, syncope, others Gastrointestinal: denies: abdomen distended, abdominal pain, blood streaked bowels, constipated, diarrhea, dysphagia, difficulty swallowing, hematemesis, melena, nausea, poor appetite, poor fluid intake, rectal bleeding, rectal pain, vomiting, others Genitourinary: denies: burning, dysuria, flank pain, frequency, hematuria, incontinence, penile discharge, penile sore, pain, testicle pain, testicle swelling, urgency, others Neurological: denies: dizziness, fainting, headache, left sided numbness, left sided weakness, numbness, paresthesia, pre-existing deficit, right sided numbness, right sided weakness, seizure, speech problems, tingling, tremors, weakness, others Musculoskeletal: denies: back pain, gout, joint pain, joint swelling, muscle pain, muscle stiffness, neck pain, others Integumetry: denies: bruises, change in color, change in hair/nails, dryness, laceration, lesions, lumps, rash, wounds, others Allergic/Immunocompromised: denies: Difficulty Healing, Frequent Infections, Hives, Itching, others Hematologic/Lymphatic: denies: anemia, blood clots, easy bleeding, easy bruising, swollen glands, others Endocrine: denies: excessive hunger, excessive sweating, excessive thirst, excessive urination, flushing, intolerance to cold, intolerance to heat, unexp lained weight gain, unexplained weight loss, others Psychiatric: denies: anxiety, bipolar disorder, depression, hopeless, panic disorder, schizophrenia, sleepless, suicidal, others All Other Systems: Reviewed and Negative Physical Exam General Appearance: No Apparent Distress, Normal HEENT: Normal ENT Inspection, Pharynx Normal, TMs Normal Neck: Full Range of Motion, Non-Tender, Normal, Normal Inspection Respiratory: Chest Non-Tender, Lungs Clear, No Accessory Muscle Use, No Respiratory Distress, Normal Breath Sounds Cardiovascular: No Edema, No JVD, No Murmur, No Gallop, Normal Peripheral Pulse s, Regular Rate/Rhythm Breast Exam: Deferred Gastrointestinal: No Organomegaly, Non Tender, No Pulsatile Mass, Normal Bowel Sounds, Soft Genitalia: Deferred Pelvic: Deferred Rectal: Deferred Extremities: No calf tenderness, Normal capillary refill, Normal inspection, Normal range of motion, Non-tender, No pedal edema Musculoskeletal : Apperance: Normal Neurologic: Alert, applications sales representative II-XII nml as Tested, No Motor Deficits, Normal Affect, Normal Mood, No Sensory Deficits Cerebellar Function: Normal Reflexes: Normal Skin: Dry, Normal Color, Warm Lymphatic: No Adenopathy Was a procedure done? Was a procedure done?: No Differential Dx Considerations may include: alcohol intoxication, drug abuse. chronic alcoholism. X-Ray, Labs, Meds, VS Vital Signs Date Time Temp Pulse Resp B/P (MAP) Pulse Ox O2 Delivery O2 Flow Rate FiO2 04/15/24 17:30 88 11 98 Room Air* 0 21 04/15/24 17:30 97.9 88 11 111/68 (82) 98 97.9 04/15/24 17:23 98.4 82 14 126/90 (102) 99 Current Medications Medications (Trade) Dose Ordered Sig/Harlan Route Start Time Stop Time Status Last Admin Sodium Chloride 1,000 ml @ 1,000 mls/hr Q1H ONCE IV 04/15/24 17:45 04/15/24 18:44 DC 04/15/24 18:51 Time of 1ST Reevaluation: 18:00 Reevaluation 1ST: Unchanged Patient Education/Counseling: Diagnosis, Treatment, Prognosis Family Education/Counseling: No Family Present Additional Information - I reviewed the following notes from patient's past medical encounters:04/06/24 - The following tests were ordered, and results were reviewed by me: PHA - Additional information was gathered from interviewing the following independent Historian: EMT, Nurses - I discussed treatments and results with medical personnel and family pt does appear intoxicated, but he is not altered. he admits that he has been drinking beer all day and has been drinking chronically. he has no intention to quit. pt states that he has not "drank enough." pt is stable for discharge. he lives in a house with his parents, however, we have no way to reach his parents. pt will remain with us to be observed until he is sober and safe discharge can be made in the day time. Departure 1 Departure Time of Disposition: 18:20 Impression: Primary Impression: Chronic alcoholism Disposition: HOME / SELF CARE / HOMELESS Condition: Stable Discharged With: Relative Critical Care Note Critical Care Time?: No Stability Stability form required: No I personally scribed for PATRICIO PHILLIPS MD ([email or web address]) on 04/15/24 at 17:54. Electronically submitted by Fazal Nuñez ([email or web address]). PATRICIO PHILLIPS MD Apr 15, 2024 17:54
[2024-04-15] MEDS: SODIUM CHLORIDE 0.9% 1,000 ML IV ONE (18:51)
[2024-04-15 19:09] LABS: Urine Bacteria None Seen /hpf (None Seen); Urine WBC None Seen /hpf (0 - 3)
[2024-04-15 19:20] LABS: Urine Blood Negative /uL (Negative); Urine Clarity Clear (Clear); Urine Color Colorless (Yellow); Urine Protein, UAD Negative (Negative); Urine Specific Gravity 1.002 (1.001-1.035); Urine Urobilinogen Normal (Negative)
[2024-04-15 19:25] VITALS: BP 95/55; PULSE 74; RESP 15; TEMP 98.2; O2SAT 95
[2024-04-15 20:00] VITALS: PULSE 69
[2024-04-15] MEDS ORDERED: LEVE500T40 PO (21:08)
== END 2024-04-15 21:15 | disposition home or self-care (01) ==
LOC: EDBD 17:03 → ER 17:03
DX: F10.20 Alcohol dependence, uncomplicated (principal); F17.200 Nicotine dependence, unspecified, uncomplicated; Z76.0 Encounter for issue of repeat prescription
CPT/HCPCS: 81001; 96360; 99283; J7030

== ENCOUNTER 2024-07-10 04:20 | Emergency (ER) | payer MEDICAID ==
[~2024-07-10] VITALS: Ht 162.6 cm; Wt 80.0 kg
--- NOTE | 2024-07-10 04:52 | ED.PDOC ---
History of Present Illness HPI Comments 38 y/o M presents with c/o headache s/p seizure and fall injury, today. Patient is a poor historian and endorses on developing pain to his head following a sudden seizure episode onset with fall, yesterday. He comments on not losing consciousness or sustaining any additional injuries then and incident being unwitnessed. Patient also inquires on Keppra medication refill after running out it, recently. Denies any weakness, vision or speech changes, nausea, vomiting, or other associated symptoms or modifiers at this time. Chief Complaint: Head Injury Time Seen by MD: 04:40 Primary Care Provider: unknown Reviewed Notes: Nurses Notes, Medications, Allergies Allergies: Coded Allergies: NO KNOWN ALLERGIES (Unverified , 03/22/22) Home Meds Active Scripts Levetiracetam (Keppra) 500 Mg Tab, 500 MG PO BID for 30 Days, #60 MG Prov:PATRICIO PHILLIPS MD 04/15/24 Thiamine HCl (Thiamine Hydrochloride) 100 Mg Tab, 100 MG PO DAILY for 5 Days, #5 TAB Prov:DAVID ORTIZ RESIDENT 03/01/24 Gabapentin (Gabapentin) 100 Mg Cap, 100 MG PO BID for 10 Days, #20 CAP Prov:DAVID ORTIZ RESIDENT 03/01/24 Levetiracetam (Keppra) 500 Mg Tab, 1 TAB PO BID, #180 TAB 3 Refills Prov:MARLYN BECERRA 12/16/22 Levetiracetam (KEPPRA TABLET) 500 Mg Tb, 500 MG PO BID for 30 Days, #60 TAB Prov:ANUSHA LARIOS MD 02/14/22 Reported Medications Levetiracetam (Keppra) 500 Mg Tab, 500 MG PO BID for 30 Days, MG 02/11/20 Information Source: Patient Mode of Arrival: Ambulatory Severity: Moderate Timing: Hours Duration: Minutes Prehospital treatment: None Past Medical History PAST MEDICAL HISTORY: Seizures Surgical History: Denies all surgeries Family History Family History: Reviewed,noncontributory to illness, Unknown Social History Smoker: Unknown Alcohol: Heavy Drugs: Denies Drug Use Lives In: Home Neurological: reports: headache, seizure All Other Systems: Reviewed and Negative (negative unless otherwise stated above or in HPI) Physical Exam General Appearance: No Apparent Distress, Normal HEENT: Normal ENT Inspection, Pharynx Normal, TMs Normal Neck: Full Range of Motion, Non-Tender, Normal, Normal Inspection Respiratory: Chest Non-Tender, Lungs Clear, No Accessory Muscle Use, No Respiratory Distress, Normal Breath Sounds Cardiovascular: No Edema, No JVD, No Murmur, No Gallop, Normal Peripheral Pulses, Regular Rate/Rhythm Breast Exam: Deferred Gastrointestinal: No Organomegaly, Non Tender, No Pulsatile Mass, Normal Bowel Sounds, Soft Genitalia: Deferred Pelvic: Deferred Rectal: Deferred Extremities: No calf tenderness, Normal capillary refill, Normal inspection, Normal range of motion, Non-tender, No pedal edema Musculoskeletal : Apperance: Normal Neurologic: Alert, insert cutter II-XII nml as Tested, No Motor Deficits, Normal Affect, Normal Mood, No Sensory Deficits, Other (left parietal scalp tenderness, mild) Cerebellar Function: Normal Reflexes: Normal Skin: Dry, Normal Color, Warm Lymphatic: No Adenopathy Was a procedure done? Was a procedure done?: No Differential Dx Considerations may include: closed head injury, seizure, pseudoseizure, alcohol abuse X-Ray, Labs, Meds, VS Vital Signs Date Time Temp Pulse Resp B/P (MAP) Pulse Ox O2 Delivery O2 Flow Rate FiO2 07/10/24 13:12 98.2 82 16 135/96 (109) 99 98.2 07/10/24 11:12 97.9 79 16 124/85 (98) 98 97.9 07/10/24 09:23 80 17 100 Room Air* 0 21 07/10/24 09:22 80 17 123/87 (99) 100 07/10/24 07:34 98.2 84 20 123/85 (98) 96 98.2 07/10/24 05:16 98.2 88 16 138/96 (110) 95 98.2 07/10/24 05:15 Room Air* 0 21 07/10/24 04:30 98.5 96 18 142/101 (115) 100 Lab Test 07/10/24 06:27 Range/Units White Blood Count 4.6 4.4-10.8 10^3/uL Red Blood Count 4.58 4.5-5.90 10^6/uL Hemoglobin 14.2 13.5-17.5 g/dL Hematocrit 44.1 41.0-53.0 % Mean Corpuscular Volume 96.3 80.0-100.0 fL Mean Corpuscular Hemoglobin 31.0 28.0-32.0 pg Mean Corpuscular Hemoglobin Concent 32.2 32.0-36.0 g/dL Red Cell Distribution Width 15.9 H 11.8-14.3 % Platelet Count 234 140-450 10^3/uL Mean Platelet Volume 7.4 6.9-10.8 fL Neutrophils (%) (Auto) 57.2 37.0-80.0 % Lymphocytes (%) (Auto) 30.7 10.0-50.0 % Monocytes (%) (Auto) 11.2 0.0-12.0 % Eosinophils (%) (Auto) 0.4 0.0-7.0 % Basophils (%) (Auto) 0.5 0.0-2.0 % Neutrophils # (Auto) 2.6 1.6-8.6 10 ^3/uL Lymphocytes # (Auto) 1.4 0.4-5.4 10 ^3/uL Monocytes # (Auto) 0.5 0-1.3 10 ^3/uL Eosinophils # (Auto) 0 0-0.8 10 ^3/uL Basophils # (Auto) 0 0-0.2 10 ^3/uL Nucleated Red Blood Cells 0.1 % Sodium Level 143 136-145 mmol/L Potassium Level 3.8 3.5-5.1 mmol/L Chloride Level 106 98-107 mmol/L Carbon Dioxide Level 22 20-31 mmol/L Anion Gap 15 5-15 Blood Urea Nitrogen < 5 L 9-23 mg/dL Creatinine 0.72 0.700-1.30 mg/dL Glomerular Filtration Rate Calc 121 >90 mL/min BUN/Creatinine Ratio 6.9 L 10.0-20.0 Serum Glucose 78 74-106 mg/dL Calcium Level 9.9 8.7-10.4 mg/dL Magnesium Level 1.8 1.6-2.6 mg/dL Total Bilirubin 0.4 0.2-1.0 mg/dL Aspartate Amino Transferase (AST) 32 13-40 U/L Alanine Aminotransferase (ALT) 18 7-40 U/L Alkaline Phosphatase 161 H 46-116 U/L Total Protein 8.2 5.7-8.2 g/dL Albumin 5.1 H 3.2-4.8 g/dL Current Medications Medications (Trade) Dose Ordered Sig/Harlan Route Start Time Stop Time Status Last Admin Lorazepam (Ativan Inj) 2 mg ONCE ONCE IM 07/10/24 04:45 07/10/24 04:47 DC 07/10/24 05:13 Time of 1ST Reevaluation: 05:10 Reevaluation 1ST: Unchanged Patient Education/Counseling: Diagnosis, Treatment Family Education/Counseling: No Family Present Departure 1 Departure Time of Disposition: 14:09 (Patient is now clinically sober workup is otherwise benign. Patient would like to go home. We will discharge patient home with outpatient follow up) Impression: Primary Impression: Alcohol intoxication Qualified Codes: F10.921 - Alcohol use, unspecified with intoxication delirium Additional Impression: Fall from ground level Disposition: HOME / SELF CARE / HOMELESS Condition: Stable Additional Instructions: You were intoxicated. It is important to only drink in moderation. If you need help quitting you can call (HELP). If your symptoms worsen or you have any other concerns then please return to the ER. Discharged With: Self Critical Care Note Critical Care Time?: No Stability Stability form required: No Heart Score Heart Score: Heart Score Response (Comments) Value History N/A 0 EKG N/A 0 Age N/A 0 Risk Factors N/A 0 Troponin N/A 0 Total 0 I personally scribed for RACHEAL WINTERS MD ([email or web address]) on 07/10/24 at 04:52. Electronically submitted by Alan Mendoza ([email or web address]). RACHEAL WINTERS MD Jul 10, 2024 04:52 ROD BAHENA MD Jul 10, 2024 14:11
[2024-07-10] MEDS: LORazepam 2MG/ML-1ML VIAL IM ONE (05:13)
--- NOTE | 2024-07-10 06:32 | DVH ---
EXAM: CT HEAD WITHOUT CONTRAST INDICATION: head injury / seizure TECHNIQUE: CT of the head without intravenous contrast. Coronal and sagittal reformatted images are s ubmitted. Radiation Dose : 1. Head: CT Dose: CTDI volume is 59.99 mGy. Dose-length product is 10 60 mGy*cm The dose indicators for CT are the volume Computed Tomography (CT) Dose Index (CTDIvol) and the Dose Length Product (DLP), and are measured in units of mGy and mGy-cm, respectively. These indicators are not patient dose, but values generated from the CT scanner acquisition factors. The report includes radiation exposure data for exposures received during this examination. All CT scans at this medical facility are performed using dose modulation techniques as appropriate to a performed exam including the following: Automated exposure control was utilized; adjustment of the MA and/or KV according to patient size; and use of iterative reconstruction technique. COMPARISON: CT HEAD WITHOUT CONTRAST on DOS: 02/28/24 FINDINGS: There is no evidence of acute intracranial hemorrhage, extra-axial collection, mass effect, midline s hift, herniation or hydrocephalus. The ventricles, sulci and cisterns are age appropriate. The oneal-white differentiation is intact. There is partial opacification of the right mastoid air cells. There is partial opacification of the left mastoid air cells. Paranasal sinuses are clear. No depressed calvarial fracture. The surrounding soft tissues are unremarkable. IMPRESSION: 1. No evidence of acute intracranial abnormality.
[2024-07-10 06:42] LABS: Basophils # (auto) 0 10 ^3/uL (0-0.2); Basophils % (auto) 0.5 % (0.0-2.0); Eosinophils # (auto) 0 10 ^3/uL (0-0.8); Eosinophils % (auto) 0.4 % (0.0-7.0); Hematocrit 44.1 % (41.0-53.0); Hemoglobin 14.2 g/dL (13.5-17.5); Lymphocytes # (auto) 1.4 10 ^3/uL (0.4-5.4); Lymphocytes % (auto) 30.7 % (10.0-50.0); Mean Corpuscular Hgb Conc. 32.2 g/dL (32.0-36.0); Mean Corpuscular Volume 96.3 fL (80.0-100.0); Monocytes # (auto) 0.5 10 ^3/uL (0-1.3); Monocytes % (auto) 11.2 % (0.0-12.0); Neutrophils # (auto) 2.6 10 ^3/uL (1.6-8.6); Neutrophils % (auto) 57.2 % (37.0-80.0); Nucleated Red Blood Cells % 0.1 %; Platelet Count (auto) 234 10^3/uL (140-450); Red Blood Cells 4.58 10^6/uL (4.5-5.90); Red Cell Distribution Width 15.9 % (11.8-14.3); White Blood Cell 4.6 10^3/uL (4.4-10.8)
[2024-07-10 06:54] LABS: Alanine Aminotransferase 18 U/L (7-40); Anion Gap 15 (5-15); Aspartate Aminotransferase 32 U/L (13-40); Calcium 9.9 mg/dL (8.7-10.4); Carbon Dioxide 22 mmol/L (20-31); Chloride 106 mmol/L (98-107); Glucose 78 mg/dL (74-106); Magnesium 1.8 mg/dL (1.6-2.6); Potassium 3.8 mmol/L (3.5-5.1); Sodium 143 mmol/L (136-145)
[2024-07-10 06:55] LABS: Bilirubin, Total 0.4 mg/dL (0.2-1.0); Total Protein 8.2 g/dL (5.7-8.2)
[2024-07-10 06:56] LABS: Albumin 5.1 g/dL (3.2-4.8); Alkaline Phosphatase 161 U/L (46-116); BUN/Creatinine Ratio 6.9 (10.0-20.0); Blood Urea Nitrogen < 5 mg/dL (9-23)
[2024-07-10 09:23] VITALS: PULSE 80; RESP 17; O2SAT 100
[2024-07-10 13:12] VITALS: BP 135/96; PULSE 82; RESP 16; TEMP 98.2; O2SAT 99
== END 2024-07-10 14:16 | disposition home or self-care (01) ==
LOC: ER 04:20
DX: F10.129 Alcohol abuse with intoxication, unspecified (principal); R56.9 Unspecified convulsions; Z79.899 Other long term (current) drug therapy; W18.30XA Fall on same level, unspecified, initial encounter; Y93.89 Activity, other specified; Y92.89 Other specified places as the place of occurrence of the external cause; Y99.8 Other external cause status
CPT/HCPCS: 36415; 70450; 80053; 83735; 85025; 96372; 99285; J2060

== ENCOUNTER 2024-08-13 22:27 | Emergency (ER) | payer MEDICAID ==
[~2024-08-13] VITALS: Ht 162.6 cm; Wt 68.2 kg
[2024-08-13 22:36] VITALS: BP 103/64; PULSE 90; RESP 16; TEMP 97.6; O2SAT 94
--- NOTE | 2024-08-14 00:50 | ED.PDOC ---
History of Present Illness HPI Comments 38 y/o M, with a history of alcohol abuse and seizures, is SLOANE acuna c/o alcohol intoxication, today. Per EMS report, patient was brought after being found by law enforcement passed out on the side of the road, intoxicated. Patient is stated to be a frequent ED visitor for same c/o alcohol intoxication in the past. At time of assessment, patient is awake and commented during on "not drinking enough" when inquired on how much alcohol he consumed. Patient has no further complaints reported at this time. Chief Complaint: ETOH Time Seen by MD: 00:34 Primary Care Provider: unknown Reviewed Notes: Nurses Notes, Elder Assistant Notes, Medications, Allergies Allergies: Coded Allergies: NO KNOWN ALLERGIES (Unverified , 03/22/22) Home Meds Active Scripts Levetiracetam (Keppra) 500 Mg Tab, 500 MG PO BID for 30 Days, #60 MG Prov:PATRICIO PHILLIPS MD 04/15/24 Thiamine HCl (Thiamine Hydrochloride) 100 Mg Tab, 100 MG PO DAILY for 5 Days, #5 TAB Prov:DAVID ORTIZ RESIDENT 03/01/24 Gabapentin (Gabapentin) 100 Mg Cap, 100 MG PO BID for 10 Days, #20 CAP Prov:DAVID ORTIZ RESIDENT 03/01/24 Levetiracetam (Keppra) 500 Mg Tab, 1 TAB PO BID, #180 TAB 3 Refills Prov:MARLYN BECERRA 12/16/22 Levetiracetam (KEPPRA TABLET) 500 Mg Tb, 500 MG PO BID for 30 Days, #60 TAB Prov:ANUSHA LARIOS MD 02/14/22 Reported Medications Levetiracetam (Keppra) 500 Mg Tab, 500 MG PO BID for 30 Days, MG 02/11/20 Information Source: Patient, Emergency Med Personnel Mode of Arrival: EMS Past Medical History PAST MEDICAL HISTORY: Seizures Surgical History: Denies all surgeries Family History Family History: Reviewed,noncontributory to illness, Unknown Social History Smoker: Unknown Alcohol: Heavy Drugs: Denies Drug Use Lives In: Home All Other Systems: Reviewed and Negative (Comprehensive systems review obtained and negative except for what is stated in the HPI.) Physical Exam Exam Comments Commented during examination on "not drinking enoungh" when inquired on how much alcohol he consumed. General Appearance: No Apparent Distress, Other (intoxicated, but alert, wakes up and communicates. ) HEENT: Normal ENT Inspection, Pharynx Normal, TMs Normal Neck: Full Range of Motion, Non-Tender, Normal, Normal Inspection Respiratory: Chest Non-Tender, Lungs Clear, No Accessory Muscle Use, No Respiratory Distress, Normal Breath Sounds Cardiovascular: No Edema, No JVD, No Murmur, No Gallop, Normal Peripheral Pulses, Regular Rate/Rhythm Breast Exam: Deferred Gastrointestinal: No Organomegaly, Non Tender, No Pulsatile Mass, Normal Bowel Sounds, Soft Genitalia: Deferred Pelvic: Deferred Rectal: Deferred Extremities: No calf tenderness, Normal capillary refill, Normal inspection, Normal range of motion, Non-tender, No pedal edema Musculoskeletal : Apperance: Normal Neurologic: Alert, manager of finance II-XII nml as Tested, No Motor Deficits, Normal Affect, Normal Mood, No Sensory Deficits Cerebellar Function: Normal Reflexes: Normal Skin: Dry, Normal Color, Warm Lymphatic: No Adenopathy Was a procedure done? Was a procedure done?: No Differential Dx Considerations may include: substance abuse, alcohol intoxication X-Ray, Labs, Meds, VS Vital Signs Date Time Temp Pulse Resp B/P (MAP) Pulse Ox O2 Delivery O2 Flow Rate FiO2 08/13/24 22:36 97.6 90 16 103/64 (77) 94 97.6 Time of 1ST Reevaluation: 01:04 Reevaluation 1ST: Unchanged Patient Education/Counseling: Diagnosis, Treatment, Prognosis, Need For Follow Up Family Education/Counseling: No Family Present Additional Information Previous visit documents reviewed: The following tests were ordered, and results were reviewed by me: Additional Information was gathered from interviewing the following independent historians: I reviewed and agreed with the following test results read by other providers: I discussed treatment and results with medical personnel and: Patient pt is improved. up and ambulating in the ER, conversational. we weill call his family to pick him up Departure 1 Departure Time of Disposition: 00:51 Impression: Primary Impression: Chronic alcoholism Additional Impression: Intoxication Disposition: 01 HOME / SELF CARE / HOMELESS Condition: Good Discharged With: Self, Relative Critical Care Note Critical Care Time?: No Stability Stability form required: No Heart Score Heart Score: Heart Score Response (Comments) Value History N/A 0 EKG N/A 0 Age N/A 0 Risk Factors N/A 0 Troponin N/A 0 Total 0 I personally scribed for PATRICIO PHILLIPS MD ([email or web address]) on 08/14/24 at 00:50. Electronically submitted by Alan Mendoza ([email or web address]). PATRICIO PHILLIPS MD Aug 14, 2024 00:50
== END 2024-08-14 03:00 | disposition home or self-care (01) ==
LOC: EDUNIT# 22:27 → EDBD 22:27 → ER 22:31
DX: F10.229 Alcohol dependence with intoxication, unspecified (principal); Z86.69 Personal history of other diseases of the nervous system and sense organs; Z79.899 Other long term (current) drug therapy; Y90.9 Presence of alcohol in blood, level not specified

== ENCOUNTER 2024-08-16 15:37 | Emergency (ER) | payer MEDICAID ==
[~2024-08-16] VITALS: Ht 162.6 cm; Wt 70.0 kg
[2024-08-16 15:51] VITALS: BP 106/74; PULSE 72; RESP 16; TEMP 97.8; O2SAT 97
--- NOTE | 2024-08-16 16:27 | ED.PDOC ---
History of Present Illness HPI Comments 38Y M with PMHx seizures and alcoholism presents to ED via EMS with chief complaint ETOH intoxication. Per EMS, pt was found passed out on the road. Upon ED assessment, pt is alert but disoriented. Pt has been seen multiple times at [facility] for ETOH intoxication. No other symptoms/history reported. Chief Complaint: ETOH Time Seen by MD: 16:15 Primary Care Provider: unknown Reviewed Notes: Nurses Notes, Optical Effects Line Up Person Notes, Medications, Allergies Allergies: Coded Allergies: NO KNOWN ALLERGIES (Unverified , 03/22/22) Home Meds Active Scripts Levetiracetam (Keppra) 500 Mg Tab, 500 MG PO BID for 30 Days, #60 MG Prov:PATRICIO PHILLIPS MD 04/15/24 Thiamine HCl (Thiamine Hydrochloride) 100 Mg Tab, 100 MG PO DAILY for 5 Days, #5 TAB Prov:DAVID ORTIZ RESIDENT 03/01/24 Gabapentin (Gabapentin) 100 Mg Cap, 100 MG PO BID for 10 Days, #20 CAP Prov:DAVID ORTIZ RESIDENT 03/01/24 Levetiracetam (Keppra) 500 Mg Tab, 1 TAB PO BID, #180 TAB 3 Refills Prov:MARLYN BECERRA 12/16/22 Levetiracetam (KEPPRA TABLET) 500 Mg Tb, 500 MG PO BID for 30 Days, #60 TAB Prov:ANUSHA LARIOS MD 02/14/22 Reported Medications Levetiracetam (Keppra) 500 Mg Tab, 500 MG PO BID for 30 Days, MG 02/11/20 Information Source: Patient, Emergency Med Personnel Mode of Arrival: EMS Severity: Mild Timing: Hours Duration: Since onset Prehospital treatment: None Past Medical History PAST MEDICAL HISTORY: Seizures Surgical History: Denies all surgeries Family History Family History: Reviewed,noncontributory to illness, Unknown Social History Smoker: Unknown Alcohol: Heavy Drugs: Denies Drug Use Lives In: Home Constitutional: denies: chills, diaphoresis, fatigue, fever, malaise, sweats, weakness, others EENTM: denies: blurred vision, double vision, ear bleeding, ear discharge, ear drainage, ear pain, ear ringing, eye pain, eye redness, hearing loss, mouth pain, mouth swelling, nasal discharge, nose bleeding, nose congestion, nose pain, photophobia, tearing, throat pain, throat swelling, voice changes, others Respiratory: denies: cough, hemoptysis, orthopnea, SOB at rest, shortness of breath, SOB with excertion, stridor, wheezing, others Cardiovascular: denies: chest pain, dizzy spells, diaphoresis, Dyspnea on exertion, edema, irregular heart beat, left arm pain, lightheadedness, palpitations, PND, syncope, others Gastrointestinal: denies: abdomen distended, abdominal pain, blood streaked bowels, constipated, diarrhea, dysphagia, difficulty swallowing, hematemesis, melena, nausea, poor appetite, poor fluid intake, rectal bleeding, rectal pain, vomiting, others Genitourinary: denies: burning, dysuria, flank pain, frequency, hematuria, incontinence, penile discharge, penile sore, pain, testicle pain, testicle swelling, urgency, others Neurological: denies: dizziness, fainting, headache, left sided numbness, left sided weakness, numbness, paresthesia, pre-existing deficit, right sided numbness, right sided weakness, seizure, speech problems, tingling, tremors, weakness, others Musculoskeletal: denies: back pain, gout, joint pain, joint swelling, muscle pain, muscle stiffness, neck pain, others Integumetry: denies: bruises, change in color, change in hair/nails, dryness, laceration, lesions, lumps, rash, wounds, others Allergic/Immunocompromised: denies: Difficulty Healing, Frequent Infections, Hives, Itching, others Hematologic/Lymphatic: denies: anemia, blood clots, easy bleeding, easy bruising, swollen glands, others Endocrine: denies: excessive hunger, excessive sweating, excessive thirst, excessive urination, flushing, intolerance to cold, intolerance to heat, unexplained weight gain, unexplained weight loss, others Psychiatric: denies: anxiety, bipolar disorder, depression, hopeless, panic disorder, schizophrenia, sleepless, suicidal, others All Other Systems: Reviewed and Negative Physical Exam General Appearance: Other (pt disoriented) HEENT: Normal ENT Inspection, Pharynx Normal, TMs Normal Neck: Full Range of Motion, Non-Tender, Normal, Normal Inspection Respiratory: Chest Non-Tender, Lungs Clear, No Accessory Muscle Use, No Respiratory Distress, Normal Breath Sounds Cardiovascular: No Edema, No JVD, No Murmur, No Gallop, Normal Peripheral Pulses, Regular Rate/Rhythm Breast Exam: Deferred Gastrointestinal: No Organomegaly, Non Tender, No Pulsatile Mass, Normal Bowel Sounds, Soft Genitalia: Deferred Pelvic: Deferred Rectal: Deferred Extremities: No calf tenderness, Normal capillary refill, Normal inspection, Normal range of motion, Non-tender, No pedal edema Musculoskeletal : Apperance: Normal Neurologic: Alert, laborer pole crew II-XII nml as Tested, No Motor Deficits, Normal Affect, Normal Mood, No Sensory Deficits Cerebellar Function: Normal Reflexes: Normal Skin: Dry, Normal Color, Warm Lymphatic: No Adenopathy Was a procedure done? Was a procedure done?: No Differential Dx Considerations may include: alcohol intoxication X-Ray, Labs, Meds, VS Vital Signs Date Time Temp Pulse Resp B/P (MAP) Pulse Ox O2 Delivery O2 Flow Rate FiO2 08/16/24 15:51 97.8 72 16 106/74 (85) 97 97.8 Lab Test 08/16/24 17:00 Range/Units White Blood Count 9.0 4.4-10.8 10^3/uL Red Blood Count 3.89 L 4.5-5.90 10^6/uL Hemoglobin 12.6 L 13.5-17.5 g/dL Hematocrit 37.9 L 41.0-53.0 % Mean Corpuscular Volume 97.4 80.0-100.0 fL Mean Corpuscular Hemoglobin 32.4 H 28.0-32.0 pg Mean Corpuscular Hemoglobin Concent 33.3 32.0-36.0 g/dL Red Cell Distribution Width 17.1 H 11.8-14.3 % Platelet Count 85 L 140-450 10^3/uL Mean Platelet Volume 7.9 6.9-10.8 fL Neutrophils (%) (Auto) 79.6 37.0-80.0 % Lymphocytes (%) (Auto) 14.7 10.0-50.0 % Monocytes (%) (Auto) 5.0 0.0-12.0 % Eosinophils (%) (Auto) 0.1 0.0-7.0 % Basophils (%) (Auto) 0.6 0.0-2.0 % Neutrophils # (Auto) 7.1 1.6-8.6 10 ^3/uL Lymphocytes # (Auto) 1.3 0.4-5.4 10 ^3/uL Monocytes # (Auto) 0.4 0-1.3 10 ^3/uL Eosinophils # (Auto) 0 0-0.8 10 ^3/uL Basophils # (Auto) 0.1 0-0.2 10 ^3/uL Nucleated Red Blood Cells 0.0 % Platelet Estimate Pending Sodium Level 145 136-145 mmol/L Potassium Level 3.3 L 3.5-5.1 mmol/L Chloride Level 110 H 98-107 mmol/L Carbon Dioxide Level 24 20-31 mmol/L Anion Gap 11 5-15 Blood Urea Nitrogen < 5 L 9-23 mg/dL Creatinine 0.66 L 0.700-1.30 mg/dL Glomerular Filtration Rate Calc 124 >90 mL/min BUN/Creatinine Ratio 7.6 L 10.0-20.0 Serum Glucose 91 74-106 mg/dL Calcium Level 9.2 8.7-10.4 mg/dL Total Bilirubin 0.5 0.2-1.0 mg/dL Aspartate Amino Transferase (AST) 34 13-40 U/L Alanine Aminotransferase (ALT) 29 7-40 U/L Alkaline Phosphatase 158 H 46-116 U/L Total Protein 7.6 5.7-8.2 g/dL Albumin 4.6 3.2-4.8 g/dL Plasma/Serum Blood Alcohol Pending X-Ray, Labs, Meds, VS Comment Patient eloped Time of 1ST Reevaluation: 16:45 Reevaluation 1ST: Unchanged Patient Education/Counseling: Diagnosis, Treatment Family Education/Counseling: No Family Present Departure 1 Departure Time of Disposition: 18:20 Impression: Primary Impression: Alcohol intoxication Disposition: 07 LEFT AWOL/ELOPED Condition: Stable Critical Care Note Critical Care Time?: No Stability Stability form required: No Heart Score Heart Score: Heart Score Response (Comments) Value History N/A 0 EKG N/A 0 Age N/A 0 Risk Factors N/A 0 Troponin N/A 0 Total 0 I personally scribed for MARLYN BECERRA ([email or web address]) on 08/16/24 at 16:27. Electronically submitted by Wendie Read ([email or web address]). MARLYN BECERRA Aug 16, 2024 16:27
[2024-08-16 17:11] LABS: Basophils # (auto) 0.1 10 ^3/uL (0-0.2); Basophils % (auto) 0.6 % (0.0-2.0); Eosinophils # (auto) 0 10 ^3/uL (0-0.8); Eosinophils % (auto) 0.1 % (0.0-7.0); Hematocrit 37.9 % (41.0-53.0); Hemoglobin 12.6 g/dL (13.5-17.5); Lymphocytes # (auto) 1.3 10 ^3/uL (0.4-5.4); Lymphocytes % (auto) 14.7 % (10.0-50.0); Mean Corpuscular Hemoglobin 32.4 pg (28.0-32.0); Mean Corpuscular Hgb Conc. 33.3 g/dL (32.0-36.0); Mean Corpuscular Volume 97.4 fL (80.0-100.0); Monocytes # (auto) 0.4 10 ^3/uL (0-1.3); Neutrophils # (auto) 7.1 10 ^3/uL (1.6-8.6); Neutrophils % (auto) 79.6 % (37.0-80.0); Platelet Count (auto) 85 10^3/uL (140-450); Red Blood Cells 3.89 10^6/uL (4.5-5.90); Red Cell Distribution Width 17.1 % (11.8-14.3)
[2024-08-16 17:28] LABS: Alanine Aminotransferase 29 U/L (7-40); Albumin 4.6 g/dL (3.2-4.8); Anion Gap 11 (5-15); Aspartate Aminotransferase 34 U/L (13-40); Bilirubin, Total 0.5 mg/dL (0.2-1.0); Calcium 9.2 mg/dL (8.7-10.4); Carbon Dioxide 24 mmol/L (20-31); Glucose 91 mg/dL (74-106); Total Protein 7.6 g/dL (5.7-8.2)
[2024-08-16 17:30] LABS: Alkaline Phosphatase 158 U/L (46-116); BUN/Creatinine Ratio 7.6 (10.0-20.0); Blood Urea Nitrogen < 5 mg/dL (9-23); Chloride 110 mmol/L (98-107); Potassium 3.3 mmol/L (3.5-5.1); Sodium 145 mmol/L (136-145)
[2024-08-16 18:25] LABS: Blood Alcohol 498.6 mg/dL (<10)
[2024-08-16 18:31] LABS: Platelet Estimate Decreased
== END 2024-08-16 18:21 | disposition left against medical advice (07) ==
LOC: ER 15:37 → EDBD 15:37 → ER 18:21
DX: F10.129 Alcohol abuse with intoxication, unspecified (principal); Z79.899 Other long term (current) drug therapy; Y90.9 Presence of alcohol in blood, level not specified
CPT/HCPCS: 36415; 80053; 80320; 85025

== ENCOUNTER 2024-09-19 17:44 | Emergency (ER) | payer MEDICAID ==
[~2024-09-19] VITALS: Ht 162.6 cm; Wt 68.2 kg
--- NOTE | 2024-09-19 18:28 | ED.PDOC ---
History of Present Illness HPI Comments 38-year-old male with PMHx Seizures brought in by EMS presents s/p seizure activity. Patient had a 1-2 minute seizure episode that was witnessed by bystanders whom called EMS. Patient is presenting intoxicated but is alert. Patient sustained a laceration to his right forehead. No other symptoms or modifying factors present at this time. Unable to obtain history from patient at this time. Chief Complaint: Seizure Time Seen by MD: 18:25 Primary Care Provider: unknown Reviewed Notes: Medications, Allergies Allergies: Coded Allergies: NO KNOWN ALLERGIES (Unverified , 03/22/22) Home Meds Active Scripts Levetiracetam (Keppra) 500 Mg Tab, 500 MG PO BID for 30 Days, #60 MG Prov:PATRICIO PHILLIPS MD 04/15/24 Thiamine HCl (Thiamine Hydrochloride) 100 Mg Tab, 100 MG PO DAILY for 5 Days, #5 TAB Prov:DAVID ORTIZ RESIDENT 03/01/24 Gabapentin (Gabapentin) 100 Mg Cap, 100 MG PO BID for 10 Days, #20 CAP Prov:DAVID ORTIZ RESIDENT 03/01/24 Levetiracetam (Keppra) 500 Mg Tab, 1 TAB PO BID, #180 TAB 3 Refills Prov:MARLYN BECERRA 12/16/22 Levetiracetam (KEPPRA TABLET) 500 Mg Tb, 500 MG PO BID for 30 Days, #60 TAB Prov:ANUSHA LARIOS MD 02/14/22 Reported Medications Levetiracetam (Keppra) 500 Mg Tab, 500 MG PO BID for 30 Days, MG 02/11/20 Information Source: Emergency Med Personnel Mode of Arrival: EMS Severity: Moderate Timing: Hours Duration: Since onset Prehospital treatment: Automobile Tester Vital Signs Vital Signs Date Time Temp Pulse Resp B/P (MAP) Pulse Ox O2 Delivery O2 Flow Rate FiO2 09/20/24 05:34 88 18 97 Room Air* 0 21 09/20/24 00:38 98.9 144/84 (104) 98.9 Physical Exam General: Awake, alert and oriented. No acute distress. Skin: Skin in warm, dry Appropriate color for ethnicity. HEENT: Laceration and hematoma to right forehead. Conjunctivae erythematous bilaterally. Sclera is non-icteric. EOM are intact. No signs of nystagmus. Eyelids are normal in appearance without swelling or lesions. Oral mucosa is pink and moist Neck: The neck is supple with normal range of motion. No JVD. Cardiac: Heart rate and rhythm are normal. No murmurs, gallops, or rubs are auscultated. Respiratory: No signs of respiratory distress. Lung sounds are clear in all lobes bilaterally without rales, rhonchi, or wheezes. Abdominal: Abdomen is soft, non-tender without distention. Bowel sounds are present and normoactive in all four quadrants. Extremities: Upper and lower extremities are atraumatic in appearance without deformity or edema. Neurological: The patient is awake, alert and oriented to person, place, and time with normal speech. Speech is clear. There is no facial asymmetry. Psychiatric: Elated mood. Review of Systems: REVIEW OF SYSTEMS: Unable to obtain due to substance intoxication Past Medical History PAST MEDICAL HISTORY: Seizures Surgical History: Denies all surgeries Family History Family History: Reviewed,noncontributory to illness, Unknown Social History Smoker: Unknown Alcohol: Heavy Drugs: Denies Drug Use Lives In: Home Was a procedure done? Was a procedure done?: Yes Sedation Sedation?: No Laceration Repair : Location RIGHT FOREHEAD Length 3 CM Anesthetic: Lidocaine, With epi Laceration Repair Prep: Saline, Betadine Laceration Repair Wound Comple: epidermis/dermis repair Laceration Repair: Number of sutures (1 RUNNING SUTURE), Size (4-0 Ethilon) Informed consent obtained: Yes Risks, benefits, and alternati: Yes Differential Dx Considerations may include: Alcohol intoxication X-Ray, Labs, Meds, VS Vital Signs Date Time Temp Pulse Resp B/P (MAP) Pulse Ox O2 Delivery O2 Flow Rate FiO2 09/20/24 05:34 88 18 97 Room Air* 0 21 09/20/24 00:38 98.9 109 22 144/84 (104) 96 98.9 09/19/24 17:48 98.0 72 24 157/77 (103) 95 98.0 Lab Test 09/19/24 18:43 Range/Units White Blood Count 5.5 4.4-10.8 10^3/uL Red Blood Count 4.72 4.5-5.90 10^6/uL Hemoglobin 15.1 13.5-17.5 g/dL Hematocrit 44.3 41.0-53.0 % Mean Corpuscular Volume 93.9 80.0-100.0 fL Mean Corpuscular Hemoglobin 32.0 28.0-32.0 pg Mean Corpuscular Hemoglobin Concent 34.0 32.0-36.0 g/dL Red Cell Distribution Width 15.2 H 11.8-14.3 % Platelet Count 213 140-450 10^3/uL Mean Platelet Volume 7.6 6.9-10.8 fL Neutrophils (%) (Auto) 46.1 37.0-80.0 % Lymphocytes (%) (Auto) 46.2 10.0-50.0 % Monocytes (%) (Auto) 6.2 0.0-12.0 % Eosinophils (%) (Auto) 0.5 0.0-7.0 % Basophils (%) (Auto) 1.0 0.0-2.0 % Neutrophils # (Auto) 2.5 1.6-8.6 10 ^3/uL Lymphocytes # (Auto) 2.5 0.4-5.4 10 ^3/uL Monocytes # (Auto) 0.3 0-1.3 10 ^3/uL Eosinophils # (Auto) 0 0-0.8 10 ^3/uL Basophils # (Auto) 0.1 0-0.2 10 ^3/uL Nucleated Red Blood Cells 0.1 % Sodium Level 142 136-145 mmol/L Potassium Level 3.9 3.5-5.1 mmol/L Chloride Level 107 98-107 mmol/L Carbon Dioxide Level 22 20-31 mmol/L Anion Gap 13 5-15 Blood Urea Nitrogen < 5 L 9-23 mg/dL Creatinine 0.75 0.700-1.30 mg/dL Glomerular Filtration Rate Calc 119 >90 mL/min BUN/Creatinine Ratio 6.7 L 10.0-20.0 Serum Glucose 86 74-106 mg/dL Calcium Level 9.4 8.7-10.4 mg/dL Total Bilirubin 0.4 0.2-1.0 mg/dL Aspartate Amino Transferase (AST) 24 13-40 U/L Alanine Aminotransferase (ALT) 14 7-40 U/L Alkaline Phosphatase 170 H 46-116 U/L Total Protein 8.1 5.7-8.2 g/dL Albumin 4.8 3.2-4.8 g/dL Levetiracetam Level Pending Plasma/Serum Blood Alcohol 483.5 *H <10 mg/dL Current Medications Medications (Trade) Dose Ordered Sig/Harlan Route Start Time Stop Time Status Last Admin Levetiracetam (Keppra Tablet) 1,000 mg ONCE ONCE PO 09/20/24 01:00 09/20/24 01:01 DC 09/20/24 00:54 Time of 1ST Reevaluation: 19:05 Reevaluation 1ST: Unchanged Patient Education/Counseling: Need For Follow Up Family Education/Counseling: No Family Present Departure 1 Departure Time of Disposition: 10:07 (Patient is now clinically sober tolerating p.o. ambulating without assistance and A&O x4. Patient would like to go home. We will discharge patient home with outpatient follow up) Impression: Primary Impression: Alcohol intoxication Qualified Codes: F10.920 - Alcohol use, unspecified with intoxication, uncomplicated Disposition: HOME / SELF CARE / HOMELESS Condition: Stable Additional Instructions: You were intoxicated. It is important to only drink in moderation. If you need help quitting you can call (HELP). If your symptoms worsen or you have any other concerns then please return to the ER. Critical Care Note Critical Care Time?: No Stability Stability form required: No Heart Score Heart Score: Heart Score Response (Comments) Value History N/A 0 EKG N/A 0 Age N/A 0 Risk Factors N/A 0 Troponin N/A 0 Total 0 I personally scribed for SAMANTHA ORDONEZ MD ([email or web address]) on 09/19/24 at 18:28. Electronically submitted by Sumeet Honeycutt ([email or web address]). I personally scribed for SAMANTHA ORDONEZ MD ([email or web address]) on 09/19/24 at 20:07. Electronically submitted by Sumeet Honeycutt ([email or web address]). SAMANTHA ORDONEZ MD September 19, 2024 18:28 ROD BAHENA MD September 20, 2024 10:08
[2024-09-19 18:52] LABS: Basophils # (auto) 0.1 10 ^3/uL (0-0.2); Eosinophils # (auto) 0 10 ^3/uL (0-0.8); Eosinophils % (auto) 0.5 % (0.0-7.0); Hematocrit 44.3 % (41.0-53.0); Hemoglobin 15.1 g/dL (13.5-17.5); Lymphocytes # (auto) 2.5 10 ^3/uL (0.4-5.4); Lymphocytes % (auto) 46.2 % (10.0-50.0); Mean Corpuscular Volume 93.9 fL (80.0-100.0); Monocytes # (auto) 0.3 10 ^3/uL (0-1.3); Monocytes % (auto) 6.2 % (0.0-12.0); Neutrophils # (auto) 2.5 10 ^3/uL (1.6-8.6); Neutrophils % (auto) 46.1 % (37.0-80.0); Nucleated Red Blood Cells % 0.1 %; Platelet Count (auto) 213 10^3/uL (140-450); Red Blood Cells 4.72 10^6/uL (4.5-5.90); Red Cell Distribution Width 15.2 % (11.8-14.3); White Blood Cell 5.5 10^3/uL (4.4-10.8)
[2024-09-19 19:12] LABS: Alanine Aminotransferase 14 U/L (7-40); Albumin 4.8 g/dL (3.2-4.8); Anion Gap 13 (5-15); Aspartate Aminotransferase 24 U/L (13-40); Bilirubin, Total 0.4 mg/dL (0.2-1.0); Calcium 9.4 mg/dL (8.7-10.4); Carbon Dioxide 22 mmol/L (20-31); Chloride 107 mmol/L (98-107); Glucose 86 mg/dL (74-106); Potassium 3.9 mmol/L (3.5-5.1); Sodium 142 mmol/L (136-145); Total Protein 8.1 g/dL (5.7-8.2)
[2024-09-19 19:27] LABS: Alkaline Phosphatase 170 U/L (46-116); BUN/Creatinine Ratio 6.7 (10.0-20.0); Blood Urea Nitrogen < 5 mg/dL (9-23)
[2024-09-19 19:30] LABS: Blood Alcohol 483.5 mg/dL (<10)
--- NOTE | 2024-09-19 19:36 | DVH ---
CT HEAD WITHOUT CONTRAST INDICATION: Head injury, seizure COMPARISON: CT HEAD WITHOUT CONTRAST on DOS: 07/10/24 TECHNIQUE: CT of the head without intravenous contrast. RADIATION DOSE: CTDIvol: 65.62 mGy, DLP: 1292.9 mGy*cm FINDINGS: There is no evidence of intracranial hemorrhage, infarct, extra-axial collection, mass effect, midli ne shift, herniation or hydrocephalus. Mild ventricular and sulcal enlargement related to cerebral vo lume loss for the patient's age. The oneal-white differentiation is normal. Paranasal sinuses, mastoid air cells, and middle ear cavities are clear. Evidence of scalp laceration and scalp hematoma in right forehead/supraorbital region. No calvarial abnormality/fracture. IMPRESSION: No hemorrhage or other acute intracranial abnormality. Scalp laceration and scalp hematoma in right forehead/supraorbital region.
[2024-09-20 00:38] VITALS: BP 144/84; TEMP 98.9
[2024-09-20] MEDS: BACITRACIN TOP OINT 1 UD PKG TOP ONE (00:38)
[2024-09-20] MEDS: LIDOCAINE W/ EPINEPHRINE 1% 20ML VIAL ID ONE (00:39)
[2024-09-20] MEDS: SODIUM CHLORIDE 0.9% 1,000 ML IV ONE (00:39)
[2024-09-20] MEDS: levETIRAcetam 1000 mg/100ml 100 ML IV ONE (00:39)
[2024-09-20] MEDS: levETIRAcetam 500 MG TAB PO ONE (00:54)
[2024-09-20 05:34] VITALS: PULSE 88; RESP 18; O2SAT 97
== END 2024-09-20 11:23 | disposition home or self-care (01) ==
LOC: EDBD 17:44 → ER 17:47
DX: S01.81XA Laceration without foreign body of other part of head, initial encounter (principal); F10.129 Alcohol abuse with intoxication, unspecified; R56.9 Unspecified convulsions; Z79.899 Other long term (current) drug therapy; Y90.9 Presence of alcohol in blood, level not specified; X58.XXXA Exposure to other specified factors, initial encounter; Y93.89 Activity, other specified; Y92.89 Other specified places as the place of occurrence of the external cause; Y99.8 Other external cause status
CPT/HCPCS: 12013; 36415; 70450; 80053; 80320; 82542; 85025

== ENCOUNTER 2024-12-23 15:42 | Emergency (ER) | payer MEDICAID ==
[~2024-12-23] VITALS: Ht 162.6 cm; Wt 73.0 kg
--- NOTE | 2024-12-23 15:50 | ED.PDOC ---
History of Present Illness HPI Comments 39 year old male presents to the ED via EMS with a chief complaint of ETOH intoxication onset today. Per EMS, patient was sitting outside a [employer] was intoxicated, 911 was called. Patient states he only had a few beers, has no complaints. PMHx seizures. Denies nausea, vomiting, diarrhea, headache, chest pain, shortness of breath. No other symptoms or modifying factors present at this time. Chief Complaint: ETOH Time Seen by MD: 15:45 Primary Care Provider: unknown Reviewed Notes: Medications, Allergies Allergies: Coded Allergies: NO KNOWN ALLERGIES (Unverified , 03/22/22) Home Meds Active Scripts Levetiracetam (Keppra) 500 Mg Tab, 500 MG PO BID for 30 Days, #60 MG Prov:PATRICIO PHILLIPS MD 04/15/24 Thiamine HCl (Thiamine Hydrochloride) 100 Mg Tab, 100 MG PO DAILY for 5 Days, #5 TAB Prov:DAVID ORTIZ RESIDENT 03/01/24 Gabapentin (Gabapentin) 100 Mg Cap, 100 MG PO BID for 10 Days, #20 CAP Prov:DAVID ORTIZ RESIDENT 03/01/24 Levetiracetam (Keppra) 500 Mg Tab, 1 TAB PO BID, #180 TAB 3 Refills Prov:MARLYN BECERRA 12/16/22 Levetiracetam (KEPPRA TABLET) 500 Mg Tb, 500 MG PO BID for 30 Days, #60 TAB Prov:ANUSHA LARIOS MD 02/14/22 Reported Medications Levetiracetam (Keppra) 500 Mg Tab, 500 MG PO BID for 30 Days, MG 02/11/20 Information Source: Patient, Emergency Med Personnel Mode of Arrival: EMS Severity: Moderate Timing: Hours Duration: Since onset Prehospital treatment: None Past Medical History PAST MEDICAL HISTORY: Seizures Surgical History: Denies all surgeries Family History Family History: Reviewed,noncontributory to illness, Unknown Social History Smoker: Unknown Alcohol: Heavy Drugs: Denies Drug Use Lives In: Home Constitutional: denies: chills, diaphoresis, fatigue, fever, malaise, sweats, weakness, others EENTM: denies: blurred vision, double vision, ear bleeding, ear discharge, ear drainage, ear pain, ear ringing, eye pain, eye redness, hearing loss, mouth pain, mouth swelling, nasal discharge, nose bleeding, nose congestion, nose pain, photophobia, tearing, throat pain, throat swelling, voice changes, others Respiratory: denies: cough, hemoptysis, orthopnea, SOB at rest, shortness of breath, SOB with excertion, stridor, wheezing, others Cardiovascular: denies: chest pain, dizzy spells, diaphoresis, Dyspnea on exertion, edema, irregular heart beat, left arm pain, lightheadedness, palpitations, PND, syncope, others Gastrointestinal: denies: abdomen distended, abdominal pain, blood streaked bowels, constipated, diarrhea, dysphagia, difficulty swallowing, hematemesis, melena, nausea, poor appetite, poor fluid intake, rectal bleeding, rectal pain, vomiting, others Genitourinary: denies: burning, dysuria, flank pain, frequency, hematuria, incontinence, penile discharge, penile sore, pain, testicle pain, testicle swelling, urgency, others Neurological: denies: dizziness, fainting, headache, left sided numbness, left sided weakness, numbness, paresthesia, pre-existing deficit, right sided numbness, right sided weakness, seizure, speech problems, tingling, tremors, we akness, others Musculoskeletal: denies: back pain, gout, joint pain, joint swelling, muscle pain, muscle stiffness, neck pain, others Integumetry: denies: bruises, change in color, change in hair/nails, dryness, laceration, lesions, lumps, rash, wounds, others Allergic/Immunocompromised: denies: Difficulty Healing, Frequent Infections, Hives, Itching, others Hematologic/Lymphatic: denies: anemia, blood clots, easy bleeding, easy bruising, swollen glands, others Endocrine: denies: excessive hunger, excessive sweating, excessive thirst, excessive urination, flushing, intolerance to cold, intolerance to heat, unexplained weight gain, unexplained weight loss, others Psychiatric: denies: anxiety, bipolar disorder, depression, hopeless, panic disorder, schizophrenia, sleepless, suicidal, others All Other Systems: Reviewed and Negative Physical Exam General Appearance: Moderate Distress, Normal HEENT: Normal ENT Inspection, Pharynx Normal, TMs Normal Neck: Full Range of Motion, Non-Tender, Normal, Normal Inspection Respiratory: Chest Non-Tender, Lungs Clear, No Accessory Muscle Use, No Respiratory Distress, Normal Breath Sounds Cardiovascular: No Edema, No JVD, No Murmur, No Gallop, Normal Peripheral Pulses, Regular Rate/Rhythm Breast Exam: Deferred Gastrointestinal: No Organomegaly, Non Tender, No Pulsatile Mass, Normal Bowel Sounds, Soft Genitalia: Deferred Pelvic: Deferred Rectal: Deferred Extremities: No calf tenderness, Normal capillary refill, Normal inspection, Normal range of motion, Non-tender, No pedal edema Musculoskeletal : Apperance: Normal Neurologic: Alert, manager information II-XII nml as Tested, No Motor Deficits, Normal Affect, Normal Mood, No Sensory Deficits Cerebellar Function: Normal Reflexes: Normal Skin: Dry, Normal Color, Warm Peripheral Pulses: 3+ Radial (R), 3+ Radial (L) Lymphatic: No Adenopathy Was a procedure done? Was a procedure done?: No Differential Dx Considerations may include: Alcohol abuse X-Ray, Labs, Meds, VS Vital Signs Date Time Temp Pulse Resp B/P (MAP) Pulse Ox O2 Delivery O2 Flow Rate FiO2 12/23/24 15:49 98.0 114 20 132/93 97 98.0 Lab Test 12/23/24 16:16 Range/Units Plasma/Serum Blood Alcohol Pending Patient alert. Alcohol abuse. Moving all extremities. Vitals stable. No sign of distress. Reviewed his previous visit. Establish intravenous access. Was given fluids. Was given thiamine. No sign of any injuries. Physical examination pristine. He is mentating well. Explained to the patient. Was told to follow up with his primary care physician. Was told to come back if there is any problem. Time of 1ST Reevaluation: 16:15 Reevaluation 1ST: Improved Patient Education/Counseling: Diagnosis, Treatment, Prognosis Family Education/Counseling: No Family Present SEPSIS Sepsis Screen Physician Orders Blood Alcohol (12/23/24 15:47) Sodium Chloride 0.9% (12/23/24 16:00) Vital Signs Date Time Temp Pulse Resp B/P (MAP) Pulse Ox O2 Delivery O2 Flow Rate FiO2 12/23/24 15:49 98.0 114 20 132/93 97 98.0 Departure 1 Departure Time of Disposition: 16:47 Impression: Primary Impression: Alcohol intoxication Qualified Codes: F10.920 - Alcohol use, unspecified with intoxication, uncomplicated Disposition: 01 HOME / SELF CARE / HOMELESS Condition: Good Discharged With: Self Critical Care Note Critical Care Time?: No Stability Stability form required: No I personally scribed for ADAM JUDGE MD ([email or web address]) on 12/23/24 at 15:50. Electronically submitted by Galilea Knight ([email or web address]). I personally scribed for ADAM JUDGE MD ([email or web address]) on 12/23/24 at 16:05. Electronically submitted by Galilea Knight ([email or web address]). ADAM JUDGE MD Dec 23, 2024 15:50
[2024-12-23] MEDS: SODIUM CHLORIDE 0.9% 1,000 ML IV ONE (16:00)
[2024-12-23 18:04] VITALS: BP 119/86; PULSE 95; RESP 16; TEMP 98.3; O2SAT 97
[2024-12-23] MEDS: THIAMINE 100mg/ml INJ (200mg/2ml VIAL) IV ONE (18:10)
== END 2024-12-23 22:23 | disposition home or self-care (01) ==
LOC: EDBD 15:42 → ER 15:42
DX: F10.129 Alcohol abuse with intoxication, unspecified (principal); F17.200 Nicotine dependence, unspecified, uncomplicated; Z79.899 Other long term (current) drug therapy; Y90.9 Presence of alcohol in blood, level not specified
CPT/HCPCS: 36415; 80320; 96361; 96374; 99283; J3411; J7030

== ENCOUNTER 2025-01-28 18:05 | Emergency (ER) | payer MEDICAID ==
[~2025-01-28] VITALS: Ht 152.4 cm; Wt 68.2 kg
[2025-01-28 18:09] VITALS: BP 120/92; PULSE 95; RESP 18; TEMP 98.7; O2SAT 96
--- NOTE | 2025-01-28 19:21 | ED.PDOC ---
History of Present Illness HPI Comments 39-year-old male, with a history of alcohol abuse and alcohol-induced seizures, is brought in by ambulance for chief complaint of altered mental status secondary to alcohol intoxication. REVIEW OF SYSTEMS: General: No fever, no chills, or fatigue HEENT: No sore throat, no earache, no congestion, no neck pain. Cardiac: No chest pain. No palpitations. Lungs: No shortness of breath, no cough. GI: No nausea, no vomiting, no diarrhea, no constipation, no abdominal pain : No dysuria, frequency, or urgency. No hematuria. Musculoskeletal: No joint pain , no joint swelling, no extremity edema. Skin: No rash, no itching. Neuro: Altered mental status, no headache, no dizziness, no weakness PHYSICAL EXAM: General: Awake, alert and oriented. No acute distress. Patient appears to be intoxicated. Skin: Skin in warm, dry and intact without rashes or lesions. HEENT: The head is normocephalic and atraumatic. Bilateral conjunctival injection. Neck: Normal range of motion. No JVD. Cardiac: Regular rate Respiratory: No signs of respiratory distress. No Stridor. Extremities: Upper and lower extremities are atraumatic in appearance without deformity. Neurological: Speech is slow. The patient is awake, alert and oriented to person, place, There is no facial asymmetry. Patient is able to go from sitting to standing and ambulate on his own. Psychiatric: Poor judgement and insight. Chief Complaint: ETOH Time Seen by MD: 19:15 Primary Care Provider: unknown Reviewed Notes: Nurses Notes, Jackscrew Man Notes, Medications, Allergies Allergies: Coded Allergies: NO KNOWN ALLERGIES (Unverified , 03/22/22) Home Meds Active Scripts Levetiracetam (Keppra) 500 Mg Tab, 500 MG PO BID for 30 Days, #60 MG Prov:PATRICIO PHILLIPS MD 04/15/24 Thiamine HCl (Thiamine Hydrochloride) 100 Mg Tab, 100 MG PO DAILY for 5 Days, #5 TAB Prov:DAVID ORTIZ RESIDENT 03/01/24 Gabapentin (Gabapentin) 100 Mg Cap, 100 MG PO BID for 10 Days, #20 CAP Prov:DAVID ORTIZ RESIDENT 03/01/24 Levetiracetam (Keppra) 500 Mg Tab, 1 TAB PO BID, #180 TAB 3 Refills Prov:MARLYN BECERRA 12/16/22 Levetiracetam (KEPPRA TABLET) 500 Mg Tb, 500 MG PO BID for 30 Days, #60 TAB Prov:ANUSHA LARIOS MD 02/14/22 Reported Medications Levetiracetam (Keppra) 500 Mg Tab, 500 MG PO BID for 30 Days, MG 02/11/20 Information Source: Patient, Emergency Med Personnel Mode of Arrival: EMS Past Medical History PAST MEDICAL HISTORY: Seizures Surgical History: Denies all surgeries Family History Family History: Reviewed,noncontributory to illness, Unknown Social History Smoker: Unknown Alcohol: Heavy Drugs: Denies Drug Use Lives In: Home Was a procedure done? Was a procedure done?: No Differential Dx Considerations may include: Differential diagnosis considered includes but not limited to intracranial hemorrhage, stroke, head injury, seizure, metabolic disturbance, electrolyte imbalance, infection, substance intoxication, psychiatric cause, other systemic illness, other X-Ray, Labs, Meds, VS Vital Signs Date Time Temp Pulse Resp B/P (MAP) Pulse Ox O2 Delivery O2 Flow Rate FiO2 01/28/25 18:09 98.7 95 18 120/92 96 98.7 Lab Test 01/28/25 18:23 Range/Units Urine Color Colorless Yellow Urine Clarity Clear Clear Urine pH 5.0 5.0-9.0 Urine Specific Faber 1.005 1.001-1.035 Urine Protein Negative Negative Urine Ketones Negative Negative Urine Blood Negative Negative /uL Urine Nitrite Negative Negative Urine Bilirubin Negative Negative Urine Urobilinogen Normal Negative mg/dL Urine Leukocyte Esterase Negative Negative /uL Urine RBC <1 0 - 3 /hpf Urine Microscopic WBC 0-3 /HPF Urine Squamous Epithelial Cells None seen <5 /hpf Urine Bacteria None seen None Seen /hpf Urine Glucose Normal Normal mg/dL Time of 1ST Reevaluation: 19:45 Reevaluation 1ST: Unchanged Patient Education/Counseling: Other (ED observation) Family Education/Counseling: No Family Present SEPSIS Sepsis Screen Date sepsis recognized/suspect: Jan 28, 2025 Time Sepsis recognized/suspect: 1808 Recent Procedure: No On Antibiotic Therapy: No Respiratory Rate >20: No Heart Rate >90: No Temp<36 C (96.8 F) or >38.3 C: No SBP <90 or MAP <65 mmHG: No New Acute Mental Status Change: No Is the patient on CPAP, BIPAP,: No Physician Orders Regular Diet (01/29/25 Breakfast) Vital Signs Date Time Temp Pulse Resp B/P (MAP) Pulse Ox O2 Delivery O2 Flow Rate FiO2 01/28/25 18:09 98.7 95 18 120/92 96 98.7 Departure 1 Departure Time of Disposition: 01:49 Impression: Primary Impression: Alcohol intoxication Disposition: 07 LEFT AWOL/ELOPED Condition: Stable Additional Instructions: ED DISCHARGE INSTRUCTIONS Instructions: Please read all instructions provided in this packet carefully. Although you have been discharged from the Emergency Department, this does not mean that you have a "clean bill of health". []No definitive diagnosis for your symptoms has been made today. It is possible that you are in the process of developing a serious illness. This is why you must return to the ED without fail if any new or worsening symptoms (especially if your symptoms include chest pain, trouble breathing, abdominal pain, fever, headache, confusion, trouble s eeing, or trouble walking) It is also very important that you see a primary care provider (PCP) within the next 3-5 days to follow up. If you are unable to get an appointment, return to the ED for re-evaluation. Drinking and Your Health Drinking too much alcohol on a regular basis harms your liver, nervous system, heart, and brain. It can cause health problems or make them worse. These problems include: Cirrhosis or pancreatitis. High blood pressure. Osteoporosis. Certain types of cancer, including breast cancer. Stroke. A brain disorder called Wernicke-Korsakoff syndrome. Heavy alcohol use also can cause stomach problems, interactions between medicines and alcohol, and sexual problems. It can lead to violence, accidents, social isolation, and problems at work, school, or home. You also may have legal problems, such as traffic tickets or car crashes, as a result of drinking. Drinking alcohol can cause unique problems for older adults and people who are or who have other health conditions. Drinking also makes symptoms of mental health conditions worse. When you have a drinking problem and a mental health condition, it's called a dual diagnosis. It's very important to treat all mental health conditions, such as depression. You may drink less when mental health conditions are treated. How much alcohol is safe to drink? Experts don't know if alcohol is safe in any amount. If you choose to drink alcohol, the acosta is to keep your drinking at low to moderate levels. People who drink too much are hurting their health. Heavy drinking can cause all kinds of problems, from stomach and sexual problems to stroke and liver disease. It can also lead to problems at work, school, or home and to drunk driving and violence. It may be hard to know if you are drinking too much. Because of things like age, sex, weight, and health history, alcohol affects people differently. But here's what experts say: If you don't drink, it's best not to start. If you do drink, limit how much you drink. A standard drink is 12 fl oz (355 mL) of beer, 5 fl oz (148 mL) of wine, or 1.5 fl oz (44 mL) of hard liquor. Experts recommend that: Women have no more than 1 drink a day or 7 drinks a week. Men have no more than 2 drinks a day or 14 drinks a week. If you are 65 years and older, you may want to be even more cautious about the amount of alcohol you drink. Or you may not want to drink at all. This is because alcohol affects older adults differently. Experts consider excessive alcohol use to be high-risk drinking. This includes: Having more than 4 drinks in a day or more than 8 drinks a week if you are a woman. Having more than 5 drinks in a day or more than 15 drinks a week if you are a man. Binge drinking. This means drinking more than 4 drinks within 2 hours if you are a woman or more than 5 drinks within 2 hours if you are a man. It's important to remember that the only way to guarantee that drinking alcohol will not harm you at all is to not drink at all. When is drinking alcohol unhealthy or unsafe? There are certain times when drinking any amount of alcohol is unhealthy. You shouldn't drink if: You need to drive a car or operate other machinery. You are . Drinking during makes a miscarriage or alcohol syndrome more likely. A child who was exposed to alcohol in the womb may have physical and emotional problems. These problems can range from mild difficulties to severe defects. You take certain medicines. Ask your doctor or pharmacist if you can safely drink alcohol with any of the medicines you take. Common medicines that interact with alcohol include: Acetaminophen (such as Tylenol). Antibiotics. Antihistamines. Aspirin and other medicines to prevent clotting of blood (anticoagulants). Tranquilizers. Some medicines to treat depression (antidepressants) or other mental disorders. Any medicine that can make you drowsy. (Check the label.) You have certain health problems. Ask your doctor if you can safely drink alcohol if you have any of the following problems: Liver, stomach, and intestine problems. Heart failure and high blood pressure. Certain blood disorders. Mental health problems. Comments MDM: 39-year-old male with a history of seizure disorder presented with alcohol intoxication. Dose of Keppra was administered in the ED. Patient eloped from the emergency department Extensive evaluation was performed in attempt to identify or rule out: (See differential diagnosis section) The following tests were ordered, and results were reviewed by me and discussed with patient: (See diagnostic results section) The following test were independently interpreted by me: N/A I reviewed and agreed with the following test results read by other providers: N/A I reviewed the following notes from the pt's past medical encounters: December 23, 2024 encounter for alcohol intoxication Additional information was gathered from interviewing the following independent historians: EMS personnel and nursing staff Discussion of management or test interpretation with external physician/other qualified health aged or disabled care worker: N/A Critical Care Note Critical Care Time?: No Stability Stability form required: No Heart Score Heart Score: Heart Score Response (Comments) Value History N/A 0 EKG N/A 0 Age N/A 0 Risk Factors N/A 0 Troponin N/A 0 Total 0 I personally scribed for SAMANTHA ORDONEZ MD ([email or web address]) on 01/28/25 at 19:21. Electronically submitted by Alan Mendoza ([email or web address]). SAMANTHA ORDONEZ MD Jan 28, 2025 19:21
[2025-01-28] MEDS ORDERED: levETIRAcetam 500 MG TAB PO ONE (19:30)
[2025-01-28 20:43] LABS: Urine Protein, UAD Negative (Negative)
== END 2025-01-29 01:51 | disposition left against medical advice (07) ==
LOC: EDBD 18:05 → ER 18:11
DX: F10.129 Alcohol abuse with intoxication, unspecified (principal); Z79.899 Other long term (current) drug therapy; Y90.9 Presence of alcohol in blood, level not specified
CPT/HCPCS: 81001

== ENCOUNTER 2025-02-07 23:56 | Emergency (ER) | payer MEDICAID ==
[~2025-02-07] VITALS: Ht 165.1 cm; Wt 68.0 kg
[2025-02-08] VITALS: PULSE 113; RESP 17; O2SAT 96
[2025-02-08 00:43] LABS: Hematocrit 42.8 % (41.0-53.0); Hemoglobin 14.2 g/dL (13.5-17.5); Mean Corpuscular Hemoglobin 29.8 pg (28.0-32.0); Mean Corpuscular Volume 89.7 fL (80.0-100.0); Nucleated Red Blood Cells % 0.0 %
--- NOTE | 2025-02-08 00:58 | ED.PDOC ---
HPI (NEURO) HPI Comments 39 y/o M, with a Hx of alcohol dependency, withdrawals, and induced seizures, is BIBA fro c/c of seizure. Per EMS report, patient had a seizure following most recent attempt at quitting his alcohol addiction. No reported signs of trauma or incontinence. No further acute symptoms reported at this time. Chief Complaint: Seizure Time Seen by MD: 00:00 Primary Care Provider: unknown Reviewed Notes: Nurses Notes, Solar Sales Estimator Notes, Medications, Allergies Information Source: Emergency Med Personnel Mode of Arrival: EMS Past Medical History PAST MEDICAL HISTORY: Seizures Surgical History: Denies all surgeries Family History Family History: Reviewed,noncontributory to illness, Unknown Social History Smoker: Unknown Alcohol: Heavy Drugs: Denies Drug Use Lives In: Home All Other Systems: Reviewed and Negative (As per HPI) Physical Exam General Appearance: Mild Distress, Normal HEENT: Normal ENT Inspection, Pharynx Normal, TMs Normal Neck: Full Range of Motion, Non-Tender, Normal, Normal Inspection Respiratory: Chest Non-Tender, Lungs Clear, No Accessory Muscle Use, No Respiratory Distress, Normal Breath Sounds Cardiovascular: No Edema, No JVD, No Murmur, No Gallop, Normal Peripheral Pulses, Regular Rate/Rhythm Breast Exam: Deferred Gastrointestinal: No Organomegaly, Non Tender, No Pulsatile Mass, Normal Bowel Sounds, Soft Genitalia: Deferred Pelvic: Deferred Rectal: Deferred Extremities: No calf tenderness, Normal capillary refill, Normal inspection, Normal range of motion, Non-tender, No pedal edema Musculoskeletal : Apperance: Normal Neurologic: Alert, convict guard II-XII nml as Tested, No Motor Deficits, Normal Affect, Normal Mood, No Sensory Deficits Cerebellar Function: Normal Reflexes: Normal Skin: Dry, Normal Color, Warm Lymphatic: No Adenopathy Was a procedure done? Was a procedure done?: No Differential Diagnosis (SZ) Seizure: Psychogenic Seizure, Alcohol Withdrawl, Hypocalcemia, Hypoglycemia, Hyponatremia, Hypoxemia, Syncope, Encephalopathy X-Ray, Labs, Meds, VS Vital Signs Date Time Temp Pulse Resp B/P (MAP) Pulse Ox O2 Delivery O2 Flow Rate FiO2 02/08/25 03:15 99.8 101 14 137/94 (108) 98 99.8 02/08/25 00:10 107 02/08/25 00:00 100.9 113 17 144/92 (109) 96 100.9 02/08/25 00:00 113 17 96 Room Air* 0 21 02/07/25 23:56 100.9 113 17 144/92 96 100.9 Lab Test 02/08/25 00:35 Range/Units White Blood Count 14.3 H 4.4-10.8 10^3/uL Red Blood Count 4.77 4.5-5.90 10^6/uL Hemoglobin 14.2 13.5-17.5 g/dL Hematocrit 42.8 41.0-53.0 % Mean Corpuscular Volume 89.7 80.0-100.0 fL Mean Corpuscular Hemoglobin 29.8 28.0-32.0 pg Mean Corpuscular Hemoglobin Concent 33.2 32.0-36.0 g/dL Red Cell Distribution Width 17.4 H 11.8-14.3 % Platelet Count 75 L 140-450 10^3/uL Mean Platelet Volume 8.4 6.9-10.8 fL Neutrophils (%) (Auto) 91.1 H 37.0-80.0 % Lymphocytes (%) (Auto) 2.7 L 10.0-50.0 % Monocytes (%) (Auto) 6.0 0.0-12.0 % Eosinophils (%) (Auto) 0.0 0.0-7.0 % Basophils (%) (Auto) 0.2 0.0-2.0 % Neutrophils # (Auto) 13.0 H 1.6-8.6 10 ^3/uL Lymphocytes # (Auto) 0.4 0.4-5.4 10 ^3/uL Monocytes # (Auto) 0.9 0-1.3 10 ^3/uL Eosinophils # (Auto) 0 0-0.8 10 ^3/uL Basophils # (Auto) 0 0-0.2 10 ^3/uL Nucleated Red Blood Cells 0.0 % Sodium Level 138 136-145 mmol/L Potassium Level 3.8 3.5-5.1 mmol/L Chloride Level 102 98-107 mmol/L Carbon Dioxide Level 19 L 20-31 mmol/L Anion Gap 17 H 5-15 Blood Urea Nitrogen < 5 L 9-23 mg/dL Creatinine 0.82 0.700-1.30 mg/dL Glomerular Filtration Rate Calc 115 >90 mL/min BUN/Creatinine Ratio 6.1 L 10.0-20.0 Serum Glucose 102 74-106 mg/dL Calcium Level 9.1 8.7-10.4 mg/dL Magnesium Level 1.9 1.6-2.6 mg/dL Total Bilirubin 0.7 0.2-1.0 mg/dL Aspartate Amino Transferase (AST) 37 13-40 U/L Alanine Aminotransferase (ALT) 27 7-40 U/L Alkaline Phosphatase 221 H 46-116 U/L Total Protein 7.7 5.7-8.2 g/dL Albumin 4.4 3.2-4.8 g/dL Salicylates Level < 3.0 -30 mg/dL Acetaminophen Level < 2.0 L 10.0-20.0 UG/ML Plasma/Serum Blood Alcohol 45.1 H <10 mg/dL Current Medications Medications (Trade) Dose Ordered Sig/Harl[place] Route Start Time Stop Time Status Last Admin Lorazepam (Ativan Inj) 2 mg ONCE ONCE IV 02/08/25 00:30 02/08/25 00:31 DC 02/08/25 01:11 Time of 1ST Reevaluation: 00:30 Reevaluation 1ST: Unchanged Patient Education/Counseling: Treatment, Other (ED observation ) Family Education/Counseling: No Family Present Departure 1 Departure Time of Disposition: 02:30 Impression: Primary Impression: Alcohol withdrawal seizure Disposition: 01 HOME / SELF CARE / HOMELESS Condition: Stable e-Prescriptions Multiple Vitamins W/ Minerals (Multivitamin & Multiminer) 1 Liq Liq 1 LIQ PO DAILY for 90 Days, #120 LIQ 3 Refills Prov: RACHEAL WINTERS MD 02/08/25 Chlordiazepoxide Hcl (Librium) 25 Mg Cp 25 MG GT Q6HP PRN, #30 CAP Prov: RACHEAL WINTERS MD 02/08/25 Discharged With: Self Critical Care Note Critical Care Time?: No Stability Stability form required: No Heart Score Heart Score: Heart Score Response (Comments) Value History N/A 0 EKG N/A 0 Age N/A 0 Risk Factors N/A 0 Troponin N/A 0 Total 0 I personally scribed for RACHEAL WINTERS MD ([email or web address]) on 02/08/25 at 00:58. Electronically submitted by Alan Mendoza [email or web address]). RACHEAL WINTERS MD Feb 08, 2025 00:58
[2025-02-08 01:00] LABS: Alanine Aminotransferase 27 U/L (7-40); Albumin 4.4 g/dL (3.2-4.8); Anion Gap 17 (5-15); Bilirubin, Total 0.7 mg/dL (0.2-1.0); Calcium 9.1 mg/dL (8.7-10.4); Chloride 102 mmol/L (98-107); Glucose 102 mg/dL (74-106); Magnesium 1.9 mg/dL (1.6-2.6); Potassium 3.8 mmol/L (3.5-5.1); Sodium 138 mmol/L (136-145); Total Protein 7.7 g/dL (5.7-8.2)
[2025-02-08 01:06] LABS: Acetaminophen < 2.0 UG/ML (10.0-20.0); Alkaline Phosphatase 221 U/L (46-116); BUN/Creatinine Ratio 6.1 (10.0-20.0); Blood Urea Nitrogen < 5 mg/dL (9-23); Carbon Dioxide 19 mmol/L (20-31); Salicylate < 3.0 mg/dL (-30)
[2025-02-08] MEDS: LORazepam 2MG/ML-1ML VIAL IV ONE (01:11)
[2025-02-08] MEDS ORDERED: MULT1LIQ PO (03:04)
[2025-02-08] MEDS ORDERED: CHL25C GT (03:04)
[2025-02-08 03:15] VITALS: BP 137/94; PULSE 101; RESP 14; TEMP 99.8; O2SAT 98
--- NOTE | 2025-02-08 06:19 | ECG ---
[facility] Test Date: 2025-02-08 Test Time: 00:10:29 Pat Name: RUBIO ALLEN Department: [facility] ED Patient ID: [facility]-[id number] Room: Gender: M Orthodontic Band Maker: chely : 1985 Requested By: RACHEAL WINTERS Order Number: [id number] Reading MD: Measurements Intervals [place] Rate: 107 P: 30 FL: 215 QRS: 49 QRSD: 91 T: 21 QT: 326 QTc: 435 Interpretive Statements Sinus tachycardia Prolonged FL interval Abnormal R-wave progression, early transition Please click the below link to view image of tracing.
== END 2025-02-08 03:36 | disposition home or self-care (01) ==
LOC: ER 23:56 → EDBD 23:56 → ER 02-08 03:36
DX: F10.239 Alcohol dependence with withdrawal, unspecified (principal); R56.9 Unspecified convulsions; F17.200 Nicotine dependence, unspecified, uncomplicated; Y90.9 Presence of alcohol in blood, level not specified; Z79.899 Other long term (current) drug therapy
CPT/HCPCS: 36415; 80053; 80320; 80329; 83735; 85025; 93005; 96374; 99284; J2060

== ENCOUNTER 2025-02-17 21:07 | Emergency (ER) | payer MEDICAID ==
[~2025-02-17] VITALS: Ht 167.6 cm; Wt 70.0 kg
[~2025-02-17 21:07] MED LIST changes: +CHL25C GT; +MULT1LIQ PO
--- NOTE | 2025-02-17 22:15 | ED.PDOC ---
History of Present Illness HPI Comments This patient is a 39-year-old male who was brought in by EMS due to alcohol intoxication. Patient was at home passed out when his family found him. Patient was brought to ED for evaluation. Patient has a long history of alcohol abuse. Patient was intoxicated at time of evaluation. Chief Complaint: ETOH Time Seen by MD: 21:15 Primary Care Provider: unknown Reviewed Notes: Nurses Notes, Consulting Sales Manager Notes Allergies: Coded Allergies: NO KNOWN ALLERGIES (Unverified , 03/22/22) Home Meds Active Scripts Multiple Vitamins W/ Minerals (Multivitamin & Multiminer) 1 Liq Liq, 1 LIQ PO DAILY for 90 Days, #120 LIQ 3 Refills Prov:RACHEAL WINTERS MD 02/08/25 Chlordiazepoxide Hcl (Librium) 25 Mg Cp, 25 MG GT Q6HP PRN, #30 CAP Prov:RACHEAL WINTERS MD 02/08/25 Levetiracetam (Keppra) 500 Mg Tab, 500 MG PO BID for 30 Days, #60 MG Prov:PATRICIO PHILLIPS MD 04/15/24 Thiamine HCl (Thiamine Hydrochloride) 100 Mg Tab, 100 MG PO DAILY for 5 Days, #5 TAB Prov:DAVID ORTIZ RESIDENT 03/01/24 Gabapentin (Gabapentin) 100 Mg Cap, 100 MG PO BID for 10 Days, #20 CAP Prov:DAVID ORTIZ RESIDENT 03/01/24 Levetiracetam (Keppra) 500 Mg Tab, 1 TAB PO BID, #180 TAB 3 Refills Prov:MARLYN BECERRA 12/16/22 Levetiracetam (KEPPRA TABLET) 500 Mg Tb, 500 MG PO BID for 30 Days, #60 TAB Prov:ANUSHA LARIOS MD 02/14/22 Reported Medications Levetiracetam (Keppra) 500 Mg Tab, 500 MG PO BID for 30 Days, MG 02/11/20 Information Source: Patient, Emergency Med Personnel Mode of Arrival: EMS Severity: Moderate Timing: Hours Duration: Since onset Prehospital treatment: Head Usher Past Medical History PAST MEDICAL HISTORY: Seizures Surgical History: Denies all surgeries Family History Family History: Reviewed,noncontributory to illness, Unknown Social History Smoker: Unknown Alcohol: Heavy Drugs: Denies Drug Use Lives In: Home Constitutional: denies: chills, diaphoresis, fatigue, fever, malaise, sweats, weakness, others EENTM: denies: blurred vision, double vision, ear bleeding, ear discharge, ear drainage, ear pain, ear ringing, eye pain, eye redness, hearing loss, mouth pain, mouth swelling, nasal discharge, nose bleeding, nose congestion, nose pain, photophobia, tearing, throat pain, throat swelling, voice changes, others Respiratory: denies: cough, hemoptysis, orthopnea, SOB at rest, shortness of breath, SOB with excertion, stridor, wheezing, others Cardiovascular: denies: chest pain, dizzy spells, diaphoresis, Dyspnea on exertion, edema, irregular heart beat, left arm pain, lightheadedness, palpitations, PND, syncope, others Gastrointestinal: denies: abdomen distended, abdominal pain, blood streaked bowels, constipated, diarrhea, dysphagia, difficulty swallowing, hematemesis, melena, nausea, poor appetite, poor fluid intake, rectal bleeding, rectal pain, vomiting, others Genitourinary: denies: burning, dysuria, flank pain, frequency, hematuria, incontinence, penile discharge, penile sore, pain, testicle pain, testicle swelling, urgency, others Neurological: denies: dizziness, fainting, headache, left sided numbness, left sided weakness, numbness, paresthesia, pre-existing deficit, right sided numbnes s, right sided weakness, seizure, speech problems, tingling, tremors, weakness, others Musculoskeletal: denies: back pain, gout, joint pain, joint swelling, muscle pain, muscle stiffness, neck pain, others Integumetry: denies: bruises, change in color, change in hair/nails, dryness, laceration, lesions, lumps, rash, wounds, others Allergic/Immunocompromised: denies: Difficulty Healing, Frequent Infections, Hives, Itching, others Hematologic/Lymphatic: denies: anemia, blood clots, easy bleeding, easy bruising, swollen glands, others Endocrine: denies: excessive hunger, excessive sweating, excessive thirst, excessive urination, flushing, intolerance to cold, intolerance to heat, unexplained weight gain, unexplained weight loss, others Psychiatric: denies: anxiety, bipolar disorder, depression, hopeless, panic disorder, schizophrenia, sleepless, suicidal, others Unable to Obtain due to: Other (Alcohol intoxication) Physical Exam General Appearance: No Apparent Distress (Patient was in no distress at time of evaluation but rather, patient was highly intoxicated. Patient was laughing and engaging.), Normal HEENT: Normal ENT Inspection, Pharynx Normal, TMs Normal Neck: Full Range of Motion, Non-Tender, Normal, Normal Inspection Respiratory: Chest Non-Tender, Lungs Clear, No Accessory Muscle Use, No Respiratory Distress, Normal Breath Sounds Cardiovascular: No Edema, No JVD, No Murmur, No Gallop, Normal Peripheral Pulses, Regular Rate/Rhythm Breast Exam: Deferred Gastrointestinal: No Organomegaly, Non Tender, No Pulsatile Mass, Normal Bowel Sounds, Soft Genitalia: Deferred Pelvic: Deferred Rectal: Deferred Extremities: Normal inspection Neurologic: Alert Cerebellar Function: NOT DONE Reflexes: NOT DONE Skin: Dry, Normal Color, Warm Lymphatic: No Adenopathy Was a procedure done? Was a procedure done?: No Differential Dx Considerations may include: Alcohol intoxication, alcohol abuse X-Ray, Labs, Meds, VS Vital Signs Date Time Temp Pulse Resp B/P (MAP) Pulse Ox O2 Delivery O2 Flow Rate FiO2 02/17/25 21: 98.2 86 17 124/89 96 98.2 Lab Test 02/17/25 21:31 Range/Units POC Glucose 66 L 70-106 mg/dl Current Medications Medications (Trade) Dose Ordered Sig/Harlan Route Start Time Stop Time Status Last Admin Sodium Chloride 1,000 ml @ 1,000 mls/hr Q1H ONCE IV 02/17/25 21:30 02/17/25 22:29 DC 02/17/25 22:22 Ondansetron HCl (Zofran) 4 mg ONCE ONCE IV 02/17/25 21:30 02/17/25 21:31 DC 02/17/25 22:22 Thiamine HCl 100 mg ONCE ONCE IV 02/17/25 21:30 02/17/25 21:31 DC 02/17/25 22:22 X-Ray, Labs, Meds, VS Comment Patient will be provided with fluid, thiamine and Zofran as well as food and liquids to help sober him up. Patient will be held an ED until he is safe for discharge. Advised patient to cease alcohol use immediately and follow up with a an alcohol cessation groups such as alcoholics anonymous. Time of 1ST Reevaluation: 22:14 Reevaluation 1ST: Improved Consultation: PCP Patient Education/Counseling: Diagnosis, Treatment Family Education/Counseling: Diagnosis, Treatment SEPSIS Sepsis Screen Date sepsis recognized/suspect: Feb 17, 2025 Time Sepsis recognized/suspect: 2124 Recent Procedure: No On Antibiotic Therapy: No Respiratory Rate >20: No Heart Rate >90: No Temp<36 C (96.8 F) or >38.3 C: No SBP <90 or MAP <65 mmHG: No New Acute Mental Status Change: No Is the patient on CPAP, BIPAP,: No Physician Orders Heplock Iv (02/17/25 ) Vital Signs Date Time Temp Pulse Resp B/P (MAP) Pulse Ox O2 Delivery O2 Flow Rate FiO2 02/17/25 21:25 98.2 86 17 124/89 96 98.2 Medications Medications Dose Ordered Sig/Harlan Route Start Time Stop Time Status Last Admin Dose Admin Ondansetron HCl 4 mg ONCE ONCE IV 02/17/25 21:30 02/17/25 21:31 DC 02/17/25 22:22 Sodium Chloride 1,000 ml @ 1,000 mls/hr Q1H ONCE IV 02/17/25 21:30 02/17/25 22:29 DC 02/17/25 22:22 Thiamine HCl 100 mg ONCE ONCE IV 02/17/25 21:30 02/17/25 21:31 DC 02/17/25 22:22 Departure 1 Departure Time of Disposition: 22:14 Impression: Primary Impression: Alcohol intoxication Additional Impression: Alcohol abuse Disposition: HOME / SELF CARE / HOMELESS Condition: Stable Additional Instructions: Advised patient cease alcohol use immediately and follow up with a support groups such as alcoholics anonymous. Good hydration and healthy nutrition moving forward. Discharged With: Self, Friend Critical Care Note Critical Care Time?: No Stability Stability form required: No Heart Score Heart Score: Heart Score Response (Comments) Value History N/A 0 EKG N/A 0 Age N/A 0 Risk Factors N/A 0 Troponin N/A 0 Total 0 LATRICIA FERREIRA PAC Feb 17, 2025 22:15
--- NOTE | 2025-02-17 22:17 | ED.PDOC ---
History of Present Illness HPI Comments 39 y/o M is BIBA for AMS s/p alcohol intoxication. Chief Complaint: ETOH Time Seen by MD: 22:10 Primary Care Provider: unknown Reviewed Notes: Nurses Notes, Medications, Allergies Allergies: Coded Allergies: NO KNOWN ALLERGIES (Unverified , 03/22/22) Home Meds Active Scripts Multiple Vitamins W/ Minerals (Multivitamin & Multiminer) 1 Liq Liq, 1 LIQ PO DAILY for 90 Days, #120 LIQ 3 Refills Prov:RACHEAL WINTERS MD 02/08/25 Chlordiazepoxide Hcl (Librium) 25 Mg Cp, 25 MG GT Q6HP PRN, #30 CAP Prov:RACHEAL WINTERS MD 02/08/25 Levetiracetam (Keppra) 500 Mg Tab, 500 MG PO BID for 30 Days, #60 MG Prov:PATRICIO PHILLIPS MD 04/15/24 Thiamine HCl (Thiamine Hydrochloride) 100 Mg Tab, 100 MG PO DAILY for 5 Days, #5 TAB Prov:DAVID ORTIZ RESIDENT 03/01/24 Gabapentin (Gabapentin) 100 Mg Cap, 100 MG PO BID for 10 Days, #20 CAP Prov:DAVID ORTIZ RESIDENT 03/01/24 Levetiracetam (Keppra) 500 Mg Tab, 1 TAB PO BID, #180 TAB 3 Refills Prov:MARLYN BECERRA 12/16/22 Levetiracetam (KEPPRA TABLET) 500 Mg Tb, 500 MG PO BID for 30 Days, #60 TAB Prov:ANUSHA LARIOS MD 02/14/22 Reported Medications Levetiracetam (Keppra) 500 Mg Tab, 500 MG PO BID for 30 Days, MG 02/11/20 Information Source: Patient Mode of Arrival: EMS Severity: Moderate Timing: Hours Duration: Since onset Prehospital treatment: None Past Medical History PAST MEDICAL HISTORY: Seizures Surgical History: Denies all surgeries Family History Family History: Reviewed,noncontributory to illness, Unknown Social History Smoker: Unknown Alcohol: Heavy Drugs: Denies Drug Use Lives In: Home All Other Systems: Reviewed and Negative (Comprehensive review of systems are negative unless stated in HPI) Was a procedure done? Was a procedure done?: No Differential Dx Considerations may include: alcohol intoxication, substance abuse and dependency, toxic metabolic encephalopathy, among others X-Ray, Labs, Meds, VS Vital Signs Date Time Temp Pulse Resp B/P (MAP) Pulse Ox O2 Delivery O2 Flow Rate FiO2 02/17/25 21: 98.2 86 17 124/89 96 98.2 Lab Test 02/17/25 21:31 Range/Units POC Glucose 66 L 70-106 mg/dl Current Medications Medications (Trade) Dose Ordered Sig/Harlan Route Start Time Stop Time Status Last Admin Sodium Chloride 1,000 ml @ 1,000 mls/hr Q1H ONCE IV 02/17/25 21:30 02/17/25 22:29 DC 02/17/25 22:22 Ondansetron HCl (Zofran) 4 mg ONCE ONCE IV 02/17/25 21:30 02/17/25 21:31 DC 02/17/25 22:22 Thiamine HCl 100 mg ONCE ONCE IV 02/17/25 21:30 02/17/25 21:31 DC 02/17/25 22:22 Time of 1ST Reevaluation: 22:30 Reevaluation 1ST: Unchanged Patient Education/Counseling: Other (patient is intoxicated ) Family Education/Counseling: No Family Present SEPSIS Sepsis Screen Date sepsis recognized/suspect: Feb 17, 2025 Time Sepsis recognized/suspect: 2124 Recent Procedure: No On Antibiotic Therapy: No Respiratory Rate >20: No Heart Rate >90: No Temp<36 C (96.8 F) or >38.3 C: No SBP <90 or MAP <65 mmHG: No New Acute Mental Status Change: No Is the patient on CPAP, BIPAP,: No Physician Orders Heplock Iv (02/17/25 ) Vital Signs Date Time Temp Pulse Resp B/P (MAP) Pulse Ox O2 Delivery O2 Flow Rate FiO2 02/17/25 21:25 98.2 86 17 124/89 96 98.2 Medications Medications Dose Ordered Sig/Harlan Route Start Time Stop Time Status Last Admin Dose Admin Ondansetron HCl 4 mg ONCE ONCE IV 02/17/25 21:30 02/17/25 21:31 DC 02/17/25 22:22 Sodium Chloride 1,000 ml @ 1,000 mls/hr Q1H ONCE IV 02/17/25 21:30 02/17/25 22:29 DC 02/17/25 22:22 Thiamine HCl 100 mg ONCE ONCE IV 02/17/25 21:30 02/17/25 21:31 DC 02/17/25 22:22 Critical Care Note Critical Care Time?: No Stability Stability form required: No Heart Score Heart Score: Heart Score Response (Comments) Value History N/A 0 EKG N/A 0 Age N/A 0 Risk Factors N/A 0 Troponin N/A 0 Total 0 I personally scribed for LATRICIA FERREIRA PAC ([email or web address]) on 02/17/25 at 22:17. Electronically submitted by Alan Mendoza ([email or web address]). I personally scribed for LATRICIA FERREIRA PAC ([email or web address]) on 02/18/25 at 04:23. Electronically submitted by Alan Mendoza ([email or web address]). LATRICIA FERREIRA PAC Feb 17, 2025 22:17
[2025-02-17] MEDS: THIAMINE 100mg/ml INJ (200mg/2ml VIAL) IV ONE (22:22)
[2025-02-17] MEDS: SODIUM CHLORIDE 0.9% 1,000 ML IV ONE (22:22)
[2025-02-17] MEDS: ONDANSETRON HCL 4 MG/2 ML VIAL IV ONE (22:22)
[2025-02-18 09:50] VITALS: BP 122/82; PULSE 61; TEMP 98
[2025-02-18 09:51] VITALS: RESP 17; O2SAT 98
== END 2025-02-18 10:00 | disposition home or self-care (01) ==
LOC: EDBD 21:07 → ER 21:10
DX: F10.129 Alcohol abuse with intoxication, unspecified (principal); F17.200 Nicotine dependence, unspecified, uncomplicated; Z79.899 Other long term (current) drug therapy; Y90.9 Presence of alcohol in blood, level not specified
CPT/HCPCS: 82947; 96361; 96374; 96375; 99284; J2405; J3411; J7030; 82962

== ENCOUNTER 2025-03-12 17:54 | Emergency (ER) | payer MEDICAID ==
[~2025-03-12] VITALS: Ht 165.1 cm; Wt 70.0 kg
[2025-03-12 18:15] VITALS: PULSE 90; RESP 15; O2SAT 91
--- NOTE | 2025-03-12 18:23 | ED.PDOC ---
History of Present Illness HPI Comments 39M presents to the ER w/ prior MHx of SZ and the c/c of ABD Pain. Pt reports on having a SZ 2 days ago and hitting his left hand for which is swollen currently. Pt started to have a burning sensation to the throat associated w/ epigastric pain which is tender. Pt is currently intoxicated. Denies any other symptoms at this time. Denies chills, fever, N/V/D, SOB, CP. Denies any other associated symptom's, modifiers, or recent injuries or sick contact at this time. Chief Complaint: Abdominal Pain Time Seen by MD: 18:20 Primary Care Provider: unknown Reviewed Notes: Nurses Notes, Medications, Allergies Allergies: Coded Allergies: NO KNOWN ALLERGIES (Unverified , 03/22/22) Home Meds Active Scripts Multiple Vitamins W/ Minerals (Multivitamin & Multiminer) 1 Liq Liq, 1 LIQ PO DAILY for 90 Days, #120 LIQ 3 Refills Prov:RACHEAL WINTERS MD 02/08/25 Chlordiazepoxide Hcl (Librium) 25 Mg Cp, 25 MG GT Q6HP PRN, #30 CAP Prov:RACHEAL WINTERS MD 02/08/25 Levetiracetam (Keppra) 500 Mg Tab, 500 MG PO BID for 30 Days, #60 MG Prov:PATRICIO PHILLIPS MD 04/15/24 Thiamine HCl (Thiamine Hydrochloride) 100 Mg Tab, 100 MG PO DAILY for 5 Days, #5 TAB Prov:DAVID ORTIZ RESIDENT 03/01/24 Gabapentin (Gabapentin) 100 Mg Cap, 100 MG PO BID for 10 Days, #20 CAP Prov:DAVID ORTIZ RESIDENT 03/01/24 Levetiracetam (Keppra) 500 Mg Tab, 1 TAB PO BID, #180 TAB 3 Refills Prov:MARLYN BECERRA 12/16/22 Levetiracetam (KEPPRA TABLET) 500 Mg Tb, 500 MG PO BID for 30 Days, #60 TAB Prov:ANUSHA LARIOS MD 02/14/22 Reported Medications Levetiracetam (Keppra) 500 Mg Tab, 500 MG PO BID for 30 Days, MG 02/11/20 Information Source: Patient Mode of Arrival: Ambulatory Severity: Moderate Timing: Hours Duration: Since onset, Hours Prehospital treatment: None Past Medical History PAST MEDICAL HISTORY: Seizures Surgical History: Denies all surgeries Family History Family History: Reviewed,noncontributory to illness, Unknown Social History Smoker: Unknown Alcohol: Unknown Drugs: Unknown Lives In: Home Constitutional: denies: chills, diaphoresis, fatigue, fever, malaise, sweats, weakness, others EENTM: reports: others (throat has a burning sensation); denies: blurred vision, double vision, ear bleeding, ear discharge, ear drainage, ear pain, ear ringing, eye pain, eye redness, hearing loss, mouth pain, mouth swelling, nasal discharge, nose bleeding, nose congestion, nose pain, photophobia, tearing, throat pain, throat swelling, voice changes Respiratory: denies: cough, hemoptysis, orthopnea, SOB at rest, shortness of breath, SOB with excertion, stridor, wheezing, others Cardiovascular: denies: chest pain, dizzy spells, diaphoresis, Dyspnea on exertion, edema, irregular heart beat, left arm pain, lightheadedness, palpitations, PND, syncope, others Gastrointestinal: reports: abdominal pain; denies: abdomen distended, blood streaked bowels, constipated, diarrhea, dysphagia, difficulty swallowing, hematemesis, melena, nausea, poor appetite, poor fluid intake, rectal bleeding, rectal pain, vomiting, others Genitourinary: denies: burning, dysuria, flank pain, frequency, hematuria, incontinence, penile discharge, penile sore, pain, testicle pain, testicle swelling, urgency, others Neurological: denies: dizziness, fainting, headache, left sided numbness, left sided weakness, numbness, paresthesia, pre-existing deficit, right sided numbness, right sided weakness, seizure, speech problems, tingling, tremors, weakness, others Musculoskeletal: reports: others (swelling to the left hand); denies: back pain, gout, joint pain, joint swelling, muscle pain, muscle stiffness, neck pain Integumetry: denies: bruises, change in color, change in hair/nails, dryness, laceration, lesions, lumps, rash, wounds, others Allergic/Immunocompromised: denies: Difficulty Healing, Frequent Infections, Hives, Itching, others Hematologic/Lymphatic: denies: anemia, blood clots, easy bleeding, easy bruising, swollen glands, others Endocrine: denies: excessive hunger, excessive sweating, excessive thirst, excessive urination, flushing, intolerance to cold, intolerance to heat, unexplained weight gain, unexplained weight loss, others Psychiatric: denies: anxiety, bipolar disorder, depression, hopeless, panic disorder, schizophrenia, sleepless, suicidal, others All Other Systems: Reviewed and Negative Physical Exam Exam Comments swelling to the left hand, epigastric pain which is tender, burning sensation to the throat General Appearance: No Apparent Distress, Normal HEENT: Normal ENT Inspection, Pharynx Normal, TMs Normal Neck: Full Range of Motion, Non-Tender, Normal, Normal Inspection Respiratory: Chest Non-Tender, Lungs Clear, No Accessory Muscle Use, No Respiratory Distress, Normal Breath Sounds Cardiovascular: No Edema, No JVD, No Murmur, No Gallop, Normal Peripheral Pulses, Regular Rate/Rhythm Breast Exam: Deferred Gastrointestinal: No Organomegaly, Non Tender, No Pulsatile Mass, Normal Bowel Sounds, Soft Genitalia: Deferred Pelvic: Deferred Rectal: Deferred Extremities: No calf tenderness, Normal capillary refill, Normal inspection, Normal range of motion, Non-tender, No pedal edema Musculoskeletal : Apperance: Normal Neurologic: Alert, loan servicing representative II-XII nml as Tested, No Motor Deficits, Normal Affect, Normal Mood, No Sensory Deficits Cerebellar Function: Normal Reflexes: Normal Skin: Dry, Normal Color, Warm Lymphatic: No Adenopathy Was a procedure done? Was a procedure done?: No Differential Dx Considerations may include: Hand contusion, hand fracture, alcohol withdrawal, delirium tremors, ETOH intoxication. X-Ray, Labs, Meds, VS Vital Signs Date Time Temp Pulse Resp B/P (MAP) Pulse Ox O2 Delivery O2 Flow Rate FiO2 03/12/25 19:54 78 11 91 Room Air* 0 21 03/12/25 19:20 98.0 78 11 104/59 (74) 97 98.0 03/12/25 18:44 88 03/12/25 18:15 90 15 91 Room Air* 0 21 03/12/25 18:15 98.0 90 15 97/60 (72) 91 98.0 03/12/25 17:56 98.2 98 16 150/87 96 98.2 Lab Test 03/12/25 19:06 03/12/25 19:00 Range/Units White Blood Count 6.2 4.4-10.8 10^3/uL Red Blood Count 4.29 L 4.5-5.90 10^6/uL Hemoglobin 12.8 L 13.5-17.5 g/dL Hematocrit 39.4 L 41.0-53.0 % Mean Corpuscular Volume 91.7 80.0-100.0 fL Mean Corpuscular Hemoglobin 29.9 28.0-32.0 pg Mean Corpuscular Hemoglobin Concent 32.6 32.0-36.0 g/dL Red Cell Distribution Width 18.7 H 11.8-14.3 % Platelet Count 169 140-450 10^3/uL Mean Platelet Volume 8.5 6.9-10.8 fL Neutrophils (%) (Auto) 67.8 37.0-80.0 % Lymphocytes (%) (Auto) 26.5 10.0-50.0 % Monocytes (%) (Auto) 4.7 0.0-12.0 % Eosinophils (%) (Auto) 0.5 0.0-7.0 % Basophils (%) (Auto) 0.5 0.0-2.0 % Neutrophils # (Auto) 4.2 1.6-8.6 10 ^3/uL Lymphocytes # (Auto) 1.6 0.4-5.4 10 ^3/uL Monocytes # (Auto) 0.3 0-1.3 10 ^3/uL Eosinophils # (Auto) 0 0-0.8 10 ^3/uL Basophils # (Auto) 0 0-0.2 10 ^3/uL Nucleated Red Blood Cells 0.1 % Sodium Level 143 136-145 mmol/L Potassium Level 4.0 3.5-5.1 mmol/L Chloride Level 109 H 98-107 mmol/L Carbon Dioxide Level 22 20-31 mmol/L Anion Gap 12 5-15 Blood Urea Nitrogen < 5 L 9-23 mg/dL Creatinine 0.76 0.700-1.30 mg/dL Glomerular Filtration Rate Calc 118 >90 mL/min BUN/Creatinine Ratio 6.6 L 10.0-20.0 Serum Glucose 91 74-106 mg/dL Calcium Level 8.7 8.7-10.4 mg/dL Lipase 34 12-53 U/L Plasma/Serum Blood Alcohol 286.4 H <10 mg/dL Urine Color Colorless Yellow Urine Clarity Clear Clear Urine pH 5.5 5.0-9.0 Urine Specific [place] 1.003 1.001-1.035 Urine Protein Negative Negative Urine Ketones Negative Negative Urine Blood Negative Negative /uL Urine Nitrite Negative Negative Urine Bilirubin Negative Negative Urine Urobilinogen Normal Negative mg/dL Urine Leukocyte Esterase Negative Negative /uL Urine RBC None seen 0 - 3 /hpf Urine Microscopic WBC 0-3 /HPF Urine Squamous Epithelial Cells None seen <5 /hpf Urine Bacteria None seen None Seen /hpf Urine Glucose Normal Normal mg/dL Current Medications Medications (Trade) Dose Ordered Sig/Harlan Route Start Time Stop Time Status Last Admin Lidocaine HCl (Xylocaine 2% Viscous) 5 ml ONCE ONCE MT 03/12/25 20:00 03/12/25 20:01 DC 03/12/25 20:16 Al Hydrox/Mg Hydrox/Simethicone (Maalox Plus) 30 ml ONCE ONCE PO 03/12/25 20:00 03/12/25 20:01 DC 03/12/25 20:15 Sodium Chloride 1,000 ml @ 1,000 mls/hr Q1H ONCE IV 03/12/25 21:15 03/12/25 22:14 03/12/25 21:38 X-Ray, Labs, Meds, VS Comment Imaging was reviewed by this provider, there is fracture of the 5th meta carpal. Pending radiology review Labs were reviewed by this provider, no abnormalities Vital signs reviewed by this provider, clinically stable Patient was placed in a boxer splint. Patient had good circulation pre and post splint application. Time of 1ST Reevaluation: 18:50 Reevaluation 1ST: Unchanged Patient Education/Counseling: Diagnosis, Treatment, Prognosis, Need For Follow Up (Follow up with the orthopedic specialist3-5 days. Return to the emergency department if symptoms worsen.) Family Education/Counseling: No Family Present SEPSIS Sepsis Screen Date sepsis recognized/suspect: Mar 12, 2025 Time Sepsis recognized/suspect: 1800 Recent Procedure: No On Antibiotic Therapy: No Respiratory Rate >20: No Heart Rate >90: No Temp<36 C (96.8 F) or >38.3 C: No SBP <90 or MAP <65 mmHG: No New Acute Mental Status Change: No Is the patient on CPAP, BIPAP,: No Physician Orders Ct Ab Pel Wo Con-No Oral Or Iv (03/12/25 18:35) L Hand 3v Xray (03/12/25 18:35) Sodium Chloride 0.9% (03/12/25 21:15) Vital Signs Date Time Temp Pulse Resp B/P (MAP) Pulse Ox O2 Delivery O2 Flow Rate FiO2 03/12/25 19:54 78 11 91 Room Air* 0 21 03/12/25 19:20 98.0 78 11 104/59 (74) 97 98.0 03/12/25 18:44 88 03/12/25 18:15 90 15 91 Room Air* 0 21 03/12/25 18:15 98.0 90 15 97/60 (72) 91 98.0 03/12/25 17:56 98.2 98 16 150/87 96 98.2 Laboratory Tests Test 03/12/25 19:06 White Blood Count 6.2 10^3/uL (4.4-10.8) Medications Medications Dose Ordered Sig/Harlan Route Start Time Stop Time Status Last Admin Dose Admin Al Hydrox/Mg Hydrox/Simethicone 30 ml ONCE ONCE PO 03/12/25 20:00 03/12/25 20:01 DC 03/12/25 20:15 Lidocaine HCl 5 ml ONCE ONCE MT 03/12/25 20:00 03/12/25 20:01 DC 03/12/25 20:16 Sodium Chloride 1,000 ml @ 1,000 mls/hr Q1H ONCE IV 03/12/25 21:15 03/12/25 22:14 03/12/25 21:38 Departure 1 Departure Time of Disposition: 21:51 Impression: Primary Impression: Hand fracture, left Qualified Codes: S62.92XA - Unspecified fracture of left hand, initial encounter for closed fracture Additional Impressions: ETOH abuse Alcohol intoxication Qualified Codes: F10.920 - Alcohol use, unspecified with intoxication, uncomplicated Gastritis Qualified Codes: K29.20 - Alcoholic gastritis without bleeding Disposition: 01 HOME / SELF CARE / HOMELESS Condition: Fair Discharged With: Self Critical Care Note Critical Care Time?: No Stability Stability form required: No Heart Score Heart Score: Heart Score Response (Comments) Value History N/A 0 EKG N/A 0 Age N/A 0 Risk Factors N/A 0 Troponin N/A 0 Total 0 I personally scribed for MARLYN BECERRA ([email or web address]) on 03/12/25 at 18:23. Electronically submitted by Fazal Nuñez ([email or web address]). MARLYN BECERRA Mar 12, 2025 18:23
--- NOTE | 2025-03-12 19:15 | DVH ---
EXAM: XY L HAND 3V XRAY REASON FOR EXAM: swelling TECHNIQUE: PA, lateral, and oblique views of the left hand are submitted for review. COMPARISON: XY R HAND 3 VIEW XRAY on DOS: 10/15/24 FINDINGS: The bones demonstrate grossly normal mineralization. There is nondisplaced, acute fracture through the 5th metatarsal head without definite involvement of the articular surface. There is sever e diffuse soft tissue swelling. IMPRESSION: Nondisplaced acute fracture through the 5th metatarsal head without definite involvement of the artic ular surface.
--- NOTE | 2025-03-12 19:19 | DVH ---
CLINICAL HISTORY: abd pain TECHNIQUE: CT of the abdomen and pelvis was performed without IV contrast. This exam was performed ac cording to our departmental dose optimization program. Up-to-date CT equipment and radiation dose red uction techniques are utilized as appropriate. CTDI 14 DLP 772 COMPARISON: US ABDOMEN LIMITED on DOS: 02/28/24, CT CT CHEST/AB/PL W CON- IV ONLY on DOS: 01/23/23, CT CHEST WITHOUT CONTRAST on DOS: 01/23/23 FINDINGS: Evaluation is limited due to image degradation secondary to patient motion. Abdomen/Pelvis: The spleen, pancreas, adrenal glands, kidneys, liver, gallbladder, bladder, and prostate gland are gr ossly unremarkable. The abdominal aorta is normal in course and caliber. There are no significant atherosclerotic calcifi cations. There is no free intraperitoneal air or fluid. There is no enlarged abdominal pelvic lymph node. There is no bowel wall thickening or dilatation. The appendix is normal. Other: The imaged lower thorax demonstrates right coronary artery calcification. There are patchy right basi lar opacities No acute osseous abnormality is evident. There are cbby-ku-wzahflcy L1 and mild L2 chronic vertebral body compression fractures. Impression: Limited exam with no acute noncontrast CT abnormality in the abdomen or pelvis . Right coronary artery calcifications. Patchy bibasilar opacities, favor combination breathing artifact and atelectasis.
[2025-03-12 19:20] VITALS: BP 104/59; TEMP 98
[2025-03-12 19:22] LABS: Hematocrit 39.4 % (41.0-53.0); Hemoglobin 12.8 g/dL (13.5-17.5); Mean Corpuscular Hemoglobin 29.9 pg (28.0-32.0); Mean Corpuscular Volume 91.7 fL (80.0-100.0); Nucleated Red Blood Cells % 0.1 %
[2025-03-12 19:24] LABS: Anion Gap 12 (5-15); Carbon Dioxide 22 mmol/L (20-31); Potassium 4.0 mmol/L (3.5-5.1); Sodium 143 mmol/L (136-145)
[2025-03-12 19:30] LABS: Glucose 91 mg/dL (74-106)
[2025-03-12 19:34] LABS: BUN/Creatinine Ratio 6.6 (10.0-20.0); Blood Urea Nitrogen < 5 mg/dL (9-23); Calcium 8.7 mg/dL (8.7-10.4); Chloride 109 mmol/L (98-107)
[2025-03-12 19:38] LABS: Urine Protein, UAD Negative (Negative)
[2025-03-12 19:54] VITALS: PULSE 78; RESP 11; O2SAT 91
[2025-03-12 19:55] LABS: Lipase 34 U/L (12-53)
[2025-03-12] MEDS: MAALOX PLUS or MAALOX 30 ML PO ONE (20:15)
[2025-03-12] MEDS: LIDOCAINE VISCOUS 2% 15ML UD MT ONE (20:16)
[2025-03-12] MEDS: SODIUM CHLORIDE 0.9% 1,000 ML IV ONE (21:38)
== END 2025-03-12 22:55 | disposition home or self-care (01) ==
LOC: ER 17:54
DX: S92.356A Nondisplaced fracture of fifth metatarsal bone, unspecified foot, initial encounter for closed fracture (principal); R10.30 Lower abdominal pain, unspecified; F10.120 Alcohol abuse with intoxication, uncomplicated; K29.70 Gastritis, unspecified, without bleeding; X58.XXXA Exposure to other specified factors, initial encounter; Y93.89 Activity, other specified; Y92.89 Other specified places as the place of occurrence of the external cause; Y99.8 Other external cause status; Y90.9 Presence of alcohol in blood, level not specified
CPT/HCPCS: 29125; 36415; 73130; 74176; 80048; 80320; 81001; 83690; 85025; 96360; 99285; J7030

== ENCOUNTER 2025-03-15 18:38 | Emergency (ER) | payer MEDICAID ==
[~2025-03-15] VITALS: Ht 165.1 cm; Wt 77.2 kg
[2025-03-16 06:47] VITALS: BP 120/85; TEMP 97.9
[2025-03-16 06:50] VITALS: PULSE 80; RESP 20; O2SAT 99
--- NOTE | 2025-03-16 11:38 | ED.PDOC ---
History of Present Illness HPI Comments PT WAS FOUND AT A PARK WITH TWO BOTTLES OF BACARDI NEXT TO HIM AND THERE WERE KIDS PLAYING AND SOMEONE CALLED 911. 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 DENIES ANY CONCERNS DENIES CHEST PAIN, DIFFICULTY BREATHING, SHORTNESS OF BREATH, SLURRED SPEECH, CHEST PAIN, ABDOMINAL PAIN DENIES ANY DRUG USE. Chief Complaint: ETOH Time Seen by MD: 19:02 Primary Care Provider: unknown Reviewed Notes: Nurses Notes, Medications, Allergies Allergies: Coded Allergies: NO KNOWN ALLERGIES (Unverified , 03/22/22) Home Meds Active Scripts Multiple Vitamins W/ Minerals (Multivitamin & Multiminer) 1 Liq Liq, 1 LIQ PO DAILY for 90 Days, #120 LIQ 3 Refills Prov:RACHEAL WINTERS MD 02/08/25 Chlordiazepoxide Hcl (Librium) 25 Mg Cp, 25 MG GT Q6HP PRN, #30 CAP Prov:RACHEAL WINTERS MD 02/08/25 Levetiracetam (Keppra) 500 Mg Tab, 500 MG PO BID for 30 Days, #60 MG Prov:PATRICIO PHILLIPS MD 04/15/24 Thiamine HCl (Thiamine Hydrochloride) 100 Mg Tab, 100 MG PO DAILY for 5 Days, #5 TAB Prov:DAVID ORTIZ RESIDENT 03/01/24 Gabapentin (Gabapentin) 100 Mg Cap, 100 MG PO BID for 10 Days, #20 CAP Prov:DAVID ORTIZ RESIDENT 03/01/24 Levetiracetam (Keppra) 500 Mg Tab, 1 TAB PO BID, #180 TAB 3 Refills Prov:MARLYN BECERRA 12/16/22 Levetiracetam (KEPPRA TABLET) 500 Mg Tb, 500 MG PO BID for 30 Days, #60 TAB Prov:ANUSHA LARIOS MD 02/14/22 Reported Medications Levetiracetam (Keppra) 500 Mg Tab, 500 MG PO BID for 30 Days, MG 02/11/20 Information Source: Patient Mode of Arrival: EMS Past Medical History PAST MEDICAL HISTORY: Seizures Surgical History: Denies all surgeries Family History Family History: Reviewed,noncontributory to illness, Unknown Social History Smoker: Non-Smoker, Unknown Alcohol: Heavy, Unknown Drugs: Unknown Lives In: Home All Other Systems: Reviewed and Negative (SEE HPI) Physical Exam General Appearance: No Apparent Distress, Normal HEENT: Pharynx Normal Neck: Full Range of Motion, Non-Tender Respiratory: Lungs Clear, No Respiratory Distress, Normal Breath Sounds Cardiovascular: No Edema, No JVD, No Murmur, No Gallop, Normal Peripheral Pulses, Regular Rate/Rhythm Breast Exam: Deferred Gastrointestinal: No Organomegaly, Non Tender, No Pulsatile Mass, Normal Bowel Sounds, Soft Genitalia: Deferred Pelvic: Deferred Rectal: Deferred Extremities: Normal range of motion, Non-tender, No pedal edema Musculoskeletal : Apperance: Normal Neurologic: Alert, No Motor Deficits, Normal Affect, Normal Mood, No Sensory Deficits Cerebellar Function: Normal Reflexes: NOT DONE Skin: Dry, Normal Color, Warm Lymphatic: No Adenopathy Was a procedure done? Was a procedure done?: No Differential Dx Considerations may include: STROKE, ALOC, HEAD TRAUMA X-Ray, Labs, Meds, VS Vital Signs Date Time Temp Pulse Resp B/P (MAP) Pulse Ox O2 Delivery O2 Flow Rate FiO2 03/15/25 18:40 98.3 67 18 126/78 (94) 96 98.3 03/15/25 18:40 98.3 67 18 126/78 96 98.3 Lab Test 03/15/25 21:23 Range/Units Plasma/Serum Blood Alcohol 352.0 H <10 mg/dL X-Ray, Labs, Meds, VS Comment Advised to rest increase p.o. fluids with electrolytes. INFORMATION PROVIDED FOR [facility] ADVISED TO REFRAIN FROM ALCOHOL USE AND ABUSE. Light diet. Monitor for the next 24-48 hours. Return to the ER for nonstop vomiting, numbness, weakness, slurred speech, lethargy, or any concerning symptoms. Pt indicates understanding and agrees with discharge plan of care. PATIENT AWAKE ALERT AMBULATING WITH STEADY GAIT ANSWERING QUESTIONS APPROPRIATELY Time of 1ST Reevaluation: 19:45 Reevaluation 1ST: Unchanged Time of 2ND Reevaluation: 03:41 Reevaluation 2ND: Improved Patient Education/Counseling: Diagnosis, Treatment, Need For Follow Up Family Education/Counseling: Diagnosis, Treatment, Need For Follow Up SEPSIS Sepsis Screen Date sepsis recognized/suspect: Mar 15, 2025 Time Sepsis recognized/suspect: 1843 Recent Procedure: No On Antibiotic Therapy: No Respiratory Rate >20: No Heart Rate >90: No Temp<36 C (96.8 F) or >38.3 C: No SBP <90 or MAP <65 mmHG: No New Acute Mental Status Change: No Is the patient on CPAP, BIPAP,: No Vital Signs Date Time Temp Pulse Resp B/P (MAP) Pulse Ox O2 Delivery O2 Flow Rate FiO2 03/15/25 18:40 98.3 67 18 126/78 (94) 96 98.3 03/15/25 18:40 98.3 67 18 126/78 96 98.3 Departure 1 Departure Time of Disposition: 03:41 Impression: Primary Impression: Alcohol intoxication Qualified Codes: F10.920 - Alcohol use, unspecified with intoxication, uncomplicated Disposition: 01 HOME / SELF CARE / HOMELESS Condition: Stable Discharged With: Relative (Sibling) Critical Care Note Critical Care Time?: No Stability Stability form required: JENNIFER Burroughs Mar 16, 2025 03:42
== END 2025-03-16 06:58 | disposition home or self-care (01) ==
LOC: EDBD 18:38 → ER 18:42
DX: F10.129 Alcohol abuse with intoxication, unspecified (principal); Z79.899 Other long term (current) drug therapy; Y90.8 Blood alcohol level of 240 mg/100 ml or more
CPT/HCPCS: 36415; 80320

== ENCOUNTER 2025-03-24 16:09 | Emergency (ER) | payer MEDICAID ==
[~2025-03-24] VITALS: Ht 167.6 cm; Wt 77.5 kg
--- NOTE | 2025-03-24 17:12 | DVH ---
EXAM: CT HEAD WITHOUT CONTRAST INDICATION: fall, headstrike TECHNIQUE: CT images of the head were obtained without administration of IV contrast. CT scans at this facility use dose modulation, iterative reconstruction, and/or weight based dosing when appropriate to reduce radiation dose to as low as reasonably achievable. COMPARISON: CT HEAD WITHOUT CONTRAST on DOS: 09/19/24 FINDINGS: PARENCHYMA: No acute hemorrhage. There is no mass effect, midline shift, or herniation. There is preservation of the oneal white differentiation. Mild scattered hypoattenuation along the periventricular, centrum semiovale, and deep white matter tracts, which are nonspecific however statistically most likely represent chronic microvascular ischemic change. VENTRICLES: No hydrocephalus. EXTRA-AXIAL SPACES: Subarachnoid hemorrhage over the left anterior frontal convexity OTHER: The bony structures are intact. Left forehead soft tissue swelling. IMPRESSION: 1. Subarachnoid hemorrhage over the left anterior frontal convexity. 2. No visualized intra-axial hemorrhage
[2025-03-24 17:23] VITALS: PULSE 70; RESP 15; O2SAT 95
--- NOTE | 2025-03-24 18:13 | ED.PDOC ---
History of Present Illness HPI Comments 39-year-old male is brought in by ambulance for chief complaint of fall with head injury, while intoxicated on alcohol. Initial bleeding to posterior side of head. Bleeding is controlled, now. No further complaints reported. Chief Complaint: Fall Injury Time Seen by MD: 17:20 Primary Care Provider: unknown Reviewed Notes: Nurses Notes, Medications, Allergies Allergies: Coded Allergies: NO KNOWN ALLERGIES (Unverified , 03/22/22) Home Meds Active Scripts Multiple Vitamins W/ Minerals (Multivitamin & Multiminer) 1 Liq Liq, 1 LIQ PO DAILY for 90 Days, #120 LIQ 3 Refills Prov:RACHEAL WINTERS MD 02/08/25 Chlordiazepoxide Hcl (Librium) 25 Mg Cp, 25 MG GT Q6HP PRN, #30 CAP Prov:RACHEAL WINTERS MD 02/08/25 Levetiracetam (Keppra) 500 Mg Tab, 500 MG PO BID for 30 Days, #60 MG Prov:PATRICIO PHILLIPS MD 04/15/24 Thiamine HCl (Thiamine Hydrochloride) 100 Mg Tab, 100 MG PO DAILY for 5 Days, #5 TAB Prov:DAVID ORTIZ RESIDENT 03/01/24 Gabapentin (Gabapentin) 100 Mg Cap, 100 MG PO BID for 10 Days, #20 CAP Prov:DAVID ORTIZ RESIDENT 03/01/24 Levetiracetam (Keppra) 500 Mg Tab, 1 TAB PO BID, #180 TAB 3 Refills Prov:MARLYN LUQUE 12/16/22 Levetiracetam (KEPPRA TABLET) 500 Mg Tb, 500 MG PO BID for 30 Days, #60 TAB Prov:ANUSHA LARIOS MD 02/14/22 Reported Medications Levetiracetam (Keppra) 500 Mg Tab, 500 MG PO BID for 30 Days, MG 02/11/20 Information Source: Patient Mode of Arrival: EMS Severity: Moderate Timing: Hours Duration: Since onset Prehospital treatment: 12 Lead EKG, 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[employer], Treatment (Trauma wrap) Past Medical History PAST MEDICAL HISTORY: Seizures Surgical History: Denies all surgeries Family History Family History: Reviewed,noncontributory to illness, Unknown Social History Smoker: Non-Smoker, Unknown Alcohol: Heavy, Unknown Drugs: Unknown Lives In: Home All Other Systems: Reviewed and Negative (Comprehensive review of systems are negative unless otherwise stated in HPI) Physical Exam General Appearance: No Apparent Distress, Normal HEENT: Normal ENT Inspection, Pharynx Normal, TMs Normal Neck: Full Range of Motion, Non-Tender, Normal, Normal Inspection Respiratory: Chest Non-Tender, Lungs Clear, No Accessory Muscle Use, No Respiratory Distress, Normal Breath Sounds Cardiovascular: No Edema, No JVD, No Murmur, No Gallop, Normal Peripheral Pulses, Regular Rate/Rhythm Breast Exam: Deferred Gastrointestinal: No Organomegaly, Non Tender, No Pulsatile Mass, Normal Bowel Sounds, Soft Genitalia: Deferred Pelvic: Deferred Rectal: Deferred Extremities: No calf tenderness, Normal capillary refill, Normal inspection, Normal range of motion, Non-tender, No pedal edema Musculoskeletal : Apperance: Normal Neurologic: Alert, rn endocrinology II-XII nml as Tested, No Motor Deficits, Normal Affect, Normal Mood, No Sensory Deficits Cerebellar Function: Normal Reflexes: Normal Skin: Dry, Normal Color, Warm Lymphatic: No Adenopathy Was a procedure done? Was a procedure done?: No Differential Dx Considerations may include: Alcohol intoxication, substance abuse, open head injury, closed head injury, intracranial hemorrhage hearing, fractures, contusions, among others X-Ray, Labs, Meds, VS Vital Signs Date Time Temp Pulse Resp B/P (MAP) Pulse Ox O2 Delivery O2 Flow Rate FiO2 03/24/25 18:15 97.9 75 20 109/69 (82) 97 97.9 03/24/25 17:23 98.4 70 15 110/77 (88) 95 98.4 03/24/25 17:23 70 15 95 Room Air* 0 21 03/24/25 16:49 98.1 89 18 126/[address] [address] Ph: [phone] DIAGNOSTIC IMAGING Diagnostic Imaging Report : [id number] Signed PATIENT: RUBIO HERNANDEZ ACCT: [id number] UNIT: [id number] : 1985 LOC: ER ROOM / BED: / AGE / SEX: 39 / M ADM STATUS: REG ER SERVICE 7523 ORDERING PHYSICIAN: ROD BAHENA MD PROCEDURE(s): HWOCT - HEAD WITHOUT CONTRAST REASON: fall, headstrike ORDER NUMBER(s): [id number], ACCESSION NUMBER(s): [id number] EXAM: CT HEAD WITHOUT CONTRAST INDICATION: fall, headstrike TECHNIQUE: CT images of the head were obtained without administration of IV contrast. CT scans at this facility use dose modulation, iterative r econstruction, and/or weight based dosing when appropriate to reduce radiation dose to as low as reasonably achievable. COMPARISON: CT HEAD WITHOUT CONTRAST on DOS: 09/19/24 FINDINGS: PARENCHYMA: No acute hemorrhage. There is no mass effect, midline shift, or herniation. There is preservation of the oneal white differentiation. Mild scattered hypoattenuation along the periventricular, centrum semiovale, and deep white matter tracts, which are nonspecific however statistically most likely represent chronic microvascular ischemic change. VENTRICLES: No hydrocephalus. EXTRA-AXIAL SPACES: Subarachnoid hemorrhage over the left anterior frontal convexity OTHER: The bony structures are intact. Left forehead soft tissue swelling. IMPRESSION: 1. Subarachnoid hemorrhage over the left anterior frontal convexity. 2. No visualized intra-axial hemorrhage ATED BY: MC LEON MD DICTATED DATE/TIME: 03/24/251708 SIGNED BY: MC LEON MD SIGNED DATE/TIME: 03/24/251708 CC: Time of 1ST Reevaluation: 17:50 Reevaluation 1ST: Unchanged Patient Education/Counseling: Other (Patient is intoxicated) Family Education/Counseling: No Family Present SEPSIS Sepsis Screen Date sepsis recognized/suspect: Mar 24, 2025 Time Sepsis recognized/suspect: 1650 Recent Procedure: No On Antibiotic Therapy: No Respiratory Rate >20: No Heart Rate >90: No Temp<36 C (96.8 F) or >38.3 C: No SBP <90 or MAP <65 mmHG: No New Acute Mental Status Change: Yes Is the patient on CPAP, BIPAP,: No Physician Orders Head Without Contrast (03/24/25 16:23) Imaging Transfer Request (03/24/25 17:20) Vital Signs Date Time Temp Pulse Resp B/P (MAP) Pulse Ox O2 Delivery O2 Flow Rate FiO2 03/24/25 18:15 97.9 75 20 109/69 (82) 97 97.9 03/24/25 17:23 98.4 70 15 110/77 (88) 95 98.4 03/24/25 17:23 70 15 95 Room Air* 0 21 03/24/25 16:49 98.1 89 18 126/77 96 98.1 Departure 1 Departure Time of Disposition: 16:12 (To found likely has a traumatic subarachnoid hemorrhage. Patient emergently transferred to trauma center. For neurosurgical intervention) Impression: Primary Impression: Traumatic subarachnoid hemorrhage Additional Impression: Alcohol intoxication Disposition: 02 SHORT TERM HOSPITAL Condition: Critical Critical Care Note Critical Care Time?: Yes Critical care comment: Traumatic subarachnoid hemorrhage Authorized and Performed by: Rod Bahena MD Total critical care time: Approximately 86 minutes Due to a high probability of clinically significant, life threatening deter ioration, the patient required my highest level of preparedness to intervene emergently and I personally spent this critical care time directly and personally managing the patient. This critical care time included obtaining a history; examining the patient; pulse oximetry; ordering and review of studies; arranging urgent treatment with development of a management plan; evaluation of patient's response to treatment; frequent reassessment; and, discussions with other providers. This critical care time was performed to assess and manage the high probability of imminent, life-threatening deterioration that could result in multi-organ fa ilure. It was exclusive of separately billable procedures and treating other patients and teaching time. Please see my other sections and the rest of the note for further information on patient assessment and treatment. Stability Stability form required: No Heart Score Heart Score: Heart Score Response (Comments) Value History N/A 0 EKG N/A 0 Age N/A 0 Risk Factors N/A 0 Troponin N/A 0 Total 0 I personally scribed for ROD BAHENA MD ([email or web address]) on 03/24/25 at 18:13. Electronically submitted by Alan Mendoza ([email or web address]). ROD BAHENA MD Mar 24, 2025 18:13
[2025-03-24 18:15] VITALS: BP 109/69; PULSE 75; RESP 20; TEMP 97.9; O2SAT 97
== END 2025-03-24 18:56 | disposition short-term general hospital (02) ==
LOC: EDUNIT# 16:09 → EDBD 16:09 → ER 16:09
DX: S09.8XXA Other specified injuries of head, initial encounter (principal); Z79.899 Other long term (current) drug therapy; X58.XXXA Exposure to other specified factors, initial encounter; Y93.89 Activity, other specified; Y92.89 Other specified places as the place of occurrence of the external cause; Y99.8 Other external cause status
CPT/HCPCS: 70450

== ENCOUNTER 2025-04-28 18:40 | Emergency (ER) | payer MEDICAID ==
[~2025-04-28] VITALS: Ht 162.6 cm; Wt 59.0 kg
[2025-04-28 19:01] VITALS: BP 123/86; PULSE 103; RESP 20; TEMP 98.1; O2SAT 100
--- NOTE | 2025-04-28 20:13 | ED.PDOC ---
History of Present Illness HPI Comments 39-year-old male who came to ER via EMS for fall injury. Patient is seen here multiple times for seizures and alcohol intoxication. Was seen laying on the ground earlier. Unwitnessed fall. Patient states he fell few days ago. Noted dried blood at his forehead. Patient currently complaining of headaches. D enies drinking any alcohol today. Chief Complaint: Fall Injury Time Seen by MD: 20:13 Primary Care Provider: unknown Reviewed Notes: Nurses Notes Allergies: Coded Allergies: NO KNOWN ALLERGIES (Unverified , 03/22/22) Home Meds Active Scripts Multiple Vitamins W/ Minerals (Multivitamin & Multiminer) 1 Liq Liq, 1 LIQ PO DAILY for 90 Days, #120 LIQ 3 Refills Prov:RACHEAL WINTERS MD 02/08/25 Chlordiazepoxide Hcl (Librium) 25 Mg Cp, 25 MG GT Q6HP PRN, #30 CAP Prov:RACHEAL WINTERS MD 02/08/25 Levetiracetam (Keppra) 500 Mg Tab, 500 MG PO BID for 30 Days, #60 MG Prov:PATRICIO PHILLIPS MD 04/15/24 Thiamine HCl (Thiamine Hydrochloride) 100 Mg Tab, 100 MG PO DAILY for 5 Days, #5 TAB Prov:DAVID ROTIZ RESIDENT 03/01/24 Gabapentin (Gabapentin) 100 Mg Cap, 100 MG PO BID for 10 Days, #20 CAP Prov:DAVID ORTIZ RESIDENT 03/01/24 Levetiracetam (Keppra) 500 Mg Tab, 1 TAB PO BID, #180 TAB 3 Refills Prov:MARLYN LUQUE 12/16/22 Levetiracetam (KEPPRA TABLET) 500 Mg Tb, 500 MG PO BID for 30 Days, #60 TAB Prov:ANUSHA LARIOS MD 02/14/22 Reported Medications Levetiracetam (Keppra) 500 Mg Tab, 500 MG PO BID for 30 Days, MG 02/11/20 Information Source: Patient Mode of Arrival: EMS Past Medical History PAST MEDICAL HISTORY: Seizures Surgical History: Denies all surgeries Family History Family History: Reviewed,noncontributory to illness Social History Smoker: Non-Smoker Alcohol: Heavy Drugs: Denies Drug Use Lives In: Home Constitutional: denies: chills, diaphoresis, fatigue, fever, malaise, sweats, weakness, others EENTM: denies: blurred vision, double vision, ear bleeding, ear discharge, ear drainage, ear pain, ear ringing, eye pain, eye redness, hearing loss, mouth pain, mouth swelling, nasal discharge, nose bleeding, nose congestion, nose pain, photophobia, tearing, throat pain, throat swelling, voice changes, others Respiratory: denies: cough, hemoptysis, orthopnea, SOB at rest, shortness of breath, SOB with excertion, stridor, wheezing, others Cardiovascular: denies: chest pain, dizzy spells, diaphoresis, Dyspnea on exertion, edema, irregular heart beat, left arm pain, lightheadedness, palpitations, PND, syncope, others Gastrointestinal: denies: abdomen distended, abdominal pain, blood streaked bowels, constipated, diarrhea, dysphagia, difficulty swallowing, hematemesis, melena, nausea, poor appetite, poor fluid intake, rectal bleeding, rectal pain, vomiting, others Genitourinary: denies: burning, dysuria, flank pain, frequency, hematuria, incontinence, penile discharge, penile sore, pain, testicle pain, testicle swelling, urgency, others Neurological: denies: dizziness, fainting, headache, left sided numbness, left sided weakness, numbness, paresthesia, pre-existing deficit, right sided numbness, right sided weakness, seizure, speech problems, tingling, tremors, weakness, others Musculoskeletal: denies: back pain, gout, joint pain, joint swelling, muscle pain, muscle stiffness, neck pain, others Integumetry: denies: bruises, change in color, change in hair/nails, dryness, laceration, lesions, lumps, rash, wounds, others Allergic/Immunocompromised: denies: Difficulty Healing, Frequent Infections, Hives, Itching, others Hematologic/Lymphatic: denies: anemia, blood clots, easy bleeding, easy bruising, swollen glands, others Endocrine: denies: excessive hunger, excessive sweating, excessive thirst, excessive urination, flushing, intolerance to cold, intolerance to heat, unexpla ined weight gain, unexplained weight loss, others Psychiatric: denies: anxiety, bipolar disorder, depression, hopeless, panic disorder, schizophrenia, sleepless, suicidal, others Physical Exam General Appearance: No Apparent Distress, Normal HEENT: Normal ENT Inspection, Pharynx Normal, TMs Normal Neck: Full Range of Motion, Non-Tender, Normal, Normal Inspection Respiratory: Chest Non-Tender, Lungs Clear, No Accessory Muscle Use, No Respiratory Distress, Normal Breath Sounds Cardiovascular: No Edema, No JVD, No Murmur, No Gallop, Normal Peripheral Pulses, Regular Rate/Rhythm Breast Exam: Deferred Gastrointestinal: No Organomegaly, Non Tender, No Pulsatile Mass, Normal Bowel Sounds, Soft Genitalia: Deferred Pelvic: Deferred Rectal: Deferred Extremities: No calf tenderness, Normal capillary refill, Normal inspection, Normal range of motion, Non-tender, No pedal edema Musculoskeletal : Apperance: Normal Neurologic: Alert, jig maker II-XII nml as Tested, No Motor Deficits, Normal Affect, Normal Mood, No Sensory Deficits Cerebellar Function: Normal Reflexes: Normal Skin: Dry, Normal Color, Warm Lymphatic: No Adenopathy Was a procedure done? Was a procedure done?: No Differential Dx Considerations may include: Anemia, electrolyte imbalance, fall injury, head injury, alcohol intoxication, seizure X-Ray, Labs, Meds, VS Vital Signs Date Time Temp Pulse Resp B/P (MAP) Pulse Ox O2 Delivery O2 Flow Rate FiO2 04/28/25 19:01 98.1 103 20 123/86 100 98.1 PROCEDURE: CT HEAD WITHOUT CONTRAST Study Date and Requested Time: 04/28/2025 08:12 PM History: head injury COMPARISON: CT HEAD WITHOUT CONTRAST on DOS: 04/23/25, CT HEAD WITHOUT CONTRAST on DOS: 03/24/25, CT HEAD WITHOUT CONTRAST on DOS: 10/14/24 Dose: CTDI: 56.54 mGy DLP: 1.71 mGycm TECHNIQUE: Multiplanar images obtained through the brain without intravenous contrast. FINDINGS: Leny-tb-fqueckid Diffuse brain atrophy. Mild chronic small vessel ischemic changes. No hemorrhages, masses, mass effect, midline shift, herniation or cytotoxic edema following a large vascular territory. No intra-axial or extra-axial fluid collections. No evidence of hydrocephalus. The basal cisterns are patent. The pituitary gland, sella and parasellar regions are unremarkable. The cereb ellar tonsils are in normal position. The cerebellum is unremarkable. The orbits and globes are unremarkable. Mild mucoperiosteal thickening of the ethmoid air cells. Otherwise, the paranasal sinuses and mastoids are clear. There are no worrisome calvarial lesions. Mild mulw-iyjfdhx-wsuy-right frontal scalp and mild parietal scalp edema/hematoma. IMPRESSION: No evidence of acute intracranial abnormality. Time of 1ST Reevaluation: 20:10 Reevaluation 1ST: Unchanged Patient Education/Counseling: Diagnosis, Treatment Family Education/Counseling: No Family Present SEPSIS Sepsis Screen Date sepsis recognized/suspect: Apr 28, 2025 Time Sepsis recognized/suspect: 1844 Recent Procedure: No On Antibiotic Therapy: No Respiratory Rate >20: No Heart Rate >90: No Temp<36 C (96.8 F) or >38.3 C: No SBP <90 or MAP <65 mmHG: No New Acute Mental Status Change: No Is the patient on CPAP, BIPAP,: No Physician Orders Head Without Contrast (04/28/25 20:04) Vital Signs Date Time Temp Pulse Resp B/P (MAP) Pulse Ox O2 Delivery O2 Flow Rate FiO2 04/28/25 19:01 98.1 103 20 123/86 100 98.1 Departure 1 Departure Time of Disposition: 22:00 Impression: Primary Impression: Alcohol abuse Additional Impression: Head injury Disposition: HOME / SELF CARE / HOMELESS Condition: Stable Discharged With: Self Critical Care Note Critical Care Time?: No Stability Stability form required: No Heart Score Heart Score: Heart Score Response (Comments) Value History N/A 0 EKG N/A 0 Age N/A 0 Risk Factors N/A 0 Troponin N/A 0 Total 0 I personally scribed for RACHEAL WINTERS MD ([email or web address]) on 04/28/25 at 20:13. Electronically submitted by Evelio Capone ([employer]HA). I personally scribed for RACHEAL WINTERS MD ([email or web address]) on 04/28/25 at 21:08. Electronically submitted by Evelio Capone ([employer]). RACHEAL WINTERS MD Apr 28, 2025 20:13
--- NOTE | 2025-04-28 20:48 | DVH ---
PROCEDURE: CT HEAD WITHOUT CONTRAST Study Date and Requested Time: 04/28/2025 08:12 PM History: head injury COMPARISON: CT HEAD WITHOUT CONTRAST on DOS: 04/23/25, CT HEAD WITHOUT CONTRAST on DOS: 03/24/25, CT HEAD WITHOUT CONTRAST on DOS: 10/14/24 Dose: CTDI: 56.54 mGy DLP: 1.71 mGycm TECHNIQUE: Multiplanar images obtained through the brain without intravenous contrast. FINDINGS: [id number] Diffuse brain atrophy. Mild chronic small vessel ischemic changes. No hemorrhages, masses, mass effect, midline shift, herniation or cytotoxic edema following a large vascular territory. No intra-axial or extra-axial fluid collections. No evidence of hydrocephalus. The basal cisterns are patent. The pituitary gland, sella and parasellar regions are unremarkable. The cerebellar tonsils are in normal position. The cerebellum is unremarkable. The orbits and globes are unremarkable. Mild mucoperiosteal thickening of the ethmoid air cells. Otherwise, the paranasal sinuses and mastoids are clear. There are no worrisome calvarial lesions. Mild cvod-[id number]-uqdk-right frontal scalp and mild parietal scalp edema/hematoma. IMPRESSION: No evidence of acute intracranial abnormality.
== END 2025-04-28 21:49 | disposition home or self-care (01) ==
LOC: EDBD 18:40 → ER 18:40
DX: S09.8XXA Other specified injuries of head, initial encounter (principal); F10.129 Alcohol abuse with intoxication, unspecified; Z79.899 Other long term (current) drug therapy; W19.XXXA Unspecified fall, initial encounter; Y93.89 Activity, other specified; Y92.89 Other specified places as the place of occurrence of the external cause; Y99.8 Other external cause status
CPT/HCPCS: 70450